=== PATIENT | female | born 1970 | race Caucasian/White ===

== ENCOUNTER 2020-09-07 21:42 | Inpatient (IN) | payer OTHER, SELFPAY ==
--- NOTE | ~2020-09-07 | XR_ITS ---
XR chest 1V portable 09/19/2020 06:07 Indication: Acute respiratory failure. Pneumonia. Procedure: AP portable chest Comparison: Comparison to multiple prior studies sequentially, with oldest reviewed study dated 08/27. Findings: Endotracheal tube tip 3.1 cm above the benjamin. NG tube in the stomach. Persistent diffuse b ilateral airspace disease. Possible small effusions. No pneumothorax. No acute osseous abnormality. Impression: 1: Persistent diffuse bilateral airspace disease, compatible with pneumonia. Reviewed, dictated and finalized at location A. ENT INSPECTOR Impression: 1: Persistent diffuse bilateral airspace disease, compatible with pneumonia.
--- NOTE | ~2020-09-07 | CT_ITS ---
EXAMINATION: CT brain wo con EXAM DATE: 09/15/2020 12:57 INDICATION: Encephalopathy. TECHNIQUE: Spiral CT of the head was performed without contrast. Axial, coronal and sagittal images were reviewed. The dose-length product (DLP) for this examination was 681.00 mGy-cm. The exposure w as tailored according to patient size, and iterative reconstruction (ASIR) was used as additional dos e reduction technique. Comparison is made to prior examination from 02/27/2019. FINDINGS: There is no acute intraparenchymal hemorrhage. No evidence of intraparenchymal brain mass lesion. No evidence of acute infarction. Please note that initial head CT has limited sensitivity f or small or acute infarctions. There is moderate periventricular and subcortical hypodensity, nonspec ific but probably related to small vessel ischemic disease. This appears slightly progressed compare d to prior study. There is intracranial carotid arteriosclerosis. There are no extra-axial collectio ns. There is no mass effect or midline shift. Patient has had bilateral ocular lens surgery. Soft tissue is unremarkable. The visualized sinuses and mastoid air cells are well aerated. Fluid in th e dependent portion of the nasopharynx, in this patient who is intubated. IMPRESSION: 1. No acute intracranial findings. 2. 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 Reviewed, dictated and finalized at location A. IFIED NURSING ASSISTANT IMPRESSION: 1. No acute intracranial findings. 2. White matter hypodensity most likely microangiopathy, with mild progression compared to prior study.
--- NOTE | ~2020-09-07 | XR_ITS ---
EXAMINATION: XR chest PICC line INDICATION: PICC insertion TECHNIQUE: Portable AP chest at 1343 hours COMPARISON: 1259 hours FINDINGS: A right upper extremity PICC has been inserted which ends with its tip in the distal superi or vena cava. The endotracheal tube ends approximately 1 cm above the benjamin. There is no pleural eff usion or pneumothorax. The nasogastric tube is followed as far as the stomach. Its tip is beyond the inferior margin of the radiograph. The cardiomediastinal silhouette is stable. Diffuse lung disease p ersists with slight improvement in the upper lung zones. IMPRESSION: 1. Right upper PICC ending with its tip in the distal superior vena cava. 2. Diffuse lung disease with slight improvement in the upper lung zones, consistent with pneumonia an d/or pulmonary edema and/or acute respiratory distress syndrome (ARDS). Reviewed, dictated and finalized at location A. READING TEACHER IMPRESSION: 1. Right upper PICC ending with its tip in the distal superior vena cava. 2. Diffuse lung disease with slight improvement in the upper lung zones, consis tent with pneumonia and/or pulmonary edema and/or acute respiratory distress sy ndrome (ARDS).
--- NOTE | ~2020-09-07 | XR_ITS ---
EXAMINATION: XR chest 1V portable DATE: 09/11/2020 06:00 INDICATION: Asthma exacerbation. Acute respiratory failure. TECHNIQUE: A single frontal view of the chest was obtained. COMPARISON: Chest single view 09/10/2020 FINDINGS: The lung volumes are small. There are airspace opacities in all lung zones bilaterally. No pleural effusion or pneumothorax. Cardiomegaly is noted. The endotracheal tube tip is 1.6 cm above th e benjamin. The nasogastric tube tip is in the distal stomach. Surgical clips in the right upper quadra nt are likely from cholecystectomy. A right upper extremity peripherally inserted central venous cath eter (PICC) is seen with tip in the right atrium. IMPRESSION: 1. Diffuse lung disease with worsening on the right, consistent with pulmonary edema versus pneumonia . 2. Cardiomegaly. Reviewed, dictated and finalized at location A. RECEPTIONIST IMPRESSION: 1. Diffuse lung disease with worsening on the right, consistent with pulmonary edema versus pneumonia. 2. Cardiomegaly.
--- NOTE | ~2020-09-07 | XR_ITS ---
XR chest 1V portable 09/17/2020 02:45 Indication: Acute respiratory failure. Pneumonia. Procedure: AP portable chest Comparison: Comparison to multiple prior studies sequentially, with oldest reviewed study dated 08/26. Findings: NG tube in the stomach. Endotracheal tube tip 4 cm above the benjamin. Bilateral airspace dis ease, compatible with pneumonia. Small left pleural effusion. No pneumothorax. No acute osseous abnor mality. Impression: 1: No significant change to bilateral airspace disease, compatible with pneumonia. 2: Small left pleural effusion. Reviewed, dictated and finalized at location A. DEVELOPMENT ENGINEER Impression: 1: No significant change to bilateral airspace disease, compatible with pneumon ia. 2: Small left pleural effusion.
--- NOTE | ~2020-09-07 | XR_ITS ---
EXAMINATION: XR chest 1V portable EXAM DATE: 09/16/2020 05:45 INDICATION: Acute respiratory failure, pneumonia TECHNIQUE: Portable AP frontal chest x-ray was obtained. Comparison is made to prior examination from 09/16, 09/15. FINDINGS: Endotracheal tube tip is 3 centimeters above the benjamin (ideal range is between 2 to 5 cm). Nasogastric tube is in position. There is a right-sided PICC line with tip projecting over the cavoa trial junction. There is mild cardiomegaly. Pulmonary vascular congestion. Probable small to moderate pleural effusio ns and adjacent atelectasis. Superimposed atelectasis and edema or pneumonia also likely. There is n o pneumothorax suspected. The bones and soft tissues are unremarkable. There are cholecystectomy cl ips. Compared to prior study, there has been interval improvement in the heart size, pulmonary vascular co ngestion and pleural effusions. IMPRESSION: 1. Line(s) and tube(s) in position. 2. Improving congestive changes. 3. Bibasilar atelectasis and probably pneumonia. Reviewed, dictated and finalized at location A. TRIC METER INSTALLER
--- NOTE | ~2020-09-07 | XR_ITS ---
EXAMINATION: XR fl Dobhoff insert/rad w img DATE: 09/24/2020 15:09 INDICATION: Dysphagia. TECHNIQUE: I placed a nasoenteric tube under fluoroscopic guidance. One image was obtained. Fluorosco py exposure time was 0.7 minutes. COMPARISON: None. FINDINGS: The nasoenteric tube tip is in the proximal duodenum. Surgical clips in the right upper paulina drant are likely from cholecystectomy. IMPRESSION: 1. Nasoenteric tube tip in the proximal duodenum. Reviewed, dictated and finalized at location A. ITY TESTER
--- NOTE | ~2020-09-07 | XR_ITS ---
EXAMINATION: XR barium swallow modified EXAM DATE: 09/27/2020 09:59 INDICATION: Dysphagia. TECHNIQUE: Modified barium esophagram was performed by myself to administered fluoroscopy, in conjun ction with speech pathologist who administered barium in varying consistencies as per speech patholog ist documentation. This was recorded on tape. The DAP for this procedure was 1.3 Gycm2. FINDINGS: Oral stage: Adequate function. Pharyngeal phase: Adequate function. Laryngeal penetration: Trace with thin liquids, ejected. Aspiration: None. Laryngeal sensitivity: Present. IMPRESSION: Patient tolerated oral feedings in the upright position. Please refer to speech patholo gist findings and specific feeding recommendations. Reviewed, dictated and finalized at location A. S ROOM SUPERVISOR IMPRESSION: Patient tolerated oral feedings in the upright position. Please r efer to speech pathologist findings and specific feeding recommendations.
--- NOTE | ~2020-09-07 | CT_ITS ---
EXAMINATION: CT brain wo con DATE: 09/19/2020 11:39 INDICATION: Encephalopathy. TECHNIQUE: Computed tomography (CT) of the head was performed without intravenous contrast. The mA wa s adjusted according to patient size. Iterative reconstruction technique was employed. The dose-lengt h product was 681.00 mGy-cm. COMPARISON: Head CT 09/15/2020 FINDINGS: There are scattered areas of low attenuation in the cerebral white matter. There is no intr acranial hemorrhage, acute infarction, or abnormal intracranial mass lesion. The ventricles are martha l in size. There is mild mucosal thickening in the paranasal sinuses. There is fluid in the sphenoid sinus and nasopharynx. There is a right mastoid effusion. There is a left otomastoid effusion. There are likely changes of ocular lens replacement surgeries. IMPRESSION: 1. Stable moderate nonspecific cerebral white matter disease, which likely represents chronic small v essel ischemic disease. Reviewed, dictated and finalized at location A. HOBBER SET UP OPERATOR IMPRESSION: 1. Stable moderate nonspecific cerebral white matter disease, which likely repr esents chronic small vessel ischemic disease.
--- NOTE | ~2020-09-07 | CT_ITS ---
EXAMINATION: CTA chest PE protocol DATE: 09/07/2020 23:57 INDICATION: Chest pain TECHNIQUE: Computed tomography angiography (CTA) of the chest was performed with 100 mL Omnipaque-350 intravenous contrast timed to evaluate the pulmonary arteries. Coronal maximum intensity projection 3D-reconstructions were created by the technologist. Automated exposure control and iterative reconst ruction technique were employed. Exam dose: 700.81 mGy-cm total exam DLP. COMPARISON: 02/27/2019 CT pulmonary scan FINDINGS: Cardiomegaly. No pericardial or pleural effusion. No thoracic aortic aneurysm or dissection. No hilar or mediastinal mass lesion or lymphadenopathy. There is diagnostic contrast enhancement of the pulmonary arteries and no evidence of pulmonary embol ism. There is atelectasis involving the middle lobe, lingula and both lower lobes.. Small sliding hiatal hernia. Status post cholecystectomy. Normal morphology of the adrenal glands. Small bilateral nonobstructing renal calculi. Diffuse osteopenia. There are numerous compression fracture deformities of the thoracic spine. IMPRESSION: Middle lobe, lingular and bilateral lower lobe atelectasis No evidence of pulmonary embolism Cardiomegaly. Small sliding hiatal hernia Status post cholecystectomy Small nonobstructing renal calculi Reviewed, dictated and finalized at Location A. Reviewed, dictated and finalized at location A. NING CLERK
--- NOTE | ~2020-09-07 | XR_ITS ---
EXAMINATION: XR chest 1V portable EXAM DATE: 09/24/2020 06:01 INDICATION: acute resp failure . TECHNIQUE: Portable AP frontal chest x-ray was obtained. Comparison is made to prior examination from 09/23/2020. FINDINGS: There is a right-sided PICC line with tip projecting over the cavoatrial junction. Some patchy bibasilar atelectasis or infection. Possible small right pleural effusion. No pneumothora x. Cardiac silhouette is enlarged but stable in size compared to prior exam. There are mild bony dege nerative changes. There are cholecystectomy clips. IMPRESSION: Patchy bibasilar atelectasis or infection unchanged. Reviewed, dictated and finalized at location A. GER AUDIO
--- NOTE | ~2020-09-07 | XR_ITS ---
EXAMINATION: XR chest 1V portable DATE: 09/10/2020 06:23 INDICATION: Respiratory failure. Asthma. COVID-19 negative on 09/09/2020. TECHNIQUE: A single frontal view of the chest was obtained. COMPARISON: Chest single view 09/09/2020, chest CT 09/07/2020 FINDINGS: Sensitivity is decreased by obesity. There are airspace opacities in right lower lung zone and in all the left lung zones. No pleural effusion or pneumothorax. Cardiomegaly is noted. The endot laura tube tip is 1.2 cm above the benjamin. The nasogastric tube tip is in the distal stomach. Surgi richard clips in the right upper quadrant are likely from cholecystectomy. A right upper extremity periph erally inserted central venous catheter (PICC) is seen with tip in the right atrium. IMPRESSION: 1. Airspace opacities in right lower lung zone and in all the left lung zones with worsening on the l eft, consistent with pneumonia. 2. Cardiomegaly. Reviewed, dictated and finalized at location A. IC POLICY MEDIATOR IMPRESSION: 1. Airspace opacities in right lower lung zone and in all the left lung zones w ith worsening on the left, consistent with pneumonia. 2. Cardiomegaly.
--- NOTE | ~2020-09-07 | XR_ITS ---
XR chest 1V portable DATE: 09/23/2020 06:03 INDICATION: Acute respiratory failure TECHNIQUE: Portable AP chest on 09/23/2020 at 0558 hours COMPARISON: 09/22/2020 portable AP chest at 0610 hours FINDINGS: Right upper extremity PIC catheter tip overlies the superior vena cava. Infiltrate and/atelectasis in the lower lung zones bilaterally, relatively stable since 09/14/2020. Heart size appears within normal range. No pneumothorax. Status post cholecystectomy Diffuse osteopenia. Multiple compression fracture deformities thoracic spine. IMPRESSION: Relatively stable infiltrate and/atelectasis in the lower lung zones since 09/22/2020 Reviewed, dictated and finalized at location A. AND FRAME MECHANIC IMPRESSION: Relatively stable infiltrate and/atelectasis in the lower lung zone s since 09/22/2020
--- NOTE | ~2020-09-07 | XR_ITS ---
EXAMINATION: XR chest 1V portable DATE: 09/13/2020 05:43 INDICATION: Asthma exacerbation. TECHNIQUE: A single frontal view of the chest was obtained. COMPARISON: Chest single view 09/12/2020 FINDINGS: There are airspace opacities in all right lung zones and in left mid and lower lung zones w ith a basilar predominance. No pleural effusion or pneumothorax. Cardiomegaly is noted. The endotrach eal tube tip is 3.2 cm above the benjamin. The nasogastric tube tip is in the distal stomach. A right u pper extremity peripherally inserted central venous catheter (PICC) is seen with tip at superior cavo atrial junction. Surgical clips in the right upper quadrant are likely from cholecystectomy. IMPRESSION: 1. Stable diffuse lung disease with a basilar predominance, consistent with atelectasis and pulmonary edema versus pneumonia. 2. Cardiomegaly. Reviewed, dictated and finalized at location A. OECONOMICS PROFESSOR IMPRESSION: 1. Stable diffuse lung disease with a basilar predominance, consistent with ate lectasis and pulmonary edema versus pneumonia. 2. Cardiomegaly.
--- NOTE | ~2020-09-07 | XR_ITS ---
EXAMINATION: XR chest 1V portable EXAM DATE: 09/26/2020 05:42 INDICATION: Acute respiratory failure. TECHNIQUE: Portable AP frontal chest x-ray was obtained. Comparison is made to prior examination from 09/25/2020. FINDINGS: Dobhoff tube with tip overlying expected position of duodenal bulb. There is a right-sided PICC line with tip projecting over the cavoatrial junction. Scattered patchy bibasilar atelectasis and/or infection. Possible small right pleural effusion. No pn eumothorax. Cardiac silhouette is enlarged but stable in size compared to prior exam. There are mild bony degenerative changes. There are cholecystectomy clips. IMPRESSION: Patchy bibasilar atelectasis and/or infection unchanged. Reviewed, dictated and finalized at location A. H LAYER
--- NOTE | ~2020-09-07 | XR_ITS ---
XR chest 1V portable DATE: 09/20/2020 06:44 INDICATION: Acute respiratory failure, pneumonia TECHNIQUE: Portable AP chest on 09/20/2020 at 0633 hours COMPARISON: 09/19/2020 portable AP chest at 0602 hours 09/19/2020 CT chest FINDINGS: There are bilateral lower lung infiltrates and/atelectasis involving the lower lobes. These appear mildly improved since 09/19/2020. Cardiomegaly. ET tube in satisfactory position. NG tube tip in distal stomach. Right upper extremity PIC catheter tip near superior cavoatrial junction. Status post cholecystectomy. IMPRESSION: Bilateral predominantly lower lobe infiltrate and/atelectasis, appearing mildly improved since 09/19/2020 Reviewed, dictated and finalized at location A. S AND CRANES INSPECTOR IMPRESSION: Bilateral predominantly lower lobe infiltrate and/atelectasis, appe vega mildly improved since 09/19/2020
--- NOTE | ~2020-09-07 | XR_ITS ---
EXAMINATION: XR chest 1V portable DATE: 09/14/2020 06:17 INDICATION: Asthma exacerbation. Acute respiratory failure. TECHNIQUE: A single frontal view of the chest was obtained. COMPARISON: Chest single view 09/13/2020 FINDINGS: The lung volumes are small. There are airspace opacities in the mid and lower lung zones wi th a basilar predominance. No pleural effusion or pneumothorax. Cardiomegaly is noted. The endotrache al tube tip is 3.1 cm above the benjamin. The nasogastric tube tip is beyond the inferior margin of the radiograph, but at least to the stomach. A right upper extremity peripherally inserted central venou s catheter (PICC) is seen with tip at the superior cavoatrial junction. IMPRESSION: 1. Airspace opacities in the mid and lower lung zones with improvement on the right, consistent with atelectasis versus pneumonia. 2. Cardiomegaly. Reviewed, dictated and finalized at location A. OMER DEVELOPMENT MANAGER IMPRESSION: 1. Airspace opacities in the mid and lower lung zones with improvement on the r ight, consistent with atelectasis versus pneumonia. 2. Cardiomegaly.
--- NOTE | ~2020-09-07 | XR_ITS ---
EXAMINATION: XR chest ET placement INDICATION: Respiratory failure TECHNIQUE: Portable AP chest at 1219 hours COMPARISON: 09/08/2020 FINDINGS: An endotracheal tube has been inserted which ends with its tip at the origin of the right m ainstem bronchus. A nasogastric tube has been inserted which ends in the stomach. There are patchy op acities of the mid and lower lung zones, left greater than right. No pleural effusion or pneumothorax is identified. The cardiomediastinal silhouette is stable. IMPRESSION: 1. Endotracheal tube at the origin of the right mainstem bronchus. Recommend repositioning. These fin dings and recommendations were discussed with IMU at 1235 hours on 09/09/2020. 2. Nasogastric tube in the stomach. 3. Patchy opacities of the mid and lower lung zones, consistent with atelectasis versus pneumonia. Reviewed, dictated and finalized at location A. SHOP KEEPER IMPRESSION: 1. Endotracheal tube at the origin of the right mainstem bronchus. Recommend re positioning. These findings and recommendations were discussed with IMU at 1235 hours on 09/09/2020. 2. Nasogastric tube in the stomach. 3. Patchy opacities of the mid and lower lung zones, consistent with atelectasi s versus pneumonia.
--- NOTE | ~2020-09-07 | XR_ITS ---
XR chest 1V portable 09/18/2020 06:05 Indication: Pneumonia. Respiratory failure. Procedure: AP portable chest Comparison: Comparison to multiple prior studies sequentially, with oldest reviewed study dated 08/27. Findings: Endotracheal tube tip 1.7 cm above the benjamin. NG tube in the stomach. Low lung volumes. Pe rsistent diffuse bilateral airspace disease. No pneumothorax. No acute osseous abnormality. Cardiomeg wally. Right subclavian PICC line tip in the SVC. Impression: 1: No significant change to bilateral airspace disease, compatible with pneumonia. Reviewed, dictated and finalized at location A. RAL CONTRACTOR Impression: 1: No significant change to bilateral airspace disease, compatible with pneumon ia.
--- NOTE | ~2020-09-07 | XR_ITS ---
EXAMINATION: XR chest ET placement INDICATION: Repositioned endotracheal tube TECHNIQUE: Portable AP chest at 1259 hours COMPARISON: 1219 hours FINDINGS: The repositioned endotracheal tube ends approximately 1 cm above the benjamin. The nasogastri c tube is in the stomach. Diffuse lung disease is unchanged. The cardiomediastinal silhouette is stab le. There is no pleural effusion or pneumothorax. IMPRESSION: 1. Repositioned endotracheal tube ending approximately 1 cm above the benjamin. Otherwise no change. Reviewed, dictated and finalized at location A. SEALER IMPRESSION: 1. Repositioned endotracheal tube ending approximately 1 cm above the benjamin. O therwise no change.
--- NOTE | ~2020-09-07 | XR_ITS ---
XR chest 1V portable DATE: 09/22/2020 06:21 INDICATION: Acute respiratory failure TECHNIQUE: Portable AP chest on 09/22/2020 at 0610 hours COMPARISON: Portable AP chest on 09/20/2020 at 0633 hours FINDINGS: Right upper extremity PIC catheter tip overlies superior vena cava. ET and NG tubes have be en removed since 09/20/2020. Relatively low lung volumes with prominent atelectasis and/or consolidation at the lung bases. Cardiomegaly. No pneumothorax. Surgical clips, right upper quadrant, consistent with cholecystectomy. Prominent diffuse osteopenia. There is levoscoliosis of the thoracolumbar spine and evidence of multi ple vertebral fracture deformities IMPRESSION: Removal of ET and NG tubes since 09/20/2020 Prominent bibasilar atelectasis and/or consolidation, increased since 09/20/2020 Cardiomegaly Reviewed, dictated and finalized at location A. NE SPECIALIST IMPRESSION: Removal of ET and NG tubes since 09/20/2020 Prominent bibasilar atelectasis and/or consolidation, increased since 0 Cardiomegaly
--- NOTE | ~2020-09-07 | XR_ITS ---
EXAMINATION: XR chest 1V portable EXAM DATE: 09/08/2020 16:47 INDICATION: SOB, covid PUI . TECHNIQUE: Portable AP frontal chest x-ray was obtained. Comparison is made to prior examination from 02/27/2019. FINDINGS: Again there are scattered linear opacities consistent with atelectasis. Appearance is not s ignificantly changed compared to prior study. No pneumothorax or pleural effusion. The cardiomediasti nal silhouette is prominent but magnified on this AP technique. There are cholecystectomy clips. Ther e are mild bony degenerative changes. IMPRESSION: Scattered linear opacities, subsegmental atelectasis. Reviewed, dictated and finalized at location A. ATIONS RESEARCH MANAGER
--- NOTE | ~2020-09-07 | XR_ITS ---
XR chest 1V portable 09/25/2020 06:21 Indication: Acute respiratory failure Procedure: AP portable chest Comparison: Comparison to multiple prior studies sequentially, with oldest reviewed study dated 08/27. Findings: Feeding tube in the stomach. PICC line tip in the SVC. Stable cardiomediastinal silhouette. Persistent diffuse bilateral airspace disease, not significantly changed. No pneumothorax. No signif icant pleural effusion. Impression: 1: Stable bilateral airspace disease, most confluent in the left lower lung, most likely pneumonia. E olivia less favored. Reviewed, dictated and finalized at location D. T LOADER RESIDENTIAL DRIVER Impression: 1: Stable bilateral airspace disease, most confluent in the left lower lung, mo st likely pneumonia. Edema less favored.
--- NOTE | ~2020-09-07 | XR_ITS ---
EXAMINATION: XR chest 1V portable DATE: 09/12/2020 06:07 INDICATION: Asthma exacerbation. Acute respiratory failure. TECHNIQUE: A single frontal view of the chest was obtained. COMPARISON: Chest single view 09/11/2020 FINDINGS: The patient is rotated to her right. The lung volumes are small. There are airspace opaciti es in all lung zones bilaterally with a lower lung predominance. No pleural effusion or pneumothorax. Cardiomegaly is noted. The endotracheal tube tip is 2.3 cm above the benjamin. The nasogastric tube ti p is in the stomach. A right upper extremity peripherally inserted central venous catheter (PICC) is seen with tip in the right atrium. IMPRESSION: 1. Diffuse lung disease with worsening at the lung bases, consistent with pulmonary edema versus pneu monia. 2. Cardiomegaly. Reviewed, dictated and finalized at location A. CLERK IMPRESSION: 1. Diffuse lung disease with worsening at the lung bases, consistent with pulmo nary edema versus pneumonia. 2. Cardiomegaly.
--- NOTE | ~2020-09-07 | CT_ITS ---
EXAMINATION:CT chest w con DATE: 09/19/2020 11:39 INDICATION: Acute respiratory failure. Abnormal chest radiograph. TECHNIQUE: Computed tomography (CT) of the chest was performed with 75 mL Omnipaque 350 intravenous c ontrast. Automated exposure control and iterative reconstruction technique were employed. The dose-le ngth product (DLP) was 662.09 mGy-cm. COMPARISON: Chest CT 09/07/2020 FINDINGS: The lung volumes are small. There is bilateral atelectasis, worst in the lower lobes. Calci fied right lung nodules are consistent with old granulomatous disease. No pleural effusion. Cardiomeg wally is noted. No pericardial effusion. There is no pulmonary embolus. The endotracheal tube tip is in expected position above the benjamin. The nasogastric tube tip is in the distal stomach. There are lulu nges of cholecystectomy. Mediastinal lipomatosis is noted. There are chronic fractures of most of the vertebral bodies. There is mild thoracic spondylosis. IMPRESSION: 1. Small lung volumes with bilateral atelectasis, worst in the lower lobes. 2. Cardiomegaly. Reviewed, dictated and finalized at location A. HT OPERATIONS SPECIALIST
--- NOTE | ~2020-09-07 | XR_ITS ---
EXAMINATION: XR chest 1V portable EXAM DATE: 09/15/2020 05:48 INDICATION: asthma exacerbation, acute respiratory failure . TECHNIQUE: Portable AP frontal chest x-ray was obtained. Comparison is made to prior examination from 09/14/2020, 09/13. FINDINGS: Endotracheal tube tip is 2-3 centimeters above the benjamin (ideal range is between 2 to 5 cm ). There is a nasogastric tube seen with tip collimated off the study, but below the left hemidiaphr agm. There is a right-sided PICC line with tip projecting over the cavoatrial junction. There is moderate cardiomegaly. Pulmonary vascular congestion. Probable moderate pleural effusions an d adjacent atelectasis. Superimposed edema or pneumonia also likely. There is no pneumothorax suspec len. The bones and soft tissues are unremarkable. There is no significant interval change compared to prior exam. IMPRESSION: 1. Line(s) and tube(s) in position. 2. Stable airspace disease and other findings as above. Reviewed, dictated and finalized at location A. ER INSERTION LOOM FIXER
--- NOTE | ~2020-09-07 | XR_ITS ---
EXAMINATION: XR abdomen NG/feed tube insert INDICATION: Nasogastric tube placement TECHNIQUE: Portable AP KUB-NG at 1220 hours COMPARISON: 10/26/2018 FINDINGS: The nasogastric tube is in the stomach. Airspace opacities are present in the visualized duane ngs. The inserted endotracheal tube ends at the origin of the right mainstem bronchus. This has been communicated to the IMU. A moderate volume of colonic stool is present. IMPRESSION: 1. Nasogastric tube in the stomach. Reviewed, dictated and finalized at location A. EYBALL REFEREE
[2020-09-07 21:46] VITALS: BP 154/132; PULSE 111; RESP 22; TEMP 37; O2SAT 100
--- NOTE | 2020-09-07 21:56 | ECG_ITS ---
Measurements Intervals [place] Rate: 114 P: 24 HI: 153 QRS: -13 QRSD: 102 T: -61 QT: 343 QTc: 472 Interpretive Statements SINUS TACHYCARDIA RSR' IN V1 OR V2, CONSIDER RIGHT VENTRICULAR HYPERTROPHY OR RIGHT VCD BASELINE ARTIFACT- I, II, III, AVR, AVL, AVF, V1-V6 ABNORMAL ECG Electronically Signed On 09-14-2020 9:20:26 [employer] by Orlando Zendejas D.O.
--- NOTE | 2020-09-07 22:03 | ED.SOB ---
HPI - SOB/Dyspnea General Chief Complaint: Shortness of Breath/Dyspnea <Tony Herrera MD - Last Filed: 09/08/20 12:16> Stated Complaint: sob <Tony Herrera MD - Last Filed: 09/08/20 12:16> Time Seen by Provider: 09/07/20 21:58 <Tony Herrera MD - Last Filed: 09/08/20 12:16> History of Present Illness HPI Narrative: 50 yo female w/ h/o asthma present to the ED for SOB and chest pain. She has had sharp chest pain for the past few days. Worse with taking a deep breath and coughing. This is associated with SOB. She has had a cough and reports fever up to 102. She was apparently recently diagnosed with pneumonia and may have been exposed to COVID-19. <Tony Herrera MD - Last Filed: 09/08/20 12:16> Related Data Home Medications: Home Medications Medication Instructions Recorded Confirmed amlodipine 5 mg PO DAILY 09/08/20 09/08/20 atorvastatin 20 mg PO DAILY 09/08/20 09/08/20 clonazepam 0.5 mg PO TID 09/08/20 09/08/20 furosemide 20 mg PO DAILY 09/08/20 09/08/20 gabapentin 800 mg PO TID 09/08/20 09/08/20 levetiracetam 750 mg PO BID 09/08/20 09/08/20 paroxetine HCl 40 mg PO QAM 09/08/20 09/08/20 potassium chloride 10 meq PO BID 09/08/20 09/08/20 trazodone 150 mg PO HS 09/08/20 09/08/20 <Tony Herrera MD - Last Filed: 09/08/20 12:16> Allergies/Adverse Reactions: Allergies Allergy/AdvReac Type Severity Reaction Status Date / Time naproxen Allergy Unknown Verified 11/26/18 08:31 NSAIDS (Non-Steroidal Allergy Unknown Verified 11/26/18 08:31 Anti-Inflamma tramadol Allergy Unknown Verified 11/26/18 08:31 <Tony Herrera MD - Last Filed: 09/08/20 12:16> Review of Systems Review of Systems: All systems reviewed & are unremarkable except as noted in HPI and below <Tony Herrera MD - Last Filed: 09/08/20 12:16> Constitutional: Constitutional: Reports chills and Reports fever(s) <Tony Herrera MD - Last Filed: 09/08/20 12:16> ENT: Reports sore throat <Tony Herrera MD - Last Filed: 09/08/20 12:16> Cardiovascular: Cardiovascular: Reports chest pain <Tony Herrera MD - Last Filed: 09/08/20 12:16> Respiratory: Respiratory: Reports cough, Reports dyspnea and Reports wheezing <Tony Herrera MD - Last Filed: 09/08/20 12:16> Gastrointestinal: Gastrointestinal: Denies abdominal pain <Tony Herrera MD - Last Filed: 09/08/20 12:16> Genitourinary: Genitourinary: Denies hematuria and Denies dysuria <Tony Herrera MD - Last Filed: 09/08/20 12:16> Neurologic: Denies dizziness and Denies weakness <Tony Herrera MD - Last Filed: 09/08/20 12:16> [facility] Past Medical History Medical History: Medical History (Updated 09/08/20 @ 16:34 by Vanna Bob PA-C) Anxiety and depression Asthma History of CHF (congestive heart failure) Hypertension Hypokalemia Seizure disorder <Tony Herrera MD - Last Filed: 09/08/20 12:16> Surgical History Surgical History: Surgical History (Updated 09/08/20 @ 16:28 by Vanna Bob PA-C) History of appendectomy History of cholecystectomy History of hysterectomy <Tony Herrera MD - Last Filed: 09/08/20 12:16> Family History Family History: Family History Father Family history of coronary artery disease Mother Family history of coronary artery disease <Tony Herrera MD - Last Filed: 09/08/20 12:16> Social History Social History: Social History (Updated 09/08/20 @ 16:29 by Vanna Bob PA-C) Social History: lifetime nonsmoker, does not drink alcohol, and does not do drugs. She does not work and stays home. Her , Xavi and her son Mario are her surrogate decision makers. Full code Smoking status: Never smoker Second hand tobacco smoke exposure: Yes Alcohol intake: never Substance use: never Substance use type: does no
[2020-09-07 23:08] LABS: Basophils Percent Auto 0.3 % (0.2-1.2); Eosinophils Absolute Auto 0.1 K/mm3 (0-0.3); Eosinophils Percent Auto 0.8 % (0-4.4); Hematocrit 43.3 % (37.0-47.0); Hemoglobin 14.2 g/dL (12.0-15.0); Immature Granulocyte Absolute 0.03 K/mm3 (0.00-0.031); Immature Granulocyte Percent A 0.5 % (0-0.5); Lymphocytes Absolute Auto 2.56 K/mm3 (0.9-3.2); Lymphocytes Percent Auto 39.1 % (18.3-44.2); Mean Corpuscular HGB Conc 32.8 g/dl (32-36); Mean Corpuscular Hemoglobin 29.1 pg (26-34); Mean Corpuscular Volume 88.7 fl (80-100); Mean Platelet Volume 8.5 fl (7.4-10.4); Monocytes Absolute Auto 0.7 K/mm3 (0.1-0.6); Monocytes Percent Auto 10.1 % (2.6-8.5); Neutrophils Absolute Auto 3.2 K/mm3 (1.3-6.7); Neutrophils Percent Auto 49.2 % (45.5-73.1); Platelet Count Result 343 k/mm3 (150-375); Red Blood Count 4.88 M/mm3 (4.2-5.4); Red Cell Distribution Width 14.6 % (11.5-14.5); White Blood Count 6.6 K/mm3 (4.5-10.0)
[2020-09-07] MEDS: SODIUM CHLORIDE 0.9% IV 1,000 ML 999 ML IV CONT (23:19)
[2020-09-07 23:20] LABS: Anion Gap 10 mmol/L (8-16); Blood Urea Nitrogen 13 mg/dL (7-17); Carbon Dioxide 25 mmol/L (22-30); Chloride 103 mmol/L (98-107); Estimated Glomerular Filt Rate > 60; Glucose 92 mg/dL (65-105); Potassium 3.5 mmol/L (3.4-5.0); Sodium 138 mmol/L (137-145)
[2020-09-08] VITALS (9 sets, daily range): BP systolic 112–145; BP diastolic 63–85; PULSE 83–113; RESP 19–30; TEMP 36.1–36.9; O2SAT 93–100
[2020-09-08 00:21] LABS: Alveolar/Arterial O2 Gradient 147.4 mmHg; Base Excess ABG -3.7 mEq/l (+/-2.0); Fractional Inspired Oxygen 32 %; HCO3 ABG 22.5 mEq/l (22.0-26.0); Oxygen Content ABG 9.6 %vol (16.0-22.0); Oxyhemoglobin 48.7 % THb (90.0-100.0); PCO2 ABG 44.7 mmHg (35.0-45.0); PO2 FiO2 Ratio Arterial Blood 0.89 %; Total Hemoglobin 14.1 g/dL (12.0-18.0); pH ABG 7.319 (7.350-7.450)
[2020-09-08 00:24] LABS: PO2 ABG 28.5 mmHg (80.0-100.0)
[2020-09-08 00:25] LABS: Device NASAL CANNULA; Modified Allen's Test Pass; Oxygen Saturation ABG 48.6 % (95.0-100.0); Site Drawn LEFT RADIAL
[2020-09-08] MEDS: ALBUTEROL SULFATE (*SP) AEROSOL 1 PUFF 8 PUFF INHALATION (02:22)
[2020-09-08] MEDS: methylPREDNISolone SOD SUCC 125 MG VIAL IV PUSH (02:39)
[2020-09-08] MEDS: EPINEPHrine HCL INJ 1 MG/ML AMPUL 0.3 MG IM (02:41)
[2020-09-08 02:42] LABS: Alveolar/Arterial O2 Gradient 111.5 mmHg; Base Excess ABG -4.8 mEq/l (+/-2.0); Carboxyhemoglobin 0.3 % THb (0-2.0); Fractional Inspired Oxygen 32 %; HCO3 ABG 21.3 mEq/l (22.0-26.0); Methemoglobin ABG 0.2 %THb (0-1.5); Oxygen Content ABG 18.5 %vol (16.0-22.0); Oxygen Saturation ABG 91.6 % (95.0-100.0); Oxyhemoglobin 90.9 % THb (90.0-100.0); PCO2 ABG 42.8 mmHg (35.0-45.0); PO2 ABG 66.6 mmHg (80.0-100.0); PO2 FiO2 Ratio Arterial Blood 2.08 %; Reduced Hemoglobin 8.6 %THb (0-5.0); Total Hemoglobin 14.5 g/dL (12.0-18.0); pH ABG 7.314 (7.350-7.450)
[2020-09-08] MEDS: MAGNESIUM SULF 2 GM/WATER 50ML 2 GM/50 ML BAG IVPB ×2 (02:45→17:29)
--- NOTE | 2020-09-08 03:50 | P.HP_ITS ---
H&P: HPI History of Present Illness Date/Time: 09/08/20 03:50 Chief complaint: sob Narrative: Patria Corral is a 50 year old female [facility], [facility] Past Medical History Medical History (Updated 09/07/20 @ 23:36 by Tony Herrera MD) Asthma Family History Family History (Updated 11/26/18 @ 08:30 by DOCTOR UNKNOWN) Father Family history of coronary artery disease Mother Family history of coronary artery disease Social History Social History Smoking status: Never smoker Meds Home Medications and Allergies Allergies Allergy/AdvReac Type Severity Reaction Status Date / Time naproxen Allergy Unknown Verified 11/26/18 08:31 NSAIDS (Non-Steroidal Allergy Unknown Verified 11/26/18 08:31 Anti-Inflamma tramadol Allergy Unknown Verified 11/26/18 08:31 Vital Signs Vital Signs - 24 hr 09/07/20 21:46 09/08/20 02:23 Temperature 98.6 F Pulse Rate 111 H 113 H Respiratory Rate 22 H 23 H Blood Pressure 154/132 H Pulse Oximetry 100 H&P: Results Labs Labs: Short CBC 09/07/20 Range/Units 22:59 WBC 6.6 (4.5-10.0) K/mm3 Hgb 14.2 (12.0-15.0) g/dL Hct 43.3 (37.0-47.0) % Plt Count 343 (150-375) k/mm3 [facility] 09/07/20 22:59 Sodium 138 Potassium 3.5 Chloride 103 Carbon Dioxide 25 BUN 13 Creatinine 0.60 L Glucose 92 Calcium 10.0
[2020-09-08 04:06] LABS: Device NASAL CANNULA; Modified Allen's Test Pass; Site Drawn RIGHT RADIAL
[2020-09-08 05:41] LABS: Lactic Acid Reflex 2.9 mmol/L (0.7-2.1)
[2020-09-08 05:42] LABS: Alanine Aminotransferase 21 U/L (4-35); Albumin Level 4.6 g/dL (3.5-5.1); Alkaline Phosphatase 101 U/L (38-126); Aspartate Amino Transferase 30 U/L (14-36); Bilirubin,Total 0.4 mg/dL (0.2-1.3); Magnesium 2.3 mg/dL (1.6-2.3)
--- NOTE | 2020-09-08 07:36 | PC.NURSE ---
Pt is in pain. I brought her tylenol and she said no do not worry about it.
[2020-09-08 08:19] LABS: Reflex Lactic Acid Yes or No Add Lactic
[2020-09-08 08:58] LABS: Lactic Acid 1.9 mmol/L (0.7-2.1)
--- NOTE | 2020-09-08 09:32 | PC.NURSE ---
This patient, Patria Corral, was admitted to 3 Med Surg Room 329-01. Patient/family oriented to hospital policies and general routines including ID bracelet, bed and alarms, visiting hours, pain management, procedures, bathroom and other care routines, personal items, smoking policy, room service/diet, and visiting hours. Information on how to activate the Rapid Response Team has been discussed. Patient/Family are encouraged to report perceived risks to care and to ask questions if they do not understand what they are told or what they should do.
[2020-09-08] MEDS: ACETAMINOPHEN 325 MG TABLET 650 MG PO ×2 (10:12→19:53)
[2020-09-08] MEDS: SODIUM CHLORIDE 0.9% IV 1,000 ML 125 ML IV CONT (10:12)
[2020-09-08] MEDS: ENOXAPARIN 40 MG/0.4 ML SYRINGE SUB-Q (10:13)
[2020-09-08] MEDS: clonazePAM (*CRX) 0.5 MG TABLET PO ×2 (12:08→20:29)
[2020-09-08] MEDS: GABAPENTIN 400 MG CAPSULE 800 MG PO ×2 (12:08→17:30)
[2020-09-08] MEDS: PARoxetine 20 MG TABLET 40 MG PO (12:08)
[2020-09-08] MEDS: amLODIPine BESYLATE 5 MG TABLET PO (12:08)
[2020-09-08] MEDS: FUROSEMIDE 20 MG TABLET PO (12:09)
[2020-09-08] MEDS: POTASSIUM CHLORIDE 10 MEQ TABLET.ER PO ×2 (12:09→17:30)
[2020-09-08] MEDS: levETIRAcetam 250 MG TABLET 750 MG PO ×2 (12:09→20:29)
[2020-09-08] MEDS: ATORVASTATIN 20 MG TABLET PO (12:09)
[2020-09-08] MEDS: methylPREDNISolone SOD SUCC 125 MG VIAL 60 MG IV PUSH ×3 (12:10→23:40)
[2020-09-08] MEDS: ALBUTEROL SULFATE NEB 2.5 MG/0.5 ML INH 5 MG INHALATION (14:17)
--- NOTE | 2020-09-08 16:21 | PM.IMHP ---
H&P: HPI History of Present Illness Date/Time: 09/08/20 16:21 Chief complaint: Asthma crisis Narrative: Patria Corral is a 50 year old female With a past medical history of asthma, hypertension and seizures who presented emergency room for shortness of breath with cough. The patient states that last Thursday she started coughing up sputum and by Thursday she was having fevers up to 103 and was feeling short of breath at rest and with activity. She has nebulizers at home that she was taking which did not help. She is unable to lie flat but chronically cannot lay flat. Her last fever was yesterday. She states her and niece were exposed to the same person who has COVID-19 and the has a cough and awaiting his test results but the niece is positive. She denies nausea, vomiting, diarrhea, chest pain or dysuria. 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 Her last asthma exacerbation which needed hospitalization was in 2019. The patient takes clonazepam but there are reports that she takes more than prescribed. She usually walks with a walker and does not typically have falls. Of note, she did fall before coming into the hospital when she felt short of breath. She hit her chin. She denies change in vision, numbness, tingling, gait changes, or problems with speech since then. patient does not smoke nor has she ever. She is not around secondhand smoke currently but grew up with it. patient states that she sees [facility] [place] every week for her left foot wound Review of Systems Review of Systems: All systems reviewed & are unremarkable except as noted in HPI and below PMFSH Past Medical History Medical History (Updated 09/08/20 @ 16:34 by Vanna Bob PA-C) Anxiety and depression Asthma History of CHF (congestive heart failure) Hypertension Hypokalemia Seizure disorder Surgical History Surgical History (Updated 09/08/20 @ 16:28 by Vanna Bob PA-C) History of appendectomy History of cholecystectomy History of hysterectomy Family History Family History Father Family history of coronary artery disease Mother Family history of coronary artery disease Social History Social History (Updated 09/08/20 @ 16:29 by Vanna Bob PA-C) Social History: lifetime nonsmoker, does not drink alcohol, and does not do drugs. She does not work and stays home. Her , Xavi and her son Mario are her surrogate decision makers. Full code Smoking status: Never smoker Second hand tobacco smoke exposure: Yes Alcohol intake: never Substance use: never Substance use type: does not use Gender identity (if verbalized by the patient): Female Spiritual care concerns: No Meds Home Medications and Allergies Home Medications Medication Instructions Recorded Confirmed Type amlodipine 5 mg PO DAILY 09/08/20 09/08/20 History atorvastatin 20 mg PO DAILY 09/08/20 09/08/20 History clonazepam 0.5 mg PO TID 09/08/20 09/08/20 History furosemide 20 mg PO DAILY 09/08/20 09/08/20 History gabapentin 800 mg PO TID 09/08/20 09/08/20 History levetiracetam 750 mg PO BID 09/08/20 09/08/20 History paroxetine HCl 40 mg PO QAM 09/08/20 09/08/20 History potassium chloride 10 meq PO BID 09/08/20 09/08/20 History trazodone 150 mg PO HS 09/08/20 09/08/20 History Allergies Allergy/AdvReac Type Severity Reaction Status Date / Time naproxen Allergy Unknown Verified 11/26/18 08:31 NSAIDS (Non-Steroidal Allergy Unknown Verified 11/26/18 08:31 Anti-Inflamma tramadol Allergy Unknown Verified 11/26/18 08:31 Vital Signs Vital Signs - 24 hr 09/07/20 21:46 09/08/20 02:23 09/08/20 06:14 Temperature 98.6 F 98.2 F Pulse Rate 111 H 113 H 109 H Respiratory Rate 22 H 23 H 19 Blood Pressure 154/132 H 112/63 Pulse Oximetry 100 100 09/08/20 08:00 09/08/20 14:18 09/08/20 14:26 Temperature 97.9 F Pulse Rate 11
[2020-09-08 17:05] LABS: Alveolar/Arterial O2 Gradient 113.1 mmHg; Base Excess ABG -1.8 mEq/l (+/-2.0); Carboxyhemoglobin 0.3 % THb (0-2.0); Fractional Inspired Oxygen 32 %; HCO3 ABG 22.3 mEq/l (22.0-26.0); Methemoglobin ABG 0.2 %THb (0-1.5); Oxygen Content ABG 18.1 %vol (16.0-22.0); PCO2 ABG 35.8 mmHg (35.0-45.0); PO2 ABG 73.2 mmHg (80.0-100.0); PO2 FiO2 Ratio Arterial Blood 2.29 %; Reduced Hemoglobin 5.5 %THb (0-5.0); Total Hemoglobin 13.7 g/dL (12.0-18.0); pH ABG 7.412 (7.350-7.450)
[2020-09-08 17:06] LABS: Device NASAL CANNULA; Modified Allen's Test Pass; Site Drawn RIGHT RADIAL
[2020-09-08] MEDS: MORPHINE SULFATE (*CRX) 2 MG/ML INJ 1 MG IV PUSH (17:28)
[2020-09-08] MEDS: AZITHROMYCIN 250 MG TABLET 500 MG PO (17:29)
[2020-09-08] MEDS: traZODone HCL 50 MG TABLET 150 MG PO (20:29)
[2020-09-08] MEDS: LEVALBUTEROL HFA (*SP) 15 GM INHALER 2 PUFF INHALATION (22:15)
[2020-09-09] VITALS (40 sets, daily range): BP systolic 104–175; BP diastolic 68–88; PULSE 50–168; RESP 10–38; TEMP 35.9–36.8; O2SAT 95–100
[2020-09-09] MEDS: MORPHINE SULFATE (*CRX) 2 MG/ML INJ 1 MG IV PUSH ×2 (00:35→06:35)
[2020-09-09 01:49] LABS: SARS-CoV-2 RNA PCR Negative
[2020-09-09] MEDS: clonazePAM (*CRX) 0.5 MG TABLET PO (03:48)
[2020-09-09] MEDS: methylPREDNISolone SOD SUCC 125 MG VIAL 60 MG IV PUSH ×3 (05:31→23:20)
[2020-09-09 06:41] LABS: Hematocrit 37.3 % (37.0-47.0); Hemoglobin 12.4 g/dL (12.0-15.0); Mean Corpuscular HGB Conc 33.2 g/dl (32-36); Mean Corpuscular Hemoglobin 30.2 pg (26-34); Mean Platelet Volume 8.6 fl (7.4-10.4); Platelet Count Result 273 k/mm3 (150-375); Red Cell Distribution Width 15.2 % (11.5-14.5); White Blood Count 11.6 K/mm3 (4.5-10.0)
[2020-09-09 06:58] LABS: Anion Gap 13 mmol/L (8-16); Blood Urea Nitrogen 11 mg/dL (7-17); Calcium 8.8 mg/dL (8.4-10.2); Carbon Dioxide 24 mmol/L (22-30); Chloride 102 mmol/L (98-107); Estimated Glomerular Filt Rate > 60; Glucose 126 mg/dL (65-105); Potassium 3.7 mmol/L (3.4-5.0); Sodium 139 mmol/L (137-145)
[2020-09-09] MEDS: LEVALBUTEROL HFA (*SP) 15 GM INHALER 2 PUFF INHALATION (08:57)
[2020-09-09] MEDS: MORPHINE SULFATE (*CRX) 4 MG/ML INJ IM (10:23)
--- NOTE | 2020-09-09 10:44 | ECG_ITS ---
Measurements Intervals [place] Rate: 150 P: 25 PA: 120 QRS: -1 QRSD: 78 T: 48 QT: 323 QTc: 511 Interpretive Statements SINUS TACHYCARDIA, POSSIBLE ATRIAL FLUTTER VOLTAGE CRITERIA FOR LVH BASELINE ARTIFACT- I, II, III, AVR, AVL, AVF, V1-V6 ABNORMAL ECG Electronically Signed On 09-09-2020 17:50:26 PIPING DESIGNER by Orlando Zendejas D.O.
[2020-09-09] MEDS: IPRATROPIUM BR 0.02% INH SOLN 0.5 MG/2.5 ML VIAL INHALATION ×4 (10:50→23:26)
[2020-09-09] MEDS: ALBUTEROL SULFATE NEB 2.5 MG/3 ML INH INHALATION ×4 (10:50→23:28)
[2020-09-09 10:58] LABS: Alveolar/Arterial O2 Gradient 90.3 mmHg; Base Excess ABG -3.9 mEq/l (+/-2.0); Device NASAL CANNULA; Fractional Inspired Oxygen 36 %; HCO3 ABG 22.9 mEq/l (22.0-26.0); Modified Allen's Test Pass; Oxygen Content ABG 20.4 %vol (16.0-22.0); Oxygen Saturation ABG 97.5 % (95.0-100.0); Oxyhemoglobin 96.9 % THb (90.0-100.0); PCO2 ABG 48.3 mmHg (35.0-45.0); PO2 ABG 110.4 mmHg (80.0-100.0); PO2 FiO2 Ratio Arterial Blood 3.07 %; Site Drawn RIGHT RADIAL; Total Hemoglobin 14.9 g/dL (12.0-18.0); pH ABG 7.294 (7.350-7.450)
[2020-09-09] MEDS: LORazepam INJ (*CRX) 2 MG/ML VIAL 1 MG IV PUSH (10:59)
[2020-09-09] MEDS: methylPREDNISolone SOD SUCC 125 MG VIAL IV PUSH (11:00)
[2020-09-09] MEDS: MAGNESIUM SULFATE 1 GM/2 ML VIAL 2 GM IV PUSH (11:10)
[2020-09-09] MEDS: SODIUM CHLORIDE 0.9% IV 1,000 ML 999 ML IV CONT (11:15)
[2020-09-09] MEDS: IPRATROPIUM BR 0.02% INH SOLN 0.5 MG/2.5 ML VIAL 1 MG INHALATION (11:25)
[2020-09-09] MEDS: LEVALBUTEROL NEB 1.25 MG/3 ML 3.75 MG INHALATION (11:25)
--- NOTE | 2020-09-09 11:25 | PC.NURSE ---
This patient, Patria Corral, was received from [facility] on 09/09/20 at 1125. Patient oriented to unit policies and routines. Report received from JOANNA Parikh.
--- NOTE | 2020-09-09 12:06 | WPDPROCEDUR ---
Procedures Intubation Intubation Date: 09/09/20 Intubation Time: 11:14 Consent: Verbal consent was obtained from the patient. She was in respiratory distress and consented for intubation and placement on mechanical ventilation. A pre-procedural Time-Out was completed immediately before starting the procedure and confirmed: Patient Identification, Site, Procedure, Patient Position and the Availability of Requisite Equipment: Yes Sedative: etomidate Mg given: 20 Paralytic: rocuronium Mg given: 50 Laryngoscope: fiber optic video scope ET tube size: 7.5 Tube secured depth (cm): 25 Tube secured location: lips Tube placement confirmation: visualized tube passing through cords, equal breath sounds bilaterally, no breath sounds over epigastrium and confirmation by capnometry Patient tolerated procedure: well Intubation complications: none
--- NOTE | 2020-09-09 12:17 | WPDCNINT ---
Assessment and Plan Assessment and plan (1) Acute respiratory failure with hypoxia and hypercapnia: Code(s): J96.01 - Acute respiratory failure with hypoxia; J96.02 - Acute respiratory failure with hypercapnia Status: Acute Assessment and Plan: She was intubated on 09/09 for impending acute respiratory failure. She had increased work of breathing and developed acute hypercarbic respiratory failure with history of asthma at her baseline with no evidence of COPD. Considering her asthma and significant bronchospasm, Attempt will be made to prevent any auto peep. Will keep tidal volume to the minimum and will start with 300, peep of 5, respiratory rate of 10. FiO2 will be started with 100% but will be weaned if tolerated. ABG will be performed in 1 hour and will adjust the setting further. Continue to wean FiO2 as tolerated. Continue to monitor ABG and chest x-ray. Continue usual nursing care at the bedside for mechanical ventilated patient. Fentanyl and propofol for sedation. Maintain a RASS score of -1. Daily sedation vacation trials. (2) Asthma with exacerbation: Qualifiers: Asthma persistence: unspecified Asthma severity: unspecified severity Qualified Code(s): J45.901 - Unspecified asthma with (acute) exacerbation Code(s): J45.901 - Unspecified asthma with (acute) exacerbation Status: Acute Assessment and Plan: She has been on steroid already. Will continue steroid at current dose and start tapering the dose depending upon her clinical response. Continue bronchodilator with albuterol nebulization every 6 hours. She was given magnesium already. (3) Hypertension: Code(s): I10 - Essential (primary) hypertension Status: Acute Assessment and Plan: Will hold amlodipine since she is on mechanical ventilation. Continue to monitor hemodynamics closely. (4) Anxiety and depression: Code(s): F41.9 - Anxiety disorder, unspecified; F32.9 - Major depressive disorder, single episode, unspecified Status: Acute Assessment and Plan: She will be on sedatives for now while she is on mechanical ventilation. On continue her paroxetine. I will hold clonazepam And trazodone. (5) COVID-19: Code(s): U07.1 - COVID-19 Status: Acute Assessment and Plan: COVID-19 has been reported as negative. My suspicion is on the higher side especially she has exposure to COVID-19 positive patient already. I will resend COVID-19 swab. Continue contact and droplet precautions. She is on steroid for her asthma exacerbation already which will be continued. (6) Seizure disorder: Code(s): G40.909 - Epilepsy, unspecified, not intractable, without status epilepticus Status: Acute Assessment and Plan: Her Keppra will be continued. Seizure precaution. (7) Vocal cord dysfunction: Code(s): J38.3 - Other diseases of vocal cords Status: Acute Assessment and Plan: There is a question of vocal cord dysfunction syndrome is she was very anxious during the episode and had some stridor. Her wheezing were felt to be coming from upper airway as well. We need to get in touch with her manugrapher to see if she does have any evidence of vocal cord dysfunction. I will check her ventilator and if she does not have any significant elevated peak airway pressure then it will point towards possible vocal cord dysfunction syndrome. In that case, she would need to be seen by ENT and speech service after extubation. Additional Plan DVT prophylaxis with subcu Lovenox GI prophylaxis with IV Pepcid Full code Critical care time spent for more than 45 minutes Due to a high probability of clinically significant, life threatening deterioration, the patient required my highest level of preparedness to intervene emergently and I personally spent this critical
--- NOTE | 2020-09-09 12:26 | PM.IMPN ---
Progress Note: A&P Assessment and Plan (1) Asthma with exacerbation: Qualifiers: Asthma persistence: unspecified Asthma severity: unspecified severity Qualified Code(s): J45.901 - Unspecified asthma with (acute) exacerbation <Vanna Amada NICOLE Bob-C - Last Filed: 09/09/20 13:03> Code(s): J45.901 - Unspecified asthma with (acute) exacerbation <Vanna Amada Paulino PA-C - Last Filed: 09/09/20 13:03> Status: Acute <Vanna Ybarra Paulino PA-C - Last Filed: 09/09/20 13:03> Assessment and Plan: ----- Pt was in severe acute distress and ABG revealed acidosis with hypercapnia. The patient's respiratory rate was elevated due to compensation. Because of the severity of her condition, Dr. Kothari, ICU physician, intubated her. Continue with his recommendations. CTA on admission was negative for infiltrates or PE. Patient has had exposures to COVID-19 but was COVID-19 negative last swab. pulmonology has been consulted. She was given IV mag, Solu-Medrol, and ativan. Continue respiratory recommendations per Dr. Kothari and Dr. Schmidt <Vanna Bob PA-C - Last Filed: 09/09/20 13:03> (2) Signs and symptoms of severe respiratory distress: Code(s): R06.03 - Acute respiratory distress <Vanna Bob PA-C - Last Filed: 09/09/20 13:03> Status: Acute <Vannaliz Bob PA-C - Last Filed: 09/09/20 13:03> Assessment and Plan: -----See above, now intubated. <Vanna Bob PA-C - Last Filed: 09/09/20 13:03> (3) Suspected COVID-19 virus infection: Code(s): Z20.828 - Contact with and (suspected) exposure to other viral communicable diseases <Vanna Bob PA-C - Last Filed: 09/09/20 13:03> Status: Acute <Vannaliz Bob PA-C - Last Filed: 09/09/20 13:03> Assessment and Plan: -----As above, 2nd swab sent. Pt has had exposure <Vanna A. Cadmus, PA-C - Last Filed: 09/09/20 13:03> (4) Hypertension: Code(s): I10 - Essential (primary) hypertension <Vanna ADomi Cadmus, PA-C - Last Filed: 09/09/20 13:03> Status: Acute <Vanna A. Cadmus, PA-C - Last Filed: 09/09/20 13:03> Assessment and Plan: ----- last blood pressure 111/71. Monitor <Vanna A. Jeffmus, PA-C - Last Filed: 09/09/20 13:03> (5) Hypokalemia: Code(s): E87.6 - Hypokalemia <Vanna A. Cadmus, PA-C - Last Filed: 09/09/20 13:03> Status: Acute <Vanna A. Cadmus, PA-C - Last Filed: 09/09/20 13:03> Assessment and Plan: ----- chronic since childhood. Monitor while NPO <Vanna ADomi Aguilarmus, PA-C - Last Filed: 09/09/20 13:03> (6) Anxiety and depression: Code(s): F41.9 - Anxiety disorder, unspecified; F32.9 - Major depressive disorder, single episode, unspecified <Vanna ADomi Aguilarmus, PA-C - Last Filed: 09/09/20 13:03> Status: Acute <Vanna ADomi Cadmus, PA-C - Last Filed: 09/09/20 13:03> Assessment and Plan: ----- chronic, she takes her home clonazepam routinely. Will need to be added back once she is off the vent <Vanna A. Cadmus, PA-C - Last Filed: 09/09/20 13:03> (7) History of CHF (congestive heart failure): Code(s): Z86.79 - Personal history of other diseases of the circulatory system <Vanna A. Cadmus, PA-C - Last Filed: 09/09/20 13:03> Status: Acute <Vanna A. Cadmus, PA-C - Last Filed: 09/09/20 13:03> Assessment and Plan: ----- echo from 2018 shows normal systolic function and grade 2 diastolic dysfunction. Patient appears euvolemic at this time <Vanna Bob PA-C - Last Filed: 09/09/20 13:03> (8) Seizure disorder: Code(s): G40.909 - Epilepsy, unspecified, not intractable, without status epilepticus <Vanna Bob PA-C - Last Filed: 09/09/20 13:03> Status: Acute <Vanna Bob PA-C - Last Filed: 09/09/20 13:03> Assessment and Plan: ----- chr
[2020-09-09] MEDS: FENTANYL 2,500MCG/NS250ML(*CRX 2,500 MCG/250 ML BAG IV CONT (12:29)
[2020-09-09] MEDS: PROPOFOL IV EMULSION 100 ML 2.59 MG IV CONT (12:30)
[2020-09-09 12:42] LABS: Alveolar/Arterial O2 Gradient 506.8 mmHg; Base Excess ABG -3.4 mEq/l (+/-2.0); Carboxyhemoglobin 0.3 % THb (0-2.0); Fractional Inspired Oxygen 100 %; HCO3 ABG 22.8 mEq/l (22.0-26.0); Methemoglobin ABG 0.4 %THb (0-1.5); Oxygen Content ABG 18.9 %vol (16.0-22.0); Oxygen Saturation ABG 98.9 % (95.0-100.0); Oxyhemoglobin 97.8 % THb (90.0-100.0); PCO2 ABG 45.3 mmHg (35.0-45.0); PO2 ABG 160.9 mmHg (80.0-100.0); PO2 FiO2 Ratio Arterial Blood 1.61 %; Reduced Hemoglobin 1.5 %THb (0-5.0); Total Hemoglobin 13.5 g/dL (12.0-18.0)
[2020-09-09 12:44] LABS: Device VENTILATOR; Modified Allen's Test Pass; Site Drawn RIGHT RADIAL
[2020-09-09 12:45] LABS: Arterial Blood Gas PEEP 5 cmH2O; Arterial Blood Gas Tidal Volume 300 ml; Arterial Blood Gas Vent Mode CMV; Arterial Blood Gas Ventilator rate 10 /MIN
--- NOTE | 2020-09-09 13:06 | PM.CNPUL ---
Assessment and Plan Assessment and plan (1) Asthma with exacerbation: Qualifiers: Asthma persistence: unspecified Asthma severity: unspecified severity Qualified Code(s): J45.901 - Unspecified asthma with (acute) exacerbation Code(s): J45.901 - Unspecified asthma with (acute) exacerbation Status: Acute Assessment and Plan: Severe Asthma exacerbation with significant exposure to COVID-19 - repeat SARS CoV-2 RT PCR - resume droplet/contact precautions - Morphine 4 mg IV X 1 - increase Albuterol to 2.5 mg Q4h with first dose now and add Atrovent 0.5 mg Nebs Q4h - continue solumedrol 60 mg IV Q6h History of Present Illness History of Present Illness Consult date: 09/09/20 Chief complaint: Asthma crisis Narrative: 50 y/o female with Asthma, PANCHO, HTN, seizures, anxiety presents yesterday with increased cough, dyspnea, chest tightness and a reported fever or 102 at home. She was exposed to her and Niece who she says both tested positive for SARS-CoV-2. She says her asthma is mostly stable but her symptoms got worse yesterday. When examining her she is very short of breath, anxious, tearful, tachypneic, unable to complete full sentences. She was slightly hypertensive and tachycardic. SARS-CoV-2 RT PCR from yesterday is negative. CT chest showed some atelectasis vs early inflammatory peripheral infiltrates in lower lobes Review of Systems Review of Systems: All systems reviewed & are unremarkable except as noted in HPI and below PMFSH Past Medical History Medical History (Updated 09/09/20 @ 12:39 by Vanna Bob PA-C) Anxiety and depression Asthma History of CHF (congestive heart failure) Hypertension Hypokalemia Seizure disorder Surgical History Surgical History (Updated 09/08/20 @ 16:28 by Vanna Bob PA-C) History of appendectomy History of cholecystectomy History of hysterectomy Family History Family History Father Family history of coronary artery disease Mother Family history of coronary artery disease Social History Social History (Updated 09/08/20 @ 16:29 by Vanna Bob PA-C) Social History: lifetime nonsmoker, does not drink alcohol, and does not do drugs. She does not work and stays home. Her , Xavi and her son Mario are her surrogate decision makers. Full code Smoking status: Never smoker Second hand tobacco smoke exposure: Yes Alcohol intake: never Substance use: never Substance use type: does not use Gender identity (if verbalized by the patient): Female Spiritual care concerns: No Meds Home Medications and Allergies Home Medications Medication Instructions Recorded Confirmed Type amlodipine 5 mg PO DAILY 09/08/20 09/08/20 History atorvastatin 20 mg PO DAILY 09/08/20 09/08/20 History clonazepam 0.5 mg PO TID 09/08/20 09/08/20 History furosemide 20 mg PO DAILY 09/08/20 09/08/20 History gabapentin 800 mg PO TID 09/08/20 09/08/20 History levetiracetam 750 mg PO BID 09/08/20 09/08/20 History paroxetine HCl 40 mg PO QAM 09/08/20 09/08/20 History potassium chloride 10 meq PO BID 09/08/20 09/08/20 History trazodone 150 mg PO HS 09/08/20 09/08/20 History Allergies Allergy/AdvReac Type Severity Reaction Status Date / Time naproxen Allergy Unknown Unknown Verified 09/08/20 20:13 NSAIDS (Non-Steroidal Allergy Unknown Unknown Verified 09/08/20 20:13 Anti-Inflamma tramadol Allergy Unknown Unknown Verified 09/08/20 20:13 Vital Signs Vital Signs - 24 hr 09/08/20 14:18 09/08/20 14:26 09/08/20 16:00 Temperature 36.1 C L Pulse Rate 110 H 110 H 104 H Respiratory Rate 22 H 22 H 22 H Blood Pressure 137/85 Pulse Oximetry 96 09/08/20 22:00 09/08/20 22:49 09/08/20 22:50 Temperature 36.9 C Pulse Rate 98 83 83 Respiratory Rate 20 22 H 20 Blood Pressure 118/72 Pulse Oximetry 94 93 09/09/20 00:00 09/09/20 04:00 09/09/20
[2020-09-09 14:12] LABS: Basophils Percent Auto 0.1 % (0.2-1.2); Hematocrit 35.9 % (37.0-47.0); Hemoglobin 11.6 g/dL (12.0-15.0); Immature Granulocyte Absolute 0.11 K/mm3 (0.00-0.031); Immature Granulocyte Percent A 0.8 % (0-0.5); Lymphocytes Absolute Auto 0.34 K/mm3 (0.9-3.2); Lymphocytes Percent Auto 2.4 % (18.3-44.2); Mean Corpuscular HGB Conc 32.3 g/dl (32-36); Mean Corpuscular Hemoglobin 29.7 pg (26-34); Mean Corpuscular Volume 92.1 fl (80-100); Mean Platelet Volume 8.5 fl (7.4-10.4); Monocytes Absolute Auto 0.8 K/mm3 (0.1-0.6); Monocytes Percent Auto 5.6 % (2.6-8.5); Neutrophils Absolute Auto 12.8 K/mm3 (1.3-6.7); Neutrophils Percent Auto 91.1 % (45.5-73.1); Platelet Count Result 253 k/mm3 (150-375); Red Cell Distribution Width 15.3 % (11.5-14.5)
[2020-09-09 14:25] LABS: Alanine Aminotransferase 19 U/L (4-35); Alkaline Phosphatase 76 U/L (38-126); Anion Gap 8 mmol/L (8-16); Aspartate Amino Transferase 33 U/L (14-36); Bilirubin,Total 0.4 mg/dL (0.2-1.3); Blood Urea Nitrogen 15 mg/dL (7-17); Carbon Dioxide 29 mmol/L (22-30); Chloride 102 mmol/L (98-107); Estimated Glomerular Filt Rate > 60; Glucose 166 mg/dL (65-105); Lactic Acid Reflex 3.1 mmol/L (0.7-2.1); Magnesium 2.5 mg/dL (1.6-2.3); Potassium 3.6 mmol/L (3.4-5.0); Sodium 139 mmol/L (137-145)
[2020-09-09 14:36] LABS: Troponin I 0.031 ng/mL (0.000-0.034)
--- NOTE | 2020-09-09 15:40 | PC.NURSE ---
At 10:23 I gave morphine [address] Hurd who was on the floor seeing patient who was not breathing well and complaining of chest hurting while anxious and not able to calm down. It was suppose to be IV. Given correctly. Pt then progressed into being more anxious and repad response was called. Pt was transferred to IMU and never had her am meds due to situation. Respiratory also on floor with patient while rapid response was taking place.
[2020-09-09] MEDS: CENTRAL LINE FLUSH 10 ML IV PUSH ×2 (15:41→20:48)
--- NOTE | 2020-09-09 15:53 | PC.NURSE ---
pt was not able to take her am meds due to status and transfer to IMU.
[2020-09-09] MEDS: PROPOFOL IV EMULSION 100 ML 20.68 MG IV CONT ×2 (17:01→21:37)
[2020-09-09] MEDS: ENOXAPARIN 40 MG/0.4 ML SYRINGE SUB-Q (17:05)
[2020-09-09 17:10] LABS: Reflex Lactic Acid Yes or No Add Lactic
[2020-09-09 18:10] LABS: Lactic Acid 2.4 mmol/L (0.7-2.1)
[2020-09-09] MEDS: levETIRAcetam IV 750 MG in DEXTROSE 5% 100 ML 430 MG IVPB (20:48)
[2020-09-09] MEDS: FAMOTIDINE 20 MG/2 ML VIAL IV PUSH (21:36)
[2020-09-09 23:54] LABS: SARS-CoV-2 RNA PCR Negative
[2020-09-10] VITALS (48 sets, daily range): BP systolic 101–127; BP diastolic 54–84; PULSE 45–117; RESP 11–24; TEMP 36.1–36.9; O2SAT 93–100; BMI 38.3
[2020-09-10] MEDS: FENTANYL 2,500MCG/NS250ML(*CRX 2,500 MCG/250 ML BAG 17.5 MCG IV CONT ×2 (02:05→15:07)
[2020-09-10] MEDS: PROPOFOL IV EMULSION 100 ML 18.1 MG IV CONT ×4 (03:03→20:44)
[2020-09-10] MEDS: IPRATROPIUM BR 0.02% INH SOLN 0.5 MG/2.5 ML VIAL INHALATION ×4 (03:05→21:16)
[2020-09-10] MEDS: ALBUTEROL SULFATE NEB 2.5 MG/3 ML INH INHALATION ×2 (03:05→08:24)
[2020-09-10 05:10] LABS: Alveolar/Arterial O2 Gradient 214.9 mmHg; Base Excess ABG 2.7 mEq/l (+/-2.0); Carboxyhemoglobin 0.3 % THb (0-2.0); Fractional Inspired Oxygen 50 %; HCO3 ABG 29.1 mEq/l (22.0-26.0); Methemoglobin ABG 0.2 %THb (0-1.5); Oxygen Content ABG 16.6 %vol (16.0-22.0); Oxygen Saturation ABG 95.5 % (95.0-100.0); Oxyhemoglobin 94.7 % THb (90.0-100.0); PO2 FiO2 Ratio Arterial Blood 1.64 %; Reduced Hemoglobin 4.8 %THb (0-5.0); Total Hemoglobin 12.4 g/dL (12.0-18.0); pH ABG 7.358 (7.350-7.450)
[2020-09-10 05:11] LABS: Device VENTILATOR; Site Drawn RIGHT BRACHIAL
[2020-09-10 05:12] LABS: Arterial Blood Gas PEEP 5 cmH2O; Arterial Blood Gas Tidal Volume 300 ml; Arterial Blood Gas Vent Mode CMV; Arterial Blood Gas Ventilator rate 14 /MIN
[2020-09-10] MEDS: CENTRAL LINE FLUSH 10 ML IV PUSH ×3 (05:47→21:29)
[2020-09-10] MEDS: methylPREDNISolone SOD SUCC 125 MG VIAL 60 MG IV PUSH ×4 (05:47→23:32)
[2020-09-10 06:02] LABS: Hematocrit 32.9 % (37.0-47.0); Hemoglobin 10.4 g/dL (12.0-15.0); Mean Corpuscular HGB Conc 31.6 g/dl (32-36); Mean Corpuscular Hemoglobin 29.2 pg (26-34); Mean Corpuscular Volume 92.4 fl (80-100); Platelet Count Result 227 k/mm3 (150-375); Red Blood Count 3.56 M/mm3 (4.2-5.4); Red Cell Distribution Width 15.2 % (11.5-14.5); White Blood Count 7.5 K/mm3 (4.5-10.0)
[2020-09-10 06:18] LABS: Anion Gap 6 mmol/L (8-16); Blood Urea Nitrogen 14 mg/dL (7-17); Calcium 8.4 mg/dL (8.4-10.2); Carbon Dioxide 31 mmol/L (22-30); Chloride 99 mmol/L (98-107); Estimated Glomerular Filt Rate > 60; Glucose 179 mg/dL (65-105); Magnesium 2.5 mg/dL (1.6-2.3); Phosphorus 3.8 mg/dL (2.5-4.5); Potassium 3.5 mmol/L (3.4-5.0); Sodium 136 mmol/L (137-145)
[2020-09-10] MEDS: FAMOTIDINE 20 MG/2 ML VIAL IV PUSH ×2 (09:00→20:25)
[2020-09-10] MEDS: ENOXAPARIN 40 MG/0.4 ML SYRINGE SUB-Q (09:28)
[2020-09-10] MEDS: AMPICILLIN SULB 3 GM/NS 100 ML 3 GM/100 ML VIAL IVPB ×3 (09:49→20:54)
[2020-09-10] MEDS: levETIRAcetam IV 750 MG in DEXTROSE 5% 100 ML 430 MG IVPB ×2 (11:32→20:39)
--- NOTE | 2020-09-10 11:52 | PM.IMPN ---
Progress Note: A&P Assessment and Plan (1) Aspiration pneumonia: Code(s): J69.0 - Pneumonitis due to inhalation of food and vomit Status: Acute Assessment and Plan: ----- new chest x-ray shows new pneumonia likely aspiration since this was witnessed during intubation. I have started Unasyn at this time and will continue monitoring. White blood cell count normal without fevers at this time. CRP elevated (2) Acute respiratory failure with hypoxia and hypercapnia: Code(s): J96.01 - Acute respiratory failure with hypoxia; J96.02 - Acute respiratory failure with hypercapnia Status: Acute Assessment and Plan: ----- due to asthma exacerbation now on the ventilator. Continue to wean down FiO2 now at 40% (3) Asthma with exacerbation: Qualifiers: Asthma persistence: unspecified Asthma severity: unspecified severity Qualified Code(s): J45.901 - Unspecified asthma with (acute) exacerbation Code(s): J45.901 - Unspecified asthma with (acute) exacerbation Status: Acute Assessment and Plan: ----- Pt was in severe acute distress and ABG revealed acidosis with hypercapnia 09/09/20. The patient's respiratory rate was elevated due to compensation. Because of the severity of her condition, Dr. Kothari, ICU physician, intubated her. as above, FiO2 is being weaned down and hopefully she will will be able to be weaned off the ventilator soon. CTA on admission was negative for infiltrates or PE. Patient has had exposures to COVID-19 but was COVID-19 negative x2. pulmonology has been consulted. (4) Signs and symptoms of severe respiratory distress: Code(s): R06.03 - Acute respiratory distress Status: Acute Assessment and Plan: -----See above, now intubated. (5) Suspected COVID-19 virus infection: Code(s): Z20.828 - Contact with and (suspected) exposure to other viral communicable diseases Status: Acute Assessment and Plan: -----As above, 2nd swab negative. Pt has had exposure (6) Hypertension: Code(s): I10 - Essential (primary) hypertension Status: Acute Assessment and Plan: ----- last blood pressure 107/67. Monitor (7) Hypokalemia: Code(s): E87.6 - Hypokalemia Status: Acute Assessment and Plan: ----- chronic since childhood. Monitor while NPO (8) Anxiety and depression: Code(s): F41.9 - Anxiety disorder, unspecified; F32.9 - Major depressive disorder, single episode, unspecified Status: Acute Assessment and Plan: ----- chronic, she takes her home clonazepam routinely. Will need to be added back once she is off the vent (9) History of CHF (congestive heart failure): Code(s): Z86.79 - Personal history of other diseases of the circulatory system Status: Acute Assessment and Plan: ----- echo from 2018 shows normal systolic function and grade 2 diastolic dysfunction. Patient appears euvolemic at this time (10) Seizure disorder: Code(s): G40.909 - Epilepsy, unspecified, not intractable, without status epilepticus Status: Acute Assessment and Plan: ----- chronic and well controlled per patient. Continue Keppra, changed to IV Additional Plan Case discussed with Dr. Fischer Subjective Date/time seen: 09/10/20 11:52 Interval history: Pt is a 50-year-old female here for asthma. patient was seen today and is intubated. no reports from nursing staff Exam Narrative: Exam Narrative: General: overweight patient in respiratory distress HEENT: Normocephalic Neck: Supple Resp: improve lung sounds with minimal rhonchi in the left lung. On ventilation with 40% FiO2 Heart: heart rate 50, sinus Jason Abd: Soft, nontender. No pain to palpation. Positive bowel sounds Skin: Warm and dry. Left ankle with superficial wound Extremities: No swelling, erythema or pain to palpation Objective Da
[2020-09-10] MEDS: ALBUTEROL SULFATE NEB 2.5 MG/0.5 ML INH 5 MG INHALATION ×2 (12:05→21:15)
[2020-09-10] MEDS: SILVERGEL (ELTA) 45 ML 1 APPLIC TOPICAL (15:05)
[2020-09-10] MEDS: methylPREDNISolone SOD SUCC 125 MG VIAL IV PUSH (16:00)
[2020-09-10] MEDS: IPRATROPIUM BR 0.02% INH SOLN 0.5 MG/2.5 ML VIAL 1 MG INHALATION (16:02)
[2020-09-10] MEDS: ALBUTEROL SULFATE NEB 2.5 MG/0.5 ML INH 15 MG INHALATION (16:02)
[2020-09-10] MEDS: MAGNESIUM SULF 2 GM/WATER 50ML 2 GM/50 ML BAG IVPB (16:53)
[2020-09-10] MEDS: ROCURONIUM BROMIDE 50 MG/5 ML VIAL IV PUSH (17:45)
--- NOTE | 2020-09-10 18:05 | WPDINTPN ---
Progress Note: A&P Assessment and Plan (1) Asthma with exacerbation: Qualifiers: Asthma persistence: unspecified Asthma severity: unspecified severity Qualified Code(s): J45.901 - Unspecified asthma with (acute) exacerbation Code(s): J45.901 - Unspecified asthma with (acute) exacerbation Status: Acute Assessment and Plan: Severe Asthma exacerbation with significant exposure to COVID-19 - SARS CoV-2 RT PCR negative x2 - continue droplet/contact precautions - Morphine 4 mg IV X 1 - continue Albuterol to 2.5 mg Q4h with first dose now and add Atrovent 0.5 mg Nebs Q4h - continue solumedrol 60 mg IV Q6h - patient was not moving enough air, dyssynchronous with the ventilator, elevated mean airway pressures, patient was given additional is Solu-Medrol 25 mg IV x1, continuous Neb. Patient was given a dose of rocuronium. - Discussed with pulmonology, if patient continues to be dyssynchronous with the ventilator may start her on a rocuronium infusion (2) Acute respiratory failure with hypoxia and hypercapnia: Code(s): J96.01 - Acute respiratory failure with hypoxia; J96.02 - Acute respiratory failure with hypercapnia Status: Acute Assessment and Plan: patient with acute asthma exacerbation, impending respiratory failure with acute hypercarbic respiratory failure, was intubated on 09/09/2020. - continue CMV mode of ventilation - will increase I to E ratio to give prolonged expiration, maintain low peep given elevated airway pressures - patient was also given additional magnesium on 09/10 - will continue low tidal volume - wean FiO2 as tolerated (3) Hypertension: Code(s): I10 - Essential (primary) hypertension Status: Acute Assessment and Plan: blood pressures remain stable, will hold amlodipine which patient takes at home (4) Seizure disorder: Code(s): G40.909 - Epilepsy, unspecified, not intractable, without status epilepticus Status: Acute Assessment and Plan: continue Keppra, seizure precautions (5) Vocal cord dysfunction: Code(s): J38.3 - Other diseases of vocal cords Status: Acute Assessment and Plan: There is a question of vocal cord dysfunction syndrome is she was very anxious during the episode and had some stridor. Her wheezing were felt to be coming from upper airway as well. 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 I will check her ventilator and if she does not have any significant elevated peak airway pressure then it will point towards possible vocal cord dysfunction syndrome. In that case, she would need to be seen by ENT and speech service after extubation. (6) Suspected COVID-19 virus infection: Code(s): Z20.828 - Contact with and (suspected) exposure to other viral communicable diseases Status: Acute Assessment and Plan: SARS-CoV-2 PCR negative x2. Patient has been exposed to COVID-19 positive subjects - will repeat COVID-19 test Additional Plan DVT prophylaxis with subcu Lovenox GI prophylaxis with IV Pepcid Full code Critical care time spent: 42 minutes Due to a high probability of clinically significant, life threatening deterioration, the patient required my highest level of preparedness to intervene emergently and I personally spent this critical care time directly and personally managing the patient. This critical care time included obtaining a history; examining the patient; pulse oximetry; ordering and review of studies; arranging urgent treatment with development of a management plan; evaluation of patient's response to treatment; frequent reassessment; and discussions with other providers. It was exclusive of separately billable procedures and treating other patients and teaching time. Please see Assessment and Plan section and the rest of the note for further information on patient assessment and
--- NOTE | 2020-09-10 18:36 | PM.CNPUL ---
History of Present Illness History of Present Illness Consult date: 09/10/20 Reason for consult: asthma (status asthmaticu, intubated) Chief complaint: Asthma crisis Narrative: NEW: Patria Corral is a 50 yo female with asthma, was in IMU and transferred to the ICU for worsening respiraotry deterioration, day with increasing shortness of breath, more respiratory distress, and required intubation. [facility] Past Medical History Medical History (Updated 09/10/20 @ 11:54 by Vanna Bob PA-C) Anxiety and depression Asthma History of CHF (congestive heart failure) Hypertension Hypokalemia Seizure disorder Surgical History Surgical History (Updated 09/08/20 @ 16:28 by Vanna Bob PA-C) History of appendectomy History of cholecystectomy History of hysterectomy Family History Family History Father Family history of coronary artery disease Mother Family history of coronary artery disease Social History Social History (Updated 09/08/20 @ 16:29 by Vanna Bob PA-C) Social History: lifetime nonsmoker, does not drink alcohol, and does not do drugs. She does not work and stays home. Her , Xavi and her son Mario are her surrogate decision makers. Full code Smoking status: Never smoker Second hand tobacco smoke exposure: Yes Alcohol intake: never Substance use: never Substance use type: does not use Gender identity (if verbalized by the patient): Female Spiritual care concerns: No Meds Home Medications and Allergies Home Medications Medication Instructions Recorded Confirmed Type amlodipine 5 mg PO DAILY 09/08/20 09/08/20 History atorvastatin 20 mg PO DAILY 09/08/20 09/08/20 History clonazepam 0.5 mg PO TID 09/08/20 09/08/20 History furosemide 20 mg PO DAILY 09/08/20 09/08/20 History gabapentin 800 mg PO TID 09/08/20 09/08/20 History levetiracetam 750 mg PO BID 09/08/20 09/08/20 History paroxetine HCl 40 mg PO QAM 09/08/20 09/08/20 History potassium chloride 10 meq PO BID 09/08/20 09/08/20 History trazodone 150 mg PO HS 09/08/20 09/08/20 History Allergies Allergy/AdvReac Type Severity Reaction Status Date / Time naproxen Allergy Unknown Unknown Verified 09/08/20 20:13 NSAIDS (Non-Steroidal Allergy Unknown Unknown Verified 09/08/20 20:13 Anti-Inflamma tramadol Allergy Unknown Unknown Verified 09/08/20 20:13 Vital Signs Vital Signs - 24 hr 09/09/20 20:00 09/09/20 20:25 09/09/20 20:31 Temperature 36.6 C Pulse Rate 62 90 90 Respiratory Rate 10 L 16 Blood Pressure 121/72 Pulse Oximetry 100 98 09/09/20 20:33 09/09/20 21:37 09/09/20 22:00 Temperature Pulse Rate 62 58 L Respiratory Rate 16 16 16 Blood Pressure 111/68 Pulse Oximetry 98 09/09/20 23:28 09/09/20 23:38 09/09/20 23:52 Temperature 36.3 C L Pulse Rate 50 L 52 L 54 L Respiratory Rate 14 14 14 Blood Pressure 122/73 Pulse Oximetry 99 98 09/10/20 01:58 09/10/20 02:00 09/10/20 02:05 Temperature Pulse Rate 50 L 50 L 50 L Respiratory Rate 16 16 16 Blood Pressure 120/76 Pulse Oximetry 99 09/10/20 02:32 09/10/20 03:03 09/10/20 03:05 Temperature Pulse Rate 48 L 48 L 50 L Respiratory Rate 16 16 14 Blood Pressure Pulse Oximetry 09/10/20 03:10 09/10/20 03:14 09/10/20 04:00 Temperature 36.6 C Pulse Rate 50 L 45 L 52 L Respiratory Rate 20 14 Blood Pressure 110/69 Pulse Oximetry 99 100 09/10/20 05:00 09/10/20 05:13 09/10/20 05:44 Temperature Pulse Rate 52 L 52 L 50 L Respiratory Rate 14 14 Blood Pressure 102/71 116/74 Pulse Oximetry 99 100 99 09/10/20 07:24 09/10/20 08:00 09/10/20 08:24 Temperature 36.4 C L Pulse Rate 58 L 46 L 46 L Respiratory Rate 24 H 14 Blood Pressure 101/68 Pulse Oximetry 96 95 99 09/10/20 08:35 09/10/20 09:03 09/10/20 10:00 Temperature Pulse Rate 77 77 51 L Respiratory Rate 21 H 21 H 15 Blood Pressure 104/72
--- NOTE | 2020-09-10 20:36 | PM.PNPUL ---
Progress Note: A&P Assessment and Plan (1) Asthma with exacerbation: Qualifiers: Asthma persistence: unspecified Asthma severity: unspecified severity Qualified Code(s): J45.901 - Unspecified asthma with (acute) exacerbation Code(s): J45.901 - Unspecified asthma with (acute) exacerbation Status: Acute Assessment and Plan: Severe Asthma exacerbation with significant exposure to COVID-19 and negative COVID testing twice - resume droplet/contact precautions - decrease fentanyl, use more musculo skeletal relaxer if needed, Morphine 4 mg IV if needed - increase Albuterol to 2.5 mg Q4h with first dose now and add Atrovent 0.5 mg Nebs Q4h - continue solumedrol 60 mg IV Q6h (2) Acute respiratory failure with hypoxia and hypercapnia: Code(s): J96.01 - Acute respiratory failure with hypoxia; J96.02 - Acute respiratory failure with hypercapnia Status: Acute Assessment and Plan: -Requiring 80% FiO2 with PEEP 5 - CXR shows infiltrates in bases, consistent with pneumonia L>R - ABG 7.35/53/82 with adequate control of pCO2 with TV ~ 300 ml Subjective Date/time seen: 09/10/20 18:00 This 50 yo female is seen in follow up for worsening pulmonary status, transferred to the ICU today, on mechanical ventilation. She was having difficulty exhaling sufficient tidal volumes, and Dr Fischer adjusted the I:E ratio, gave a dose of rocuronium which improved compliance with lower peak pressures. She is sedated with fentanyl 200 mcg/hour, versed 5 mg/hour and propofol 35 mcg/kg/min. I am recommend decreasing the amount of fentanyl, increase other sedatives if needed. Fentanyl can cause release of histamine and increase airway resistance. She is taking some breaths, then having a difficult time with exhalation. Review of Systems Review of Systems: All systems reviewed & are unremarkable except as noted in HPI and below (not obtainable as she is sedated and intubated) Exam Const: General: comfortable Nutritional Appearance: obese HENMT: Head: normal to inspection, normocephalic and atraumatic Ears: hearing grossly normal bilaterally (responds to voice) General nose exam: Normal external nose present Face and sinus: normal facial exam (orally intubated) Mouth: Yes Normal oral and palatal mucosa present Throat: posterior oropharynx abnormal (can't see. intubated) Eyes: General: appearance normal, both eyes and all related structures Neck: Neck: normal visual inspection, trachea midline and supple Chest: Chest palpation & inspection: normal inspection of the chest Resp: Effort & Inspection: normal respiratory effort and labored Auscultation: wheezes and diminished lung sounds Cardio: Jugular venous distension: no JVD Rate: tachycardic Rhythm: regular rhythm Heart sounds: S1 normal heart sound present, S2 normal heart sound present, no gallops, no murmurs and no rubs GI: Inspection: normal to inspection Auscultation: normal bowel sounds Skin: General skin exam: normal color and no rashes or lesions noted Neuro: General: oriented to person, oriented to place, oriented to time and patient oriented x3 Cognition (Neuro): normal cognition Speech: normal speech Extrem: General: normal to inspection and no clubbing, cyanosis or edema Psych: Appearance: grossly normal (sedated ) Objective Data Vital Signs Vital Signs: Vital Signs - 24 hr 09/09/20 21:37 09/09/20 22:00 09/09/20 23:28 Temperature Pulse Rate 62 58 L 50 L Respiratory Rate 16 16 14 Blood Pressure 111/68 Pulse Oximetry 98 99 09/09/20 23:38 09/09/20 23:52 09/10/20 01:58 Temperature 36.3 C L Pulse Rate 52 L 54 L 50 L Respiratory Rate 14 14 16 Blood Pressure 122/73 Pulse Oximetry 98 09/10/20 02:00 09/10/20 02:05 09/10/20 02:32 Temperature Pulse Rate 50 L 50 L 48 L Respiratory Rate 16 16 16 Blood Pressure 120/76 Pulse Oximetry 99 09/10/20 03:03 09/10/20 03:05 09/10/20 03:10 Temperature
[2020-09-10 21:22] LABS: SARS-CoV-2 RNA PCR Negative
[2020-09-11] VITALS (66 sets, daily range): BP systolic 97–187; BP diastolic 54–105; PULSE 70–131; RESP 12–23; TEMP 36.4–36.9; O2SAT 91–100
[2020-09-11] MEDS: IPRATROPIUM BR 0.02% INH SOLN 0.5 MG/2.5 ML VIAL INHALATION ×6 (00:02→23:13)
[2020-09-11] MEDS: ALBUTEROL SULFATE NEB 2.5 MG/0.5 ML INH 5 MG INHALATION ×6 (00:03→23:12)
[2020-09-11] MEDS: PROPOFOL IV EMULSION 100 ML 18.1 MG IV CONT ×2 (01:50→12:53)
[2020-09-11] MEDS: AMPICILLIN SULB 3 GM/NS 100 ML 3 GM/100 ML VIAL IVPB ×4 (03:15→21:03)
[2020-09-11 04:27] LABS: Hematocrit 33.3 % (37.0-47.0); Hemoglobin 10.9 g/dL (12.0-15.0); Mean Corpuscular HGB Conc 32.7 g/dl (32-36); Mean Corpuscular Hemoglobin 30.5 pg (26-34); Mean Corpuscular Volume 93.3 fl (80-100); Mean Platelet Volume 8.8 fl (7.4-10.4); Platelet Count Result 230 k/mm3 (150-375); Red Blood Count 3.57 M/mm3 (4.2-5.4); Red Cell Distribution Width 14.9 % (11.5-14.5); White Blood Count 7.3 K/mm3 (4.5-10.0)
[2020-09-11 04:35] LABS: Alveolar/Arterial O2 Gradient 258.7 mmHg; Base Excess ABG 3.6 mEq/l (+/-2.0); Carboxyhemoglobin 0.3 % THb (0-2.0); Fractional Inspired Oxygen 60 %; HCO3 ABG 31.5 mEq/l (22.0-26.0); Methemoglobin ABG 0.2 %THb (0-1.5); Oxygen Content ABG 16.8 %vol (16.0-22.0); Oxygen Saturation ABG 96.7 % (95.0-100.0); Oxyhemoglobin 96.2 % THb (90.0-100.0); PO2 ABG 98.5 mmHg (80.0-100.0); PO2 FiO2 Ratio Arterial Blood 1.64 %; Reduced Hemoglobin 3.3 %THb (0-5.0); Total Hemoglobin 12.3 g/dL (12.0-18.0); pH ABG 7.308 (7.350-7.450)
[2020-09-11 04:37] LABS: Arterial Blood Gas Ventilator rate 14 /MIN; Device VENTILATOR; Modified Allen's Test Unable to perform; PCO2 ABG 64.2 mmHg (35.0-45.0); Site Drawn LEFT RADIAL
[2020-09-11 04:38] LABS: Alanine Aminotransferase 17 U/L (4-35); Albumin Level 4.1 g/dL (3.5-5.1); Alkaline Phosphatase 70 U/L (38-126); Anion Gap 9 mmol/L (8-16); Aspartate Amino Transferase 21 U/L (14-36); Bilirubin,Total 0.2 mg/dL (0.2-1.3); Blood Urea Nitrogen 14 mg/dL (7-17); Calcium 8.6 mg/dL (8.4-10.2); Carbon Dioxide 34 mmol/L (22-30); Chloride 97 mmol/L (98-107); Estimated Glomerular Filt Rate > 60; Glucose 144 mg/dL (65-105); Magnesium 2.5 mg/dL (1.6-2.3); Potassium 3.8 mmol/L (3.4-5.0); Sodium 140 mmol/L (137-145)
[2020-09-11 04:38] LABS: Arterial Blood Gas PEEP 5 cmH2O; Arterial Blood Gas Tidal Volume 300 ml; Arterial Blood Gas Vent Mode CMV
[2020-09-11] MEDS: ROCURONIUM BROMIDE 50 MG/5 ML VIAL IV PUSH (05:01)
[2020-09-11] MEDS: CENTRAL LINE FLUSH 10 ML IV PUSH ×4 (05:02→21:09)
[2020-09-11] MEDS: methylPREDNISolone SOD SUCC 125 MG VIAL 60 MG IV PUSH ×4 (05:02→23:06)
[2020-09-11] MEDS: FENTANYL 2,500MCG/NS250ML(*CRX 2,500 MCG/250 ML BAG 15 MCG IV CONT ×2 (05:05→19:54)
[2020-09-11] MEDS: PROPOFOL IV EMULSION 100 ML 15.51 MG IV CONT (06:36)
[2020-09-11 07:13] LABS: Hemoglobin A1C 5.1 % (<5.7)
[2020-09-11] MEDS: levETIRAcetam IV 750 MG in DEXTROSE 5% 100 ML 430 MG IVPB ×2 (08:18→19:56)
[2020-09-11] MEDS: ENOXAPARIN 40 MG/0.4 ML SYRINGE SUB-Q (08:20)
[2020-09-11] MEDS: SILVERGEL (ELTA) 45 ML 1 APPLIC TOPICAL (08:20)
[2020-09-11] MEDS: FAMOTIDINE 20 MG/2 ML VIAL IV PUSH ×2 (08:20→19:56)
--- NOTE | 2020-09-11 13:05 | PCDIET ---
Nutrition Follow-Up Complete: Nutrition Diagnosis: Inadequate oral intake related to oral intubation as evidenced by NPO status. Nutrition Goal: Patient to meet estimated nutritional needs. Goal in progress. Vital 1.2 advancing toward goal rate of 30mL/hr. Last recorded weight is 91.9 kg which is increased from last review. +I/O. Bowel Motility: No documented BM. Labs Reviewed: Hgb (10.9), Hct (33.3), Glu (144), Cr (0.5) Meds Noted: Albuterol, Unasyn, Nimbex, Pepcid, Fentanyl, Atrovent, Solu Medrol, Versed, Vancomycin, Propofol (rate of 18.1mL/hr provides 478kcal per day) Additional Notes: Left ankle ulcer and face abrasion documented. Will continue to monitor with same goal. Nutrition Monitoring and Evaluation: Follow up every Thursday/Thursday. Follow daily in ICU rounds.
--- NOTE | 2020-09-11 14:14 | PM.IMPN ---
Progress Note: A&P Assessment and Plan (1) Aspiration pneumonia: Code(s): J69.0 - Pneumonitis due to inhalation of food and vomit Status: Acute (2) Acute respiratory failure with hypoxia and hypercapnia: Code(s): J96.01 - Acute respiratory failure with hypoxia; J96.02 - Acute respiratory failure with hypercapnia Status: Acute Assessment and Plan: ----- due to asthma exacerbation now on the ventilator. Pt is on iv ampicillin, IV steroids, IV vancomycin, Seen by ICU and Pulmology (3) Asthma with exacerbation: Qualifiers: Asthma persistence: unspecified Asthma severity: unspecified severity Qualified Code(s): J45.901 - Unspecified asthma with (acute) exacerbation Code(s): J45.901 - Unspecified asthma with (acute) exacerbation Status: Acute Assessment and Plan: ----- Pt was in severe acute distress and ABG revealed acidosis with hypercapnia 09/09/20. So was intubated (4) Signs and symptoms of severe respiratory distress: Code(s): R06.03 - Acute respiratory distress Status: Acute Assessment and Plan: -----See above, now intubated. (5) Suspected COVID-19 virus infection: Code(s): Z20.828 - Contact with and (suspected) exposure to other viral communicable diseases Status: Acute Assessment and Plan: -----As above, 2nd swab negative. Pt has had exposure (6) Hypertension: Code(s): I10 - Essential (primary) hypertension Status: Acute Assessment and Plan: ---- Monitor (7) Hypokalemia: Code(s): E87.6 - Hypokalemia Status: Acute Assessment and Plan: ----- chronic since childhood. Monitor while NPO (8) Anxiety and depression: Code(s): F41.9 - Anxiety disorder, unspecified; F32.9 - Major depressive disorder, single episode, unspecified Status: Acute Assessment and Plan: ----- chronic, she takes her home clonazepam routinely. Will need to be added back once she is off the vent (9) History of CHF (congestive heart failure): Code(s): Z86.79 - Personal history of other diseases of the circulatory system Status: Acute Assessment and Plan: ----- echo from 2018 shows normal systolic function and grade 2 diastolic dysfunction. Patient appears euvolemic at this time (10) Seizure disorder: Code(s): G40.909 - Epilepsy, unspecified, not intractable, without status epilepticus Status: Acute Assessment and Plan: ----- chronic and well controlled per patient. Continue Keppra, changed to IV Subjective Date/time seen: 09/11/20 14:14 Interval history: Pt is a 50-year-old female here for asthma. COVID contacts but pt is negative for covid. Pt was intubated yesterday and is still on a vent today, seen by Pulmology and ICU MD. CTA shows Middle lobe, lingular and bilateral lower lobe atelectasis. No evidence of pulmonary embolism. Cardiomegaly. Pt is on IV ampicillin and vancomycin and IV steroids. Stable on ventilator Review of Systems Review of Systems: All systems reviewed & are unremarkable except as noted in HPI and below Exam Narrative: Exam Narrative: Pt is sedated on a ventilator, younger female stable on vent HEENT: Normocephalic, atraumatic, PERRL, Sclerae anicteric, oral mucosa moist. Neck: Supple Abd: Soft, nontender. No pain to palpation. Positive bowel sounds Skin: Warm and dry. Left ankle with wound Extremities: No swelling, erythema or pain to palpation Neuro: Sedated Objective Data Vital Signs Vital Signs: Vital Signs - 24 hr 09/10/20 14:28 09/10/20 14:35 09/10/20 15:05 Temperature Pulse Rate 62 117 H 62 Respiratory Rate 14 20 14 Blood Pressure Pulse Oximetry 09/10/20 15:07 09/10/20 15:22 09/10/20 16:00 Temperature 36.9 C Pulse Rate 63 117 H 85 Respiratory Rate 16 20 19 Blood Pressure 108/54 L Pulse Oximetry 98 09/10/20 17:22 09/10/20 1
--- NOTE | 2020-09-11 15:05 | WPDINTPN ---
Progress Note: A&P Assessment and Plan (1) Asthma with exacerbation: Qualifiers: Asthma persistence: unspecified Asthma severity: unspecified severity Qualified Code(s): J45.901 - Unspecified asthma with (acute) exacerbation Code(s): J45.901 - Unspecified asthma with (acute) exacerbation Status: Acute Assessment and Plan: Severe Asthma exacerbation with significant exposure to COVID-19 - SARS CoV-2 RT PCR negative x3 -- continue Albuterol to 2.5 mg Q4h with first dose now and add Atrovent 0.5 mg Nebs Q4h - continue solumedrol 60 mg IV Q6h - patient unable to exhale due to possible airway inflammation, dyssynchronous with the ventilator, low tidal volume, desaturation. Patient was started on Nimbex infusion with improved in her respiratory status. (2) Acute respiratory failure with hypoxia and hypercapnia: Code(s): J96.01 - Acute respiratory failure with hypoxia; J96.02 - Acute respiratory failure with hypercapnia Status: Acute Assessment and Plan: patient with acute asthma exacerbation, impending respiratory failure with acute hypercarbic respiratory failure, was intubated on 09/09/2020. - continue CMV mode of ventilation , peep of 0 as she was having elevated mean arterial pressures - will increase I to E ratio to give prolonged expiration, low tidal volume strategy - patient was also given additional magnesium on 09/10 - continue CMV mode of ventilatione - wean FiO2 as tolerated - - chest x-ray reviewed. Patient is on Unasyn for possible aspiration, worsening infiltrates, started patient on vancomycin (3) Hypertension: Code(s): I10 - Essential (primary) hypertension Status: Acute Assessment and Plan: blood pressures remain stable, will hold amlodipine which patient takes at home (4) Seizure disorder: Code(s): G40.909 - Epilepsy, unspecified, not intractable, without status epilepticus Status: Acute Assessment and Plan: continue Keppra, seizure precautions (5) Vocal cord dysfunction: Code(s): J38.3 - Other diseases of vocal cords Status: Acute Assessment and Plan: There is a question of vocal cord dysfunction syndrome is she was very anxious during the episode and had some stridor. Her wheezing were felt to be coming from upper airway as well. 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 I will check her ventilator and if she does not have any significant elevated peak airway pressure then it will point towards possible vocal cord dysfunction syndrome. In that case, she would need to be seen by ENT and speech service after extubation. (6) Suspected COVID-19 virus infection: Code(s): Z20.828 - Contact with and (suspected) exposure to other viral communicable diseases Status: Acute Assessment and Plan: SARS-CoV-2 PCR negative x3. Patient has been exposed to COVID-19 positive subjects - OFF isolation Additional Plan DVT prophylaxis with subcu Lovenox GI prophylaxis with IV Pepcid Full code Critical care time spent: 36 minutes Due to a high probability of clinically significant, life threatening deterioration, the patient required my highest level of preparedness to intervene emergently and I personally spent this critical care time directly and personally managing the patient. This critical care time included obtaining a history; examining the patient; pulse oximetry; ordering and review of studies; arranging urgent treatment with development of a management plan; evaluation of patient's response to treatment; frequent reassessment; and discussions with other providers. It was exclusive of separately billable procedures and treating other patients and teaching time. Please see Assessment and Plan section and the rest of the note for further information on patient assessment and treatment. Subjective Date/time seen:
[2020-09-11] MEDS: hydrALAZINE HCL 20 MG/ML VIAL 10 MG IV PUSH (16:48)
[2020-09-11] MEDS: SODIUM CHLORIDE 0.9% IV 500 ML IV CONT (17:15)
[2020-09-11] MEDS: PROPOFOL IV EMULSION 100 ML 25.85 MG IV CONT (17:58)
[2020-09-11] MEDS: amLODIPine BESYLATE 5 MG TABLET PO (17:58)
--- NOTE | 2020-09-11 19:30 | PM.EVENT ---
Event Note Event Note Event Note: Received a call from the patient's nurse right around shift change this evening, with concerns of ongoing tachycardia. The patient was admitted for an acute exacerbation of asthma and was intubated on 09/09/2020. She is sedated with propofol, fentanyl, and Versed and is on paralytics as well. She received an IV fluid bolus without benefit. Her sedation was also increased however she remains tachycardic. On exam her bladder felt a bit distended and despite flushing, there was no return. Fang catheter was removed and the tube was noted to be nearly clogged with a lot of sediment. A new Fang was placed with 850 mL of urine return. Shortly thereafter her tachycardia resolved. <Brittney Denson PA-C - Last Filed: 09/11/20 22:38> I have seen and evaluated the patient and discussed the care with NICOLE Alatorre. I agree with the findings and plan as documented the note above <Christy Fischer MD - Last Filed: 10/23/20 14:28>
--- NOTE | 2020-09-11 21:31 | PM.PNPUL ---
Progress Note: A&P Assessment and Plan (1) Asthma with exacerbation: Qualifiers: Asthma persistence: unspecified Asthma severity: unspecified severity Qualified Code(s): J45.901 - Unspecified asthma with (acute) exacerbation Code(s): J45.901 - Unspecified asthma with (acute) exacerbation Status: Acute Assessment and Plan: Severe Asthma exacerbation with significant exposure to COVID-19 and negative COVID testing twice - stopped droplet/contact precautions yesterday after second negative COVID test - continue lower fentanyl dose, musculoskeletal blockade intermittently, not continuously; versed and propofol - Albuterol to 2.5 mg Q4h and Atrovent 0.5 mg Nebs Q4h - continue solumedrol 60 mg IV Q6h (2) Acute respiratory failure with hypoxia and hypercapnia: Code(s): J96.01 - Acute respiratory failure with hypoxia; J96.02 - Acute respiratory failure with hypercapnia Status: Acute Assessment and Plan: -Requiring 60% FiO2 with PEEP 3 - CXR shows infiltrates in bases, more on the right side consistent with pneumonia; Oxygenation is better with slightly worse hypercapnea, CXR slightly worse on Right side - ABG today shows increasing respiratory acidosis; 7.308/ pCO2 64.2/ pO2 98.5 HCO3 31.5; CMV mode; pCO2 was 53 yesterday. - increased TV to improve respiratory acidosis - Close monitoring. Subjective Date/time seen: 09/11/20 21:31 This 50 yo female is seen in follow up for acute respiratory failure with hypercapnia and hypoxemia, acute asthma exacerbation, intubated Sep 09. Transferred to ICU Sep 10. FiO2 continues to decrease now 0.6, PEEP is 3 cm. She required rocuronium again today with higher peak pressures and difficulty exhaling completely. She is sedated, on lower amounts of fentanyl. She is on a new ventilator today, taken off the standard vent and changed to one provided by the [facility]; a Trilogy vent in CMV mode, rate 16, FiO2 0.6, PEEP 3, TV 328 ml, Peak Pressure 28 cm water pressure. She is sedated with fentanyl 15 mcg/hour ( 200 mcg/hour yesterday ) Versed 2 mg/hour ( 5 mg/hour yesterday ) propofol 40 mcg/kg/min ( 35 mcg/kg/min yesterday ) Review of Systems Review of Systems: All systems reviewed & are unremarkable except as noted in HPI and below (not obtainable as she is sedated and intubated) Exam Const: General: comfortable Nutritional Appearance: obese Orientation/consciousness: oriented to person, oriented to place, oriented to time and patient oriented x3 HENMT: Head: normal to inspection, normocephalic and atraumatic Ears: hearing grossly normal bilaterally (responds to voice) General nose exam: Normal external nose present Face and sinus: normal facial exam (orally intubated) Mouth: Yes Normal oral and palatal mucosa present Throat: posterior oropharynx abnormal (can't see. intubated) Eyes: General: appearance normal, both eyes and all related structures Neck: Neck: normal visual inspection, trachea midline and supple Chest: Chest palpation & inspection: normal inspection of the chest Resp: Effort & Inspection: normal respiratory effort and labored Auscultation: wheezes and diminished lung sounds Cardio: Jugular venous distension: no JVD Rate: tachycardic Rhythm: regular rhythm Heart sounds: S1 normal heart sound present, S2 normal heart sound present, no gallops, no murmurs and no rubs GI: Inspection: normal to inspection Auscultation: normal bowel sounds Skin: General skin exam: normal color and no rashes or lesions noted Neuro: General: oriented to person, oriented to place, oriented to time and patient oriented x3 Cognition (Neuro): normal cognition Speech: normal speech Extrem: General: normal to inspection and no clubbing, cyanosis or edema Psych: Appearance: grossly normal (sedated ) Affect: Anxious affec
[2020-09-11] MEDS: PROPOFOL IV EMULSION 100 ML 20.68 MG IV CONT (22:37)
[2020-09-12] VITALS (61 sets, daily range): BP systolic 100–175; BP diastolic 56–111; PULSE 68–133; RESP 14–32; TEMP 36.5–37.1; O2SAT 89–100
--- NOTE | 2020-09-12 | ECHO_ITS ---
Patient Info Name: Patria Corral Age: 50 years : 1970 Gender: Female Ht: 59 in Wt: 211 lbs BSA: 2.05 m2 HR: 78 bpm BP: 107 / 71 mmHg Heart Rhythm: Indeterminant Exam Date: 09/12/2020 2:04 PM Exam Location: [facility] Patient Status: Inpatient Admit Date: 09/09/2020 Staff Ordering Physician: Vanna Bob PA-C Cleat Layer: Oc Corley, MUNIRA, RT Attending Provider: Darion Soler MD Referring Physician: Paulino CERVANTES; Exam Type: CA echo dop color flow w con Study Info Indications J81.0 - Acute pulmonary edema Summary 1. Normal left ventricular size with moderate concentric left ventricular hypertrophy Joanie. Good systolic function of all segments with no segmental wall motion abnormalities. Estimated ejection fraction 60-65%. Normal diastolic function. 2. Mild tricuspid regurgitation. 3. Normal estimated pulmonary pressure. 4. Tele difficult study. Left Ventricle Left ventricular chamber dimension is normal. Left ventricular systolic function is normal, estimated at 65-70%. There is moderately increased left ventricular wall thickness. Left ventricular septal wall motion is normal. The left ventricular diastolic function is normal. Right Ventricle Right ventricular chamber dimension is moderately enlarged. Right ventricular systolic function is reduced. Left Atria Left atrial chamber dimension is normal. Right Atria Right atrial chamber dimension is normal. Aortic Valve The aortic valve is trileaflet. There is no aortic valve sclerosis. There is no aortic valve stenosis. There is no aortic valve regurgitation. Pulmonic Valve The pulmonic valve is normal. There is no pulmonic valve stenosis. There is no pulmonic regurgitation. Mitral Valve The mitral valve has normal leaflets. There is no mitral valve stenosis. There is no mitral valve regurgitation. Tricuspid Valve The tricuspid valve leaflets are normal. There is no significant tricuspid valve stenosis. There is mild tricuspid valve regurgitation. No pulmonary hypertension, estimated pulmonary arterial systolic pressure is Empty. Pericardium/Pleural The pericardium appears normal. There is no pericardial effusion. Inferior Vena Cava Normal inferior vena cava with >50% collapse upon inspiration consistent with Empty right atrial pressure, Empty. Aorta The aortic root size at the sinus of Valsalva is normal. The prox ascending aorta size is normal. Left Ventricular Outflow Tract Name Value Normal LVOT 2D LVOT Diameter 1.86 cm LVOT Doppler LVOT Peak Gradient 2 mmHg LVOT Mean Gradient 1 mmHg LVOT VTI 15.14 cm LVOT VTI/AV VTI Ratio 0.91 LVOT Stroke Volume 41.31 ml LVOT CO 3.11 l/min LVOT CI 1.51 L/min/m2 Mitral Valve Name Value Normal
--- NOTE | 2020-09-12 02:18 | PC.NURSE ---
Patient began to desaturate on ventilator to 86% on 60%FIO2 at 0210. Called respiratory and was told to not increase FIO2 and watch patient as they just suctioned 15 minutes ago. Patient saturations at 0220 88% and respiratory put her to 70% FIO2. Respiratory left floor at this time. Patients vitals 88 heart rate, 22 respirations, 88% and 133/73.
[2020-09-12] MEDS: PROPOFOL IV EMULSION 100 ML 20.68 MG IV CONT (03:03)
[2020-09-12] MEDS: AMPICILLIN SULB 3 GM/NS 100 ML 3 GM/100 ML VIAL IVPB ×4 (03:06→21:08)
[2020-09-12] MEDS: LORazepam INJ (*CRX) 2 MG/ML VIAL IV PUSH (04:20)
[2020-09-12 04:21] LABS: Alveolar/Arterial O2 Gradient 410.8 mmHg; Carboxyhemoglobin 0.3 % THb (0-2.0); Fractional Inspired Oxygen 70 %; HCO3 ABG 28.5 mEq/l (22.0-26.0); Methemoglobin ABG 0.2 %THb (0-1.5); Oxygen Content ABG 17.3 %vol (16.0-22.0); Oxygen Saturation ABG 90.2 % (95.0-100.0); Oxyhemoglobin 89.2 % THb (90.0-100.0); PCO2 ABG 34.7 mmHg (35.0-45.0); PO2 FiO2 Ratio Arterial Blood 0.73 %; Reduced Hemoglobin 10.3 %THb (0-5.0); Total Hemoglobin 13.8 g/dL (12.0-18.0)
[2020-09-12 04:24] LABS: Device VENTILATOR; Modified Allen's Test Unable to perform; Site Drawn LEFT RADIAL; pH ABG 7.533 (7.350-7.450)
[2020-09-12 04:25] LABS: Arterial Blood Gas PEEP 3 cmH2O; Arterial Blood Gas Vent Mode PRESSURE CONTROL; Arterial Blood Gas Ventilator rate 16 /MIN; Peak Inspiratory Pressure 26 cmH2O
[2020-09-12] MEDS: IPRATROPIUM BR 0.02% INH SOLN 0.5 MG/2.5 ML VIAL INHALATION ×7 (04:33→20:11)
[2020-09-12] MEDS: ALBUTEROL SULFATE NEB 2.5 MG/0.5 ML INH 5 MG INHALATION ×6 (04:33→20:11)
[2020-09-12 04:37] LABS: Hematocrit 35.9 % (37.0-47.0); Mean Corpuscular HGB Conc 33.4 g/dl (32-36); Mean Corpuscular Hemoglobin 29.6 pg (26-34); Mean Corpuscular Volume 88.6 fl (80-100); Mean Platelet Volume 8.9 fl (7.4-10.4); Platelet Count Result 277 k/mm3 (150-375); Red Blood Count 4.05 M/mm3 (4.2-5.4); Red Cell Distribution Width 14.4 % (11.5-14.5)
[2020-09-12 05:05] LABS: Alanine Aminotransferase 23 U/L (4-35); Albumin Level 3.9 g/dL (3.5-5.1); Alkaline Phosphatase 76 U/L (38-126); Anion Gap 10 mmol/L (8-16); Aspartate Amino Transferase 27 U/L (14-36); Bilirubin,Total 0.3 mg/dL (0.2-1.3); Blood Urea Nitrogen 13 mg/dL (7-17); Carbon Dioxide 33 mmol/L (22-30); Chloride 96 mmol/L (98-107); Estimated Glomerular Filt Rate > 60; Glucose 160 mg/dL (65-105); Magnesium 2.3 mg/dL (1.6-2.3); Phosphorus 1.6 mg/dL (2.5-4.5); Potassium 2.9 mmol/L (3.4-5.0); Sodium 139 mmol/L (137-145)
[2020-09-12] MEDS: methylPREDNISolone SOD SUCC 125 MG VIAL 60 MG IV PUSH ×3 (05:08→17:24)
[2020-09-12] MEDS: CENTRAL LINE FLUSH 10 ML IV PUSH ×3 (05:08→21:08)
[2020-09-12 05:47] LABS: Alveolar/Arterial O2 Gradient 416.3 mmHg; Base Excess ABG 5.5 mEq/l (+/-2.0); Carboxyhemoglobin 0.3 % THb (0-2.0); Fractional Inspired Oxygen 70 %; HCO3 ABG 27.3 mEq/l (22.0-26.0); Methemoglobin ABG 0.2 %THb (0-1.5); Oxygen Content ABG 16.8 %vol (16.0-22.0); Oxygen Saturation ABG 90.3 % (95.0-100.0); Oxyhemoglobin 88.8 % THb (90.0-100.0); PO2 FiO2 Ratio Arterial Blood 0.71 %; Reduced Hemoglobin 10.7 %THb (0-5.0); Total Hemoglobin 13.5 g/dL (12.0-18.0)
[2020-09-12 05:48] LABS: Device VENTILATOR; Modified Allen's Test Unable to perform; PO2 ABG 49.5 mmHg (80.0-100.0); Site Drawn LEFT RADIAL; pH ABG 7.562 (7.350-7.450)
[2020-09-12 05:50] LABS: Arterial Blood Gas PEEP 5 cmH2O; Arterial Blood Gas Vent Mode PRESSURE CONTROL; Arterial Blood Gas Ventilator rate 16 /MIN; Peak Inspiratory Pressure 26 cmH2O
--- NOTE | 2020-09-12 06:07 | PM.EVENT ---
Event Note Event Note Event Note: Around 2:15 a.m. the patient began having desaturations on her current vent settings with a PEEP of 3 and 60% FiO2. Despite increasing her FiO2 to 70% the patient's oxygen saturations remained low between 85 and 88. The patient's heart rate and respiratory rate were also climbing. Her blood pressures were elevated to 175 systolic. There was concerned the patient's increased respiratory rate, blood pressure that she may not be receiving no sedation with her paralytic. Subsequently her fentanyl Versed and propofol were increased and she received 2 mg Ativan IV push. With the addition of these medications the patient's blood pressure normalized and her tachycardia resolved briefly. Her respiratory rate and heart rate began to climb again. About that time her ABG resulted and demonstrated resolution of the patient's prior hypercapnia and respiratory acidosis. However her PO2 was low at 51 which correlated with her FiO2 of 87-88%. The patient had a new respiratory alkalosis. The patient's peep was increased to 5. Which improved her oxygen saturations to 92%. The patient's heart rate and blood pressure again improved with improvement in the patient's FiO2. 30 minutes spent in critical care activities. This case had a high probability of a clinically significant, sudden, or life threatening deterioration of this patient's condition which required my full and direct attention, intervention and personal management.
[2020-09-12] MEDS: PROPOFOL IV EMULSION 100 ML 25.85 MG IV CONT (07:39)
[2020-09-12] MEDS: ENOXAPARIN 40 MG/0.4 ML SYRINGE SUB-Q (08:48)
[2020-09-12] MEDS: FAMOTIDINE 20 MG/2 ML VIAL IV PUSH ×2 (08:48→20:03)
[2020-09-12] MEDS: levETIRAcetam IV 750 MG in DEXTROSE 5% 100 ML 430 MG IVPB (08:48)
[2020-09-12] MEDS: SILVERGEL (ELTA) 45 ML 1 APPLIC TOPICAL (08:49)
[2020-09-12] MEDS: amLODIPine BESYLATE 5 MG TABLET PO (08:50)
[2020-09-12] MEDS: FENTANYL 2,500MCG/NS250ML(*CRX 2,500 MCG/250 ML BAG 20 MCG IV CONT ×2 (10:05→22:04)
[2020-09-12] MEDS: POTASSIUM CHLORIDE 20 MEQ PACKET (FOR LIQUID) 40 MEQ FEED TUBE ×2 (10:29→21:10)
[2020-09-12 10:35] LABS: Alveolar/Arterial O2 Gradient 304.3 mmHg; Base Excess ABG 4.2 mEq/l (+/-2.0); Carboxyhemoglobin 0.3 % THb (0-2.0); Fractional Inspired Oxygen 60 %; HCO3 ABG 28.4 mEq/l (22.0-26.0); Methemoglobin ABG 0.1 %THb (0-1.5); Oxygen Content ABG 16.9 %vol (16.0-22.0); Oxygen Saturation ABG 96.2 % (95.0-100.0); Oxyhemoglobin 95.1 % THb (90.0-100.0); PCO2 ABG 40.6 mmHg (35.0-45.0); PO2 ABG 78.8 mmHg (80.0-100.0); PO2 FiO2 Ratio Arterial Blood 1.31 %; Reduced Hemoglobin 4.5 %THb (0-5.0); Total Hemoglobin 12.6 g/dL (12.0-18.0); pH ABG 7.462 (7.350-7.450)
[2020-09-12 10:37] LABS: Arterial Blood Gas Vent Mode PRESSURE CONTROL; Arterial Blood Gas Ventilator rate 16 /MIN; Device VENTILATOR; Modified Allen's Test Pass; Site Drawn RIGHT RADIAL
[2020-09-12 10:38] LABS: Arterial Blood Gas PEEP 5 cmH2O; Peak Inspiratory Pressure 22 cmH2O
--- NOTE | 2020-09-12 11:10 | PCDIET ---
ICU Rounding Note: Patient tolerating Vital 1.2 at 30mL/hr goal rate. Residuals 100mL and below. Last recorded weight is 95.9kg which is increased from last review. +I/O. Bowel Motility: No documented BM as of yet. Labs Reviewed: Hct (35.9), Glu (160), Cr (0.5), K (2.9), PO4 (1.6) Meds Noted: Albuterol, Norvasc, Unasyn, Nimbex, Pepcid, Fentanyl, Lasix, Hydralazine, Atrovent, Versed, Solu Medrol, KCl, KPhos, Vancomycin Additional Notes: Propofol infusing at 25.854mL/hr which provides 682kcal per day. Recommend continuing tube feeding at current rate. Left ankle with ulcer. Abrasion to face. Following daily in ICU rounds. Assessing/reassessing every Thursday/Thursday.
[2020-09-12] MEDS: PROPOFOL IV EMULSION 100 ML 23.27 MG IV CONT ×3 (11:30→20:03)
--- NOTE | 2020-09-12 11:39 | WPDINTPN ---
Progress Note: A&P Assessment and Plan (1) Asthma with exacerbation: Qualifiers: Asthma persistence: unspecified Asthma severity: unspecified severity Qualified Code(s): J45.901 - Unspecified asthma with (acute) exacerbation Code(s): J45.901 - Unspecified asthma with (acute) exacerbation Status: Acute Assessment and Plan: Severe Asthma exacerbation with exposure to COVID-19 -currently on ventilator with 70% FiO2 with 5 of PEEP - SARS CoV-2 RT PCR negative x3 - continue Albuterol and Atrovent nebs - continue solumedrol 60 mg IV Q6h - patient unable to exhale due to possible airway inflammation, dyssynchronous with the ventilator, low tidal volume, desaturation. - Now on Nimbex, fentyl, and Versed (2) Aspiration pneumonia: Code(s): J69.0 - Pneumonitis due to inhalation of food and vomit Status: Acute Assessment and Plan: new chest x-ray shows new pneumonia likely aspiration since this was witnessed during intubation -continue Unasyn and Solu-Medrol (3) Acute respiratory failure with hypoxia and hypercapnia: Code(s): J96.01 - Acute respiratory failure with hypoxia; J96.02 - Acute respiratory failure with hypercapnia Status: Acute Assessment and Plan: patient with acute asthma exacerbation, impending respiratory failure with acute hypercarbic respiratory failure, was intubated on 09/09/2020. -ABGs worsened overnight with alkalosis better this morning after 5 of PEEP -currently ventilated on Nimbex, fentanyl, and Versed - wean FiO2 back up the 70% -chest x-ray a bit worse today. Lasix ordered as well as potassium this morning. Repeat chest x-ray in the morning -continue Unasyn -continue Solu-Medrol 60 mg q.6 (4) Suspected COVID-19 virus infection: Code(s): Z20.828 - Contact with and (suspected) exposure to other viral communicable diseases Status: Acute Assessment and Plan: -----As above, COVID-19 negative x3. Pt has had exposure (5) Hypertension: Code(s): I10 - Essential (primary) hypertension Status: Acute Assessment and Plan: Last blood pressure 106/69, stable (6) Hypokalemia: Code(s): E87.6 - Hypokalemia Status: Acute Assessment and Plan: -chronic since childhood and takes potassium at home. Received IV potassium this morning but also is getting Lasix this afternoon. Monitor closely -recheck this evening (7) Anxiety and depression: Code(s): F41.9 - Anxiety disorder, unspecified; F32.9 - Major depressive disorder, single episode, unspecified Status: Acute Assessment and Plan: ----- chronic, she takes her home clonazepam routinely. Will need to be added back once she is off the vent -Ativan given IV 09/12 (8) History of CHF (congestive heart failure): Code(s): Z86.79 - Personal history of other diseases of the circulatory system Status: Acute Assessment and Plan: echo from 2018 shows normal systolic function and grade 2 diastolic dysfunction. -Lasix given 09/12 -recheck echo (9) Seizure disorder: Code(s): G40.909 - Epilepsy, unspecified, not intractable, without status epilepticus Status: Acute Assessment and Plan: chronic and well controlled per patient. -Continue Keppra, changed to IV (10) Vocal cord dysfunction: Code(s): J38.3 - Other diseases of vocal cords Status: Acute Assessment and Plan: There is a question of vocal cord dysfunction syndrome is she was very anxious during the episode and had some stridor. Her wheezing were felt to be coming from upper airway as well. 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 After extubation, would likely benefit from ENT and speech consult. Additional Plan Case discussed with Dr. Hardin Subjective Date/time seen: 09/12/20 11:39 Interval histo
[2020-09-12] MEDS: FUROSEMIDE INJ 40 MG/4 ML VIAL IV PUSH (12:35)
[2020-09-12] MEDS: PERFLUTREN LIPID MICROSPHERES 1.5 ML VIAL DILUTED TO 10 ML TOTAL VOLUME IV PUSH (14:50)
--- NOTE | 2020-09-12 15:00 | PC.NURSE ---
4ml Definity given for Echo study at 1450
--- NOTE | 2020-09-12 17:04 | PM.IMPN ---
Progress Note: A&P Assessment and Plan (1) Aspiration pneumonia: Code(s): J69.0 - Pneumonitis due to inhalation of food and vomit Status: Acute (2) Acute respiratory failure with hypoxia and hypercapnia: Code(s): J96.01 - Acute respiratory failure with hypoxia; J96.02 - Acute respiratory failure with hypercapnia Status: Acute Assessment and Plan: ----- due to asthma exacerbation now on the ventilator. Pt is on iv ampicillin, IV steroids, IV vancomycin, Seen by ICU and Pulmology, Pt is on Nimbex drip. (3) Asthma with exacerbation: Qualifiers: Asthma persistence: unspecified Asthma severity: unspecified severity Qualified Code(s): J45.901 - Unspecified asthma with (acute) exacerbation Code(s): J45.901 - Unspecified asthma with (acute) exacerbation Status: Acute Assessment and Plan: ----- Pt was in severe acute distress and ABG revealed acidosis with hypercapnia 09/09/20. So was intubated (4) Signs and symptoms of severe respiratory distress: Code(s): R06.03 - Acute respiratory distress Status: Deleted Assessment and Plan: -----See above, now intubated. (5) Suspected COVID-19 virus infection: Code(s): Z20.828 - Contact with and (suspected) exposure to other viral communicable diseases Status: Acute Assessment and Plan: -----As above, 2nd swab negative. Pt has had exposure (6) Hypertension: Code(s): I10 - Essential (primary) hypertension Status: Acute Assessment and Plan: ---- Monitor (7) Hypokalemia: Code(s): E87.6 - Hypokalemia Status: Acute Assessment and Plan: ----- chronic since childhood. Tube feed, gave potassium 40meq and Kphos rider (8) Anxiety and depression: Code(s): F41.9 - Anxiety disorder, unspecified; F32.9 - Major depressive disorder, single episode, unspecified Status: Acute Assessment and Plan: ----- chronic, she takes her home clonazepam routinely. Will need to be added back once she is off the vent (9) History of CHF (congestive heart failure): Code(s): Z86.79 - Personal history of other diseases of the circulatory system Status: Acute Assessment and Plan: ----- echo from 2018 shows normal systolic function and grade 2 diastolic dysfunction. Patient appears euvolemic at this time (10) Seizure disorder: Code(s): G40.909 - Epilepsy, unspecified, not intractable, without status epilepticus Status: Acute Assessment and Plan: ----- chronic and well controlled per patient. Continue Keppra, changed to IV. Pt is on nimbex drip. Subjective Date/time seen: 09/12/20 17:04 Interval history: Pt is a 50-year-old female here for asthma. COVID contacts but pt is negative for covid. Pt was intubated yesterday and is still on a vent today, seen by Pulmology and ICU MD. CTA shows Middle lobe, lingular and bilateral lower lobe atelectasis. No evidence of pulmonary embolism. Cardiomegaly. Pt is on IV ampicillin and vancomycin and IV steroids. Stable on ventilator, ventilator adjusted for Tachypnea last night. Pt is on nimbex drip. Review of Systems Review of Systems: ROS unobtainable: Yes unobtainable due to endotracheal tube Exam Narrative: Exam Narrative: Pt is sedated on a ventilator, younger female stable on vent HEENT: Normocephalic, atraumatic, PERRL, Sclerae anicteric, oral mucosa moist. Neck: Supple Abd: Soft, nontender. No pain to palpation. Positive bowel sounds Skin: Warm and dry. Left ankle with wound Extremities: No swelling, erythema or pain to palpation Neuro: Sedated Objective Data Vital Signs Vital Signs: Vital Signs - 24 hr 09/11/20 17:12 09/11/20 18:00 09/11/20 18:21 Temperature Pulse Rate 120 H 130 H 120 H Respiratory Rate 20 16 16 Blood Pressure 165/98 H Pulse Oximetry 91 09/11/20 19:21 09/11/20 19:22 09/11/20 19:23
[2020-09-12 19:20] LABS: Anion Gap 6 mmol/L (8-16); Blood Urea Nitrogen 15 mg/dL (7-17); Calcium 8.1 mg/dL (8.4-10.2); Carbon Dioxide 38 mmol/L (22-30); Chloride 95 mmol/L (98-107); Estimated Glomerular Filt Rate > 60; Glucose 163 mg/dL (65-105); Potassium 3.5 mmol/L (3.4-5.0); Sodium 139 mmol/L (137-145)
[2020-09-12] MEDS: levETIRAcetam IV 750 MG in DEXTROSE 5% 100 ML 130 MG IVPB (20:00)
--- NOTE | 2020-09-12 21:48 | PM.PNPUL ---
Progress Note: A&P Assessment and Plan (1) Asthma with exacerbation: Qualifiers: Asthma persistence: unspecified Asthma severity: unspecified severity Qualified Code(s): J45.901 - Unspecified asthma with (acute) exacerbation Code(s): J45.901 - Unspecified asthma with (acute) exacerbation Status: Acute Assessment and Plan: Severe Asthma exacerbation with significant exposure to COVID-19 and negative COVID testing twice - stopped droplet/contact precautions yesterday after second negative COVID test - continue lower fentanyl dose, musculoskeletal blockade intermittently, now continuously; versed and propofol - Albuterol to 2.5 mg Q4h and Atrovent 0.5 mg Nebs Q4h - continue solumedrol 60 mg IV Q6h (2) Acute respiratory failure with hypoxia and hypercapnia: Code(s): J96.01 - Acute respiratory failure with hypoxia; J96.02 - Acute respiratory failure with hypercapnia Status: Acute Assessment and Plan: - Requiring 50% FiO2 with PEEP 3 on neuromuscular blockade to decrease work of breathing - CXR shows worsening infiltrates in bases, R>L; consistent with pneumonia; Oxygenation is better, no hypercapnea, CXR slightly worse on Right side - ABG today shows improved respiratory acidosis; 7.53/ pCO2 34.7/ pO2 51 on 70% CMV mode; - increased TV to improve respiratory acidosis - Close monitoring. Subjective Date/time seen: 09/12/20 21:48 This 50 yo female is seen in follow up for acute respiratory failure with hypercapnia and hypoxemia, acute asthma exacerbation. - intubated Sep 09. - transferred to ICU Sep 10. - Sep 11 was transferred to a [facility] vent from the [facility] E300 vent in CMV mode, rate 16, FiO2 0.5, PEEP 3, TV 328 ml, Peak Pressure 22 cm water pressure. - FiO2 continues to decrease now 0.5 from 0.6 yesterday; PEEP is 3 cm. - Now on Nimbex 4 mcg/kg/min. - fentanyl 200 mcg/hour - Versed 6 mg/hour - propofol 45 mcg/kg/min Review of Systems Review of Systems: All systems reviewed & are unremarkable except as noted in HPI and below (not obtainable as she is sedated and intubated) Exam Const: General: comfortable Nutritional Appearance: obese Orientation/consciousness: oriented to person, oriented to place, oriented to time and patient oriented x3 HENMT: Head: normal to inspection, normocephalic and atraumatic Ears: hearing grossly normal bilaterally (responds to voice) General nose exam: Normal external nose present Face and sinus: normal facial exam (orally intubated) Mouth: Yes Normal oral and palatal mucosa present Throat: posterior oropharynx abnormal (can't see. intubated) Eyes: General: appearance normal, both eyes and all related structures Neck: Neck: normal visual inspection, trachea midline and supple Chest: Chest palpation & inspection: normal inspection of the chest Resp: Effort & Inspection: normal respiratory effort and labored Auscultation: wheezes and diminished lung sounds Cardio: Jugular venous distension: no JVD Rate: tachycardic Rhythm: regular rhythm Heart sounds: S1 normal heart sound present, S2 normal heart sound present, no gallops, no murmurs and no rubs GI: Inspection: normal to inspection Auscultation: normal bowel sounds Skin: General skin exam: normal color and no rashes or lesions noted Neuro: General: oriented to person, oriented to place, oriented to time and patient oriented x3 Cognition (Neuro): normal cognition Speech: normal speech Extrem: General: normal to inspection and no clubbing, cyanosis or edema Psych: Appearance: grossly normal (sedated ) Affect: Anxious affect present Objective Data Vital Signs Vital Signs: Vital Signs - 24 hr 09/11/20 22:00 09/11/20 22:37 09/11/20 23:00 Temperature Pulse Rate 86 83 91 Respiratory Rate 16 16 16 Blood Pressure 106/57 L 108/6
[2020-09-12 21:59] LABS: Vancomycin Trough 8.2 ug/mL (10.0-20.0)
[2020-09-13] VITALS (68 sets, daily range): BP systolic 98–178; BP diastolic 57–103; PULSE 66–123; RESP 14–143; TEMP 36.2–37.1; O2SAT 88–100
[2020-09-13] MEDS: PROPOFOL IV EMULSION 100 ML 23.27 MG IV CONT (00:18)
[2020-09-13] MEDS: methylPREDNISolone SOD SUCC 125 MG VIAL 60 MG IV PUSH ×4 (01:18→16:55)
[2020-09-13] MEDS: AMPICILLIN SULB 3 GM/NS 100 ML 3 GM/100 ML VIAL IVPB ×4 (03:08→20:49)
[2020-09-13] MEDS: ALBUTEROL SULFATE NEB 2.5 MG/0.5 ML INH 5 MG INHALATION ×6 (04:41→23:45)
[2020-09-13] MEDS: IPRATROPIUM BR 0.02% INH SOLN 0.5 MG/2.5 ML VIAL INHALATION ×6 (04:41→23:45)
[2020-09-13 04:42] LABS: Hematocrit 34.8 % (37.0-47.0); Hemoglobin 11.4 g/dL (12.0-15.0); Mean Corpuscular HGB Conc 32.8 g/dl (32-36); Mean Corpuscular Hemoglobin 29.8 pg (26-34); Mean Corpuscular Volume 91.1 fl (80-100); Mean Platelet Volume 8.6 fl (7.4-10.4); Platelet Count Result 244 k/mm3 (150-375); Red Blood Count 3.82 M/mm3 (4.2-5.4); Red Cell Distribution Width 14.5 % (11.5-14.5); White Blood Count 7.1 K/mm3 (4.5-10.0)
[2020-09-13 04:56] LABS: Alanine Aminotransferase 25 U/L (4-35); Albumin Level 3.3 g/dL (3.5-5.1); Alkaline Phosphatase 62 U/L (38-126); Anion Gap 6 mmol/L (8-16); Aspartate Amino Transferase 28 U/L (14-36); Bilirubin,Total 0.2 mg/dL (0.2-1.3); Blood Urea Nitrogen 14 mg/dL (7-17); Carbon Dioxide 38 mmol/L (22-30); Chloride 95 mmol/L (98-107); Estimated Glomerular Filt Rate > 60; Glucose 160 mg/dL (65-105); Magnesium 2.5 mg/dL (1.6-2.3); Phosphorus 4.7 mg/dL (2.5-4.5); Potassium 3.8 mmol/L (3.4-5.0); Sodium 139 mmol/L (137-145)
[2020-09-13] MEDS: PROPOFOL IV EMULSION 100 ML 20.68 MG IV CONT (05:01)
[2020-09-13] MEDS: CENTRAL LINE FLUSH 10 ML IV PUSH ×3 (05:02→20:44)
[2020-09-13 05:54] LABS: Alveolar/Arterial O2 Gradient 342.7 mmHg; Base Excess ABG 4.9 mEq/l (+/-2.0); Carboxyhemoglobin 0.3 % THb (0-2.0); Fractional Inspired Oxygen 70 %; HCO3 ABG 33.3 mEq/l (22.0-26.0); Methemoglobin ABG 0.2 %THb (0-1.5); Oxygen Content ABG 16.8 %vol (16.0-22.0); Oxygen Saturation ABG 94.6 % (95.0-100.0); Oxyhemoglobin 94.2 % THb (90.0-100.0); PO2 ABG 81.9 mmHg (80.0-100.0); PO2 FiO2 Ratio Arterial Blood 1.17 %; Reduced Hemoglobin 5.3 %THb (0-5.0); Total Hemoglobin 12.6 g/dL (12.0-18.0)
[2020-09-13 05:55] LABS: Arterial Blood Gas PEEP 5 cmH2O; Arterial Blood Gas Vent Mode PRESSURE CONTROL; Arterial Blood Gas Ventilator rate 14 /MIN; Device VENTILATOR; Modified Allen's Test Unable to perform; PCO2 ABG 69.3 mmHg (35.0-45.0); Peak Inspiratory Pressure 20 cmH2O; Site Drawn RIGHT RADIAL
[2020-09-13] MEDS: amLODIPine BESYLATE 5 MG TABLET PO (08:06)
[2020-09-13] MEDS: ENOXAPARIN 40 MG/0.4 ML SYRINGE SUB-Q (08:06)
[2020-09-13] MEDS: FAMOTIDINE 20 MG/2 ML VIAL IV PUSH ×2 (08:07→20:41)
[2020-09-13] MEDS: SILVERGEL (ELTA) 45 ML 1 APPLIC TOPICAL (08:07)
[2020-09-13] MEDS: FUROSEMIDE INJ 40 MG/4 ML VIAL IV PUSH (08:41)
[2020-09-13] MEDS: levETIRAcetam IV 750 MG in DEXTROSE 5% 100 ML 430 MG IVPB ×2 (08:41→20:31)
[2020-09-13] MEDS: ROCURONIUM BROMIDE 50 MG/5 ML VIAL IV PUSH (09:03)
--- NOTE | 2020-09-13 09:40 | WPDINTPN ---
Progress Note: A&P Assessment and Plan (1) Acute respiratory failure with hypoxia and hypercapnia: Code(s): J96.01 - Acute respiratory failure with hypoxia; J96.02 - Acute respiratory failure with hypercapnia Status: Acute Assessment and Plan: patient with acute asthma exacerbation, impending respiratory failure with acute hypercarbic respiratory failure, was intubated on 09/09/2020. - Since intubation it has been very difficult to ventilate this patient. she was on CMV and later was switched to pressure control ventilation and then had to be paralyzed - today I discontinued the paralytic and once the effect wore off patient again would not ventilate. Is a synchronous with the vent and tidal volumes were very low with a very high peak pressures. Breath stacking. I tried both CMV and pressure control ventilation mode but was of no help and eventually patient saturation deteriorated - id paralyzed the patient and placed back on pressure control ventilation with improvement in tidal volume - PCV change to 22, rate increased 16, PP increased to 8 and FiO2 weaned down to 60% - Lasix 40 mg IV x1 today CMV mode of ventilation , peep of 0 as she was having elevated mean arterial pressures - will increase I to E ratio to give prolonged expiration, low tidal volume strategy - bronchodilators, steroids - - chest x-ray reviewed. Patient is on Unasyn and vancomycin for pneumonia which could also be secondary to aspiration (2) Asthma with exacerbation: Qualifiers: Asthma persistence: unspecified Asthma severity: unspecified severity Qualified Code(s): J45.901 - Unspecified asthma with (acute) exacerbation Code(s): J45.901 - Unspecified asthma with (acute) exacerbation Status: Acute Assessment and Plan: Severe Asthma exacerbation with significant exposure to COVID-19 - SARS CoV-2 RT PCR negative x3 -- continue Albuterol to 2.5 mg Q4h with first dose now and add Atrovent 0.5 mg Nebs Q4h - continue solumedrol 60 mg IV Q6h - patient unable to exhale due to possible airway inflammation, dyssynchronous with the ventilator, low tidal volume, desaturation. Patient was started on Nimbex infusion with improved in her respiratory status. (3) Hypertension: Code(s): I10 - Essential (primary) hypertension Status: Acute Assessment and Plan: blood pressures remain stable, will hold amlodipine which patient takes at home (4) Seizure disorder: Code(s): G40.909 - Epilepsy, unspecified, not intractable, without status epilepticus Status: Acute Assessment and Plan: continue Keppra, seizure precautions (5) Vocal cord dysfunction: Code(s): J38.3 - Other diseases of vocal cords Status: Acute Assessment and Plan: There is a question of vocal cord dysfunction syndrome is she was very anxious during the episode and had some stridor. Her wheezing were felt to be coming from upper airway as well. pulmonary consult (6) Suspected COVID-19 virus infection: Code(s): Z20.828 - Contact with and (suspected) exposure to other viral communicable diseases Status: Acute Assessment and Plan: SARS-CoV-2 PCR negative x3. Patient has been exposed to COVID-19 positive subjects - OFF isolation Additional Plan continue tube feeds at goal DVT prophylaxis with subcu Lovenox GI prophylaxis with IV Pepcid Full code Critical care time spent: 35 minutes Due to a high probability of clinically significant, life threatening deterioration, the patient required my highest level of preparedness to intervene emergently and I personally spent this critical care time directly and personally managing the patient. This critical care time included obtaining a history; examining the patient; pulse oximetry; ordering and review of studies; arranging urgent treatment with development of a management plan; evaluation of patient's response to treatment; freque
[2020-09-13] MEDS: PROPOFOL IV EMULSION 100 ML 18.1 MG IV CONT ×2 (10:46→16:53)
--- NOTE | 2020-09-13 10:47 | PCDIET ---
ICU Rounding Note: Patient tolerating Vital 1.2 at 30mL/hr goal rate. No issues, per nursing. Last recorded weight is 96.1kg which is stable with last review. Bowel Motility: No new BM documented. Recommend adding medication to promote BM, if medically appropriate. Labs Reviewed: Hgb (11.4), Hct (34.8), Glu (160), Cr (0.5), Alb (3.3), PO4 (4.7) Meds Noted: Atrovent, Solu Medrol, Propofol (rate of 18.1mL/hr provides 478kcal per day), Albuterol, Norvasc, Unasyn, Nimbex, Pepcid, Fentanyl, Hydralazine, Vancomycin, Lasix Additional Notes: Left ankle ulcer. Face abrasion. Following daily in ICU rounds. Assessing/reassessing every Thursday/Thursday.
[2020-09-13] MEDS: FENTANYL 2,500MCG/NS250ML(*CRX 2,500 MCG/250 ML BAG 17.5 MCG IV CONT (10:50)
[2020-09-13 14:35] LABS: Anion Gap 7 mmol/L (8-16); Blood Urea Nitrogen 17 mg/dL (7-17); Carbon Dioxide 37 mmol/L (22-30); Chloride 92 mmol/L (98-107); Estimated Glomerular Filt Rate > 60; Glucose 214 mg/dL (65-105); Potassium 3.3 mmol/L (3.4-5.0); Sodium 136 mmol/L (137-145)
--- NOTE | 2020-09-13 14:56 | PM.IMPN ---
Progress Note: A&P Assessment and Plan (1) Aspiration pneumonia: Code(s): J69.0 - Pneumonitis due to inhalation of food and vomit Status: Acute (2) Acute respiratory failure with hypoxia and hypercapnia: Code(s): J96.01 - Acute respiratory failure with hypoxia; J96.02 - Acute respiratory failure with hypercapnia Status: Acute Assessment and Plan: ----- due to asthma exacerbation now on the ventilator. Pt is on iv ampicillin, IV steroids, IV vancomycin, Seen by ICU and Pulmology, Pt is on Nimbex drip. (3) Asthma with exacerbation: Qualifiers: Asthma persistence: unspecified Asthma severity: unspecified severity Qualified Code(s): J45.901 - Unspecified asthma with (acute) exacerbation Code(s): J45.901 - Unspecified asthma with (acute) exacerbation Status: Acute Assessment and Plan: ----- Pt was in severe acute distress and ABG revealed acidosis with hypercapnia 09/09/20. So was intubated (4) Signs and symptoms of severe respiratory distress: Code(s): R06.03 - Acute respiratory distress Status: Deleted Assessment and Plan: -----See above, now intubated. (5) Suspected COVID-19 virus infection: Code(s): Z20.828 - Contact with and (suspected) exposure to other viral communicable diseases Status: Acute Assessment and Plan: -----Covid x3 were negative (6) Hypertension: Code(s): I10 - Essential (primary) hypertension Status: Acute Assessment and Plan: ---- Monitor (7) Hypokalemia: Code(s): E87.6 - Hypokalemia Status: Acute Assessment and Plan: ----- chronic since childhood. Tube feed, give KCL (8) Anxiety and depression: Code(s): F41.9 - Anxiety disorder, unspecified; F32.9 - Major depressive disorder, single episode, unspecified Status: Acute Assessment and Plan: ----- chronic, she takes her home clonazepam routinely. Will need to be added back once she is off the vent (9) History of CHF (congestive heart failure): Code(s): Z86.79 - Personal history of other diseases of the circulatory system Status: Acute Assessment and Plan: ----- echo from 2018 shows normal systolic function and grade 2 diastolic dysfunction. Patient appears euvolemic at this time (10) Seizure disorder: Code(s): G40.909 - Epilepsy, unspecified, not intractable, without status epilepticus Status: Acute Assessment and Plan: ----- chronic and well controlled per patient. Continue Keppra, changed to IV. Pt is on nimbex drip. Additional Plan Case discussed with Dr. Hardin Subjective Date/time seen: 09/13/20 14:56 Interval history: Pt is a 50-year-old female here for asthma. COVID contacts but pt is negative for covid. Pt was intubated 09/09 and is still on a vent today, seen by Pulmology and ICU MD. CTA shows Middle lobe, lingular and bilateral lower lobe atelectasis. No evidence of pulmonary embolism. Cardiomegaly. Pt is on IV ampicillin and vancomycin and IV steroids. Stable on ventilator. Pt is on nimbex drip. Covid x3 is negative. Noted to be a difficult intubation. Much the same as yesterday. Review of Systems Review of Systems: All systems reviewed & are unremarkable except as noted in HPI and below Exam Narrative: Exam Narrative: Pt is sedated on a ventilator, younger female stable on vent HEENT: Normocephalic, atraumatic, PERRL, Sclerae anicteric, oral mucosa moist. Neck: Supple Abd: Soft, nontender. No pain to palpation. Positive bowel sounds Skin: Warm and dry. Left ankle with wound Extremities: No swelling, erythema or pain to palpation Neuro: Sedated Objective Data Vital Signs Vital Signs: Vital Signs - 24 hr 09/12/20 15:48 09/12/20 15:51 09/12/20 15:54 Temperature Pulse Rate 78 80 79 Respiratory Rate 16 16 15 Blood Pressure 105/66 Pulse Oximetry 09/12/20 16:00 1
--- NOTE | 2020-09-13 20:18 | PM.PNPUL ---
Progress Note: A&P Assessment and Plan (1) Asthma with exacerbation: Qualifiers: Asthma persistence: unspecified Asthma severity: unspecified severity Qualified Code(s): J45.901 - Unspecified asthma with (acute) exacerbation Code(s): J45.901 - Unspecified asthma with (acute) exacerbation Status: Acute Assessment and Plan: Severe Asthma exacerbation with significant exposure to COVID-19 and negative COVID testing twice - continue maximum fentanyl dose, versed, propofol; paralyztic is now off and she is tolerating it better now. - continue bronchodilator theraoy albuterol and ipratropium Q4h - continue solumedrol 60 mg IV Q6h - this severe hypercapnea and hypoxemia is due to infiltrates; asthma alone should not have this high O2 demand - I appreciate Dr Hardin's management, knowlege and expertise with this difficult patient (2) Acute respiratory failure with hypoxia and hypercapnia: Code(s): J96.01 - Acute respiratory failure with hypoxia; J96.02 - Acute respiratory failure with hypercapnia Status: Acute Assessment and Plan: - Requiring 70% FiO2 with PEEP 8; off neuromuscular blockade with improvement overall in ability to ventilate and oxygenate - CXR shows worsening infiltrates in bases, R>L; consistent with pneumonia; Oxygenation not better, increased hypercapnea, CXR slightly worse on Right side - ABG today shows worsened respiratory acidosis; 7.33/ pCO2 69/ pO2 81 on 70% PC mode; - increased TV to improve respiratory acidosis - Close monitoring. Subjective Date/time seen: 09/13/20 20:18 This 50 yo female is seen in follow up for acute respiratory failure with hypercapnia and hypoxemia, acute asthma exacerbation. COVID (-) x 2; She is off paralytic today, tolerating this and not breathing over the ventilator, and peak pressure are not excessive. - intubated Sep 09. - transferred to ICU Sep 10. - Aug 17 was transferred to [facility]; PC mode, rate 16, increased FiO2 0.7, PEEP increased 8, - FiO2 higher today 0.7; PEEP 8 - off paralytic Sep 13 - fentanyl 200 mcg/hour - Versed 6 mg/hour - propofol 50 mcg/kg/min Review of Systems Review of Systems: All systems reviewed & are unremarkable except as noted in HPI and below (not obtainable as she is sedated and intubated) Exam Const: General: comfortable and no acute distress (sedated heavily, no longer paralyzed; breathing 1-2 breaths /min above vent) Nutritional Appearance: obese HENMT: Head: normal to inspection, normocephalic and atraumatic General nose exam: Normal external nose present Face and sinus: normal facial exam (orally intubated) Mouth: Yes Normal oral and palatal mucosa present Throat: posterior oropharynx abnormal (can't see. intubated) Eyes: General: appearance normal, both eyes and all related structures Neck: Neck: normal visual inspection, trachea midline and supple Chest: Chest palpation & inspection: normal inspection of the chest Resp: Effort & Inspection: normal respiratory effort and labored Auscultation: wheezes and diminished lung sounds Cardio: Jugular venous distension: no JVD Rate: tachycardic Rhythm: regular rhythm Heart sounds: S1 normal heart sound present, S2 normal heart sound present, no gallops, no murmurs and no rubs GI: Inspection: normal to inspection Auscultation: normal bowel sounds Skin: General skin exam: normal color and no rashes or lesions noted Neuro: General: oriented to person, oriented to place, oriented to time and patient oriented x3 Cognition (Neuro): normal cognition Speech: normal speech Extrem: General: normal to inspection and no clubbing, cyanosis or edema Psych: Appearance: grossly normal (sedated ) Objective Data Vital Signs Vital Signs: Vital Signs - 24 hr 09/12/20 20:22 09/12/20 21:00 09/12/20 22:00 Temperatu
[2020-09-13] MEDS: POTASSIUM CHLORIDE 20 MEQ PACKET (FOR LIQUID) 40 MEQ FEED TUBE (20:28)
[2020-09-13] MEDS: PROPOFOL IV EMULSION 100 ML 25.95 MG IV CONT (21:37)
[2020-09-13 23:24] LABS: Base Excess ABG 8.2 mEq/l (+/-2.0); Carboxyhemoglobin 0.2 % THb (0-2.0); Fractional Inspired Oxygen 70 %; HCO3 ABG 31.7 mEq/l (22.0-26.0); Methemoglobin ABG 0.1 %THb (0-1.5); Oxygen Content ABG 16.5 %vol (16.0-22.0); Oxygen Saturation ABG 93.9 % (95.0-100.0); Oxyhemoglobin 92.9 % THb (90.0-100.0); PCO2 ABG 39.8 mmHg (35.0-45.0); PO2 ABG 62.3 mmHg (80.0-100.0); PO2 FiO2 Ratio Arterial Blood 0.89 %; Reduced Hemoglobin 6.8 %THb (0-5.0); Total Hemoglobin 12.6 g/dL (12.0-18.0)
[2020-09-13 23:25] LABS: Device VENTILATOR; Modified Allen's Test Pass; Site Drawn RIGHT RADIAL; pH ABG 7.519 (7.350-7.450)
[2020-09-13 23:26] LABS: Arterial Blood Gas PEEP 5 cmH2O; Arterial Blood Gas Vent Mode PRESSURE CONTROL; Arterial Blood Gas Ventilator rate 16 /MIN; Peak Inspiratory Pressure 22 cmH2O
[2020-09-14] VITALS (51 sets, daily range): BP systolic 95–174; BP diastolic 57–110; PULSE 68–121; RESP 14–27; TEMP 36.2–37.1; O2SAT 91–100
[2020-09-14] MEDS: methylPREDNISolone SOD SUCC 125 MG VIAL 60 MG IV PUSH ×4 (00:20→17:19)
[2020-09-14] MEDS: FENTANYL 2,500MCG/NS250ML(*CRX 2,500 MCG/250 ML BAG 17.5 MCG IV CONT (01:30)
[2020-09-14] MEDS: PROPOFOL IV EMULSION 100 ML 28.83 MG IV CONT ×3 (03:00→19:46)
[2020-09-14] MEDS: AMPICILLIN SULB 3 GM/NS 100 ML 3 GM/100 ML VIAL IVPB ×4 (03:48→22:03)
[2020-09-14] MEDS: ALBUTEROL SULFATE NEB 2.5 MG/0.5 ML INH 5 MG INHALATION ×5 (04:05→20:26)
[2020-09-14] MEDS: IPRATROPIUM BR 0.02% INH SOLN 0.5 MG/2.5 ML VIAL INHALATION ×5 (04:05→20:25)
[2020-09-14 04:32] LABS: Base Excess ABG 8.3 mEq/l (+/-2.0); HCO3 ABG 32.3 mEq/l (22.0-26.0); Oxygen Saturation ABG 95.6 % (95.0-100.0); PCO2 ABG 42.2 mmHg (35.0-45.0); PO2 ABG 71.9 mmHg (80.0-100.0); pH ABG 7.502 (7.350-7.450)
[2020-09-14 04:33] LABS: Alveolar/Arterial O2 Gradient 381.8 mmHg; Carboxyhemoglobin 0.3 % THb (0-2.0); Device VENTILATOR; Fractional Inspired Oxygen 70 %; Methemoglobin ABG 0.2 %THb (0-1.5); Modified Allen's Test Unable to perform; Oxygen Content ABG 18.4 %vol (16.0-22.0); Oxyhemoglobin 94.2 % THb (90.0-100.0); PO2 FiO2 Ratio Arterial Blood 1.03 %; Reduced Hemoglobin 5.3 %THb (0-5.0); Site Drawn RIGHT RADIAL; Total Hemoglobin 13.9 g/dL (12.0-18.0)
[2020-09-14 04:35] LABS: Arterial Blood Gas PEEP 8 cmH2O; Arterial Blood Gas Vent Mode PRESSURE CONTROL; Arterial Blood Gas Ventilator rate 16 /MIN; Peak Inspiratory Pressure 22 cmH2O
[2020-09-14] MEDS: CENTRAL LINE FLUSH 10 ML IV PUSH ×3 (05:32→22:04)
[2020-09-14] MEDS: PROPOFOL IV EMULSION 100 ML 25.95 MG IV CONT (05:57)
[2020-09-14 06:07] LABS: Hematocrit 32.8 % (37.0-47.0); Hemoglobin 11.4 g/dL (12.0-15.0); Mean Corpuscular HGB Conc 34.8 g/dl (32-36); Mean Corpuscular Hemoglobin 31.1 pg (26-34); Mean Corpuscular Volume 89.4 fl (80-100); Mean Platelet Volume 9.1 fl (7.4-10.4); Platelet Count Result 256 k/mm3 (150-375); Red Blood Count 3.67 M/mm3 (4.2-5.4); Red Cell Distribution Width 14.3 % (11.5-14.5); White Blood Count 8.7 K/mm3 (4.5-10.0)
[2020-09-14 06:17] LABS: Alanine Aminotransferase 22 U/L (4-35); Albumin Level 2.9 g/dL (3.5-5.1); Alkaline Phosphatase 49 U/L (38-126); Anion Gap 8 mmol/L (8-16); Aspartate Amino Transferase 21 U/L (14-36); Bilirubin,Total 0.1 mg/dL (0.2-1.3); Blood Urea Nitrogen 17 mg/dL (7-17); Calcium 7.1 mg/dL (8.4-10.2); Carbon Dioxide 32 mmol/L (22-30); Chloride 88 mmol/L (98-107); Estimated Glomerular Filt Rate > 60; Glucose 224 mg/dL (65-105); Magnesium 2.2 mg/dL (1.6-2.3); Phosphorus 4.2 mg/dL (2.5-4.5); Potassium 3.4 mmol/L (3.4-5.0); Sodium 128 mmol/L (137-145)
[2020-09-14] MEDS: amLODIPine BESYLATE 5 MG TABLET PO (07:45)
[2020-09-14] MEDS: SILVERGEL (ELTA) 45 ML 1 APPLIC TOPICAL (07:46)
[2020-09-14] MEDS: FAMOTIDINE 20 MG/2 ML VIAL IV PUSH ×2 (07:46→20:01)
[2020-09-14] MEDS: ENOXAPARIN 40 MG/0.4 ML SYRINGE SUB-Q (07:46)
[2020-09-14] MEDS: levETIRAcetam IV 750 MG in DEXTROSE 5% 100 ML 430 MG IVPB ×2 (08:00→20:00)
[2020-09-14] MEDS: FUROSEMIDE INJ 40 MG/4 ML VIAL IV PUSH (10:17)
--- NOTE | 2020-09-14 11:04 | PCDIET ---
Nutrition Follow-Up Complete: Nutrition Diagnosis: Inadequate oral intake related to oral intubation as evidenced by NPO status. Nutrition Goal: Patient to meet estimated nutritional needs. Goal met. Patient tolerating Vital 1.2 at 30mL/hr without reported issues. MD order to change to [facility] for volume control. Recommend 15mL/hr rate to avoid overfeeding while on Propofol. This will provide 660kcal (1370kcal with Propofol at current rate), 27g protein and 231mL free water. Recommend adding Pro-Stat flush TID for additional 300kcal and 45g protein. Last recorded weight is 94.1 kg which is down from last review, despite +I/O. Bowel Motility: BM today x 1. Labs Reviewed: Hgb (11.4), Hct (32.8), Glu (224), Cr (0.4), Na (128), Alb (2.9) Meds Noted: Albuterol, Unasyn, Nimbex, Pepcid, Fentanyl, Hydralazine, Atrovent, Solu Medrol, Versed, Vancomycin, Lasix, Propofol (rate of 25.94mL/hr provides 685kcal per 24 hours) Additional Notes: Scab to face. Left ankle ulcer. Will continue to monitor with same goal. Nutrition Monitoring and Evaluation: Follow up every Thursday/Thursday. Follow daily in ICU rounds.
--- NOTE | 2020-09-14 14:17 | PM.IMPN ---
Progress Note: A&P Assessment and Plan (1) Aspiration pneumonia: Code(s): J69.0 - Pneumonitis due to inhalation of food and vomit Status: Acute (2) Acute respiratory failure with hypoxia and hypercapnia: Code(s): J96.01 - Acute respiratory failure with hypoxia; J96.02 - Acute respiratory failure with hypercapnia Status: Acute Assessment and Plan: ----- due to asthma exacerbation now on the ventilator. Pt is on iv ampicillin, IV steroids, IV vancomycin, Seen by ICU and Pulmology, Pt is on Nimbex drip. (3) Asthma with exacerbation: Qualifiers: Asthma persistence: unspecified Asthma severity: unspecified severity Qualified Code(s): J45.901 - Unspecified asthma with (acute) exacerbation Code(s): J45.901 - Unspecified asthma with (acute) exacerbation Status: Acute Assessment and Plan: ----- Pt was in severe acute distress and ABG revealed acidosis with hypercapnia 09/09/20. So was intubated ? vocal cord dysfunction (4) Signs and symptoms of severe respiratory distress: Code(s): R06.03 - Acute respiratory distress Status: Deleted Assessment and Plan: -----See above, now intubated. (5) Suspected COVID-19 virus infection: Code(s): Z20.828 - Contact with and (suspected) exposure to other viral communicable diseases Status: Acute Assessment and Plan: -----Covid x3 were negative (6) Hypertension: Code(s): I10 - Essential (primary) hypertension Status: Acute Assessment and Plan: ---- Monitor (7) Hypokalemia: Code(s): E87.6 - Hypokalemia Status: Acute Assessment and Plan: ----- chronic since childhood. Tube feed, give KCL (8) Anxiety and depression: Code(s): F41.9 - Anxiety disorder, unspecified; F32.9 - Major depressive disorder, single episode, unspecified Status: Acute Assessment and Plan: ----- chronic, she takes her home clonazepam routinely. Will need to be added back once she is off the vent (9) History of CHF (congestive heart failure): Code(s): Z86.79 - Personal history of other diseases of the circulatory system Status: Acute Assessment and Plan: ----- echo from 2018 shows normal systolic function and grade 2 diastolic dysfunction. Patient appears euvolemic at this time (10) Seizure disorder: Code(s): G40.909 - Epilepsy, unspecified, not intractable, without status epilepticus Status: Acute Assessment and Plan: ----- chronic and well controlled per patient. Continue Keppra, changed to IV. Pt is on nimbex drip. Subjective Date/time seen: 09/14/20 14:17 Interval history: Pt is a 50-year-old female here for asthma. COVID contacts but pt is negative for covid. Pt was intubated 09/09 and is still on a vent today, seen by Pulmology and ICU MD. CTA shows Middle lobe, lingular and bilateral lower lobe atelectasis. No evidence of pulmonary embolism. Cardiomegaly. Pt is on IV ampicillin and vancomycin and IV steroids.Pt is on nimbex drip. Covid x3 is negative. Noted to be a difficult intubation. ? vocal dysfunction. Much the same as yesterday. Not improving. Review of Systems Review of Systems: ROS unobtainable: Yes unobtainable due to endotracheal tube Exam Narrative: Exam Narrative: Pt is sedated on a ventilator, younger female stable on vent HEENT: Normocephalic, atraumatic, PERRL, Sclerae anicteric, oral mucosa moist. Neck: Supple Abd: Soft, nontender. No pain to palpation. Positive bowel sounds Skin: Warm and dry. Left ankle with wound Extremities: No swelling, erythema or pain to palpation Neuro: Sedated Objective Data Vital Signs Vital Signs: Vital Signs - 24 hr 09/13/20 15:29 09/13/20 16:00 09/13/20 16:18 Temperature 36.5 C Pulse Rate 83 97 120 H Respiratory Rate 18 16 Blood Pressure 105/63 Pulse Oximetry 95 95 09/13/20 16:50 09/13/20 16:5
[2020-09-14] MEDS: FENTANYL 2,500MCG/NS250ML(*CRX 2,500 MCG/250 ML BAG 20 MCG IV CONT (14:19)
--- NOTE | 2020-09-14 14:27 | WPDINTPN ---
Progress Note: A&P Assessment and Plan (1) Acute respiratory failure with hypoxia and hypercapnia: Code(s): J96.01 - Acute respiratory failure with hypoxia; J96.02 - Acute respiratory failure with hypercapnia Status: Acute Assessment and Plan: patient with acute asthma exacerbation, impending respiratory failure with acute hypercarbic respiratory failure, was intubated on 09/09/2020. - Since intubation it has been very difficult to ventilate this patient. she was on CMV and later was switched to pressure control ventilation and then had to be paralyzed - today I discontinued the paralytic and once the effect wore off patient again would not ventilate. Dyssynchronouss with the vent and tidal volumes were very low with a very high peak pressures. Breath stacking. I tried both CMV and pressure control ventilation mode but was of no help and eventually patient saturation deteriorated and had to be paralyzed. Patient placed back on neuromuscular master - PCV change to 22, decrease rate to 14, peep at 8, wean FiO2 maintain O2 sats greater than 92% - Lasix 40 mg IV x1 today - bronchodilators, steroids - - chest x-ray reviewed. Patient is on Unasyn and vancomycin for pneumonia which could also be secondary to aspiration (2) Asthma with exacerbation: Qualifiers: Asthma persistence: unspecified Asthma severity: unspecified severity Qualified Code(s): J45.901 - Unspecified asthma with (acute) exacerbation Code(s): J45.901 - Unspecified asthma with (acute) exacerbation Status: Acute Assessment and Plan: Severe Asthma exacerbation with significant exposure to COVID-19 - SARS CoV-2 RT PCR negative x3 -- continue Albuterol to 2.5 mg Q4h with first dose now and add Atrovent 0.5 mg Nebs Q4h - continue solumedrol 60 mg IV Q6h - patient unable to exhale due to possible airway inflammation, dyssynchronous with the ventilator, low tidal volume, desaturation. Patient was started on Nimbex infusion with improved in her respiratory status. (3) Hypertension: Code(s): I10 - Essential (primary) hypertension Status: Acute Assessment and Plan: Continue amlodipine -hydralazine p.r.n. (4) Seizure disorder: Code(s): G40.909 - Epilepsy, unspecified, not intractable, without status epilepticus Status: Acute Assessment and Plan: continue Keppra, seizure precautions (5) Vocal cord dysfunction: Code(s): J38.3 - Other diseases of vocal cords Status: Acute Assessment and Plan: There is a question of vocal cord dysfunction syndrome is she was very anxious during the episode and had some stridor. Her wheezing were felt to be coming from upper airway as well. pulmonary consult (6) Suspected COVID-19 virus infection: Code(s): Z20.828 - Contact with and (suspected) exposure to other viral communicable diseases Status: Acute Assessment and Plan: SARS-CoV-2 PCR negative x3. Patient has been exposed to COVID-19 positive subjects - OFF isolation Additional Plan Continue tube feeds DVT prophylaxis with subcu Lovenox GI prophylaxis with IV Pepcid Full code Critical care time spent: 35 minutes Due to a high probability of clinically significant, life threatening deterioration, the patient required my highest level of preparedness to intervene emergently and I personally spent this critical care time directly and personally managing the patient. This critical care time included obtaining a history; examining the patient; pulse oximetry; ordering and review of studies; arranging urgent treatment with development of a management plan; evaluation of patient's response to treatment; frequent reassessment; and discussions with other providers. It was exclusive of separately billable procedures and treating other patients and teaching time. Please see Assessment and Plan section and the rest of the note for further information on patient
[2020-09-15] VITALS (40 sets, daily range): BP systolic 101–163; BP diastolic 63–111; PULSE 66–108; RESP 14–23; TEMP 36.2–36.7; O2SAT 93–100
[2020-09-15] MEDS: ALBUTEROL SULFATE NEB 2.5 MG/0.5 ML INH 5 MG INHALATION ×5 (01:06→19:52)
[2020-09-15] MEDS: IPRATROPIUM BR 0.02% INH SOLN 0.5 MG/2.5 ML VIAL INHALATION ×5 (01:06→19:52)
[2020-09-15] MEDS: PROPOFOL IV EMULSION 100 ML 28.83 MG IV CONT ×5 (01:53→17:50)
[2020-09-15] MEDS: methylPREDNISolone SOD SUCC 125 MG VIAL 60 MG IV PUSH ×4 (01:56→17:09)
[2020-09-15] MEDS: FENTANYL 2,500MCG/NS250ML(*CRX 2,500 MCG/250 ML BAG 20 MCG IV CONT ×2 (02:31→16:56)
[2020-09-15 04:04] LABS: Carboxyhemoglobin 0.3 % THb (0-2.0); Fractional Inspired Oxygen 70 %; HCO3 ABG 34.5 mEq/l (22.0-26.0); Methemoglobin ABG 0.2 %THb (0-1.5); Oxygen Content ABG 17.4 %vol (16.0-22.0); Oxygen Saturation ABG 93.3 % (95.0-100.0); Oxyhemoglobin 91.7 % THb (90.0-100.0); PCO2 ABG 45.2 mmHg (35.0-45.0); PO2 ABG 61.5 mmHg (80.0-100.0); PO2 FiO2 Ratio Arterial Blood 0.88 %; Reduced Hemoglobin 7.8 %THb (0-5.0); Total Hemoglobin 13.5 g/dL (12.0-18.0)
[2020-09-15 04:05] LABS: Arterial Blood Gas Ventilator rate 14 /MIN; Device VENTILATOR; Modified Allen's Test Pass; Site Drawn LEFT RADIAL
[2020-09-15 04:06] LABS: Arterial Blood Gas PEEP 8 cmH2O; Arterial Blood Gas Vent Mode PRESSURE CONTROL; Peak Inspiratory Pressure 22 cmH2O
[2020-09-15] MEDS: AMPICILLIN SULB 3 GM/NS 100 ML 3 GM/100 ML VIAL IVPB ×4 (04:40→20:38)
[2020-09-15] MEDS: CENTRAL LINE FLUSH 10 ML IV PUSH ×3 (04:45→21:27)
[2020-09-15 05:50] LABS: Alanine Aminotransferase 20 U/L (4-35); Albumin Level 3.1 g/dL (3.5-5.1); Alkaline Phosphatase 56 U/L (38-126); Anion Gap 8 mmol/L (8-16); Aspartate Amino Transferase 16 U/L (14-36); Bilirubin,Total 0.3 mg/dL (0.2-1.3); Blood Urea Nitrogen 18 mg/dL (7-17); Calcium 7.7 mg/dL (8.4-10.2); Carbon Dioxide 36 mmol/L (22-30); Chloride 87 mmol/L (98-107); Estimated Glomerular Filt Rate > 60; Glucose 306 mg/dL (65-105); Magnesium 2.6 mg/dL (1.6-2.3); Phosphorus 4.3 mg/dL (2.5-4.5); Potassium 3.5 mmol/L (3.4-5.0); Sodium 131 mmol/L (137-145)
[2020-09-15] MEDS: levETIRAcetam IV 750 MG in DEXTROSE 5% 100 ML 430 MG IVPB ×2 (09:57→20:35)
[2020-09-15] MEDS: SILVERGEL (ELTA) 45 ML 1 APPLIC TOPICAL (09:57)
[2020-09-15] MEDS: FAMOTIDINE 20 MG/2 ML VIAL IV PUSH ×2 (09:59→20:13)
[2020-09-15] MEDS: ENOXAPARIN 40 MG/0.4 ML SYRINGE SUB-Q (09:59)
[2020-09-15] MEDS: FUROSEMIDE INJ 40 MG/4 ML VIAL IV PUSH ×2 (09:59→20:14)
[2020-09-15] MEDS: amLODIPine BESYLATE 5 MG TABLET PO (10:00)
[2020-09-15 10:07] LABS: Glucose Point of Care 195 (65-105)
[2020-09-15 11:40] LABS: Vancomycin Trough 10.2 ug/mL (10.0-20.0)
--- NOTE | 2020-09-15 14:16 | WPDINTPN ---
Progress Note: A&P Assessment and Plan (1) Acute respiratory failure with hypoxia and hypercapnia: Code(s): J96.01 - Acute respiratory failure with hypoxia; J96.02 - Acute respiratory failure with hypercapnia Status: Acute Assessment and Plan: patient with acute asthma exacerbation, impending respiratory failure with acute hypercarbic respiratory failure, was intubated on 09/09/2020. - Since intubation it has been very difficult to ventilate this patient. she was on CMV and later was switched to pressure control ventilation and then had to be paralyzed -paralytic is discontinued patient gets Dyssynchronous with the vent and tidal volumes of very low with a very high peak pressures. Breath stacking. -patient on pressure control ventilation, peep of 8 and 70% FiO2. Will wean FiO2 to maintain O2 sats greater than 92% -patient remains on fentanyl, Versed, propofol for neuromuscular blockade -patient responded well to Lasix yesterday, will repeat awaiting again today - bronchodilators, steroids - chest x-ray reviewed. Patient is on Unasyn and vancomycin for pneumonia which could also be secondary to aspiration (2) Asthma with exacerbation: Qualifiers: Asthma persistence: unspecified Asthma severity: unspecified severity Qualified Code(s): J45.901 - Unspecified asthma with (acute) exacerbation Code(s): J45.901 - Unspecified asthma with (acute) exacerbation Status: Acute Assessment and Plan: Severe Asthma exacerbation with significant exposure to COVID-19 - SARS CoV-2 RT PCR negative x3 -- continue Albuterol to 2.5 mg Q4h with first dose now and add Atrovent 0.5 mg Nebs Q4h - continue solumedrol 60 mg IV Q6h - patient unable to exhale due to possible airway inflammation, dyssynchronous with the ventilator, low tidal volume, desaturation. Patient was started on Nimbex infusion with improved in her respiratory status. (3) Hypertension: Code(s): I10 - Essential (primary) hypertension Status: Acute Assessment and Plan: Continue amlodipine -hydralazine p.r.n. (4) Seizure disorder: Code(s): G40.909 - Epilepsy, unspecified, not intractable, without status epilepticus Status: Acute Assessment and Plan: continue Keppra, seizure precautions (5) Vocal cord dysfunction: Code(s): J38.3 - Other diseases of vocal cords Status: Acute Assessment and Plan: There is a question of vocal cord dysfunction syndrome is she was very anxious during the episode and had some stridor. Her wheezing were felt to be coming from upper airway as well. pulmonary consult (6) Suspected COVID-19 virus infection: Code(s): Z20.828 - Contact with and (suspected) exposure to other viral communicable diseases Status: Acute Assessment and Plan: SARS-CoV-2 PCR negative x3. Patient has been exposed to COVID-19 positive subjects - OFF isolation Additional Plan Continue tube feeds DVT prophylaxis with subcu Lovenox GI prophylaxis with IV Pepcid Full code Critical care time spent: 33 minutes Due to a high probability of clinically significant, life threatening deterioration, the patient required my highest level of preparedness to intervene emergently and I personally spent this critical care time directly and personally managing the patient. This critical care time included obtaining a history; examining the patient; pulse oximetry; ordering and review of studies; arranging urgent treatment with development of a management plan; evaluation of patient's response to treatment; frequent reassessment; and discussions with other providers. It was exclusive of separately billable procedures and treating other patients and teaching time. Please see Assessment and Plan section and the rest of the note for further information on patient assessment and treatment. Subjective Date/time seen: 09/15/20 14:16 Interval history: 50-year-old female h
[2020-09-15 14:31] LABS: Glucose Point of Care 168 (65-105)
[2020-09-15 17:09] LABS: Glucose Point of Care 209 (65-105)
[2020-09-15] MEDS: INSULIN ASPART (*BKC) 100 UNITS/ML SUB-Q (17:09)
--- NOTE | 2020-09-15 17:31 | PM.IMPN ---
Progress Note: A&P Assessment and Plan (1) Aspiration pneumonia: Code(s): J69.0 - Pneumonitis due to inhalation of food and vomit Status: Acute (2) Acute respiratory failure with hypoxia and hypercapnia: Code(s): J96.01 - Acute respiratory failure with hypoxia; J96.02 - Acute respiratory failure with hypercapnia Status: Acute Assessment and Plan: ----- due to asthma exacerbation now on the ventilator. Pt is on iv ampicillin, IV steroids, IV vancomycin, Seen by ICU and Pulmology, Pt is on Nimbex drip. seen by ICU (3) Asthma with exacerbation: Qualifiers: Asthma persistence: unspecified Asthma severity: unspecified severity Qualified Code(s): J45.901 - Unspecified asthma with (acute) exacerbation Code(s): J45.901 - Unspecified asthma with (acute) exacerbation Status: Acute Assessment and Plan: ----- Pt was in severe acute distress and ABG revealed acidosis with hypercapnia 09/09/20. So was intubated ? vocal cord dysfunction. seen by pulmology (4) Signs and symptoms of severe respiratory distress: Code(s): R06.03 - Acute respiratory distress Status: Deleted Assessment and Plan: -----See above, now intubated. (5) Suspected COVID-19 virus infection: Code(s): Z20.828 - Contact with and (suspected) exposure to other viral communicable diseases Status: Acute Assessment and Plan: -----Covid x3 were negative (6) Hypertension: Code(s): I10 - Essential (primary) hypertension Status: Acute Assessment and Plan: ---- Monitor (7) Hypokalemia: Code(s): E87.6 - Hypokalemia Status: Acute Assessment and Plan: ----- chronic since childhood. Tube feed, give KCL (8) Anxiety and depression: Code(s): F41.9 - Anxiety disorder, unspecified; F32.9 - Major depressive disorder, single episode, unspecified Status: Acute Assessment and Plan: ----- chronic, she takes her home clonazepam routinely. Will need to be added back once she is off the vent (9) History of CHF (congestive heart failure): Code(s): Z86.79 - Personal history of other diseases of the circulatory system Status: Acute Assessment and Plan: ----- echo from 2018 shows normal systolic function and grade 2 diastolic dysfunction. Patient appears euvolemic at this time (10) Seizure disorder: Code(s): G40.909 - Epilepsy, unspecified, not intractable, without status epilepticus Status: Acute Assessment and Plan: ----- chronic and well controlled per patient. Continue Keppra, changed to IV. Pt is on nimbex drip. Additional Plan Case discussed with Dr. Hardin Subjective Date/time seen: 09/15/20 17:31 Interval history: Pt is a 50-year-old female here for asthma. COVID contacts but pt is negative for covid. Pt was intubated 09/09 and is still on a vent today, seen by Pulmology and ICU MD. CTA shows Middle lobe, lingular and bilateral lower lobe atelectasis. No evidence of pulmonary embolism. Cardiomegaly. Pt is on IV ampicillin and vancomycin and IV steroids.Pt is on nimbex drip. Covid x3 is negative. Noted to be a difficult intubation. ? vocal dysfunction. Much the same as yesterday. Review of Systems Review of Systems: All systems reviewed & are unremarkable except as noted in HPI and below Exam Narrative: Exam Narrative: Pt is sedated on a ventilator, younger female stable on vent HEENT: Normocephalic, atraumatic, PERRL, Sclerae anicteric, oral mucosa moist. Neck: Supple Abd: Soft, nontender. No pain to palpation. Positive bowel sounds Skin: Warm and dry. Left ankle with wound Extremities: No swelling, erythema or pain to palpation Neuro: Sedated Objective Data Vital Signs Vital Signs: Vital Signs - 24 hr 09/14/20 18:00 09/14/20 18:12 09/14/20 19:48 Temperature Pulse Rate 85 82 80 Respiratory Rate 14 14 16 Blood Press
[2020-09-15] MEDS: PROPOFOL IV EMULSION 100 ML 25.85 MG IV CONT (21:58)
[2020-09-15 23:57] LABS: Glucose Point of Care 159 (65-105)
[2020-09-16] VITALS (31 sets, daily range): BP systolic 105–154; BP diastolic 71–97; PULSE 68–115; RESP 11–26; TEMP 36.1–36.8; O2SAT 92–100
[2020-09-16] MEDS: IPRATROPIUM BR 0.02% INH SOLN 0.5 MG/2.5 ML VIAL INHALATION ×5 (00:06→19:39)
[2020-09-16] MEDS: ALBUTEROL SULFATE NEB 2.5 MG/0.5 ML INH 5 MG INHALATION ×6 (00:06→19:39)
[2020-09-16] MEDS: PROPOFOL IV EMULSION 100 ML 25.85 MG IV CONT ×4 (02:05→22:22)
[2020-09-16 02:14] LABS: Glucose Point of Care 171 (65-105)
[2020-09-16] MEDS: methylPREDNISolone SOD SUCC 125 MG VIAL 60 MG IV PUSH ×4 (02:18→18:06)
[2020-09-16 04:12] LABS: Alveolar/Arterial O2 Gradient 318.8 mmHg; Carboxyhemoglobin 0.3 % THb (0-2.0); Fractional Inspired Oxygen 60 %; HCO3 ABG 31.2 mEq/l (22.0-26.0); Methemoglobin ABG 0.2 %THb (0-1.5); Oxygen Content ABG 16.7 %vol (16.0-22.0); Oxygen Saturation ABG 93.3 % (95.0-100.0); Oxyhemoglobin 90.8 % THb (90.0-100.0); PCO2 ABG 42.6 mmHg (35.0-45.0); PO2 ABG 62.1 mmHg (80.0-100.0); PO2 FiO2 Ratio Arterial Blood 1.03 %; Reduced Hemoglobin 8.7 %THb (0-5.0); Total Hemoglobin 13.1 g/dL (12.0-18.0); pH ABG 7.483 (7.350-7.450)
[2020-09-16 04:14] LABS: Device VENTILATOR; Modified Allen's Test Pass; Site Drawn LEFT RADIAL
[2020-09-16 04:16] LABS: Arterial Blood Gas PEEP 8 cmH2O; Arterial Blood Gas Vent Mode PRESSURE CONTROL; Arterial Blood Gas Ventilator rate 14 /MIN; Peak Inspiratory Pressure 22 cmH2O
[2020-09-16 04:49] LABS: Glucose Point of Care 177 (65-105)
[2020-09-16] MEDS: AMPICILLIN SULB 3 GM/NS 100 ML 3 GM/100 ML VIAL IVPB ×4 (04:56→23:08)
[2020-09-16] MEDS: FENTANYL 2,500MCG/NS250ML(*CRX 2,500 MCG/250 ML BAG 20 MCG IV CONT ×2 (04:57→18:30)
[2020-09-16 05:32] LABS: Hematocrit 36.3 % (37.0-47.0); Hemoglobin 12.1 g/dL (12.0-15.0); Mean Corpuscular HGB Conc 33.3 g/dl (32-36); Mean Corpuscular Hemoglobin 29.5 pg (26-34); Mean Corpuscular Volume 88.5 fl (80-100); Mean Platelet Volume 8.7 fl (7.4-10.4); Platelet Count Result 262 k/mm3 (150-375); Red Cell Distribution Width 14.6 % (11.5-14.5); White Blood Count 10.8 K/mm3 (4.5-10.0)
[2020-09-16 05:45] LABS: Alanine Aminotransferase 21 U/L (4-35); Albumin Level 3.5 g/dL (3.5-5.1); Alkaline Phosphatase 55 U/L (38-126); Anion Gap 10 mmol/L (8-16); Aspartate Amino Transferase 17 U/L (14-36); Bilirubin,Total 0.6 mg/dL (0.2-1.3); Blood Urea Nitrogen 22 mg/dL (7-17); Carbon Dioxide 36 mmol/L (22-30); Chloride 89 mmol/L (98-107); Estimated Glomerular Filt Rate > 60; Glucose 166 mg/dL (65-105); Magnesium 2.6 mg/dL (1.6-2.3); Phosphorus 6.1 mg/dL (2.5-4.5); Potassium 3.3 mmol/L (3.4-5.0); Sodium 135 mmol/L (137-145)
[2020-09-16] MEDS: CENTRAL LINE FLUSH 10 ML IV PUSH ×2 (06:06→23:13)
[2020-09-16] MEDS: ENOXAPARIN 40 MG/0.4 ML SYRINGE SUB-Q (08:57)
[2020-09-16] MEDS: SILVERGEL (ELTA) 45 ML 1 APPLIC TOPICAL (08:57)
[2020-09-16] MEDS: FAMOTIDINE 20 MG/2 ML VIAL IV PUSH ×2 (08:57→23:00)
[2020-09-16] MEDS: amLODIPine BESYLATE 5 MG TABLET PO (08:57)
[2020-09-16] MEDS: levETIRAcetam IV 750 MG in DEXTROSE 5% 100 ML 430 MG IVPB ×2 (09:02→22:59)
--- NOTE | 2020-09-16 09:08 | WPDINTPN ---
Progress Note: A&P Assessment and Plan (1) Acute respiratory failure with hypoxia and hypercapnia: Code(s): J96.01 - Acute respiratory failure with hypoxia; J96.02 - Acute respiratory failure with hypercapnia Status: Acute Assessment and Plan: Intubated 09/09 Duet to aspiration pneumonia, asthma 09/15: I/O 4940/5550 09/16: PC 22, rate 14, FIO2 60% Continues on furosemide 40mg IV q 12 hrs through 11/16 Difficulty weaning due to expiratory respiratory muscle contractions when neuromuscular blockade (Nimbex) is weaned (2) Asthma with exacerbation: Qualifiers: Asthma persistence: unspecified Asthma severity: unspecified severity Qualified Code(s): J45.901 - Unspecified asthma with (acute) exacerbation Code(s): J45.901 - Unspecified asthma with (acute) exacerbation Status: Acute Assessment and Plan: Continue steroids, bronchodilators (3) Aspiration pneumonia: Qualifiers: Aspiration pneumonia type: unspecified Laterality: unspecified laterality Lung location: unspecified part of lung Qualified Code(s): J69.0 - Pneumonitis due to inhalation of food and vomit Code(s): J69.0 - Pneumonitis due to inhalation of food and vomit Status: Acute Assessment and Plan: Continue Unasyn, Vancomycin (4) Vocal cord dysfunction: Code(s): J38.3 - Other diseases of vocal cords Status: Acute Assessment and Plan: Pulmonary following Currently on neuromuscluar blockade, but weaning (5) Seizure disorder: Code(s): G40.909 - Epilepsy, unspecified, not intractable, without status epilepticus Status: Acute Assessment and Plan: Continue Keppra Controlled (6) Hypertension: Qualifiers: Hypertension type: unspecified Qualified Code(s): I10 - Essential (primary) hypertension Code(s): I10 - Essential (primary) hypertension Status: Acute Assessment and Plan: Continue amlodipine with prn hydralazine Subjective Date/time seen: 09/16/20 09:08 Interval history: 09/16: Remains intubated and sedated Review of Systems Review of Systems: ROS unobtainable: Yes unobtainable due to medical condition Exam Narrative: Exam Narrative: HEENT: PERRL but midpoint, sluggish, sclerae nonicteric, pharyngeal mucosa pink and intact NECK: No JVD CHEST: Coarse BS. HEART: NL S1/S2, regular, no murmur ABDOMEN: BS+, soft, nontender, no mass, no bruits EXTREMITIES: No cyanosis, edema, or clubbing NEUROLOGIC: CN intact and symmetric to inspection. MUSCULOSKELETAL: Tone symmetric PSYCH: Sedated. No response to noxious stimuli Objective Data Vital Signs Vital Signs: Vital Signs - 24 hr 09/15/20 10:00 09/15/20 10:13 09/15/20 10:14 Temperature Pulse Rate 73 70 66 Respiratory Rate 14 14 Blood Pressure 116/80 Pulse Oximetry 100 100 09/15/20 11:35 09/15/20 12:00 09/15/20 13:05 Temperature 98.1 F Pulse Rate 100 108 H 81 Respiratory Rate 23 H 15 Blood Pressure 163/111 H Pulse Oximetry 98 98 09/15/20 13:07 09/15/20 14:00 09/15/20 15:01 Temperature Pulse Rate 82 74 68 Respiratory Rate 17 14 Blood Pressure 102/74 Pulse Oximetry 94 96 09/15/20 16:00 09/15/20 16:35 09/15/20 16:56 Temperature 97.1 F L Pulse Rate 83 76 68 Respiratory Rate 17 14 Blood Pressure 114/77 Pulse Oximetry 98 96 09/15/20 17:11 09/15/20 17:13 09/15/20 17:50 Temperature Pulse Rate 76 74 76 Respiratory Rate 19 15 19 Blood Pressure 110/67 Pulse Oximetry 09/15/20 18:00 09/15/20 19:54 09/15/20 19:58 Temperature Pulse Rate 80 76 76 Respiratory Rate 20 14 Blood Pressure 122/80 Pulse Oximetry 98 97 09/15/20 20:00 09/15/20 20:24 09/15/20 21:00 Temperature 97.1 F L Pulse Rate 82 74 85 Respiratory Rate 20 19 21 H Blood Pressure 101/63 108/79 Pulse Oximetry 94 93 09/15/20 21:58 09/15/20 22:00 09/15/20 23:00 Temperature Pulse Rate 71 75 75 Respirato
[2020-09-16 09:25] LABS: Glucose Point of Care 196 (65-105)
[2020-09-16] MEDS: FUROSEMIDE INJ 40 MG/4 ML VIAL IV PUSH (11:56)
[2020-09-16 13:52] LABS: Glucose Point of Care 252 (65-105)
[2020-09-16] MEDS: INSULIN ASPART (*BKC) 100 UNITS/ML SUB-Q (13:55)
--- NOTE | 2020-09-16 15:10 | PM.IMPN ---
Progress Note: A&P Assessment and Plan (1) Acute respiratory failure with hypoxia and hypercapnia: Code(s): J96.01 - Acute respiratory failure with hypoxia; J96.02 - Acute respiratory failure with hypercapnia Status: Acute Assessment and Plan: Intubated 09/09 Duet to aspiration pneumonia, asthma 09/15: I/O 4940/5550 09/16: PC 22, rate 14, FIO2 60% Continues on furosemide 40mg IV q 12 hrs through 11/16 Difficulty weaning due to expiratory respiratory muscle contractions when neuromuscular blockade (Nimbex) is weaned 09/16/20 15:10 Patient is a 50-year-old female with history of asthma presented emergency department on 09/08 with cough shortness of breath and fever initially there was a concern patient may be positive for COVID as patient was exposed to her niece who was positive, however patient is negative for COVID-19, patient was found to have exacerbation of asthma as well as pneumonia and was being treated however on 09/09 into respiratory distress and patient was intubated, she is on vent, patient is being treated for pneumonia with ampicillin and vancomycin, patient is sedated with Versed and fentanyl and on Nimbex, unable to provide any review of symptoms, patient is seen by net application support specialist and curator of photography and prints and further recommendation to follow (2) Asthma with exacerbation: Qualifiers: Asthma persistence: unspecified Asthma severity: unspecified severity Qualified Code(s): J45.901 - Unspecified asthma with (acute) exacerbation Code(s): J45.901 - Unspecified asthma with (acute) exacerbation Status: Acute Assessment and Plan: Continue steroids, bronchodilators (3) Aspiration pneumonia: Qualifiers: Aspiration pneumonia type: unspecified Laterality: unspecified laterality Lung location: unspecified part of lung Qualified Code(s): J69.0 - Pneumonitis due to inhalation of food and vomit Code(s): J69.0 - Pneumonitis due to inhalation of food and vomit Status: Acute Assessment and Plan: Continue Unasyn, Vancomycin (4) Vocal cord dysfunction: Code(s): J38.3 - Other diseases of vocal cords Status: Acute Assessment and Plan: Pulmonary following Currently on neuromuscluar blockade, but weaning (5) Seizure disorder: Code(s): G40.909 - Epilepsy, unspecified, not intractable, without status epilepticus Status: Acute Assessment and Plan: Continue Keppra Controlled (6) Hypertension: Qualifiers: Hypertension type: unspecified Qualified Code(s): I10 - Essential (primary) hypertension Code(s): I10 - Essential (primary) hypertension Status: Acute Assessment and Plan: Continue amlodipine with prn hydralazine Subjective Date/time seen: 09/16/20 15:10 Patient is a 50-year-old female with history of asthma presented emergency department on 09/08 with cough shortness of breath and fever initially there was a concern patient may be positive for COVID as patient was exposed to her niece who was positive, however patient is negative for COVID-19, patient was found to have exacerbation of asthma as well as pneumonia and was being treated however on 09/09 into respiratory distress and patient was intubated, she is on vent, patient is being treated for pneumonia with ampicillin and vancomycin, patient is sedated with Versed and fentanyl and on Nimbex, unable to provide any review of symptoms, patient is seen by net application support specialist and curator of photography and prints and further recommendation to follow Review of Systems Review of Systems: ROS unobtainable: Yes unobtainable due to endotracheal tube Exam Narrative: Exam Narrative: Moderately obese Patient is comfortable, NAD HEENT: ET tube in place LUNGS: Bilateral poor air entry with rales and rhonchi HEART: RR S1S2 ABD: BS+, Soft and nontender Lower extremities: no edema SKIN: nonjaundiced Neuro: On vent and sedated. Objective Data Vital Signs Vital Sign
[2020-09-16 16:56] LABS: Glucose Point of Care 161 (65-105)
--- NOTE | 2020-09-16 18:31 | PM.PNPUL ---
Progress Note: A&P Assessment and Plan (1) Asthma with exacerbation: Qualifiers: Asthma persistence: unspecified Asthma severity: unspecified severity Qualified Code(s): J45.901 - Unspecified asthma with (acute) exacerbation Code(s): J45.901 - Unspecified asthma with (acute) exacerbation Status: Acute Assessment and Plan: Severe Asthma exacerbation with significant exposure to COVID-19 and negative COVID testing twice - continue fentanyl, versed, propofol; paralytic is now off and she is tolerating it better now. - continue bronchodilator therapy albuterol and ipratropium Q4h and antibiotics for pneumonia, vancomycin and Unasyn - continue solumedrol 60 mg IV Q6h - this severe hypercapnea and hypoxemia is due to infiltrates; asthma alone should not have this high O2 demand - I appreciate nutrition intern's and hospitalist's assistance with this complex patient. (2) Acute respiratory failure with hypoxia and hypercapnia: Code(s): J96.01 - Acute respiratory failure with hypoxia; J96.02 - Acute respiratory failure with hypercapnia Status: Acute Assessment and Plan: - Requiring 70% FiO2 with PEEP 8; off neuromuscular blockade with improvement overall in ability to ventilate and oxygenate - CXR shows improved pulmonary edema pattern with bilateral infiltrates; Oxygenation better, increased improved hypercapnea, - ABG today shows improved respiratory acidosis; 7.48/ pCO2 42/ pO2 62 on 60% PC mode; - increased TV to improve respiratory acidosis - Close monitoring. Subjective Date/time seen: 09/16/20 18:31 This 50 yo female is seen in follow up for acute respiratory failure with hypercapnia and hypoxemia, acute asthma exacerbation. COVID (-) x 3; She is off paralytic, tolerating this with resp date close the ventilator and controlled peak pressures. PC mode, IP 22 cm, PEEP 8, FiO2 0.6; f=14. Sat is 95%. Pulse 102. Ve = 4.1-5L/min Lasix helped with diuresis, and FiO2 is decreased. CXR shows gradual improvement in markings, probably a mix of infiltrates and pulmonary edema. - intubated Sep 09. - transferred to ICU Sep 10. - Sep 11 was transferred to [facility]; PC mode, rate 16, increased FiO2 0.7, PEEP increased 8 - off paralytic Sep 13 - fentanyl 200 mcg/hour - Versed 6 mg/hour - propofol 50 mcg/kg/min Review of Systems Review of Systems: All systems reviewed & are unremarkable except as noted in HPI and below (not obtainable as she is sedated and intubated) Exam Const: General: comfortable and no acute distress (sedated heavily, no longer paralyzed; breathing 1-2 breaths /min above vent) Nutritional Appearance: obese Orientation/consciousness: oriented to person, oriented to place, oriented to time and patient oriented x3 HENMT: Head: normal to inspection, normocephalic and atraumatic Ears: hearing grossly normal bilaterally (responds to voice) General nose exam: Normal external nose present Face and sinus: normal facial exam (orally intubated) Mouth: Yes Normal oral and palatal mucosa present Throat: posterior oropharynx abnormal (can't see. intubated) Eyes: General: appearance normal, both eyes and all related structures Neck: Neck: normal visual inspection, trachea midline and supple Chest: Chest palpation & inspection: normal inspection of the chest Resp: Effort & Inspection: normal respiratory effort Auscultation: diminished lung sounds bilateral and diffuse Cardio: Jugular venous distension: no JVD Rate: tachycardic Rhythm: regular rhythm Heart sounds: S1 normal heart sound present, S2 normal heart sound present, no gallops, no murmurs and no rubs GI: Inspection: normal to inspection Auscultation: normal bowel sounds Skin: General skin exam: normal color and no rashes or lesions noted Extrem: General: normal to inspection and no clubbing, c
[2020-09-16 23:10] LABS: Glucose Point of Care 199 (65-105)
[2020-09-17] VITALS (41 sets, daily range): BP systolic 93–200; BP diastolic 56–100; PULSE 67–134; RESP 14–23; TEMP 36.3–37.2; O2SAT 90–98
[2020-09-17] MEDS: FUROSEMIDE INJ 40 MG/4 ML VIAL IV PUSH (00:21)
[2020-09-17] MEDS: methylPREDNISolone SOD SUCC 125 MG VIAL 60 MG IV PUSH ×4 (02:05→16:50)
[2020-09-17] MEDS: PROPOFOL IV EMULSION 100 ML 25.85 MG IV CONT ×6 (02:06→20:57)
[2020-09-17] MEDS: hydrALAZINE HCL 20 MG/ML VIAL 10 MG IV PUSH (02:11)
--- NOTE | 2020-09-17 03:19 | ECG_ITS ---
Measurements Intervals Muse Rate: 129 P: 12 NC: 124 QRS: 8 QRSD: 77 T: 0 QT: 141 QTc: 206 Interpretive Statements SINUS TACHYCARDIA EARLY PRECORDIAL R/S TRANSITION NONSPECIFIC ST & T-WAVE ABNORMALITY- DIFFUSE LEADS BASELINE ARTIFACT- II, III, AVR, AVL, AVF ABNORMAL ECG Electronically Signed On 09-17-2020 10:58:02 [employer]INTED [employer]AR[employer] LAMINATOR by Orlando Zendejas D.O.
[2020-09-17] MEDS: SODIUM CHLORIDE 0.9% IV 250 ML 999 ML IV CONT (03:53)
[2020-09-17] MEDS: LABETALOL HCL INJ 100 MG/20 ML VIAL 10 MG IV PUSH (03:53)
[2020-09-17 04:26] LABS: Glucose Point of Care 143 (65-105)
[2020-09-17 04:39] LABS: Hematocrit 36.7 % (37.0-47.0); Hemoglobin 12.5 g/dL (12.0-15.0); Mean Corpuscular HGB Conc 34.1 g/dl (32-36); Mean Corpuscular Volume 88.2 fl (80-100); Platelet Count Result 317 k/mm3 (150-375); Red Blood Count 4.16 M/mm3 (4.2-5.4); Red Cell Distribution Width 14.4 % (11.5-14.5); White Blood Count 19.3 K/mm3 (4.5-10.0)
[2020-09-17 04:50] LABS: Alanine Aminotransferase 35 U/L (4-35); Albumin Level 3.7 g/dL (3.5-5.1); Alkaline Phosphatase 61 U/L (38-126); Anion Gap 10 mmol/L (8-16); Aspartate Amino Transferase 37 U/L (14-36); Bilirubin,Total 0.9 mg/dL (0.2-1.3); Blood Urea Nitrogen 29 mg/dL (7-17); Carbon Dioxide 38 mmol/L (22-30); Chloride 86 mmol/L (98-107); Estimated Glomerular Filt Rate > 60; Glucose 153 mg/dL (65-105); Magnesium 2.5 mg/dL (1.6-2.3); Phosphorus 4.9 mg/dL (2.5-4.5); Potassium 3.3 mmol/L (3.4-5.0); Sodium 134 mmol/L (137-145)
[2020-09-17] MEDS: AMPICILLIN SULB 3 GM/NS 100 ML 3 GM/100 ML VIAL IVPB ×4 (05:13→21:00)
[2020-09-17 05:20] LABS: Alveolar/Arterial O2 Gradient 471.2 mmHg; Base Excess ABG 8.3 mEq/l (+/-2.0); Carboxyhemoglobin 0.2 % THb (0-2.0); Fractional Inspired Oxygen 80 %; HCO3 ABG 31.4 mEq/l (22.0-26.0); Methemoglobin ABG 0.2 %THb (0-1.5); Oxygen Content ABG 17.4 %vol (16.0-22.0); Oxygen Saturation ABG 93.3 % (95.0-100.0); PCO2 ABG 38.1 mmHg (35.0-45.0); PO2 ABG 59.2 mmHg (80.0-100.0); PO2 FiO2 Ratio Arterial Blood 0.74 %; Reduced Hemoglobin 7.6 %THb (0-5.0); Total Hemoglobin 13.5 g/dL (12.0-18.0)
[2020-09-17 05:22] LABS: pH ABG 7.534 (7.350-7.450)
[2020-09-17 05:23] LABS: Device VENTILATOR; Modified Allen's Test Unable to perform; Site Drawn RIGHT RADIAL
[2020-09-17 05:24] LABS: Arterial Blood Gas PEEP 8 cmH2O; Arterial Blood Gas Vent Mode PRESSURE CONTROL; Arterial Blood Gas Ventilator rate 14 /MIN; Peak Inspiratory Pressure 22 cmH2O
[2020-09-17] MEDS: CENTRAL LINE FLUSH 10 ML IV PUSH ×3 (05:56→20:11)
[2020-09-17] MEDS: FENTANYL 2,500MCG/NS250ML(*CRX 2,500 MCG/250 ML BAG 20 MCG IV CONT ×2 (05:57→18:17)
[2020-09-17 07:59] LABS: Glucose Point of Care 169 (65-105)
[2020-09-17] MEDS: levETIRAcetam IV 750 MG in DEXTROSE 5% 100 ML 430 MG IVPB ×2 (08:23→20:09)
[2020-09-17] MEDS: SILVERGEL (ELTA) 45 ML 1 APPLIC TOPICAL (08:24)
[2020-09-17] MEDS: ENOXAPARIN 40 MG/0.4 ML SYRINGE SUB-Q (08:24)
[2020-09-17] MEDS: FAMOTIDINE 20 MG/2 ML VIAL IV PUSH ×2 (08:24→20:10)
[2020-09-17] MEDS: amLODIPine BESYLATE 5 MG TABLET PO (08:24)
[2020-09-17] MEDS: ALBUTEROL SULFATE NEB 2.5 MG/0.5 ML INH 5 MG INHALATION ×4 (09:04→21:39)
[2020-09-17] MEDS: IPRATROPIUM BR 0.02% INH SOLN 0.5 MG/2.5 ML VIAL INHALATION ×4 (09:04→21:39)
[2020-09-17] MEDS: acetaZOLAMIDE TAB 250 MG TABLET 500 MG PO ×2 (09:48→20:10)
[2020-09-17 11:24] LABS: Glucose Point of Care 247 (65-105)
[2020-09-17 13:00] LABS: Glucose Point of Care 184 (65-105)
--- NOTE | 2020-09-17 13:19 | PCDIET ---
ICU Rounding Note: Patient tolerating Two Joseph HN at 15mL/hr with Pro-Stat TID. Continues to receive significant amount of kcal from Propofol (rate of 25.854mL/hr provides 685kcal over 24 hours/day). Last recorded weight is 96.9kg which is increased from last review. I/O appear relatively balanced. Will monitor. Bowel Motility: Last documented BM on 09/15/20. Labs Reviewed: Hct (36.7), Glu (153), BUN (29), Cr (0.4), K (3.3), PO4 (4.9) Meds Noted: Diamox, Albuterol, Norvasc, Unasyn, Pepcid, Fentanyl, Hydralazine, Atrovent, Solu Medrol, Versed, KCl, Propofol, Vancomycin Additional Notes: Left ankle ulcer. Following daily in ICU rounds. Assessing/reassessing every Thursday/Thursday.
--- NOTE | 2020-09-17 14:57 | PM.PNPUL ---
Progress Note: A&P Assessment and Plan (1) Asthma with exacerbation: Qualifiers: Asthma persistence: unspecified Asthma severity: unspecified severity Qualified Code(s): J45.901 - Unspecified asthma with (acute) exacerbation Code(s): J45.901 - Unspecified asthma with (acute) exacerbation Status: Acute Assessment and Plan: Severe Asthma exacerbation with significant exposure to COVID-19 and negative COVID testing X 3 - Would increase PEEP to 8 to help with atelectasis - wean sedation - keep I/O even if possible - continue high dose bronchodilators, duonebs Q4h, add pulmicort 0.5 mg bid (2) Acute respiratory failure with hypoxia and hypercapnia: Code(s): J96.01 - Acute respiratory failure with hypoxia; J96.02 - Acute respiratory failure with hypercapnia Status: Acute Assessment and Plan: - Requiring 70% FiO2 with PEEP 8; off neuromuscular blockade with improvement overall in ability to ventilate and oxygenate - CXR shows improved pulmonary edema pattern with bilateral infiltrates; Oxygenation better, increased improved hypercapnea, - ABG today shows improved respiratory acidosis; 7.48/ pCO2 42/ pO2 62 on 60% PC mode; - increased TV to improve respiratory acidosis - Close monitoring. Subjective Date/time seen: 09/17/20 14:57 Interval history: intubated, sedated, with Asthma exacerbation and bibasilar atelectasis. NMB have held but still on sedation with fentanyl and propofol drip. Review of Systems Review of Systems: All systems reviewed & are unremarkable except as noted in HPI and below Exam Const: General: comfortable and no acute distress (sedated heavily, no longer paralyzed; breathing 1-2 breaths /min above vent) Nutritional Appearance: obese Orientation/consciousness: oriented to person, oriented to place, oriented to time and patient oriented x3 HENMT: Head: normal to inspection, normocephalic and atraumatic Ears: hearing grossly normal bilaterally (responds to voice) General nose exam: Normal external nose present Face and sinus: normal facial exam (orally intubated) Mouth: Yes Normal oral and palatal mucosa present Throat: posterior oropharynx abnormal (can't see. intubated) Eyes: General: appearance normal, both eyes and all related structures Neck: Neck: normal visual inspection, trachea midline and supple Chest: Chest palpation & inspection: normal inspection of the chest Resp: Effort & Inspection: normal respiratory effort Auscultation: diminished lung sounds bilateral and diffuse Cardio: Jugular venous distension: no JVD Rate: tachycardic Rhythm: regular rhythm Heart sounds: S1 normal heart sound present, S2 normal heart sound present, no gallops, no murmurs and no rubs GI: Inspection: normal to inspection Auscultation: normal bowel sounds Skin: General skin exam: normal color and no rashes or lesions noted Extrem: General: normal to inspection and no clubbing, cyanosis or edema Psych: Appearance: other (sedated) Objective Data Vital Signs Vital Signs: Vital Signs - 24 hr 09/16/20 15:51 09/16/20 16:00 09/16/20 17:17 Temperature 36.1 C L Pulse Rate 114 H 109 H 111 H Respiratory Rate 14 18 Blood Pressure 106/89 Pulse Oximetry 99 100 09/16/20 17:27 09/16/20 18:00 09/16/20 18:30 Temperature Pulse Rate 102 H 102 H 102 H Respiratory Rate 16 16 16 Blood Pressure 125/81 Pulse Oximetry 94 09/16/20 18:33 09/16/20 19:40 09/16/20 19:48 Temperature Pulse Rate 108 H 99 99 Respiratory Rate 11 L 14 14 Blood Pressure Pulse Oximetry 98 09/16/20 20:00 09/16/20 22:00 09/16/20 22:30 Temperature 36.4 C 36.8 C Pulse Rate 103 H 87 110 H Respiratory Rate 16 16 11 L Blood Pressure 125/84 138/97 H Pulse Oximetry 99 94 09/16/20 23:40 09/17/20 00:00 09/17/20 01:30 Temperat
--- NOTE | 2020-09-17 16:25 | WPDINTPN ---
Progress Note: A&P Assessment and Plan (1) Acute respiratory failure with hypoxia and hypercapnia: Code(s): J96.01 - Acute respiratory failure with hypoxia; J96.02 - Acute respiratory failure with hypercapnia Status: Acute Assessment and Plan: patient with acute asthma exacerbation, impending respiratory failure with acute hypercarbic respiratory failure, was intubated on 09/09/2020. -patient is ventilating and oxygenating well, ABG showed respiratory alkalosis, decreased inspiratory pressure to decrease tidal volume. -currently on pressure control ventilation, peep of 8 and 70% FiO2. Will wean FiO2 to maintain O2 sats greater than 92% -remains on fentanyl, Versed, propofol -She is OFF9 Nimbex since 09/16/2020 -patient responded well to Lasix yesterday, since she has contraction alkalosis will give Diamox today -continue bronchodilators, steroids -patient with leukocytosis, no change in chest x-ray shows bilateral airspace disease compatible with pneumonia. Patient has been started on vancomycin, remains on Unasyn (2) Asthma with exacerbation: Qualifiers: Asthma persistence: unspecified Asthma severity: unspecified severity Qualified Code(s): J45.901 - Unspecified asthma with (acute) exacerbation Code(s): J45.901 - Unspecified asthma with (acute) exacerbation Status: Acute Assessment and Plan: Severe Asthma exacerbation with significant exposure to COVID-19 - SARS CoV-2 RT PCR negative x3 -- continue Albuterol to 2.5 mg Q4h with first dose now and add Atrovent 0.5 mg Nebs Q4h -will switch Solu-Medrol to 40 mg Q 6 hours - patient unable to exhale due to possible airway inflammation, dyssynchronous with the ventilator, low tidal volume, desaturation. Patient was started on Nimbex infusion with improved in her respiratory status. -appreciate pulmonology evaluation recommendation (3) Hypertension: Qualifiers: Hypertension type: unspecified Qualified Code(s): I10 - Essential (primary) hypertension Code(s): I10 - Essential (primary) hypertension Status: Acute Assessment and Plan: Will increase amlodipine to 10 mg -hydralazine p.r.n. (4) Seizure disorder: Code(s): G40.909 - Epilepsy, unspecified, not intractable, without status epilepticus Status: Acute Assessment and Plan: continue Keppra, seizure precautions (5) Vocal cord dysfunction: Code(s): J38.3 - Other diseases of vocal cords Status: Acute Assessment and Plan: There is a question of vocal cord dysfunction syndrome is she was very anxious during the episode and had some stridor. Her wheezing were felt to be coming from upper airway as well. pulmonary consult (6) Suspected COVID-19 virus infection: Code(s): Z20.828 - Contact with and (suspected) exposure to other viral communicable diseases Status: Acute Assessment and Plan: SARS-CoV-2 PCR negative x3. Patient has been exposed to COVID-19 positive subjects - OFF isolation Additional Plan Continue tube feeds DVT prophylaxis with subcu Lovenox GI prophylaxis with IV Pepcid Full code Critical care time spent: 32 minutes Due to a high probability of clinically significant, life threatening deterioration, the patient required my highest level of preparedness to intervene emergently and I personally spent this critical care time directly and personally managing the patient. This critical care time included obtaining a history; examining the patient; pulse oximetry; ordering and review of studies; arranging urgent treatment with development of a management plan; evaluation of patient's response to treatment; frequent reassessment; and discussions with other providers. It was exclusive of separately billable procedures and treating other patients and teaching time. Please see Assessment and Plan section and the rest of the note for further information on patient assessment and lynda
[2020-09-17 16:59] LABS: Glucose Point of Care 175 (65-105)
[2020-09-17 17:43] LABS: Add Urine Microscopic? YES; Appearance Urine Clear (Clear); Bacteria Urine Trace /hpf; Bilirubin Urine Negative (Negative); Blood Urine 1+ (Negative); Budding Yeast Urine Present /hpf; Color Urine Yellow (Yellow); Glucose Urine UA Negative (Negative); Ketones Urine Negative (Negative); Leukocyte Esterase Ur 3+ LEU/UL (NEGATIVE); Mucus Urine Rare /lpf; Nitrate Urine Negative (Negative); Protein Urine 1+ mg/dL (Negative); RBC Urine 51-75 /hpf (0-2); Specific Grav Ur 1.023 (1.001-1.035); Squamous Epithelial Cell Urine Rare /hpf (Few); Urobilinogen Urine Negative mg/dL (<2.0)
--- NOTE | 2020-09-17 17:53 | PM.IMPN ---
Progress Note: A&P Assessment and Plan (1) Acute respiratory failure with hypoxia and hypercapnia: Code(s): J96.01 - Acute respiratory failure with hypoxia; J96.02 - Acute respiratory failure with hypercapnia Status: Acute Assessment and Plan: Intubated 09/09 Duet to aspiration pneumonia, asthma 09/15: I/O 4940/5550 09/16: PC 22, rate 14, FIO2 60% Continues on furosemide 40mg IV q 12 hrs through 11/16 Difficulty weaning due to expiratory respiratory muscle contractions when neuromuscular blockade (Nimbex) is weaned 09/17/20 17:53 Patient is a 50-year-old female with history of asthma presented emergency department on 09/08 with cough shortness of breath and fever initially there was a concern patient may be positive for COVID as patient was exposed to her niece who was positive, however patient is negative for COVID-19, patient was found to have exacerbation of asthma as well as pneumonia and was being treated however on 09/09 into respiratory distress and patient was intubated, she is on vent, patient is being treated for pneumonia with ampicillin and vancomycin, today patient symptoms are improving responding to Lasix and pulmonary edema is improved, patient is off Nimbex and weaning of sedation and patient is tolerating ventilation in hope patient can be extubated, patient is seen by lunchroom worker and shear grinder operator helper and further recommendation to follow and appreciate (2) Asthma with exacerbation: Qualifiers: Asthma persistence: unspecified Asthma severity: unspecified severity Qualified Code(s): J45.901 - Unspecified asthma with (acute) exacerbation Code(s): J45.901 - Unspecified asthma with (acute) exacerbation Status: Acute Assessment and Plan: Continue steroids, bronchodilators (3) Aspiration pneumonia: Qualifiers: Aspiration pneumonia type: unspecified Laterality: unspecified laterality Lung location: unspecified part of lung Qualified Code(s): J69.0 - Pneumonitis due to inhalation of food and vomit Code(s): J69.0 - Pneumonitis due to inhalation of food and vomit Status: Acute Assessment and Plan: Continue Unasyn, Vancomycin (4) Vocal cord dysfunction: Code(s): J38.3 - Other diseases of vocal cords Status: Acute Assessment and Plan: Pulmonary following Currently on neuromuscluar blockade, but weaning (5) Seizure disorder: Code(s): G40.909 - Epilepsy, unspecified, not intractable, without status epilepticus Status: Acute Assessment and Plan: Continue Keppra Controlled (6) Hypertension: Qualifiers: Hypertension type: unspecified Qualified Code(s): I10 - Essential (primary) hypertension Code(s): I10 - Essential (primary) hypertension Status: Acute Assessment and Plan: Continue amlodipine with prn hydralazine Subjective Date/time seen: 09/17/20 17:53 Patient is a 50-year-old female with history of asthma presented emergency department on 09/08 with cough shortness of breath and fever initially there was a concern patient may be positive for COVID as patient was exposed to her niece who was positive, however patient is negative for COVID-19, patient was found to have exacerbation of asthma as well as pneumonia and was being treated however on 09/09 into respiratory distress and patient was intubated, she is on vent, patient is being treated for pneumonia with ampicillin and vancomycin, today patient symptoms are improving responding to Lasix and pulmonary edema is improved, patient is off Nimbex and weaning of sedation and patient is tolerating ventilation in hope patient can be extubated, patient is seen by lunchroom worker and shear grinder operator helper and further recommendation to follow and appreciate Review of Systems Review of Systems: ROS unobtainable: Yes unobtainable due to endotracheal tube Exam Narrative: Exam Narrative: Moderately obese Patient is comfortable, NAD HELIO
[2020-09-17 20:09] LABS: Glucose Point of Care 186 (65-105)
[2020-09-17] MEDS: BUDESONIDE RESPULE NEB 0.5 MG/2 ML AMP INHALATION (21:39)
[2020-09-18] VITALS (46 sets, daily range): BP systolic 122–176; BP diastolic 68–104; PULSE 71–110; RESP 14–29; TEMP 36.9–37; O2SAT 91–100
[2020-09-18] MEDS: PROPOFOL IV EMULSION 100 ML 25.85 MG IV CONT ×5 (00:05→19:17)
[2020-09-18] MEDS: methylPREDNISolone SOD SUCC 40 MG VIAL IV PUSH ×5 (00:07→23:35)
[2020-09-18] MEDS: IPRATROPIUM BR 0.02% INH SOLN 0.5 MG/2.5 ML VIAL INHALATION ×7 (00:18→23:17)
[2020-09-18] MEDS: ALBUTEROL SULFATE NEB 2.5 MG/0.5 ML INH 5 MG INHALATION ×7 (00:18→23:17)
[2020-09-18 00:50] LABS: Glucose Point of Care 204 (65-105)
[2020-09-18] MEDS: INSULIN ASPART (*BKC) 100 UNITS/ML SUB-Q ×3 (00:50→23:35)
[2020-09-18] MEDS: hydrALAZINE HCL 20 MG/ML VIAL 10 MG IV PUSH (02:06)
[2020-09-18 04:34] LABS: Alveolar/Arterial O2 Gradient 425.5 mmHg; Base Excess ABG 7.6 mEq/l (+/-2.0); Carboxyhemoglobin 0.3 % THb (0-2.0); Fractional Inspired Oxygen 80 %; HCO3 ABG 35.4 mEq/l (22.0-26.0); Methemoglobin ABG 0.2 %THb (0-1.5); Oxygen Content ABG 19.5 %vol (16.0-22.0); Oxygen Saturation ABG 94.8 % (95.0-100.0); Oxyhemoglobin 94.3 % THb (90.0-100.0); PO2 ABG 78.1 mmHg (80.0-100.0); PO2 FiO2 Ratio Arterial Blood 0.98 %; Reduced Hemoglobin 5.2 %THb (0-5.0); Total Hemoglobin 14.7 g/dL (12.0-18.0); pH ABG 7.364 (7.350-7.450)
[2020-09-18 04:36] LABS: Device VENTILATOR; Modified Allen's Test Unable to perform; PCO2 ABG 63.6 mmHg (35.0-45.0); Site Drawn RIGHT RADIAL
[2020-09-18 04:37] LABS: Arterial Blood Gas PEEP 8 cmH2O; Arterial Blood Gas Vent Mode PRESSURE CONTROL; Arterial Blood Gas Ventilator rate 14 /MIN; Peak Inspiratory Pressure 22 cmH2O
[2020-09-18] MEDS: AMPICILLIN SULB 3 GM/NS 100 ML 3 GM/100 ML VIAL IVPB ×2 (04:45→10:49)
[2020-09-18] MEDS: CENTRAL LINE FLUSH 10 ML IV PUSH ×3 (04:47→20:05)
[2020-09-18 04:50] LABS: Hematocrit 35.9 % (37.0-47.0); Hemoglobin 11.7 g/dL (12.0-15.0); Mean Corpuscular HGB Conc 32.6 g/dl (32-36); Mean Corpuscular Hemoglobin 29.5 pg (26-34); Mean Corpuscular Volume 90.7 fl (80-100); Mean Platelet Volume 8.9 fl (7.4-10.4); Platelet Count Result 250 k/mm3 (150-375); Red Blood Count 3.96 M/mm3 (4.2-5.4); Red Cell Distribution Width 13.9 % (11.5-14.5)
[2020-09-18 05:04] LABS: Alanine Aminotransferase 30 U/L (4-35); Albumin Level 3.9 g/dL (3.5-5.1); Alkaline Phosphatase 57 U/L (38-126); Anion Gap 7 mmol/L (8-16); Aspartate Amino Transferase 26 U/L (14-36); Bilirubin,Total 0.5 mg/dL (0.2-1.3); Blood Urea Nitrogen 36 mg/dL (7-17); Calcium 8.1 mg/dL (8.4-10.2); Carbon Dioxide 37 mmol/L (22-30); Chloride 89 mmol/L (98-107); Estimated Glomerular Filt Rate > 60; Glucose 137 mg/dL (65-105); Phosphorus 5.2 mg/dL (2.5-4.5); Potassium 3.4 mmol/L (3.4-5.0); Sodium 133 mmol/L (137-145)
[2020-09-18] MEDS: FENTANYL 2,500MCG/NS250ML(*CRX 2,500 MCG/250 ML BAG 20 MCG IV CONT (06:04)
[2020-09-18] MEDS: BUDESONIDE RESPULE NEB 0.5 MG/2 ML AMP INHALATION ×2 (08:19→19:24)
[2020-09-18] MEDS: levETIRAcetam IV 750 MG in DEXTROSE 5% 100 ML 430 MG IVPB ×2 (10:05→20:14)
[2020-09-18] MEDS: SILVERGEL (ELTA) 45 ML 1 APPLIC TOPICAL (10:05)
[2020-09-18] MEDS: FAMOTIDINE 20 MG/2 ML VIAL IV PUSH ×2 (10:06→20:04)
[2020-09-18] MEDS: ENOXAPARIN 40 MG/0.4 ML SYRINGE SUB-Q (10:06)
[2020-09-18] MEDS: amLODIPine BESYLATE 5 MG TABLET 10 MG PO (10:07)
[2020-09-18] MEDS: acetaZOLAMIDE TAB 250 MG TABLET 500 MG PO ×2 (10:24→20:04)
[2020-09-18 10:51] LABS: Alveolar/Arterial O2 Gradient 420.3 mmHg; Base Excess ABG 6.9 mEq/l (+/-2.0); Carboxyhemoglobin 0.2 % THb (0-2.0); Fractional Inspired Oxygen 80 %; HCO3 ABG 32.2 mEq/l (22.0-26.0); Methemoglobin ABG 0.2 %THb (0-1.5); Modified Allen's Test Pass; Oxygen Content ABG 15.7 %vol (16.0-22.0); Oxygen Saturation ABG 97.5 % (95.0-100.0); Oxyhemoglobin 96.3 % THb (90.0-100.0); PCO2 ABG 49.7 mmHg (35.0-45.0); PO2 ABG 97.9 mmHg (80.0-100.0); PO2 FiO2 Ratio Arterial Blood 1.22 %; Reduced Hemoglobin 3.3 %THb (0-5.0); Site Drawn LEFT RADIAL; Total Hemoglobin 11.5 g/dL (12.0-18.0)
[2020-09-18 10:52] LABS: Arterial Blood Gas PEEP 10 cmH2O; Arterial Blood Gas Tidal Volume 400 ml; Arterial Blood Gas Vent Mode ASSIST CONTROL; Arterial Blood Gas Ventilator rate 16 /MIN; Device VENTILATOR
[2020-09-18 11:06] LABS: Glucose Point of Care 220 (65-105)
--- NOTE | 2020-09-18 12:01 | WPDINTPN ---
Progress Note: A&P Assessment and Plan (1) Acute respiratory failure with hypoxia and hypercapnia: Code(s): J96.01 - Acute respiratory failure with hypoxia; J96.02 - Acute respiratory failure with hypercapnia Status: Acute Assessment and Plan: - day 10 intubation for respiratory failure - Vent settings changed to CMV 400/18/ PEEP 10, 80% FiO2 - bilateral severe atelectasis is mostly what's contributing to gas exchange problem. - should consider switching to dexametomidine in the next 24-48 hours (2) Asthma with exacerbation: Qualifiers: Asthma persistence: unspecified Asthma severity: unspecified severity Qualified Code(s): J45.901 - Unspecified asthma with (acute) exacerbation Code(s): J45.901 - Unspecified asthma with (acute) exacerbation Status: Acute Assessment and Plan: Severe Asthma exacerbation with significant exposure to COVID-19 - SARS CoV-2 RT PCR negative x3 -- continue Albuterol to 2.5 mg Q4h with first dose now and add Atrovent 0.5 mg Nebs Q4h -will switch Solu-Medrol to 40 mg Q 6 hours - pulmicort 0.5 mg bid added - (3) Hypertension: Qualifiers: Hypertension type: unspecified Qualified Code(s): I10 - Essential (primary) hypertension Code(s): I10 - Essential (primary) hypertension Status: Acute Assessment and Plan: Will increase amlodipine to 10 mg -hydralazine p.r.n. (4) Seizure disorder: Code(s): G40.909 - Epilepsy, unspecified, not intractable, without status epilepticus Status: Acute Assessment and Plan: continue Keppra, seizure precautions (5) Vocal cord dysfunction: Code(s): J38.3 - Other diseases of vocal cords Status: Acute Assessment and Plan: There is a question of vocal cord dysfunction syndrome is she was very anxious during the episode and had some stridor. Her wheezing were felt to be coming from upper airway as well. pulmonary consult (6) Suspected COVID-19 virus infection: Code(s): Z20.828 - Contact with and (suspected) exposure to other viral communicable diseases Status: Acute Assessment and Plan: SARS-CoV-2 PCR negative x3. Patient has been exposed to COVID-19 positive subjects - OFF isolation (7) Anxiety: Code(s): F41.9 - Anxiety disorder, unspecified Status: Acute Assessment and Plan: - clonazepam restarted at 0.5 mg bid ( home dose was 0.5 mg TID) - Paxil restarted at 40 mg daily - this should help wean IV sedation in preparation for ventilatory weaning Additional Plan Code status: Full code Critical care time spent: 35 minutes Due to a high probability of clinically significant, life threatening deterioration, the patient required my highest level of preparedness to intervene emergently and I personally spent this critical care time directly and personally managing the patient. This critical care time included obtaining a history; examining the patient; pulse oximetry; ordering and review of studies; arranging urgent treatment with development of a management plan; evaluation of patient's response to treatment; frequent reassessment; and discussions with other providers. It was exclusive of separately billable procedures and treating other patients and teaching time. Please see Assessment and Plan section and the rest of the note for further information on patient assessment and treatment Subjective Date/time seen: 09/18/20 12:01 Interval history: 50 y/o with severe Asthma, anxiety, depression intubated for respiratory failure and bilateral atelectasis now day 10 intubation. Had an aspiration event during intubation. Has received adequate doses of antibiotics. CXR shows persistent bilateral atelectasis currently on PEEP of 8. Review of Systems Review of Systems: All systems reviewed & are unremarkable except as noted in HPI and below Exam Narrative: Exam Narrative: Const: General: comfortable and
--- NOTE | 2020-09-18 12:10 | PCDIET ---
Nutrition Follow-Up Complete: Nutrition Diagnosis: Inadequate oral intake related to oral intubation as evidenced by NPO status. Nutrition Goal: Patient to meet estimated nutritional needs. Goal met. Patient tolerating Two Joseph HN at 15mL/hr with Pro-Stat flush TID. Water flush of 30mL every 4 hours continues. Last recorded weight is 102.4 kg which is increased from last review. +I/O. Bowel Motility: Liquid stool - FMS in place. Labs Reviewed: Hgb (11.7), Hct (35.9), Glu (137), Na (133) Meds Noted: Albuterol, Norvasc, Nimbex, Pepcid, Hydralazine, Novolog, Atrovent, Solu Medrol, Versed, KCl, Propofol (rate of 25.85mL/hr provides 682kcal per day), Vancomycin Additional Notes: Ulcer to left ankle documented. No new recommendations at this time. Will continue to monitor with same goal. Nutrition Monitoring and Evaluation: Follow up every Thursday/Thursday.
[2020-09-18] MEDS: PARoxetine 20 MG TABLET 40 MG PO (13:15)
[2020-09-18] MEDS: clonazePAM (*CRX) 0.5 MG TABLET PO ×2 (13:15→20:14)
[2020-09-18 14:47] LABS: Glucose Point of Care 140 (65-105)
[2020-09-18 16:52] LABS: Glucose Point of Care 125 (65-105)
[2020-09-18] MEDS: TOLNAFTATE 1% POWDER 45 GM BTL 1 APPLIC TOPICAL (20:04)
[2020-09-18 20:08] LABS: Glucose Point of Care 159 (65-105)
[2020-09-18] MEDS: PROPOFOL IV EMULSION 100 ML 23.27 MG IV CONT (23:14)
[2020-09-18 23:33] LABS: Glucose Point of Care 202 (65-105)
[2020-09-19] VITALS (41 sets, daily range): BP systolic 122–170; BP diastolic 73–100; PULSE 76–129; RESP 15–28; TEMP 36.2–37; O2SAT 93–100
[2020-09-19] MEDS: hydrALAZINE HCL 20 MG/ML VIAL 10 MG IV PUSH ×2 (03:08→20:43)
[2020-09-19] MEDS: PROPOFOL IV EMULSION 100 ML 23.27 MG IV CONT ×2 (03:52→06:44)
[2020-09-19 03:55] LABS: Glucose Point of Care 160 (65-105)
[2020-09-19] MEDS: ALBUTEROL SULFATE NEB 2.5 MG/0.5 ML INH 5 MG INHALATION ×5 (04:22→19:32)
[2020-09-19] MEDS: IPRATROPIUM BR 0.02% INH SOLN 0.5 MG/2.5 ML VIAL INHALATION ×5 (04:23→19:32)
[2020-09-19 04:34] LABS: Alveolar/Arterial O2 Gradient 380.3 mmHg; Base Excess ABG 2.4 mEq/l (+/-2.0); Carboxyhemoglobin 0.2 % THb (0-2.0); Device VENTILATOR; Fractional Inspired Oxygen 70 %; HCO3 ABG 26.6 mEq/l (22.0-26.0); Methemoglobin ABG 0.2 %THb (0-1.5); Oxygen Saturation ABG 95.7 % (95.0-100.0); Oxyhemoglobin 94.6 % THb (90.0-100.0); PCO2 ABG 39.9 mmHg (35.0-45.0); PO2 ABG 75.9 mmHg (80.0-100.0); PO2 FiO2 Ratio Arterial Blood 1.08 %; Site Drawn LEFT BRACHIAL; pH ABG 7.442 (7.350-7.450)
[2020-09-19 04:35] LABS: Arterial Blood Gas PEEP 10 cmH2O; Arterial Blood Gas Tidal Volume 400 ml; Arterial Blood Gas Vent Mode CMV; Arterial Blood Gas Ventilator rate 16 /MIN
[2020-09-19] MEDS: methylPREDNISolone SOD SUCC 40 MG VIAL IV PUSH ×3 (05:04→17:54)
[2020-09-19] MEDS: CENTRAL LINE FLUSH 10 ML IV PUSH ×3 (05:05→20:33)
[2020-09-19 05:17] LABS: Hematocrit 33.3 % (37.0-47.0); Mean Corpuscular Hemoglobin 29.1 pg (26-34); Mean Corpuscular Volume 88.1 fl (80-100); Mean Platelet Volume 9.1 fl (7.4-10.4); Platelet Count Result 258 k/mm3 (150-375); Red Blood Count 3.78 M/mm3 (4.2-5.4); Red Cell Distribution Width 14.2 % (11.5-14.5); White Blood Count 16.4 K/mm3 (4.5-10.0)
[2020-09-19 05:38] LABS: Alanine Aminotransferase 25 U/L (4-35); Albumin Level 3.8 g/dL (3.5-5.1); Alkaline Phosphatase 58 U/L (38-126); Anion Gap 10 mmol/L (8-16); Aspartate Amino Transferase 22 U/L (14-36); Bilirubin,Total 0.6 mg/dL (0.2-1.3); Blood Urea Nitrogen 25 mg/dL (7-17); Calcium 8.7 mg/dL (8.4-10.2); Carbon Dioxide 28 mmol/L (22-30); Chloride 93 mmol/L (98-107); Estimated Glomerular Filt Rate > 60; Glucose 160 mg/dL (65-105); Magnesium 2.3 mg/dL (1.6-2.3); Phosphorus 3.2 mg/dL (2.5-4.5); Potassium 3.1 mmol/L (3.4-5.0); Sodium 131 mmol/L (137-145)
[2020-09-19] MEDS: BUDESONIDE RESPULE NEB 0.5 MG/2 ML AMP INHALATION ×2 (08:54→19:32)
--- NOTE | 2020-09-19 09:30 | PM.PNPUL ---
Progress Note: A&P Assessment and Plan (1) Acute respiratory failure with hypoxia and hypercapnia: Code(s): J96.01 - Acute respiratory failure with hypoxia; J96.02 - Acute respiratory failure with hypercapnia Status: Acute Assessment and Plan: - day 11 intubation for respiratory failure - Vent settings changed to CMV 400/18/ PEEP 10, FiO2 weaned from 80% to 60% today. - bilateral severe atelectasis is mostly what's contributing to gas exchange problem. Will get CT chest - should consider switching to dexametomidine in the next 24-48 hours - consider weaning propofol and versed increasing home dose of clonazepam to 0.5 mg Q8h (2) Asthma with exacerbation: Qualifiers: Asthma persistence: unspecified Asthma severity: unspecified severity Qualified Code(s): J45.901 - Unspecified asthma with (acute) exacerbation Code(s): J45.901 - Unspecified asthma with (acute) exacerbation Status: Acute Assessment and Plan: Severe Asthma exacerbation with significant exposure to COVID-19 - SARS CoV-2 RT PCR negative x3 -- continue Albuterol to 2.5 mg Q4h with first dose now and add Atrovent 0.5 mg Nebs Q4h -will switch Solu-Medrol to 40 mg Q 6 hours - pulmicort 0.5 mg bid added - (3) Hypertension: Qualifiers: Hypertension type: unspecified Qualified Code(s): I10 - Essential (primary) hypertension Code(s): I10 - Essential (primary) hypertension Status: Acute Assessment and Plan: Will increase amlodipine to 10 mg -hydralazine p.r.n. (4) Seizure disorder: Code(s): G40.909 - Epilepsy, unspecified, not intractable, without status epilepticus Status: Acute Assessment and Plan: continue Keppra, seizure precautions (5) Vocal cord dysfunction: Code(s): J38.3 - Other diseases of vocal cords Status: Acute Assessment and Plan: There is a question of vocal cord dysfunction syndrome is she was very anxious during the episode and had some stridor. Her wheezing were felt to be coming from upper airway as well. pulmonary consult (6) Suspected COVID-19 virus infection: Code(s): Z20.828 - Contact with and (suspected) exposure to other viral communicable diseases Status: Acute Assessment and Plan: SARS-CoV-2 PCR negative x3. Patient has been exposed to COVID-19 positive subjects - OFF isolation (7) Anxiety: Code(s): F41.9 - Anxiety disorder, unspecified Status: Acute Assessment and Plan: - clonazepam restarted at 0.5 mg bid ( home dose was 0.5 mg TID) - Paxil restarted at 40 mg daily - this should help wean IV sedation in preparation for ventilatory weaning (8) Bilateral atelectasis: Code(s): J98.11 - Atelectasis Status: Acute Assessment and Plan: Will order CT chest with IV contrast to see if they are more atelectasis vs consolidation and if a right pleural effusion exists that may need to be drained. If consolidation is present she may need a bronchoscopy. Subjective Date/time seen: 09/19/20 09:30 Interval history: Doing well, tolerating PEEP of 10 and oxygenation weaning. CXR still shows bibasilar atelectasis vs consolidation, possible right pleural effusion. No fever WBC is trending down. No purulent secretions. She's recieved 8 days of Unasyn and today is day 8 of Vancomycin Review of Systems Review of Systems: All systems reviewed & are unremarkable except as noted in HPI and below Exam Narrative: Exam Narrative: intubated, sedated Const: General: comfortable and no acute distress Orientation/consciousness: oriented to person, oriented to place, oriented to time and patient oriented x3 HENMT: Head: normal to inspection, normocephalic and atraumatic Other: ETT in place Eyes: General: appearance normal, both eyes and all related structures Sclera: sclerae normal Pupils: Equal, round and reactive pupils present Neck: Neck: normal visual inspec
[2020-09-19 10:03] LABS: Vancomycin Trough 11.6 ug/mL (10.0-20.0)
[2020-09-19] MEDS: POTASSIUM CHLORIDE 20 MEQ PACKET (FOR LIQUID) 40 MEQ PO (10:25)
[2020-09-19] MEDS: PARoxetine 20 MG TABLET 40 MG PO (10:26)
[2020-09-19] MEDS: SILVERGEL (ELTA) 45 ML 1 APPLIC TOPICAL (10:26)
[2020-09-19] MEDS: TOLNAFTATE 1% POWDER 45 GM BTL 1 APPLIC TOPICAL ×2 (10:27→20:34)
[2020-09-19] MEDS: FUROSEMIDE INJ 40 MG/4 ML VIAL IV PUSH ×2 (10:28→20:34)
[2020-09-19] MEDS: ENOXAPARIN 40 MG/0.4 ML SYRINGE SUB-Q (10:28)
[2020-09-19] MEDS: acetaZOLAMIDE TAB 250 MG TABLET 500 MG PO ×2 (10:31→20:33)
[2020-09-19] MEDS: clonazePAM (*CRX) 0.5 MG TABLET PO ×2 (10:36→20:32)
[2020-09-19] MEDS: FAMOTIDINE 20 MG/2 ML VIAL IV PUSH ×2 (10:36→20:34)
[2020-09-19] MEDS: amLODIPine BESYLATE 5 MG TABLET 10 MG PO (10:37)
[2020-09-19] MEDS: levETIRAcetam IV 750 MG in DEXTROSE 5% 100 ML 430 MG IVPB ×2 (12:10→20:32)
[2020-09-19 12:37] LABS: Glucose Point of Care 188 (65-105)
--- NOTE | 2020-09-19 14:59 | WPDINTPN ---
Progress Note: A&P Assessment and Plan (1) Acute respiratory failure with hypoxia and hypercapnia: Code(s): J96.01 - Acute respiratory failure with hypoxia; J96.02 - Acute respiratory failure with hypercapnia Status: Acute Assessment and Plan: patient with acute asthma exacerbation, impending respiratory failure with acute hypercarbic respiratory failure, was intubated on 09/09/2020. -patient tidal volumes of 400, rate of 18, peep of 10 and FiO2 of 60%. -chest CT 09/19 showed bilateral atelectasis, discussed with pulmonology, for bronchoscopy on 09/20 -continue Versed and propofol for sedation -She is OFF Nimbex since 09/16/2020 -patient responded well to diuretics, will continue to diurese today -continue bronchodilators, steroids -p patient on vancomycin and Unasyn #8 (2) Asthma with exacerbation: Qualifiers: Asthma persistence: unspecified Asthma severity: unspecified severity Qualified Code(s): J45.901 - Unspecified asthma with (acute) exacerbation Code(s): J45.901 - Unspecified asthma with (acute) exacerbation Status: Acute Assessment and Plan: Severe Asthma exacerbation with significant exposure to COVID-19 - SARS CoV-2 RT PCR negative x3 -- continue Albuterol to 2.5 mg Q4h with first dose now and add Atrovent 0.5 mg Nebs Q4h -continue Solu-Medrol to 40 mg Q 6 hours -appreciate pulmonology evaluation recommendation (3) Hypertension: Qualifiers: Hypertension type: unspecified Qualified Code(s): I10 - Essential (primary) hypertension Code(s): I10 - Essential (primary) hypertension Status: Acute Assessment and Plan: Continue amlodipine 10 mg -hydralazine p.r.n. (4) Seizure disorder: Code(s): G40.909 - Epilepsy, unspecified, not intractable, without status epilepticus Status: Acute Assessment and Plan: continue Keppra, seizure precautions (5) Vocal cord dysfunction: Code(s): J38.3 - Other diseases of vocal cords Status: Acute Assessment and Plan: There is a question of vocal cord dysfunction syndrome is she was very anxious during the episode and had some stridor. Her wheezing were felt to be coming from upper airway as well. pulmonary consult (6) Suspected COVID-19 virus infection: Code(s): Z20.828 - Contact with and (suspected) exposure to other viral communicable diseases Status: Acute Assessment and Plan: SARS-CoV-2 PCR negative x3. Patient has been exposed to COVID-19 positive subjects - OFF isolation Additional Plan Continue tube feeds DVT prophylaxis with subcu Lovenox GI prophylaxis with IV Pepcid Full code Critical care time spent: 33 minutes Due to a high probability of clinically significant, life threatening deterioration, the patient required my highest level of preparedness to intervene emergently and I personally spent this critical care time directly and personally managing the patient. This critical care time included obtaining a history; examining the patient; pulse oximetry; ordering and review of studies; arranging urgent treatment with development of a management plan; evaluation of patient's response to treatment; frequent reassessment; and discussions with other providers. It was exclusive of separately billable procedures and treating other patients and teaching time. Please see Assessment and Plan section and the rest of the note for further information on patient assessment and treatment. Subjective Date/time seen: 09/19/20 14:59 Interval history: 50-year-old female here for asthma asthma exacerbation, shortness of breath, cough, has been exposed to COVID-19, SARS-CoV-2 PCR negative x2 - intubated 09/09/2020 for increasing shortness of breath, respiratory distress with wheezing 09/19/2020: Patient remains intubated, on CMV mode of ventilation, peep of 10, tidal volumes of 400 mL, 60% FiO2. Patient is tolerating tube feeds, sedated with
[2020-09-19 18:06] LABS: Glucose Point of Care 169 (65-105)
[2020-09-19] MEDS: PROPOFOL IV EMULSION 100 ML 10.34 MG IV CONT (18:53)
--- NOTE | 2020-09-19 20:07 | PC.NURSE ---
Took patient down to CT about 1115 with transport and respiratory. Patient arrived back in room about 1150.
[2020-09-19 20:31] LABS: Glucose Point of Care 187 (65-105)
[2020-09-20] VITALS (39 sets, daily range): BP systolic 92–177; BP diastolic 60–94; PULSE 91–123; RESP 14–25; TEMP 35.7–37.3; O2SAT 92–100
[2020-09-20] MEDS: methylPREDNISolone SOD SUCC 40 MG VIAL IV PUSH ×2 (00:40→05:57)
[2020-09-20 00:43] LABS: Glucose Point of Care 172 (65-105)
[2020-09-20] MEDS: hydrALAZINE HCL 20 MG/ML VIAL 10 MG IV PUSH (02:34)
[2020-09-20] MEDS: ALBUTEROL SULFATE NEB 2.5 MG/0.5 ML INH 5 MG INHALATION ×5 (03:32→20:30)
--- NOTE | 2020-09-20 03:32 | PCRCNOTE ---
Window of time for administration has passed. See next scheduled administration.
[2020-09-20] MEDS: IPRATROPIUM BR 0.02% INH SOLN 0.5 MG/2.5 ML VIAL INHALATION ×5 (03:33→20:30)
[2020-09-20 03:53] LABS: Alveolar/Arterial O2 Gradient 298.2 mmHg; Base Excess ABG 2.1 mEq/l (+/-2.0); Carboxyhemoglobin 0.3 % THb (0-2.0); Fractional Inspired Oxygen 60 %; HCO3 ABG 25.8 mEq/l (22.0-26.0); Methemoglobin ABG 0.2 %THb (0-1.5); Oxygen Content ABG 17.8 %vol (16.0-22.0); Oxygen Saturation ABG 97.2 % (95.0-100.0); Oxyhemoglobin 96.2 % THb (90.0-100.0); PCO2 ABG 37.3 mmHg (35.0-45.0); PO2 ABG 88.6 mmHg (80.0-100.0); PO2 FiO2 Ratio Arterial Blood 1.48 %; Reduced Hemoglobin 3.3 %THb (0-5.0); Total Hemoglobin 13.1 g/dL (12.0-18.0); pH ABG 7.458 (7.350-7.450)
[2020-09-20 03:54] LABS: Arterial Blood Gas Vent Mode ASSIST CONTROL; Arterial Blood Gas Ventilator rate 20 /MIN; Device VENTILATOR; Modified Allen's Test Unable to perform; Site Drawn LEFT RADIAL
[2020-09-20 03:55] LABS: Arterial Blood Gas PEEP 10 cmH2O; Arterial Blood Gas Tidal Volume 400 ml
[2020-09-20 04:10] LABS: Glucose Point of Care 176 (65-105)
[2020-09-20] MEDS: PROPOFOL IV EMULSION 100 ML 10.34 MG IV CONT ×2 (04:10→15:18)
[2020-09-20 05:19] LABS: Hematocrit 36.4 % (37.0-47.0); Hemoglobin 12.1 g/dL (12.0-15.0); Mean Corpuscular HGB Conc 33.2 g/dl (32-36); Mean Corpuscular Hemoglobin 29.6 pg (26-34); Mean Platelet Volume 9.3 fl (7.4-10.4); Platelet Count Result 323 k/mm3 (150-375); Red Blood Count 4.09 M/mm3 (4.2-5.4); Red Cell Distribution Width 14.8 % (11.5-14.5); White Blood Count 19.8 K/mm3 (4.5-10.0)
[2020-09-20 05:40] LABS: Alanine Aminotransferase 27 U/L (4-35); Albumin Level 3.8 g/dL (3.5-5.1); Alkaline Phosphatase 61 U/L (38-126); Anion Gap 13 mmol/L (8-16); Aspartate Amino Transferase 23 U/L (14-36); Bilirubin,Total 0.6 mg/dL (0.2-1.3); Blood Urea Nitrogen 23 mg/dL (7-17); Calcium 8.7 mg/dL (8.4-10.2); Carbon Dioxide 26 mmol/L (22-30); Chloride 94 mmol/L (98-107); Estimated Glomerular Filt Rate > 60; Glucose 165 mg/dL (65-105); Magnesium 2.1 mg/dL (1.6-2.3); Phosphorus 3.1 mg/dL (2.5-4.5); Sodium 133 mmol/L (137-145)
[2020-09-20] MEDS: CENTRAL LINE FLUSH 10 ML IV PUSH ×4 (05:57→21:01)
[2020-09-20] MEDS: BUDESONIDE RESPULE NEB 0.5 MG/2 ML AMP INHALATION ×2 (08:19→20:30)
[2020-09-20] MEDS: acetaZOLAMIDE TAB 250 MG TABLET 500 MG PO (08:24)
[2020-09-20] MEDS: amLODIPine BESYLATE 5 MG TABLET 10 MG PO (08:24)
[2020-09-20] MEDS: clonazePAM (*CRX) 0.5 MG TABLET PO ×3 (08:24→21:05)
[2020-09-20] MEDS: PARoxetine 20 MG TABLET 40 MG PO (08:25)
[2020-09-20] MEDS: FAMOTIDINE 20 MG/2 ML VIAL IV PUSH ×2 (08:25→20:02)
[2020-09-20] MEDS: ENOXAPARIN 40 MG/0.4 ML SYRINGE SUB-Q (08:41)
[2020-09-20] MEDS: TOLNAFTATE 1% POWDER 45 GM BTL 1 APPLIC TOPICAL ×2 (09:02→20:03)
[2020-09-20 09:04] LABS: Glucose Point of Care 178 (65-105)
[2020-09-20] MEDS: POTASSIUM CHLORIDE 20 MEQ PACKET (FOR LIQUID) 40 MEQ FEED TUBE (09:15)
[2020-09-20] MEDS: FUROSEMIDE INJ 40 MG/4 ML VIAL IV PUSH (09:16)
[2020-09-20] MEDS: SILVERGEL (ELTA) 45 ML 1 APPLIC TOPICAL (09:22)
[2020-09-20 12:07] LABS: Glucose Point of Care 211 (65-105)
--- NOTE | 2020-09-20 12:33 | SUR.OPER ---
120 ML NORMAL SALINE FOR BRONCHIAL WASHINGS
[2020-09-20] MEDS: ROCURONIUM BROMIDE 50 MG/5 ML VIAL 100 MG (12:59)
[2020-09-20] MEDS: fentaNYL CITRATE INJ (*CRX) 100 MCG/2 ML VIAL (12:59)
[2020-09-20] MEDS: levETIRAcetam IV 750 MG in DEXTROSE 5% 100 ML 430 MG IVPB ×2 (13:00→20:01)
--- NOTE | 2020-09-20 13:26 | WPDINTPN ---
Progress Note: A&P Assessment and Plan (1) Acute respiratory failure with hypoxia and hypercapnia: Code(s): J96.01 - Acute respiratory failure with hypoxia; J96.02 - Acute respiratory failure with hypercapnia Status: Acute Assessment and Plan: - day 12 intubation for respiratory failure - Vent settings changed to CMV 400/18/ PEEP 10, FiO2 weaned from 80% to 60% today. - bilateral severe atelectasis is mostly what's contributing to gas exchange problem. Bronch showed bilateral lower mucous plugging. BAL cultures send - should consider switching to dexametomidine( precedex) - clonazepam increased to 0.5 mg Q8h - start weaning propofol first then versed slowly. (2) Asthma with exacerbation: Qualifiers: Asthma persistence: unspecified Asthma severity: unspecified severity Qualified Code(s): J45.901 - Unspecified asthma with (acute) exacerbation Code(s): J45.901 - Unspecified asthma with (acute) exacerbation Status: Acute Assessment and Plan: Severe Asthma exacerbation with significant exposure to COVID-19 - SARS CoV-2 RT PCR negative x3 -Will discontinue all systemic steroids today. Has been on them for 13-14 days and now having melena looking stool. Query GI bleeding from ulcers. - cotninue duonebs Q6h - continue pulmicort 0.5 mg bid - (3) Hypertension: Qualifiers: Hypertension type: unspecified Qualified Code(s): I10 - Essential (primary) hypertension Code(s): I10 - Essential (primary) hypertension Status: Acute Assessment and Plan: Will increase amlodipine to 10 mg -hydralazine p.r.n. (4) Seizure disorder: Code(s): G40.909 - Epilepsy, unspecified, not intractable, without status epilepticus Status: Acute Assessment and Plan: continue Keppra, seizure precautions (5) Vocal cord dysfunction: Code(s): J38.3 - Other diseases of vocal cords Status: Acute Assessment and Plan: There is a question of vocal cord dysfunction syndrome is she was very anxious during the episode and had some stridor. Her wheezing were felt to be coming from upper airway as well. pulmonary consult (6) Suspected COVID-19 virus infection: Code(s): Z20.828 - Contact with and (suspected) exposure to other viral communicable diseases Status: Acute Assessment and Plan: SARS-CoV-2 PCR negative x3. Patient has been exposed to COVID-19 positive subjects - OFF isolation (7) Anxiety: Code(s): F41.9 - Anxiety disorder, unspecified Status: Acute Assessment and Plan: - clonazepam restarted at 0.5 mg bid ( home dose was 0.5 mg TID) - Paxil restarted at 40 mg daily - this should help wean IV sedation in preparation for ventilatory weaning (8) Bilateral atelectasis: Code(s): J98.11 - Atelectasis Status: Acute Assessment and Plan: Will order CT chest with IV contrast to see if they are more atelectasis vs consolidation and if a right pleural effusion exists that may need to be drained. If consolidation is present she may need a bronchoscopy. Subjective Date/time seen: 09/20/20 13:26 Interval history: Bronchoscopy show bibasilar thick mucous plugging airways and likely leading to atelectesis Review of Systems Review of Systems: All systems reviewed & are unremarkable except as noted in HPI and below Exam Narrative: Exam Narrative: intubated, sedated Const: General: comfortable and no acute distress Orientation/consciousness: oriented to person, oriented to place, oriented to time and patient oriented x3 HENMT: Head: normal to inspection, normocephalic and atraumatic Other: ETT in place Eyes: General: appearance normal, both eyes and all related structures Sclera: sclerae normal Pupils: Equal, round and reactive pupils present Neck: Neck: normal visual inspection, trachea midline and supple Resp: Effort & Inspection: normal respiratory effort and able to s
[2020-09-20] MEDS: INSULIN ASPART (*BKC) 100 UNITS/ML SUB-Q (15:21)
[2020-09-20 16:57] LABS: IFOB Positive Control Positive; Immunochemical Fecal Occult Bl Negative (N)
[2020-09-20 17:09] LABS: Glucose Point of Care 105 (65-105)
--- NOTE | 2020-09-20 17:28 | PM.IMPN ---
Progress Note: A&P Assessment and Plan (1) Acute respiratory failure with hypoxia and hypercapnia: Code(s): J96.01 - Acute respiratory failure with hypoxia; J96.02 - Acute respiratory failure with hypercapnia Status: Acute Assessment and Plan: Intubated 09/09 Duet to aspiration pneumonia, asthma 09/15: I/O 4940/5550 09/16: PC 22, rate 14, FIO2 60% Continues on furosemide 40mg IV q 12 hrs through 11/16 Difficulty weaning due to expiratory respiratory muscle contractions when neuromuscular blockade (Nimbex) is weaned 09/20/20 17:28 Patient is a 50-year-old female with history of asthma presented emergency department on 09/08 with cough shortness of breath and fever initially there was a concern patient may be positive for COVID as patient was exposed to her niece who was positive, however patient is negative for COVID-19, patient was found to have exacerbation of asthma as well as pneumonia and was being treated however on 09/09 into respiratory distress and patient was intubated, she is on vent, patient is being treated for pneumonia with ampicillin and vancomycin, today patient symptoms are improving responding to Lasix and pulmonary edema is improved, patient was taken off Nimbex on 09/17 and weaning of sedation and patient was tolerating ventilation in hope patient can be extubated, however is been 12 days on ventilator, seen by pulmonology suspect due to some severe atelectasis resulting poor oxygenation patient was taken to OR and had a bronchoscopy today and mucus plugging was removed this will help improve patient's oxygenation and will facilitate extubation, patient on vent unable to provide any review of symptoms, appreciate stock repairer and housekeeping staff (2) Asthma with exacerbation: Qualifiers: Asthma persistence: unspecified Asthma severity: unspecified severity Qualified Code(s): J45.901 - Unspecified asthma with (acute) exacerbation Code(s): J45.901 - Unspecified asthma with (acute) exacerbation Status: Acute Assessment and Plan: Continue steroids, bronchodilators (3) Aspiration pneumonia: Qualifiers: Aspiration pneumonia type: unspecified Laterality: unspecified laterality Lung location: unspecified part of lung Qualified Code(s): J69.0 - Pneumonitis due to inhalation of food and vomit Code(s): J69.0 - Pneumonitis due to inhalation of food and vomit Status: Acute Assessment and Plan: Continue Unasyn, Vancomycin (4) Vocal cord dysfunction: Code(s): J38.3 - Other diseases of vocal cords Status: Acute Assessment and Plan: Pulmonary following Currently on neuromuscluar blockade, but weaning (5) Seizure disorder: Code(s): G40.909 - Epilepsy, unspecified, not intractable, without status epilepticus Status: Acute Assessment and Plan: Continue Keppra Controlled (6) Hypertension: Qualifiers: Hypertension type: unspecified Qualified Code(s): I10 - Essential (primary) hypertension Code(s): I10 - Essential (primary) hypertension Status: Acute Assessment and Plan: Continue amlodipine with prn hydralazine Subjective Date/time seen: 09/20/20 17:28 Patient is a 50-year-old female with history of asthma presented emergency department on 09/08 with cough shortness of breath and fever initially there was a concern patient may be positive for COVID as patient was exposed to her niece who was positive, however patient is negative for COVID-19, patient was found to have exacerbation of asthma as well as pneumonia and was being treated however on 09/09 into respiratory distress and patient was intubated, she is on vent, patient is being treated for pneumonia with ampicillin and vancomycin, today patient symptoms are improving responding to Lasix and pulmonary edema is improved, patient was taken off Nimbex on 09/17 and weaning of sedation and patient was tolerating ventilation in hop
[2020-09-20 20:20] LABS: Glucose Point of Care 130 (65-105)
[2020-09-20] MEDS: PROPOFOL IV EMULSION 100 ML 15.51 MG IV CONT (22:07)
[2020-09-20 23:55] LABS: Glucose Point of Care 150 (65-105)
[2020-09-21] VITALS (46 sets, daily range): BP systolic 111–159; BP diastolic 68–85; PULSE 87–128; RESP 16–31; TEMP 36.2–37.1; O2SAT 90–100
[2020-09-21 03:20] LABS: Hematocrit 32.9 % (37.0-47.0); Hemoglobin 10.9 g/dL (12.0-15.0); Mean Corpuscular HGB Conc 33.1 g/dl (32-36); Mean Corpuscular Hemoglobin 29.4 pg (26-34); Mean Corpuscular Volume 88.7 fl (80-100); Mean Platelet Volume 8.7 fl (7.4-10.4); Platelet Count Result 263 k/mm3 (150-375); Red Blood Count 3.71 M/mm3 (4.2-5.4); Red Cell Distribution Width 15.1 % (11.5-14.5); White Blood Count 14.6 K/mm3 (4.5-10.0)
[2020-09-21] MEDS: IPRATROPIUM BR 0.02% INH SOLN 0.5 MG/2.5 ML VIAL INHALATION ×5 (03:28→20:02)
[2020-09-21] MEDS: ALBUTEROL SULFATE NEB 2.5 MG/0.5 ML INH 5 MG INHALATION ×5 (03:28→20:02)
--- NOTE | 2020-09-21 03:28 | PCRCNOTE ---
Window of time for administration has passed. See next scheduled administration.
[2020-09-21 03:39] LABS: Anion Gap 9 mmol/L (8-16); Blood Urea Nitrogen 21 mg/dL (7-17); Calcium 8.3 mg/dL (8.4-10.2); Carbon Dioxide 27 mmol/L (22-30); Chloride 95 mmol/L (98-107); Estimated Glomerular Filt Rate > 60; Glucose 103 mg/dL (65-105); Potassium 3.1 mmol/L (3.4-5.0); Sodium 131 mmol/L (137-145)
[2020-09-21] MEDS: PROPOFOL IV EMULSION 100 ML 15.51 MG IV CONT (03:41)
[2020-09-21 04:16] LABS: Glucose Point of Care 108 (65-105)
[2020-09-21] MEDS: clonazePAM (*CRX) 0.5 MG TABLET PO ×2 (05:00→13:08)
[2020-09-21] MEDS: CENTRAL LINE FLUSH 10 ML IV PUSH ×2 (05:00→13:02)
[2020-09-21 06:31] LABS: Magnesium 1.8 mg/dL (1.6-2.3)
[2020-09-21] MEDS: KCL 20 MEQ/SW 100 ML 100 ML 50 MEQ IVPB (06:33)
[2020-09-21 06:48] LABS: Alveolar/Arterial O2 Gradient 243.3 mmHg; Carboxyhemoglobin 0.3 % THb (0-2.0); Device VENTILATOR; Fractional Inspired Oxygen 55 %; HCO3 ABG 23.9 mEq/l (22.0-26.0); Methemoglobin ABG 0.3 %THb (0-1.5); Modified Allen's Test Unable to perform; Oxygen Content ABG 16.8 %vol (16.0-22.0); Oxygen Saturation ABG 98.1 % (95.0-100.0); PCO2 ABG 36.6 mmHg (35.0-45.0); PO2 ABG 108.1 mmHg (80.0-100.0); PO2 FiO2 Ratio Arterial Blood 1.97 %; Reduced Hemoglobin 2.4 %THb (0-5.0); Site Drawn RIGHT RADIAL; Total Hemoglobin 12.2 g/dL (12.0-18.0); pH ABG 7.433 (7.350-7.450)
[2020-09-21 06:49] LABS: Arterial Blood Gas Vent Mode ASSIST CONTROL; Arterial Blood Gas Ventilator rate 16 /MIN
[2020-09-21 06:50] LABS: Arterial Blood Gas PEEP 10 cmH2O; Arterial Blood Gas Tidal Volume 400 ml
[2020-09-21] MEDS: amLODIPine BESYLATE 5 MG TABLET 10 MG PO (08:14)
[2020-09-21] MEDS: FAMOTIDINE 20 MG/2 ML VIAL IV PUSH ×2 (08:19→20:45)
[2020-09-21] MEDS: ENOXAPARIN 40 MG/0.4 ML SYRINGE SUB-Q (08:19)
[2020-09-21] MEDS: levETIRAcetam IV 750 MG in DEXTROSE 5% 100 ML 430 MG IVPB ×2 (08:19→20:47)
[2020-09-21] MEDS: PARoxetine 20 MG TABLET 40 MG PO (08:20)
[2020-09-21] MEDS: SILVERGEL (ELTA) 45 ML 1 APPLIC TOPICAL (08:21)
[2020-09-21] MEDS: TOLNAFTATE 1% POWDER 45 GM BTL 1 APPLIC TOPICAL ×2 (08:21→20:45)
[2020-09-21] MEDS: BUDESONIDE RESPULE NEB 0.5 MG/2 ML AMP INHALATION ×2 (08:21→20:02)
[2020-09-21 08:49] LABS: Glucose Point of Care 98 (65-105)
[2020-09-21] MEDS: dexmedeTOMIDine 400 MCG/100 ML 400 MCG/100 ML BAG IV CONT (09:52)
--- NOTE | 2020-09-21 11:03 | PM.PNPUL ---
Progress Note: A&P Assessment and Plan (1) Bilateral atelectasis: Code(s): J98.11 - Atelectasis Status: Acute Assessment and Plan: try to avoid laying on right side if possible. spontaneous breathing will also help as will early extubation and mobilization. f/u on bronchoscopy cultures (2) Acute respiratory failure with hypoxia and hypercapnia: Code(s): J96.01 - Acute respiratory failure with hypoxia; J96.02 - Acute respiratory failure with hypercapnia Status: Acute Assessment and Plan: Weaning trials may begin soon. She is day 13 intubation today. Switching to dexametomadine (3) Anxiety and depression: Code(s): F41.9 - Anxiety disorder, unspecified; F32.9 - Major depressive disorder, single episode, unspecified Status: Acute (4) Asthma with exacerbation: Qualifiers: Asthma persistence: unspecified Asthma severity: unspecified severity Qualified Code(s): J45.901 - Unspecified asthma with (acute) exacerbation Code(s): J45.901 - Unspecified asthma with (acute) exacerbation Status: Acute Assessment and Plan: continue with pulmicort and duonebs as prescribed. no need for further systemic steroids a this point Subjective Date/time seen: 09/21/20 11:03 Interval history: Stable overnight, weaning demands from ventilator. systemic steroids discontinued. Bronchoscopy results negative so far. WBC decreasing Review of Systems Review of Systems: All systems reviewed & are unremarkable except as noted in HPI and below Exam Narrative: Exam Narrative: intubated, sedated Const: General: comfortable and no acute distress Orientation/consciousness: oriented to person, oriented to place, oriented to time and patient oriented x3 HENMT: Head: normal to inspection, normocephalic and atraumatic Other: ETT in place Eyes: General: appearance normal, both eyes and all related structures Sclera: sclerae normal Pupils: Equal, round and reactive pupils present Neck: Neck: normal visual inspection, trachea midline and supple Resp: Effort & Inspection: normal respiratory effort and able to speak in complete sentences Auscultation: rales, rhonchi and diminished lung sounds Other: decreased breath sounds not moving much air Cardio: Jugular venous distension: no JVD Rate: regular rate Rhythm: regular rhythm Heart sounds: S1 normal heart sound present and S2 normal heart sound present GI: Inspection: normal to inspection and non-distended GI Palp: Yes Soft to palpation and No Tenderness to palpation present (GI) Auscultation: abnormal bowel sounds ( hypoactive bowel sounds) Other: Obese : Other: Fang catheter in place Urinary Catheter: Urinary Catheter: patent and draining and urine clear Skin: General skin exam: normal color and no rashes or lesions noted Neuro: General: oriented to person, oriented to place, oriented to time and patient oriented x3 Cranial nerves: Yes Equal, round and reactive pupils present Cognition (Neuro): normal cognition Speech: normal speech Other: patient intubated and sedated, does not open her eyes or follow simple commands Extrem: General: normal to inspection, no edema and no pedal edema Psych: Appearance: grossly normal Other: unable to assess at this time Objective Data Vital Signs Vital Signs: Vital Signs - 24 hr 09/20/20 11:40 09/20/20 11:50 09/20/20 12:00 Temperature 36.6 C Pulse Rate 105 H 101 H 100 Respiratory Rate 17 21 H 14 Blood Pressure 110/66 110/66 Pulse Oximetry 96 98 09/20/20 12:21 09/20/20 12:26 09/20/20 12:31 Temperature Pulse Rate 104 H 117 H 123 H Respiratory Rate 19 17 18 Blood Pressure 102/60 177/76 H 113/76 Pulse Oximetry 97 96 95 09/20/20 13:48 09/20/20 14:00 09/20/20 14:10 Temperature Pulse Rate 104 H 106 H 102 H Respiratory Rate 19 19 Blood Pressure 102/63 Pulse Oximetry 95 97 09/20/20 15:18 09/20/20 16:00 09/20/20 16:55 Temperature 37.3 C
--- NOTE | 2020-09-21 11:27 | WPDINTPN ---
Progress Note: A&P Assessment and Plan (1) Bilateral atelectasis: Code(s): J98.11 - Atelectasis Status: Acute Assessment and Plan: try to avoid laying on right side if possible. spontaneous breathing will also help as will early extubation and mobilization. f/u on bronchoscopy cultures (2) Acute respiratory failure with hypoxia and hypercapnia: Code(s): J96.01 - Acute respiratory failure with hypoxia; J96.02 - Acute respiratory failure with hypercapnia Status: Acute Assessment and Plan: She was intubated on 09/09 for impending respiratory fatigue and respiratory arrest because of her significant respiratory distress and acute hypercapnic respiratory failure. Continue mechanical ventilation with current settings. Wean FiO2 and PEEP tolerated. Low tidal volume strategies. Currently her sedatives are being weaned off and when she is awake and following command then she will be placed on SBT trial. She will be extubated if she does well on SBT trial. She has been having significant anxiety issues. She has been started on Precedex drip while her propofol and Versed are being weaned off. A leak test at the bedside will be performed before extubation because of her stridor before intubation and a question of vocal cord dysfunction syndrome. I will give a dose of Lasix today. (3) Anxiety and depression: Code(s): F41.9 - Anxiety disorder, unspecified; F32.9 - Major depressive disorder, single episode, unspecified Status: Acute Assessment and Plan: Continue Xanax and paroxetine She is currently on Precedex drip and her propofol and Versed drip or being weaned off. (4) Asthma with exacerbation: Qualifiers: Asthma persistence: unspecified Asthma severity: unspecified severity Qualified Code(s): J45.901 - Unspecified asthma with (acute) exacerbation Code(s): J45.901 - Unspecified asthma with (acute) exacerbation Status: Acute Assessment and Plan: Continue with pulmicort and duonebs as prescribed. Steroid have been discontinued yesterday after a total duration of treatment for 13 days. (5) Vocal cord dysfunction: Code(s): J38.3 - Other diseases of vocal cords Status: Acute Assessment and Plan: A question of vocal cord dysfunctional syndrome has been raised because of her stridor before intubation. Leak test will be performed before extubation. If she has some issues then we can get ENT to have a look at the upper airways with laryngoscope. She may need speech evaluation as well in that case. (6) Seizure disorder: Code(s): G40.909 - Epilepsy, unspecified, not intractable, without status epilepticus Status: Acute Assessment and Plan: Continue Keppra. Seizure precaution. (7) Aspiration pneumonia: Qualifiers: Aspiration pneumonia type: unspecified Laterality: unspecified laterality Lung location: unspecified part of lung Qualified Code(s): J69.0 - Pneumonitis due to inhalation of food and vomit Code(s): J69.0 - Pneumonitis due to inhalation of food and vomit Status: Acute Assessment and Plan: She is on vancomycin likely from pneumonia. She was on Unasyn/Zosyn which has already been stop. Cultures have been negative. Will stop vancomycin. Monitor off antibiotics. Continue to monitor fever curve and WBC count. Monitor cultures on BAL which were obtained yesterday during bronchoscopy. Additional Plan Continue tube feeds DVT prophylaxis with subcu Lovenox GI prophylaxis with IV Pepcid Full code Critical care time spent: 33 minutes Due to a high probability of clinically significant, life threatening deterioration, the patient required my highest level of preparedness to intervene emergently and I personally spent this critical care time directly and personally managing the patient. This critical care time included obtaining a history; examini
[2020-09-21 11:56] LABS: Potassium 3.2 mmol/L (3.4-5.0)
--- NOTE | 2020-09-21 12:30 | PCDIET ---
Nutrition Follow-Up Complete: Inadequate oral intake related to oral intubation as evidenced by NPO status. Patient to meet estimated nutritional needs. Goal: goal met, continue goal Pt current nutrition is 2cal HN at 15ml/hr with prostate TID Nutrition recommendation: , recommend increasing to goal of 30ml/hr due to propofol removal Last recorded weight is 90.9 kg, down from 102.4kg two days ago (question accuracy) -81.5ml I/O Bowel Motility: Liquid stool in Fecal mngt system Labs Reviewed:Na 131, K+ 3.1 Meds Noted: Additional Notes: Ulcer noted on ankle. Current nutrition at 15m/hr over 22hrs providing 660kcals, 55g protein. Plans to increase to goal of 30ml/hr today to [id number] kcals and 55g protein from feedings in light of propofol d/c. Pt will get an additional 300kcals and 45g protein from prostat for 1620kcals and 100g protein which is currently appropriate. Possibility of extubation today. We will continue to reassess every t/f and follow daily in ICU.
[2020-09-21 13:09] LABS: Alveolar/Arterial O2 Gradient 158.5 mmHg; Arterial Blood Gas Vent Mode SPONTANEOUS; Base Excess ABG 0.7 mEq/l (+/-2.0); Carboxyhemoglobin 0.2 % THb (0-2.0); Device VENTILATOR; Fractional Inspired Oxygen 40 %; HCO3 ABG 25.5 mEq/l (22.0-26.0); Methemoglobin ABG 0.2 %THb (0-1.5); Modified Allen's Test Pass; Oxygen Content ABG 15.7 %vol (16.0-22.0); Oxygen Saturation ABG 95.7 % (95.0-100.0); Oxyhemoglobin 94.8 % THb (90.0-100.0); PCO2 ABG 41.6 mmHg (35.0-45.0); PO2 ABG 78.9 mmHg (80.0-100.0); PO2 FiO2 Ratio Arterial Blood 1.97 %; Reduced Hemoglobin 4.8 %THb (0-5.0); Site Drawn LEFT RADIAL; Total Hemoglobin 11.7 g/dL (12.0-18.0); pH ABG 7.406 (7.350-7.450)
[2020-09-21 13:10] LABS: Arterial Blood Gas PEEP 5 cmH2O; Arterial Blood Gas Pressure Support 5 cmH2O
--- NOTE | 2020-09-21 15:52 | PC.NURSE ---
Patient extubated per vp publisher development's order after spontaneous breathing trial. ABG was obtained and reviewed. Orders to extubate were obtained. See respiratory documentation for more detail.
[2020-09-21 16:33] LABS: Alveolar/Arterial O2 Gradient 145.8 mmHg; Base Excess ABG 3.1 mEq/l (+/-2.0); Fractional Inspired Oxygen 36 %; HCO3 ABG 27.8 mEq/l (22.0-26.0); Oxygen Content ABG 16.4 %vol (16.0-22.0); Oxygen Saturation ABG 92.1 % (95.0-100.0); Oxyhemoglobin 91.6 % THb (90.0-100.0); PCO2 ABG 42.7 mmHg (35.0-45.0); PO2 ABG 61.4 mmHg (80.0-100.0); PO2 FiO2 Ratio Arterial Blood 1.71 %; Site Drawn LEFT RADIAL; Total Hemoglobin 12.7 g/dL (12.0-18.0); pH ABG 7.431 (7.350-7.450)
[2020-09-21 16:34] LABS: Device NASAL CANNULA; Modified Allen's Test Pass
--- NOTE | 2020-09-21 16:49 | PC.NURSE ---
Extubated @ 1340. Pt. appeared to be having labored breaths. Spo2 varied from 87-89% with respirations in the high 20s to low 30s with weak cough upon request, unable to clear her own secretions. Dr. Armendariz and NICOLE Lugo were paged to room to evaluate patient. Orders were obtained, see orders. Will monitor closely and update provided
--- NOTE | 2020-09-21 16:56 | PM.IMPN ---
Progress Note: A&P Assessment and Plan (1) Acute respiratory failure with hypoxia and hypercapnia: Code(s): J96.01 - Acute respiratory failure with hypoxia; J96.02 - Acute respiratory failure with hypercapnia Status: Acute Assessment and Plan: Intubated 09/09 Duet to aspiration pneumonia, asthma 09/15: I/O 4940/5550 09/16: PC 22, rate 14, FIO2 60% Continues on furosemide 40mg IV q 12 hrs through 11/16 Difficulty weaning due to expiratory respiratory muscle contractions when neuromuscular blockade (Nimbex) is weaned 09/21/20 16:56 Patient is a 50-year-old female with history of asthma presented emergency department on 09/08 with cough shortness of breath and fever initially there was a concern patient may be positive for COVID as patient was exposed to her niece who was positive, however patient is negative for COVID-19, patient was found to have exacerbation of asthma as well as pneumonia and was being treated however on 09/09 into respiratory distress and patient was intubated, she is on vent, patient is being treated for pneumonia with ampicillin and vancomycin, today patient symptoms are improving responding to Lasix and pulmonary edema is improved, patient was taken off Nimbex on 09/17 and weaning of sedation and patient was tolerating ventilation in hope patient can be extubated, however is been 12 days on ventilator, seen by pulmonology suspect due to some severe atelectasis resulting poor oxygenation patient was taken to OR and had a bronchoscopy on 09/20 and mucus plugging was removed this will help improve patient's oxygenation and will facilitate extubation, early today on 09/21 patient was extubated and was quite somnolent was not able to provide any review of symptom, I called to assess the patient patient was more somnolent ABG was done and patient is saturating well, does respond by opening eye and and was able to somewhat cough, will start the patient on Pulmozyme and neb, discussed with the logging crew supervisor will keep close eye on the patient and further recommendation to follow, patient is seen by blending kettle tender and printing supervisor and appreciate (2) Asthma with exacerbation: Qualifiers: Asthma persistence: unspecified Asthma severity: unspecified severity Qualified Code(s): J45.901 - Unspecified asthma with (acute) exacerbation Code(s): J45.901 - Unspecified asthma with (acute) exacerbation Status: Acute Assessment and Plan: Continue steroids, bronchodilators (3) Aspiration pneumonia: Qualifiers: Aspiration pneumonia type: unspecified Laterality: unspecified laterality Lung location: unspecified part of lung Qualified Code(s): J69.0 - Pneumonitis due to inhalation of food and vomit Code(s): J69.0 - Pneumonitis due to inhalation of food and vomit Status: Acute Assessment and Plan: Continue Unasyn, Vancomycin (4) Vocal cord dysfunction: Code(s): J38.3 - Other diseases of vocal cords Status: Acute Assessment and Plan: Pulmonary following Currently on neuromuscluar blockade, but weaning (5) Seizure disorder: Code(s): G40.909 - Epilepsy, unspecified, not intractable, without status epilepticus Status: Acute Assessment and Plan: Continue Keppra Controlled (6) Hypertension: Qualifiers: Hypertension type: unspecified Qualified Code(s): I10 - Essential (primary) hypertension Code(s): I10 - Essential (primary) hypertension Status: Acute Assessment and Plan: Continue amlodipine with prn hydralazine Subjective Date/time seen: 09/21/20 16:56 Patient is a 50-year-old female with history of asthma presented emergency department on 09/08 with cough shortness of breath and fever initially there was a concern patient may be positive for COVID as patient was exposed to her niece who was positive, however patient is negative for COVID-19, patient was found to have exacerbation of asthma
[2020-09-21] MEDS: DORNASE ALFA INH SOLN 1 MG/ML 2.5 ML AMP 2.5 MG INHALATION (17:08)
[2020-09-21 17:34] LABS: Glucose Point of Care 142 (65-105)
--- NOTE | 2020-09-21 20:16 | PCRCNOTE ---
Dornase Alpha was given to pt @ 1700 per order by doctor. Normal schedule will resume @ 0800 09/22/20
[2020-09-21 20:40] LABS: Glucose Point of Care 116 (65-105)
[2020-09-21 20:59] LABS: Anion Gap 8 mmol/L (8-16); Blood Urea Nitrogen 14 mg/dL (7-17); Calcium 8.5 mg/dL (8.4-10.2); Carbon Dioxide 31 mmol/L (22-30); Chloride 97 mmol/L (98-107); Estimated Glomerular Filt Rate > 60; Glucose 118 mg/dL (65-105); Magnesium 1.9 mg/dL (1.6-2.3); Potassium 3.3 mmol/L (3.4-5.0); Sodium 136 mmol/L (137-145)
[2020-09-22] VITALS (29 sets, daily range): BP systolic 137–168; BP diastolic 58–98; PULSE 101–124; RESP 20–32; TEMP 36.4–37.8; O2SAT 91–97
[2020-09-22] MEDS: ALBUTEROL SULFATE NEB 2.5 MG/0.5 ML INH 5 MG INHALATION ×5 (00:01→21:19)
[2020-09-22] MEDS: IPRATROPIUM BR 0.02% INH SOLN 0.5 MG/2.5 ML VIAL INHALATION ×5 (00:01→21:19)
[2020-09-22] MEDS: CENTRAL LINE FLUSH 10 ML IV PUSH ×4 (02:15→20:47)
[2020-09-22 02:18] LABS: Glucose Point of Care 112 (65-105)
[2020-09-22 05:13] LABS: Alveolar/Arterial O2 Gradient 146.5 mmHg; Base Excess ABG 4.8 mEq/l (+/-2.0); Carboxyhemoglobin 0.3 % THb (0-2.0); Device NASAL CANNULA; Fractional Inspired Oxygen 36 %; HCO3 ABG 28.9 mEq/l (22.0-26.0); Methemoglobin ABG 0.2 %THb (0-1.5); Modified Allen's Test Unable to perform; Oxygen Content ABG 16.7 %vol (16.0-22.0); Oxygen Saturation ABG 93.4 % (95.0-100.0); Oxyhemoglobin 92.5 % THb (90.0-100.0); PCO2 ABG 40.6 mmHg (35.0-45.0); PO2 ABG 63.1 mmHg (80.0-100.0); PO2 FiO2 Ratio Arterial Blood 1.75 %; Site Drawn RIGHT RADIAL; Total Hemoglobin 12.8 g/dL (12.0-18.0)
[2020-09-22 05:30] LABS: Hematocrit 34.9 % (37.0-47.0); Hemoglobin 11.6 g/dL (12.0-15.0); Mean Corpuscular HGB Conc 33.2 g/dl (32-36); Mean Corpuscular Hemoglobin 29.8 pg (26-34); Mean Corpuscular Volume 89.7 fl (80-100); Platelet Count Result 268 k/mm3 (150-375); Red Blood Count 3.89 M/mm3 (4.2-5.4); Red Cell Distribution Width 14.8 % (11.5-14.5); White Blood Count 14.5 K/mm3 (4.5-10.0)
[2020-09-22 06:09] LABS: Anion Gap 5 mmol/L (8-16); Blood Urea Nitrogen 15 mg/dL (7-17); Calcium 8.4 mg/dL (8.4-10.2); Carbon Dioxide 33 mmol/L (22-30); Chloride 97 mmol/L (98-107); Estimated Glomerular Filt Rate > 60; Glucose 112 mg/dL (65-105); Potassium 2.9 mmol/L (3.4-5.0); Sodium 135 mmol/L (137-145)
[2020-09-22] MEDS: BUDESONIDE RESPULE NEB 0.5 MG/2 ML AMP INHALATION ×2 (09:13→21:19)
[2020-09-22] MEDS: DORNASE ALFA INH SOLN 1 MG/ML 2.5 ML AMP 2.5 MG INHALATION ×2 (09:13→21:19)
[2020-09-22] MEDS: levETIRAcetam IV 750 MG in DEXTROSE 5% 100 ML 430 MG IVPB ×2 (09:45→20:52)
[2020-09-22] MEDS: FAMOTIDINE 20 MG/2 ML VIAL IV PUSH ×2 (09:48→20:46)
[2020-09-22] MEDS: ENOXAPARIN 40 MG/0.4 ML SYRINGE SUB-Q (09:48)
[2020-09-22] MEDS: FUROSEMIDE INJ 40 MG/4 ML VIAL 60 MG IV PUSH (10:11)
[2020-09-22 10:18] LABS: Glucose Point of Care 134 (65-105)
--- NOTE | 2020-09-22 10:26 | WPDINTPN ---
Progress Note: A&P Assessment and Plan (1) Acute respiratory failure with hypoxia and hypercapnia: Code(s): J96.01 - Acute respiratory failure with hypoxia; J96.02 - Acute respiratory failure with hypercapnia Status: Acute Assessment and Plan: The patient was intubated on 09/09/2020 due to acute respiratory failure with hypercapnia and hypoxia. She was extubated on 09/21/2020. Respiratory status complicated due to bilateral severe atelectasis and aspiration pneumonia.. The patient had bronchoscopy 09/20/2020 which demonstrated bilateral lower lobe mucous plugging. The patient completed course of antibiotic therapy with Unasyn and vancomycin 09/21/2020. However, patient developed recurrent fever temperature 100.1?. Repeat blood cultures and UA with reflex culture been ordered. Will repeat COVID testing. Sputum cultures from BAL are pending but no organisms seen on Gram stain. Had evidence of pulmonary edema which has responded well to diuretics. Will continue diuresis today. With potassium supplementation totaling 80 mEq of went the patient is hypokalemic with potassium of 2.9. (2) Seizure disorder: Code(s): G40.909 - Epilepsy, unspecified, not intractable, without status epilepticus Status: Acute Assessment and Plan: Continue IV Keppra. No evidence of acute seizure activity. (3) Anxiety and depression: Code(s): F41.9 - Anxiety disorder, unspecified; F32.9 - Major depressive disorder, single episode, unspecified Status: Acute Assessment and Plan: The patient is extubated and does not have a feeding tube. The patient is encephalopathic again currently is high aspiration risk. Patient's oral anxiolytics are on hold. (4) Asthma with exacerbation: Qualifiers: Asthma persistence: unspecified Asthma severity: unspecified severity Qualified Code(s): J45.901 - Unspecified asthma with (acute) exacerbation Code(s): J45.901 - Unspecified asthma with (acute) exacerbation Status: Acute Assessment and Plan: Asthma exacerbation with exposure to COVID-19. COVID testing was negative x3 with the last test on 09/10/2020. Continue albuterol and Atrovent nebulizers scheduled. Solu-Medrol has been weaned off. Pulmonology is following. (5) Hypertension: Qualifiers: Hypertension type: unspecified Qualified Code(s): I10 - Essential (primary) hypertension Code(s): I10 - Essential (primary) hypertension Status: Acute Assessment and Plan: Will hold Norvasc as the patient is NPO. P.r.n. hydralazine is available for uncontrolled hypertension. (6) Vocal cord dysfunction: Code(s): J38.3 - Other diseases of vocal cords Status: Acute Assessment and Plan: Vocal cord dysfunction was considered due to stridor prior to intubation. Patient will need speech therapy evaluation. (7) Bilateral atelectasis: Code(s): J98.11 - Atelectasis Status: Acute Assessment and Plan: The patient cannot cooperate with incentive spirometry.. Additional Plan 40 minutes spent in critical care activities. This case had a high probability of a clinically significant, sudden, or life threatening deterioration of this patient's condition which required my full and direct attention, intervention and personal management. Subjective Date/time seen: 09/22/20 10:26 The patient is hypokalemic. She is febrile with temperature of 100.1?. Review of Systems Review of Systems: ROS unobtainable: Yes unobtainable due to mental status (Encephalopathy) Exam Narrative: Exam Narrative: PHYSICAL EXAM: WEIGHT 90.8 kg General: Morbidly obese, acutely ill-appearing HEENT: Mucous membranes are dry, no oral pharyngeal erythema, large neck circumference Respiratory: Coarse breath sounds bilaterally, tachypnic Cardiovascular: Sinus tachycardia, no murmur, Gastrointestinal: Obese, soft, nontender, hypoactive bowel soun
[2020-09-22 11:55] LABS: Glucose Point of Care 144 (65-105)
[2020-09-22 12:07] LABS: Add Urine Microscopic? YES; Appearance Urine Clear (Clear); Bacteria Urine Trace /hpf; Bilirubin Urine Negative (Negative); Blood Urine 1+ (Negative); Color Urine Colorless (Yellow); Glucose Urine UA Negative (Negative); Ketones Urine Negative (Negative); Leukocyte Esterase Ur Negative LEU/UL (Negative); Nitrate Urine Negative (Negative); Protein Urine Negative (Negative); RBC Urine 0-2 /hpf (0-2); Specific Grav Ur 1.009 (1.001-1.035); Urobilinogen Urine Negative mg/dL (<2.0); WBC Urine 0-3 /hpf
[2020-09-22] MEDS: ALBUMIN HUMAN 25% 12.5 GM/50ML 50 ML IVPB (12:45)
--- NOTE | 2020-09-22 13:07 | PM.PNPUL ---
Progress Note: A&P Assessment and Plan (1) Bilateral atelectasis: Code(s): J98.11 - Atelectasis Status: Acute Assessment and Plan: Worsening today and likely due to critical illness polyneuropathy. Would recommend starting BIPAP 09/30 with backup rate of 16 and titrating FiO2 for sats of 92-96% (2) Acute respiratory failure with hypoxia and hypercapnia: Code(s): J96.01 - Acute respiratory failure with hypoxia; J96.02 - Acute respiratory failure with hypercapnia Status: Acute Assessment and Plan: Would start BIPAP, worsening atelectesis likely due to critical illness polyneuropathy and she's at risk for respiratory failure and reintubation. Would hold sedation for a few days (3) Critical illness polyneuropathy: Code(s): G62.81 - Critical illness polyneuropathy Status: Acute Assessment and Plan: Evident by exam, worsening atelectesis. She's at risk for reintubation. Monitor GCS, maintainece of airway carefully. Subjective Date/time seen: 09/22/20 13:07 Interval history: Extubated yesterday successfully but very weak this morning, lethargic with weak cough, unable to lift her head up or move extremities. CXR this morning shows worsening bilateral atelectesis Review of Systems Review of Systems: All systems reviewed & are unremarkable except as noted in HPI and below Exam Narrative: Exam Narrative: intubated, sedated Const: General: comfortable and no acute distress Limitations: altered mental status and physical limitations HENMT: Head: normal to inspection, normocephalic and atraumatic Other: ETT in place Eyes: General: appearance normal, both eyes and all related structures Sclera: sclerae normal Pupils: Equal, round and reactive pupils present Neck: Neck: normal visual inspection, trachea midline and supple Resp: Auscultation: breath sounds absent and diminished lung sounds Other: decreased breath sounds not moving much air Cardio: Jugular venous distension: no JVD Rate: regular rate Rhythm: regular rhythm Heart sounds: S1 normal heart sound present and S2 normal heart sound present GI: Inspection: normal to inspection and non-distended GI Palp: Yes Soft to palpation and No Tenderness to palpation present (GI) Auscultation: normal bowel sounds Other: Obese : Other: Fang catheter in place Urinary Catheter: Urinary Catheter: patent and draining and urine clear Skin: General skin exam: normal color and no rashes or lesions noted Neuro: Cognition (Neuro): abnormal cognition Speech: normal speech Motor exam (neuro): strength not 5/5 throughout (diffuse weak muscles bilaterally ) Other: patient intubated and sedated, does not open her eyes or follow simple commands Extrem: General: normal to inspection, no edema and no pedal edema Psych: Appearance: grossly normal Other: unable to assess at this time Objective Data Vital Signs Vital Signs: Vital Signs - 24 hr 09/21/20 13:40 09/21/20 14:00 09/21/20 15:40 Temperature Pulse Rate 92 96 Respiratory Rate 18 20 Blood Pressure 119/80 Pulse Oximetry 96 95 09/21/20 15:56 09/21/20 16:00 09/21/20 16:05 Temperature 36.4 C Pulse Rate 113 H 106 H 111 H Respiratory Rate 21 H 24 H Blood Pressure 134/71 Pulse Oximetry 90 09/21/20 17:08 09/21/20 17:15 09/21/20 17:30 Temperature Pulse Rate 113 H 108 H 92 Respiratory Rate 27 H 22 H 29 H Blood Pressure Pulse Oximetry 09/21/20 18:00 09/21/20 20:00 09/21/20 20:03 Temperature 36.4 C Pulse Rate 122 H 113 H 128 H Respiratory Rate 21 H 30 H 29 H Blood Pressure 159/85 H 142/78 H Pulse Oximetry 94 97 09/21/20 20:10 09/21/20 20:22 09/21/20 22:00 Temperature Pulse Rate 118 H 113 H 115 H Respiratory Rate 31 H 28 H Blood Pressure 132/82 Pulse Oximetry 92 95 09/22/20 00:00 09/22/20 00:01 09/22/20 00:02 Temperature 36.4 C L Pulse Rate 113 H 109 H 109 H Respiratory Rate 26 H 25 H Blood Pressu
[2020-09-22] MEDS: SILVERGEL (ELTA) 45 ML 1 APPLIC TOPICAL (13:15)
[2020-09-22] MEDS: TOLNAFTATE 1% POWDER 45 GM BTL 1 APPLIC TOPICAL ×2 (13:15→20:46)
--- NOTE | 2020-09-22 14:24 | PCRCNOTE ---
Window of time for administration has passed. See next scheduled administration.
--- NOTE | 2020-09-22 16:25 | PM.IMPN ---
Progress Note: A&P Assessment and Plan (1) Acute respiratory failure with hypoxia and hypercapnia: Code(s): J96.01 - Acute respiratory failure with hypoxia; J96.02 - Acute respiratory failure with hypercapnia Status: Acute Assessment and Plan: 09/22/20 16:25 Patient is a 50-year-old female with history of asthma presented emergency department on 09/08 with cough shortness of breath and fever initially there was a concern patient may be positive for COVID as patient was exposed to her niece who was positive, however patient is negative for COVID-19, patient was found to have exacerbation of asthma as well as pneumonia and was being treated however on 09/09 into respiratory distress and patient was intubated, she is on vent, patient is being treated for pneumonia with ampicillin and vancomycin, today patient symptoms are improving responding to Lasix and pulmonary edema is improved, patient was taken off Nimbex on 09/17 and weaning of sedation and patient was tolerating ventilation in hope patient can be extubated, however is been 12 days on ventilator, seen by pulmonology suspect due to some severe atelectasis resulting poor oxygenation patient was taken to OR and had a bronchoscopy on 09/20 and mucus plugging was removed this will help improve patient's oxygenation and will facilitate extubation, early on 09/21 patient was extubated and was quite somnolent was not able to provide any review of symptom, I called to assess the patient, patient was more somnolent ABG was done and patient was saturating well, does respond by opening eye and and was able to somewhat cough, started the patient on Pulmozyme and neb, discussed with the wrapper rewinder will keep close eye on the patient and further recommendation to follow, patient is seen by breakdown worker and train station server and appreciate today 09/22 patient's symptoms are not improving and has developed fever patient already completed course of vancomycin and Unasyn, patient is being retested for COVID and under isolation, patient seen by breakdown worker recommending to place the patient on BiPAP if possible avoid reintubation, worsening condition suspect critical care illness polyneuropathy, patient seen by train station server and appreciate, once clinically stable patient will benefit from acute rehab (2) Seizure disorder: Code(s): G40.909 - Epilepsy, unspecified, not intractable, without status epilepticus Status: Acute Assessment and Plan: Continue IV Keppra. No evidence of acute seizure activity. (3) Anxiety and depression: Code(s): F41.9 - Anxiety disorder, unspecified; F32.9 - Major depressive disorder, single episode, unspecified Status: Acute Assessment and Plan: The patient is extubated and does not have a feeding tube. The patient is encephalopathic again currently is high aspiration risk. Patient's oral anxiolytics are on hold. (4) Asthma with exacerbation: Qualifiers: Asthma persistence: unspecified Asthma severity: unspecified severity Qualified Code(s): J45.901 - Unspecified asthma with (acute) exacerbation Code(s): J45.901 - Unspecified asthma with (acute) exacerbation Status: Acute Assessment and Plan: Asthma exacerbation with exposure to COVID-19. COVID testing was negative x3 with the last test on 09/10/2020. Continue albuterol and Atrovent nebulizers scheduled. Solu-Medrol has been weaned off. Pulmonology is following. (5) Hypertension: Qualifiers: Hypertension type: unspecified Qualified Code(s): I10 - Essential (primary) hypertension Code(s): I10 - Essential (primary) hypertension Status: Acute Assessment and Plan: Will hold Norvasc as the patient is NPO. P.r.n. hydralazine is available for uncontrolled hypertension. (6) Vocal cord dysfunction: Code(s): J38.3 - Other diseases of vocal cords Status: Acute Assessment and Plan: Vocal cord dysf
[2020-09-22 17:19] LABS: Glucose Point of Care 112 (65-105)
[2020-09-22 21:47] LABS: Glucose Point of Care 124 (65-105)
[2020-09-23] VITALS (31 sets, daily range): BP systolic 133–159; BP diastolic 79–98; PULSE 95–144; RESP 21–38; TEMP 37.1–37.7; O2SAT 90–100
[2020-09-23 00:38] LABS: Glucose Point of Care 109 (65-105)
[2020-09-23] MEDS: IPRATROPIUM BR 0.02% INH SOLN 0.5 MG/2.5 ML VIAL INHALATION ×5 (04:04→20:18)
[2020-09-23] MEDS: ALBUTEROL SULFATE NEB 2.5 MG/0.5 ML INH 5 MG INHALATION ×4 (04:04→20:19)
[2020-09-23] MEDS: CENTRAL LINE FLUSH 10 ML IV PUSH ×3 (04:48→20:34)
[2020-09-23 05:11] LABS: Hematocrit 34.9 % (37.0-47.0); Hemoglobin 11.5 g/dL (12.0-15.0); Mean Corpuscular Hemoglobin 30.1 pg (26-34); Mean Corpuscular Volume 91.4 fl (80-100); Mean Platelet Volume 9.1 fl (7.4-10.4); Platelet Count Result 301 k/mm3 (150-375); Red Blood Count 3.82 M/mm3 (4.2-5.4); Red Cell Distribution Width 15.3 % (11.5-14.5); White Blood Count 12.2 K/mm3 (4.5-10.0)
[2020-09-23 05:51] LABS: Base Excess ABG 5.4 mEq/l (+/-2.0); Carboxyhemoglobin 0.1 % THb (0-2.0); Fractional Inspired Oxygen 40 %; HCO3 ABG 29.4 mEq/l (22.0-26.0); Methemoglobin ABG 0.2 %THb (0-1.5); Oxygen Content ABG 19.2 %vol (16.0-22.0); Oxyhemoglobin 94.1 % THb (90.0-100.0); PCO2 ABG 41.1 mmHg (35.0-45.0); PO2 ABG 69.9 mmHg (80.0-100.0); PO2 FiO2 Ratio Arterial Blood 1.75 %; Reduced Hemoglobin 5.6 %THb (0-5.0); Total Hemoglobin 14.5 g/dL (12.0-18.0); pH ABG 7.473 (7.350-7.450)
[2020-09-23 05:53] LABS: Device NON-INVASIVE VENT; Modified Allen's Test Pass; Non-Invasive Expiratory Pressure 6 CMH2O; Non-Invasive Inspiratory Pressure 12 CMH2O; Non-Invasive Vent Rate 16 /MIN; Site Drawn LEFT RADIAL
[2020-09-23 05:56] LABS: Anion Gap 8 mmol/L (8-16); Blood Urea Nitrogen 17 mg/dL (7-17); Calcium 8.8 mg/dL (8.4-10.2); Carbon Dioxide 36 mmol/L (22-30); Chloride 98 mmol/L (98-107); Estimated Glomerular Filt Rate > 60; Glucose 108 mg/dL (65-105); Sodium 142 mmol/L (137-145)
[2020-09-23] MEDS: ALBUMIN HUMAN 25% 12.5 GM/50ML 50 ML IVPB ×4 (09:47→23:15)
[2020-09-23] MEDS: levETIRAcetam IV 750 MG in DEXTROSE 5% 100 ML 430 MG IVPB ×2 (09:47→20:29)
[2020-09-23] MEDS: ENOXAPARIN 40 MG/0.4 ML SYRINGE SUB-Q (09:53)
[2020-09-23] MEDS: FAMOTIDINE 20 MG/2 ML VIAL IV PUSH ×2 (09:53→20:33)
[2020-09-23] MEDS: hydrALAZINE HCL 20 MG/ML VIAL 10 MG IV PUSH (10:21)
[2020-09-23] MEDS: FUROSEMIDE INJ 40 MG/4 ML VIAL 60 MG IV PUSH (10:21)
[2020-09-23] MEDS: BUDESONIDE RESPULE NEB 0.5 MG/2 ML AMP INHALATION ×2 (10:51→20:19)
[2020-09-23] MEDS: DORNASE ALFA INH SOLN 1 MG/ML 2.5 ML AMP 2.5 MG INHALATION ×2 (10:52→20:28)
--- NOTE | 2020-09-23 11:36 | WPDINTPN ---
Progress Note: A&P Assessment and Plan (1) Acute respiratory failure with hypoxia and hypercapnia: Code(s): J96.01 - Acute respiratory failure with hypoxia; J96.02 - Acute respiratory failure with hypercapnia Status: Acute Assessment and Plan: The patient was intubated on 09/09/2020 due to acute respiratory failure with hypercapnia and hypoxia. She was extubated on 09/21/2020. Respiratory status complicated due to bilateral severe atelectasis and aspiration pneumonia.. The patient had bronchoscopy 09/20/2020 which demonstrated bilateral lower lobe mucous plugging. The patient completed course of antibiotic therapy with Unasyn and vancomycin 09/21/2020. However, patient developed recurrent fever temperature 100.1? 09/22/2020. Repeat blood cultures 09/22/2020 negative to date. Repeat COVID testing pending. Sputum cultures from BAL are growing scant yeast Had evidence of pulmonary edema which has responded well to diuretics. Will continue diuresis today. The patient did not tolerate being weaned to nasal cannula. She desatted to 88% on 6 L nasal cannula. Continue BiPAP 12/6 rate of 16. Appreciate pulmonology recommendations. (2) Seizure disorder: Code(s): G40.909 - Epilepsy, unspecified, not intractable, without status epilepticus Status: Acute Assessment and Plan: Continue IV Keppra. No evidence of acute seizure activity. (3) Anxiety and depression: Code(s): F41.9 - Anxiety disorder, unspecified; F32.9 - Major depressive disorder, single episode, unspecified Status: Acute Assessment and Plan: The patient is extubated and does not have a feeding tube. The patient is encephalopathic again currently is high aspiration risk. Patient's oral anxiolytics are on hold. (4) Asthma with exacerbation: Qualifiers: Asthma persistence: unspecified Asthma severity: unspecified severity Qualified Code(s): J45.901 - Unspecified asthma with (acute) exacerbation Code(s): J45.901 - Unspecified asthma with (acute) exacerbation Status: Acute Assessment and Plan: Asthma exacerbation with exposure to COVID-19. COVID testing was negative x3 with the last test on 09/10/2020. Continue albuterol and Atrovent nebulizers scheduled. Solu-Medrol has been weaned off. Pulmonology is following. Continue BiPAP 12/6 with a rate of 16. (5) Hypertension: Qualifiers: Hypertension type: unspecified Qualified Code(s): I10 - Essential (primary) hypertension Code(s): I10 - Essential (primary) hypertension Status: Acute Assessment and Plan: Will hold Norvasc as the patient is NPO. P.r.n. hydralazine is available for uncontrolled hypertension. (6) Vocal cord dysfunction: Code(s): J38.3 - Other diseases of vocal cords Status: Acute Assessment and Plan: Vocal cord dysfunction was considered due to stridor prior to intubation. Patient will need speech therapy evaluation. (7) Bilateral atelectasis: Code(s): J98.11 - Atelectasis Status: Acute Assessment and Plan: The patient cannot cooperate with incentive spirometry.. Additional Plan 40 minutes spent in critical care activities. This case had a high probability of a clinically significant, sudden, or life threatening deterioration of this patient's condition which required my full and direct attention, intervention and personal management. Subjective Date/time seen: 09/23/20 10:30 The patient tolerated BiPAP 09/30 the back up rate of 16 overnight. She remains tachycardic. Her temperature is 99.2?. Her heart rate has been higher today than previous. Exam Narrative: Exam Narrative: PHYSICAL EXAM: WEIGHT 90.8 kg General: Morbidly obese, acutely ill-appearing HEENT: Mucous membranes are dry, large neck circumference, pupils equal and reactive Respiratory: Coarse breath sounds bilaterally, tachypnic Cardiovascular: Sinus tachycardia,
[2020-09-23 12:31] LABS: Glucose Point of Care 132 (65-105)
[2020-09-23] MEDS: SILVERGEL (ELTA) 45 ML 1 APPLIC TOPICAL (13:30)
[2020-09-23] MEDS: TOLNAFTATE 1% POWDER 45 GM BTL 1 APPLIC TOPICAL ×2 (13:30→20:34)
--- NOTE | 2020-09-23 14:49 | PM.IMPN ---
Progress Note: A&P Assessment and Plan (1) Acute respiratory failure with hypoxia and hypercapnia: Code(s): J96.01 - Acute respiratory failure with hypoxia; J96.02 - Acute respiratory failure with hypercapnia Status: Acute Assessment and Plan: 09/23/20 14:49 Patient is a 50-year-old female with history of asthma presented emergency department on 09/08 with cough shortness of breath and fever initially there was a concern patient may be positive for COVID as patient was exposed to her niece who was positive, however patient is negative for COVID-19, patient was found to have exacerbation of asthma as well as pneumonia and was being treated however on 09/09 into respiratory distress and patient was intubated, she is on vent, patient is being treated for pneumonia with ampicillin and vancomycin, today patient symptoms are improving responding to Lasix and pulmonary edema is improved, patient was taken off Nimbex on 09/17 and weaning of sedation and patient was tolerating ventilation in hope patient can be extubated, however is been 12 days on ventilator, seen by pulmonology suspect due to some severe atelectasis resulting poor oxygenation patient was taken to OR and had a bronchoscopy on 09/20 and mucus plugging was removed this will help improve patient's oxygenation and will facilitate extubation, early on 09/21 patient was extubated and was quite somnolent was not able to provide any review of symptom, I called to assess the patient, patient was more somnolent ABG was done and patient was saturating well, does respond by opening eye and and was able to somewhat cough, started the patient on Pulmozyme and neb, discussed with the journeyman pipefitter will keep close eye on the patient and further recommendation to follow, patient is seen by sail lay out worker and insurance claims representative and appreciate on 09/22 patient's symptoms were not improving and had developed fever patient already completed course of vancomycin and Unasyn, patient was being retested for COVID and under isolation pending, 09/23 patient is still desaturating, patient is diuresed, patient seen by sail lay out worker recommending to place the patient on BiPAP if possible avoid reintubation, worsening condition suspect critical care illness polyneuropathy, patient seen by insurance claims representative and appreciate, once clinically stable patient will benefit from acute rehab (2) Seizure disorder: Code(s): G40.909 - Epilepsy, unspecified, not intractable, without status epilepticus Status: Acute Assessment and Plan: Continue IV Keppra. No evidence of acute seizure activity. (3) Anxiety and depression: Code(s): F41.9 - Anxiety disorder, unspecified; F32.9 - Major depressive disorder, single episode, unspecified Status: Acute Assessment and Plan: The patient is extubated and does not have a feeding tube. The patient is encephalopathic again currently is high aspiration risk. Patient's oral anxiolytics are on hold. (4) Asthma with exacerbation: Qualifiers: Asthma persistence: unspecified Asthma severity: unspecified severity Qualified Code(s): J45.901 - Unspecified asthma with (acute) exacerbation Code(s): J45.901 - Unspecified asthma with (acute) exacerbation Status: Acute Assessment and Plan: Asthma exacerbation with exposure to COVID-19. COVID testing was negative x3 with the last test on 09/10/2020. Continue albuterol and Atrovent nebulizers scheduled. Solu-Medrol has been weaned off. Pulmonology is following. (5) Hypertension: Qualifiers: Hypertension type: unspecified Qualified Code(s): I10 - Essential (primary) hypertension Code(s): I10 - Essential (primary) hypertension Status: Acute Assessment and Plan: Will hold Norvasc as the patient is NPO. P.r.n. hydralazine is available for uncontrolled hypertension. (6) Vocal cord dysfunction: Code(s): J38.3 - Other diseases of vocal cord
[2020-09-23 17:30] LABS: Glucose Point of Care 126 (65-105)
[2020-09-24] VITALS (26 sets, daily range): BP systolic 130–171; BP diastolic 62–85; PULSE 92–132; RESP 20–33; TEMP 36.6–38; O2SAT 93–99; BMI 11.0
[2020-09-24] LABS: Glucose Point of Care 97 (65-105)
[2020-09-24] MEDS: ALBUTEROL SULFATE NEB 2.5 MG/0.5 ML INH 5 MG INHALATION (02:22)
[2020-09-24] MEDS: IPRATROPIUM BR 0.02% INH SOLN 0.5 MG/2.5 ML VIAL INHALATION ×3 (02:22→21:02)
[2020-09-24 04:52] LABS: Hematocrit 31.5 % (37.0-47.0); Hemoglobin 10.3 g/dL (12.0-15.0); Mean Corpuscular HGB Conc 32.7 g/dl (32-36); Mean Corpuscular Hemoglobin 30.1 pg (26-34); Mean Corpuscular Volume 92.1 fl (80-100); Mean Platelet Volume 9.1 fl (7.4-10.4); Platelet Count Result 304 k/mm3 (150-375); Red Blood Count 3.42 M/mm3 (4.2-5.4); Red Cell Distribution Width 15.7 % (11.5-14.5); White Blood Count 11.8 K/mm3 (4.5-10.0)
[2020-09-24 05:11] LABS: Anion Gap 9 mmol/L (8-16); Blood Urea Nitrogen 16 mg/dL (7-17); Calcium 9.3 mg/dL (8.4-10.2); Carbon Dioxide 34 mmol/L (22-30); Chloride 98 mmol/L (98-107); Estimated Glomerular Filt Rate > 60; Glucose 100 mg/dL (65-105); Sodium 141 mmol/L (137-145)
[2020-09-24 05:54] LABS: Alveolar/Arterial O2 Gradient 148.5 mmHg; Carboxyhemoglobin 0.1 % THb (0-2.0); Fractional Inspired Oxygen 40 %; HCO3 ABG 24.9 mEq/l (22.0-26.0); Methemoglobin ABG 0.3 %THb (0-1.5); Oxygen Content ABG 13.9 %vol (16.0-22.0); Oxygen Saturation ABG 98.1 % (95.0-100.0); PCO2 ABG 32.3 mmHg (35.0-45.0); PO2 ABG 99.6 mmHg (80.0-100.0); PO2 FiO2 Ratio Arterial Blood 2.49 %; Reduced Hemoglobin 3.6 %THb (0-5.0); Total Hemoglobin 10.2 g/dL (12.0-18.0); pH ABG 7.504 (7.350-7.450)
[2020-09-24 05:55] LABS: Device NON-INVASIVE VENT; Modified Allen's Test Pass; Site Drawn LEFT RADIAL
[2020-09-24 05:56] LABS: Non-Invasive Expiratory Pressure 6 CMH2O; Non-Invasive Inspiratory Pressure 12 CMH2O; Non-Invasive Vent Rate 16 /MIN
[2020-09-24] MEDS: CENTRAL LINE FLUSH 10 ML IV PUSH ×3 (06:02→21:59)
[2020-09-24] MEDS: ALBUMIN HUMAN 25% 12.5 GM/50ML 50 ML IVPB ×3 (06:05→17:41)
--- NOTE | 2020-09-24 06:12 | PC.NURSE ---
Patent gven break off bipap. O2sat 96% 4LNC. HR 108
[2020-09-24] MEDS: hydrALAZINE HCL 20 MG/ML VIAL 10 MG IV PUSH (07:03)
[2020-09-24] MEDS: METOPROLOL TARTRATE INJ 5 MG/5 ML VIAL (08:05)
[2020-09-24] MEDS: levETIRAcetam IV 750 MG in DEXTROSE 5% 100 ML 430 MG IVPB ×2 (08:05→21:59)
[2020-09-24] MEDS: FAMOTIDINE 20 MG/2 ML VIAL IV PUSH ×2 (08:06→21:59)
[2020-09-24] MEDS: ENOXAPARIN 40 MG/0.4 ML SYRINGE SUB-Q (08:06)
[2020-09-24] MEDS: SILVERGEL (ELTA) 45 ML 1 APPLIC TOPICAL (08:06)
[2020-09-24] MEDS: TOLNAFTATE 1% POWDER 45 GM BTL 1 APPLIC TOPICAL ×2 (08:07→22:00)
--- NOTE | 2020-09-24 11:20 | PCDIET ---
ICU Rounding Note: Patient extubated and NPO with plan for NG placement. Recommend Jevity 1.5 at goal of 45mL/hr x 22 hours/day for 1485kcal, 63g protein and 752mL free water. Suggest 30mL water flush every 4 hours. Last recorded weight is 91.1kg which is stable. Bowel Motility: +BM x 1 today. Labs Reviewed: Hgb (10.3), Hct (31.5), Cr (0.3), K (3.0) Meds Noted: Albuterol, Albumin, Norvasc, Pepcid, Fentanyl, Hydralazine, Novolog, KCl Additional Notes: Maceration to buttocks reported. Previous left ankle wound also documented. Following daily in ICU rounds. Assessing/reassessing every Thursday/Thursday.
[2020-09-24 11:58] LABS: SARS-CoV-2 RNA PCR Negative
[2020-09-24] MEDS: ENALAPRILAT 1.25 MG/ML VIAL 2.5 MG IV PUSH (11:59)
[2020-09-24 12:15] LABS: Glucose Point of Care 96 (65-105)
[2020-09-24] MEDS: FUROSEMIDE INJ 40 MG/4 ML VIAL IV PUSH (12:47)
--- NOTE | 2020-09-24 13:11 | PM.PNPUL ---
Progress Note: A&P Assessment and Plan (1) Critical illness polyneuropathy: Code(s): G62.81 - Critical illness polyneuropathy Status: Acute Assessment and Plan: Improving slowly - avoid systemic steroids or neuromuscular blockers - aggressive PT/OT once off isolation (2) Bilateral atelectasis: Code(s): J98.11 - Atelectasis Status: Acute Assessment and Plan: Improving and nearly resolved on Left side but persistent on right side. Likely cause of fever - keep right lung up, slightly tilted on left side - incentive spirometer and mobilization when patient is able to. (3) Anxiety: Code(s): F41.9 - Anxiety disorder, unspecified Status: Acute (4) Acute respiratory failure with hypoxia and hypercapnia: Code(s): J96.01 - Acute respiratory failure with hypoxia; J96.02 - Acute respiratory failure with hypercapnia Status: Acute (5) Asthma with exacerbation: Qualifiers: Asthma persistence: unspecified Asthma severity: unspecified severity Qualified Code(s): J45.901 - Unspecified asthma with (acute) exacerbation Code(s): J45.901 - Unspecified asthma with (acute) exacerbation Status: Acute Assessment and Plan: - continue duonebs, pulmicort nebs as prescribed. Subjective Date/time seen: 09/24/20 13:11 Interval history: Clinically improving. Muscle weakness is diminishing. She's more awake. Left sided atelectasis has resolved right side has persisted and is mostly cause of recent fever. Review of Systems Review of Systems: All systems reviewed & are unremarkable except as noted in HPI and below Exam Narrative: Exam Narrative: intubated, sedated Const: General: comfortable, no acute distress, alert and awake Limitations: altered mental status and physical limitations HENMT: Head: normal to inspection, normocephalic and atraumatic Other: ETT in place Eyes: General: appearance normal, both eyes and all related structures Sclera: sclerae normal Pupils: Equal, round and reactive pupils present Neck: Neck: normal visual inspection, trachea midline and supple Resp: Auscultation: breath sounds absent and diminished lung sounds Other: decreased breath sounds not moving much air Cardio: Jugular venous distension: no JVD Rate: regular rate Rhythm: regular rhythm Heart sounds: S1 normal heart sound present and S2 normal heart sound present GI: Inspection: normal to inspection and non-distended GI Palp: Yes Soft to palpation and No Tenderness to palpation present (GI) Auscultation: normal bowel sounds Other: Obese : Other: Fang catheter in place Urinary Catheter: Urinary Catheter: patent and draining and urine clear Skin: General skin exam: normal color and no rashes or lesions noted Neuro: Cognition (Neuro): normal cognition Motor exam (neuro): 5/5 motor strength present throughout (diffuse weak muscles bilaterally, not able to move upper extremities, 4/5 ) Other: patient intubated and sedated, does not open her eyes or follow simple commands Extrem: General: normal to inspection, no edema and no pedal edema Psych: Appearance: grossly normal Other: unable to assess at this time Objective Data Vital Signs Vital Signs: Vital Signs - 24 hr 09/23/20 13:55 09/23/20 13:57 09/23/20 14:00 Temperature Pulse Rate 126 H 128 H Respiratory Rate 35 H 36 H Blood Pressure 137/83 Pulse Oximetry 92 91 09/23/20 14:23 09/23/20 16:00 09/23/20 16:44 Temperature 37.6 C Pulse Rate 129 H 132 H 126 H Respiratory Rate 34 H 32 H 34 H Blood Pressure 151/79 H Pulse Oximetry 92 09/23/20 17:01 09/23/20 18:00 09/23/20 20:00 Temperature 37.7 C H Pulse Rate 128 H 126 H 116 H Respiratory Rate 25 H 28 H 28 H Blood Pressure 134/86 153/85 H Pulse Oximetry 95 100 09/23/20 20:25 09/23/20 20:45 09/23/20 20:47 Temperature Pulse Rate 113 H 113 H Respiratory Rate 33 H 33 H 26 H Blood Pressure Pulse O
--- NOTE | 2020-09-24 13:25 | PCSTNOTE ---
Please refer to the Bedside Swallow Evaluation in the EMR. Please note, silent aspiration cannot be ruled out at bedside.
--- NOTE | 2020-09-24 15:55 | PM.IMPN ---
Progress Note: A&P Assessment and Plan (1) Acute respiratory failure with hypoxia and hypercapnia: Code(s): J96.01 - Acute respiratory failure with hypoxia; J96.02 - Acute respiratory failure with hypercapnia Status: Acute Assessment and Plan: 09/24/20 15:55 Patient is a 50-year-old female with history of asthma presented emergency department on 09/08 with cough shortness of breath and fever initially there was a concern patient may be positive for COVID as patient was exposed to her niece who was positive, however patient is negative for COVID-19, patient was found to have exacerbation of asthma as well as pneumonia and was being treated however on 09/09 into respiratory distress and patient was intubated, she is on vent, patient is being treated for pneumonia with ampicillin and vancomycin, today patient symptoms are improving responding to Lasix and pulmonary edema is improved, patient was taken off Nimbex on 09/17 and weaning of sedation and patient was tolerating ventilation in hope patient can be extubated, however is been 12 days on ventilator, seen by pulmonology suspect due to some severe atelectasis resulting poor oxygenation patient was taken to OR and had a bronchoscopy on 09/20 and mucus plugging was removed this will help improve patient's oxygenation and will facilitate extubation, early on 09/21 patient was extubated and was quite somnolent was not able to provide any review of symptom, I called to assess the patient, patient was more somnolent ABG was done and patient was saturating well, does respond by opening eye and and was able to somewhat cough, started the patient on Pulmozyme and neb, discussed with the heavy equipment sales associate will keep close eye on the patient and further recommendation to follow, patient is seen by mortgage loan officer and roofing contractor and appreciate on 09/22 patient's symptoms were not improving and had developed fever patient already completed course of vancomycin and Unasyn, patient was being retested for COVID and under isolation pending, 09/23 patient was still desaturating, patient was diuresed, patient seen by mortgage loan officer recommending to place the patient on BiPAP if possible avoid reintubation, worsening condition suspect critical care illness polyneuropathy. Today 09/24 patient COVID test is negative, patient if off BIPAP on N/C and able to follow simple instruction and trying to cough, is more alert however unable to provider detail ROS, patient is clinically stable, will transfer patient out of ICU to IMU, will have PT/OT evaluate the patient and patient will benefit from acute rehab before discharge. (2) Seizure disorder: Code(s): G40.909 - Epilepsy, unspecified, not intractable, without status epilepticus Status: Acute Assessment and Plan: Continue IV Keppra. No evidence of acute seizure activity. (3) Anxiety and depression: Code(s): F41.9 - Anxiety disorder, unspecified; F32.9 - Major depressive disorder, single episode, unspecified Status: Acute Assessment and Plan: The patient is extubated and does not have a feeding tube. The patient is encephalopathic again currently is high aspiration risk. Patient's oral anxiolytics are on hold. (4) Asthma with exacerbation: Qualifiers: Asthma persistence: unspecified Asthma severity: unspecified severity Qualified Code(s): J45.901 - Unspecified asthma with (acute) exacerbation Code(s): J45.901 - Unspecified asthma with (acute) exacerbation Status: Acute Assessment and Plan: Asthma exacerbation with exposure to COVID-19. COVID testing was negative x3 with the last test on 09/10/2020. Continue albuterol and Atrovent nebulizers scheduled. Solu-Medrol has been weaned off. Pulmonology is following. (5) Hypertension: Qualifiers: Hypertension type: unspecified Qualified Code(s): I10 - Essential (primary) hypertension Code(s): I10 - Essential (primary) hype
--- NOTE | 2020-09-24 17:41 | PC.NURSE ---
Patient transferred to IMU Room 204 at 1726. Report given to JOANNA Jackman. Patient stable upon transfer.
[2020-09-24 17:50] LABS: Glucose Point of Care 93 (65-105)
--- NOTE | 2020-09-24 18:38 | WPDINTPN ---
Progress Note: A&P Assessment and Plan (1) Acute respiratory failure with hypoxia and hypercapnia: Code(s): J96.01 - Acute respiratory failure with hypoxia; J96.02 - Acute respiratory failure with hypercapnia Status: Acute Assessment and Plan: patient with acute asthma exacerbation, impending respiratory failure with acute hypercarbic respiratory failure, was intubated on 09/09/2020. Successfully extubated on 09/21/2020. Was initially on BiPAP, currently on 4 L nasal cannula with adequate O2 sats -patient has been diuresing well and responding to Lasix -continue bronchodilators Off steroids and Pulmozyme Pulmozyme (2) Asthma with exacerbation: Qualifiers: Asthma persistence: unspecified Asthma severity: unspecified severity Qualified Code(s): J45.901 - Unspecified asthma with (acute) exacerbation Code(s): J45.901 - Unspecified asthma with (acute) exacerbation Status: Acute Assessment and Plan: Severe Asthma exacerbation with significant exposure to COVID-19 - SARS CoV-2 RT PCR negative x3, SARS-CoV-2 PCR 09/22/2020 also negative -continue bronchodilators (3) Hypertension: Qualifiers: Hypertension type: unspecified Qualified Code(s): I10 - Essential (primary) hypertension Code(s): I10 - Essential (primary) hypertension Status: Acute Assessment and Plan: Continue amlodipine 10 mg -hydralazine p.r.n. (4) Seizure disorder: Code(s): G40.909 - Epilepsy, unspecified, not intractable, without status epilepticus Status: Acute Assessment and Plan: continue Keppra, seizure precautions (5) Suspected COVID-19 virus infection: Code(s): Z20.828 - Contact with and (suspected) exposure to other viral communicable diseases Status: Acute Assessment and Plan: SARS-CoV-2 PCR negative x3. SARS-CoV-2 PCR on 09/22/2020 was also negative - OFF isolation (6) Critical illness polyneuropathy: Code(s): G62.81 - Critical illness polyneuropathy Status: Acute Assessment and Plan: Patient with critical illness neuropathy -will have PT/OT evaluate the patient -also speech therapy has evaluated the patient, patient failed swallow test, will have Dobbhoff tube placed under fluoroscopy by IR Additional Plan -will restart tube feeds once patient has a Dobbhoff tube - DVT prophylaxis with subcu Lovenox - GI prophylaxis with IV Pepcid Full code Critical care time spent: 31 minutes Patient will be downgraded to IMU status if okay with the hospitalist Due to a high probability of clinically significant, life threatening deterioration, the patient required my highest level of preparedness to intervene emergently and I personally spent this critical care time directly and personally managing the patient. This critical care time included obtaining a history; examining the patient; pulse oximetry; ordering and review of studies; arranging urgent treatment with development of a management plan; evaluation of patient's response to treatment; frequent reassessment; and discussions with other providers. It was exclusive of separately billable procedures and treating other patients and teaching time. Please see Assessment and Plan section and the rest of the note for further information on patient assessment and treatment. Subjective Date/time seen: 09/24/20 18:38 Interval history: 50-year-old female here for asthma asthma exacerbation, shortness of breath, cough, has been exposed to COVID-19, SARS-CoV-2 PCR negative x2 - intubated 09/09/2020 for increasing shortness of breath, respiratory distress with wheezing -successfully extubated on 09/21/2020 09/24/2020: Patient remains extubated on 4 L nasal cannula. Patient responded well to diuresis of adequate urine output. Hypokalemia this morning. Patient is afebrile, hemodynamically stable. Significantly weak. Patient opens her eyes, follows simple commands in
[2020-09-24] MEDS: BUDESONIDE RESPULE NEB 0.5 MG/2 ML AMP INHALATION (21:02)
[2020-09-24 23:17] LABS: Glucose Point of Care 91 (65-105)
[2020-09-25] VITALS (21 sets, daily range): BP systolic 134–180; BP diastolic 75–92; PULSE 104–135; RESP 18–31; TEMP 36.4–38; O2SAT 90–96
[2020-09-25] MEDS: ALBUMIN HUMAN 25% 12.5 GM/50ML 50 ML IVPB ×5 (00:32→23:38)
[2020-09-25 05:22] LABS: Hematocrit 32.9 % (37.0-47.0); Hemoglobin 10.6 g/dL (12.0-15.0); Mean Corpuscular HGB Conc 32.2 g/dl (32-36); Mean Corpuscular Hemoglobin 30.2 pg (26-34); Mean Corpuscular Volume 93.7 fl (80-100); Mean Platelet Volume 8.9 fl (7.4-10.4); Platelet Count Result 307 k/mm3 (150-375); Red Blood Count 3.51 M/mm3 (4.2-5.4); Red Cell Distribution Width 16.1 % (11.5-14.5); White Blood Count 10.3 K/mm3 (4.5-10.0)
[2020-09-25 05:34] LABS: Anion Gap 13 mmol/L (8-16); Blood Urea Nitrogen 20 mg/dL (7-17); Calcium 9.6 mg/dL (8.4-10.2); Carbon Dioxide 30 mmol/L (22-30); Chloride 102 mmol/L (98-107); Estimated Glomerular Filt Rate > 60; Glucose 92 mg/dL (65-105); Sodium 145 mmol/L (137-145)
[2020-09-25] MEDS: CENTRAL LINE FLUSH 10 ML IV PUSH ×3 (06:20→22:27)
[2020-09-25] MEDS: IPRATROPIUM BR 0.02% INH SOLN 0.5 MG/2.5 ML VIAL INHALATION ×3 (08:18→20:37)
[2020-09-25] MEDS: BUDESONIDE RESPULE NEB 0.5 MG/2 ML AMP INHALATION ×2 (08:18→20:37)
[2020-09-25 08:36] LABS: Glucose Point of Care 101 (65-105)
[2020-09-25 08:40] LABS: Alveolar/Arterial O2 Gradient 93.1 mmHg; Base Excess ABG 2.7 mEq/l (+/-2.0); Device NASAL CANNULA; Fractional Inspired Oxygen 28 %; HCO3 ABG 25.4 mEq/l (22.0-26.0); Methemoglobin ABG 0.3 %THb (0-1.5); Modified Allen's Test Pass; Oxygen Content ABG 15.8 %vol (16.0-22.0); Oxygen Saturation ABG 95.2 % (95.0-100.0); Oxyhemoglobin 93.7 % THb (90.0-100.0); PCO2 ABG 32.9 mmHg (35.0-45.0); PO2 ABG 67.7 mmHg (80.0-100.0); PO2 FiO2 Ratio Arterial Blood 2.42 %; Site Drawn LEFT RADIAL; pH ABG 7.506 (7.350-7.450)
[2020-09-25] MEDS: ENOXAPARIN 40 MG/0.4 ML SYRINGE SUB-Q (09:06)
[2020-09-25] MEDS: FAMOTIDINE 20 MG/2 ML VIAL IV PUSH ×2 (09:06→22:26)
[2020-09-25] MEDS: levETIRAcetam IV 750 MG in DEXTROSE 5% 100 ML 430 MG IVPB (09:06)
[2020-09-25] MEDS: TOLNAFTATE 1% POWDER 45 GM BTL 1 APPLIC TOPICAL ×2 (09:07→22:28)
[2020-09-25] MEDS: SILVERGEL (ELTA) 45 ML 1 APPLIC TOPICAL (09:07)
[2020-09-25] MEDS: POTASSIUM CHLORIDE 20 MEQ PACKET (FOR LIQUID) 40 MEQ PO (09:09)
--- NOTE | 2020-09-25 11:21 | PM.PNPUL ---
Progress Note: A&P Assessment and Plan (1) Critical illness polyneuropathy: Code(s): G62.81 - Critical illness polyneuropathy Status: Acute Assessment and Plan: Seems to be slowly improving but she is still very weak and debilitated Will order EMG (2) Bilateral atelectasis: Code(s): J98.11 - Atelectasis Status: Acute Assessment and Plan: Most likely due to critical illness polyneuropathy and respiratory muscle weakness. - will increas BIPAP 14/8, backup rate of 16 and FiO2 of 40% QHS and while napping. - once able to participate, incentive spirometer and Cornet flutter valve Q4h would be very helpful (3) Anxiety: Code(s): F41.9 - Anxiety disorder, unspecified Status: Acute Assessment and Plan: Seems to be doing well off her home Clonazepam. I would continue to hold this and avoid all narcotics if possible (4) Asthma with exacerbation: Qualifiers: Asthma persistence: unspecified Asthma severity: unspecified severity Qualified Code(s): J45.901 - Unspecified asthma with (acute) exacerbation Code(s): J45.901 - Unspecified asthma with (acute) exacerbation Status: Acute Assessment and Plan: Stable on duonebs Q6h and pulmicort 0.5 mg bid. Avoid systemic steroids Subjective Date/time seen: 09/25/20 11:21 Interval history: Doing better. Still has significant limb weakness from critical illness polyneuropathy LEs > UEs. CXr shows slightly worsening atelectesis R>L. I doubt there's pneumonia since she just had a broncho and all cultures are negative. SARS-CoV-2 negative X 4 Review of Systems Review of Systems: All systems reviewed & are unremarkable except as noted in HPI and below Exam Narrative: Exam Narrative: intubated, sedated Const: General: comfortable, no acute distress, alert and awake Limitations: altered mental status and physical limitations HENMT: Head: normal to inspection, normocephalic and atraumatic Other: ETT in place Eyes: General: appearance normal, both eyes and all related structures Sclera: sclerae normal Pupils: Equal, round and reactive pupils present Neck: Neck: normal visual inspection, trachea midline and supple Resp: Auscultation: breath sounds absent and diminished lung sounds Other: decreased breath sounds not moving much air Cardio: Jugular venous distension: no JVD Rate: regular rate Rhythm: regular rhythm Heart sounds: S1 normal heart sound present and S2 normal heart sound present GI: Inspection: normal to inspection and non-distended GI Palp: Yes Soft to palpation and No Tenderness to palpation present (GI) Auscultation: normal bowel sounds Other: Obese : Other: Fang catheter in place Urinary Catheter: Urinary Catheter: patent and draining and urine clear Skin: General skin exam: normal color and no rashes or lesions noted Neuro: Cognition (Neuro): normal cognition Motor exam (neuro): 5/5 motor strength present throughout (diffuse weak muscles bilaterally, not able to move upper extremities, 4/5 ) Sensory Exam: other (diffuse bilateral limb weakness. UEs > LE but slowly improving ) Other: patient intubated and sedated, does not open her eyes or follow simple commands Extrem: General: normal to inspection, no edema and no pedal edema Psych: Appearance: grossly normal Other: unable to assess at this time Objective Data Vital Signs Vital Signs: Vital Signs - 24 hr 09/24/20 12:00 09/24/20 14:00 09/24/20 15:50 Temperature 37.3 C 37.4 C 37.3 C Pulse Rate 109 H 116 H 110 H Respiratory Rate 27 H 23 H 25 H Blood Pressure 136/77 140/84 133/83 Pulse Oximetry 96 95 96 09/24/20 17:25 09/24/20 18:00 09/24/20 20:00 Temperature 37.1 C 38.0 C H Pulse Rate 119 H 124 H 131 H Respiratory Rate 24 H 26 H Blood Pressure 154/78 H 171/71 H Pulse Oximetry 96 93 09/24/20 21:02 09/24/20 21:03 09/24/20 22:00 Temperature Pulse Rate 102 H 132 H Respiratory Rate 26
[2020-09-25] MEDS: amLODIPine BESYLATE 5 MG TABLET 10 MG PO (12:11)
[2020-09-25] MEDS: GABAPENTIN 400 MG CAPSULE PO ×2 (12:11→18:21)
[2020-09-25 12:31] LABS: Glucose Point of Care 106 (65-105)
--- NOTE | 2020-09-25 13:23 | PCDIET ---
Nutrition Follow-Up Complete: Nutrition Diagnosis: Inadequate oral intake related to oral intubation as evidenced by NPO status. Nutrition Goal: Patient to meet estimated nutritional needs. Goal in progress. Jevity 1.5 initiated at 20mL/hr with goal of 45mL/hr. Last recorded weight is 92 kg which is increased from last review, despite -I/O. Bowel Motility: BM x 1 on 09/24/20. Labs Reviewed: Hgb (10.3), Hct (31.5), Cr (0.3), K (3.0) Meds Noted: Albumin, Albuterol, Norvasc, Pepcid, Fentanyl, Hydralazine, Atrovent, KCl Additional Notes: Buttocks macerated. Left ankle area remains. Will continue to monitor with same goal. Nutrition Monitoring and Evaluation: Follow up every Thursday/Thursday.
[2020-09-25] MEDS: ALBUTEROL SULFATE NEB 2.5 MG/0.5 ML INH INHALATION ×2 (14:33→20:37)
--- NOTE | 2020-09-25 15:21 | PC.NURSE ---
Electronerve conduction study test is only performed outpatient.
[2020-09-25 16:24] LABS: Glucose Point of Care 124 (65-105)
--- NOTE | 2020-09-25 17:27 | PM.IMPN ---
Progress Note: A&P Assessment and Plan (1) Acute respiratory failure with hypoxia and hypercapnia: Code(s): J96.01 - Acute respiratory failure with hypoxia; J96.02 - Acute respiratory failure with hypercapnia Status: Acute Assessment and Plan: 09/25/20 17:27 Patient is a 50-year-old female with history of asthma presented emergency department on 09/08 with cough shortness of breath and fever initially there was a concern patient may be positive for COVID as patient was exposed to her niece who was positive, however patient is negative for COVID-19, patient was found to have exacerbation of asthma as well as pneumonia and was being treated however on 09/09 into respiratory distress and patient was intubated, she is on vent, patient is being treated for pneumonia with ampicillin and vancomycin, today patient symptoms are improving responding to Lasix and pulmonary edema is improved, patient was taken off Nimbex on 09/17 and weaning of sedation and patient was tolerating ventilation in hope patient can be extubated, however is been 12 days on ventilator, seen by pulmonology suspect due to some severe atelectasis resulting poor oxygenation patient was taken to OR and had a bronchoscopy on 09/20 and mucus plugging was removed this will help improve patient's oxygenation and will facilitate extubation, early on 09/21 patient was extubated and was quite somnolent was not able to provide any review of symptom, I called to assess the patient, patient was more somnolent ABG was done and patient was saturating well, does respond by opening eye and and was able to somewhat cough, started the patient on Pulmozyme and neb, discussed with the letter sorting machine operator will keep close eye on the patient and further recommendation to follow, patient is seen by java core developer and last pattern grader and appreciate on 09/22 patient's symptoms were not improving and had developed fever patient already completed course of vancomycin and Unasyn, patient was being retested for COVID and under isolation pending, 09/23 patient was still desaturating, patient was diuresed, patient seen by java core developer recommending to place the patient on BiPAP if possible avoid reintubation, worsening condition suspect critical care illness polyneuropathy. Today 09/25 patient COVID test is negative, patient if off BIPAP on N/C and able to follow simple instruction and trying to cough, is more alert however unable to provider detail ROS, patient is clinically stable, was transferred patient out of ICU to IMU, most likely patient has a critical care myopathy, will have PT/OT evaluate the patient and patient will benefit from acute rehab before discharge. Patient is a Dobbhoff placed yesterday will resume patient's home medication (2) Seizure disorder: Code(s): G40.909 - Epilepsy, unspecified, not intractable, without status epilepticus Status: Acute Assessment and Plan: Continue IV Keppra. No evidence of acute seizure activity. (3) Anxiety and depression: Code(s): F41.9 - Anxiety disorder, unspecified; F32.9 - Major depressive disorder, single episode, unspecified Status: Acute Assessment and Plan: The patient is extubated and does not have a feeding tube. The patient is encephalopathic again currently is high aspiration risk. Patient's oral anxiolytics are on hold. (4) Asthma with exacerbation: Qualifiers: Asthma persistence: unspecified Asthma severity: unspecified severity Qualified Code(s): J45.901 - Unspecified asthma with (acute) exacerbation Code(s): J45.901 - Unspecified asthma with (acute) exacerbation Status: Acute Assessment and Plan: Asthma exacerbation with exposure to COVID-19. COVID testing was negative x3 with the last test on 09/10/2020. Continue albuterol and Atrovent nebulizers scheduled. Solu-Medrol has been weaned off. Pulmonology is following. (5) Hypertension: Qualifiers: Hypert
[2020-09-25] MEDS: levETIRAcetam 250 MG TABLET 750 MG PO (22:26)
[2020-09-26] VITALS (29 sets, daily range): BP systolic 134–176; BP diastolic 79–95; PULSE 100–126; RESP 18–40; TEMP 36.2–38; O2SAT 92–99
[2020-09-26] MEDS: IPRATROPIUM BR 0.02% INH SOLN 0.5 MG/2.5 ML VIAL INHALATION ×4 (02:21→20:42)
[2020-09-26] MEDS: ALBUTEROL SULFATE NEB 2.5 MG/0.5 ML INH INHALATION ×4 (02:21→20:43)
[2020-09-26 05:28] LABS: Alveolar/Arterial O2 Gradient 86.5 mmHg; Base Excess ABG 5.5 mEq/l (+/-2.0); Carboxyhemoglobin 0.3 % THb (0-2.0); Fractional Inspired Oxygen 30 %; HCO3 ABG 29.2 mEq/l (22.0-26.0); Methemoglobin ABG 0.2 %THb (0-1.5); Oxygen Content ABG 15.9 %vol (16.0-22.0); Oxygen Saturation ABG 96.7 % (95.0-100.0); Oxyhemoglobin 95.3 % THb (90.0-100.0); PCO2 ABG 39.5 mmHg (35.0-45.0); Reduced Hemoglobin 4.2 %THb (0-5.0); Total Hemoglobin 11.8 g/dL (12.0-18.0); pH ABG 7.487 (7.350-7.450)
[2020-09-26 05:38] LABS: Device BIPAP; Expiratory Pressure 8 cmH2O; Inspiratory Pressure 14 cmH2O; Modified Allen's Test Unable to perform; Site Drawn LEFT RADIAL
[2020-09-26] MEDS: CENTRAL LINE FLUSH 10 ML IV PUSH ×3 (05:55→20:14)
[2020-09-26] MEDS: ALBUMIN HUMAN 25% 12.5 GM/50ML 50 ML IVPB ×3 (05:55→19:02)
[2020-09-26 06:22] LABS: Glucose Point of Care 144 (65-105)
[2020-09-26 06:29] LABS: Hematocrit 31.3 % (37.0-47.0); Hemoglobin 9.8 g/dL (12.0-15.0); Mean Corpuscular HGB Conc 31.3 g/dl (32-36); Mean Corpuscular Hemoglobin 29.3 pg (26-34); Mean Corpuscular Volume 93.7 fl (80-100); Mean Platelet Volume 9.1 fl (7.4-10.4); Platelet Count Result 287 k/mm3 (150-375); Red Blood Count 3.34 M/mm3 (4.2-5.4); Red Cell Distribution Width 16.4 % (11.5-14.5); White Blood Count 8.7 K/mm3 (4.5-10.0)
[2020-09-26 06:33] LABS: Anion Gap 11 mmol/L (8-16); Blood Urea Nitrogen 27 mg/dL (7-17); Calcium 10.2 mg/dL (8.4-10.2); Carbon Dioxide 34 mmol/L (22-30); Chloride 105 mmol/L (98-107); Estimated Glomerular Filt Rate > 60; Glucose 163 mg/dL (65-105); Potassium 3.1 mmol/L (3.4-5.0); Sodium 150 mmol/L (137-145)
[2020-09-26] MEDS: BUDESONIDE RESPULE NEB 0.5 MG/2 ML AMP INHALATION ×2 (08:04→20:42)
[2020-09-26] MEDS: ATORVASTATIN 20 MG TABLET PO (08:32)
[2020-09-26] MEDS: levETIRAcetam 250 MG TABLET 750 MG PO ×2 (08:32→20:13)
[2020-09-26] MEDS: FAMOTIDINE 20 MG/2 ML VIAL IV PUSH ×2 (08:33→20:13)
[2020-09-26] MEDS: ENOXAPARIN 40 MG/0.4 ML SYRINGE SUB-Q (08:33)
[2020-09-26] MEDS: GABAPENTIN 400 MG CAPSULE PO ×3 (08:33→19:00)
[2020-09-26] MEDS: TOLNAFTATE 1% POWDER 45 GM BTL 1 APPLIC TOPICAL ×2 (08:34→20:14)
[2020-09-26] MEDS: amLODIPine BESYLATE 5 MG TABLET 10 MG PO (08:34)
[2020-09-26] MEDS: SILVERGEL (ELTA) 45 ML 1 APPLIC TOPICAL (08:47)
[2020-09-26] MEDS: PARoxetine 20 MG TABLET 40 MG PO (09:50)
[2020-09-26] MEDS: clonazePAM (*CRX) 0.5 MG TABLET PO ×2 (12:05→20:14)
[2020-09-26 12:17] LABS: Glucose Point of Care 115 (65-105)
[2020-09-26] MEDS: ACETAMINOPHEN ELIXIR 325 MG/10.15 ML UDC 650 MG PO ×2 (12:17→20:12)
--- NOTE | 2020-09-26 14:48 | PM.PNPUL ---
Progress Note: A&P Assessment and Plan (1) Critical illness polyneuropathy: Code(s): G62.81 - Critical illness polyneuropathy Status: Acute Assessment and Plan: Seems to be slowly improving but she is still very weak and debilitated Will order EMG Consider modified barium swallow tomorrow. (2) Bilateral atelectasis: Code(s): J98.11 - Atelectasis Status: Acute Assessment and Plan: Most likely due to critical illness polyneuropathy and respiratory muscle weakness. - continue BIPAP 14/8, backup rate of 16 and FiO2 of 40% QHS and while napping. - once able to participate, incentive spirometer and Cornet flutter valve Q4h would be very helpful (3) Anxiety: Code(s): F41.9 - Anxiety disorder, unspecified Status: Acute Assessment and Plan: Seems to be doing well off her home Clonazepam. I would continue to hold this and avoid all narcotics if possible (4) Asthma with exacerbation: Qualifiers: Asthma persistence: unspecified Asthma severity: unspecified severity Qualified Code(s): J45.901 - Unspecified asthma with (acute) exacerbation Code(s): J45.901 - Unspecified asthma with (acute) exacerbation Status: Acute Assessment and Plan: Stable on duonebs Q6h and pulmicort 0.5 mg bid. Avoid systemic steroids Subjective Date/time seen: 09/26/20 14:48 Interval history: Her voice has improved. 1/5 strength in LE still 0/5 in upper extremities. CXR appears slightly improved today. I was told by her nurse that she failed her swallow evaluation today. Review of Systems Review of Systems: All systems reviewed & are unremarkable except as noted in HPI and below Exam Narrative: Exam Narrative: intubated, sedated Const: General: comfortable, no acute distress, alert and awake Limitations: altered mental status and physical limitations HENMT: Head: normal to inspection, normocephalic and atraumatic Other: ETT in place Eyes: General: appearance normal, both eyes and all related structures Sclera: sclerae normal Pupils: Equal, round and reactive pupils present Neck: Neck: normal visual inspection, trachea midline and supple Resp: Auscultation: breath sounds absent and diminished lung sounds Other: decreased breath sounds not moving much air Cardio: Jugular venous distension: no JVD Rate: regular rate Rhythm: regular rhythm Heart sounds: S1 normal heart sound present and S2 normal heart sound present GI: Inspection: normal to inspection and non-distended GI Palp: Yes Soft to palpation and No Tenderness to palpation present (GI) Auscultation: normal bowel sounds Other: Obese : Other: Fang catheter in place Urinary Catheter: Urinary Catheter: patent and draining and urine clear Skin: General skin exam: normal color and no rashes or lesions noted Neuro: Cognition (Neuro): normal cognition Sensory Exam: other (diffuse bilateral limb weakness. UEs > LE but slowly improving ) Other: patient intubated and sedated, does not open her eyes or follow simple commands Extrem: General: normal to inspection, no edema and no pedal edema Psych: Appearance: grossly normal Other: unable to assess at this time Objective Data Vital Signs Vital Signs: Vital Signs - 24 hr 09/25/20 16:00 09/25/20 18:00 09/25/20 19:50 Temperature 36.4 C 37.5 C Pulse Rate 126 H 117 H 124 H Respiratory Rate 18 18 Blood Pressure 143/75 H 134/84 Pulse Oximetry 93 92 09/25/20 20:00 09/25/20 20:38 09/25/20 20:47 Temperature Pulse Rate 123 H 122 H 122 H Respiratory Rate 24 H 24 H 24 H Blood Pressure Pulse Oximetry 92 92 09/25/20 22:00 09/25/20 23:00 09/26/20 00:00 Temperature 37.6 C H Pulse Rate 118 H 123 H 117 H Respiratory Rate 31 H 28 H Blood Pressure 170/95 H Pulse Oximetry 93 92 09/26/20 00:43 09/26/20 02:00 09/26/20 02:22 Temperature Pulse Rate 116 H 109 H 115 H Respiratory Rate 28 H 22 H Blood Pressure
[2020-09-26] MEDS: POTASSIUM CHLORIDE 20 MEQ PACKET (FOR LIQUID) 40 MEQ PO (15:31)
--- NOTE | 2020-09-26 15:31 | PCSTNOTE ---
Please refer to the Bedside Swallow Evaluation in the EMR. Please note, silent aspiration cannot be ruled out at bedside.
--- NOTE | 2020-09-26 16:24 | PM.IMPN ---
Progress Note: A&P Assessment and Plan (1) Acute respiratory failure with hypoxia and hypercapnia: Code(s): J96.01 - Acute respiratory failure with hypoxia; J96.02 - Acute respiratory failure with hypercapnia Status: Acute Assessment and Plan: 09/26/20 16:24 Patient is a 50-year-old female with history of asthma presented emergency department on 09/08 with cough shortness of breath and fever initially there was a concern patient may be positive for COVID as patient was exposed to her niece who was positive, however patient is negative for COVID-19, patient was found to have exacerbation of asthma as well as pneumonia and was being treated however on 09/09 into respiratory distress and patient was intubated, she is on vent, patient is being treated for pneumonia with ampicillin and vancomycin, today patient symptoms are improving responding to Lasix and pulmonary edema is improved, patient was taken off Nimbex on 09/17 and weaning of sedation and patient was tolerating ventilation in hope patient can be extubated, however is been 12 days on ventilator, seen by pulmonology suspect due to some severe atelectasis resulting poor oxygenation patient was taken to OR and had a bronchoscopy on 09/20 and mucus plugging was removed this will help improve patient's oxygenation and will facilitate extubation, early on 09/21 patient was extubated and was quite somnolent was not able to provide any review of symptom, I called to assess the patient, patient was more somnolent ABG was done and patient was saturating well, does respond by opening eye and and was able to somewhat cough, started the patient on Pulmozyme and neb, discussed with the president practicing urologist will keep close eye on the patient and further recommendation to follow, patient is seen by latexer and global creative chairman and appreciate on 09/22 patient's symptoms were not improving and had developed fever patient already completed course of vancomycin and Unasyn, patient was being retested for COVID and under isolation pending, 09/23 patient was still desaturating, patient was diuresed, patient seen by latexer recommending to place the patient on BiPAP if possible avoid reintubation, worsening condition suspect critical care illness polyneuropathy. Today 09/26 patient COVID test was negative, patient is off BIPAP on N/C today patient is more alert oriented and able to talk somewhat and requesting water to drink, d/w ST bedside swallow was not conclusive and will require modified swallow study, however will start the patient on ice chips today, patient's symptoms are improving seen by latexer recommending to continue present management, will follow-up a modified swallow study and further recommendation to follow, will continue PT/OT/ST. (2) Seizure disorder: Code(s): G40.909 - Epilepsy, unspecified, not intractable, without status epilepticus Status: Acute Assessment and Plan: Continue IV Keppra. No evidence of acute seizure activity. (3) Anxiety and depression: Code(s): F41.9 - Anxiety disorder, unspecified; F32.9 - Major depressive disorder, single episode, unspecified Status: Acute Assessment and Plan: The patient is extubated and does not have a feeding tube. The patient is encephalopathic again currently is high aspiration risk. Patient's oral anxiolytics are on hold. (4) Asthma with exacerbation: Qualifiers: Asthma persistence: unspecified Asthma severity: unspecified severity Qualified Code(s): J45.901 - Unspecified asthma with (acute) exacerbation Code(s): J45.901 - Unspecified asthma with (acute) exacerbation Status: Acute Assessment and Plan: Asthma exacerbation with exposure to COVID-19. COVID testing was negative x3 with the last test on 09/10/2020. Continue albuterol and Atrovent nebulizers scheduled. Solu-Medrol has been weaned off. Pulmonology is following. (5) Hypertension: Qualifie
[2020-09-26 18:01] LABS: Anion Gap 11 mmol/L (8-16); Blood Urea Nitrogen 24 mg/dL (7-17); Calcium 10.2 mg/dL (8.4-10.2); Carbon Dioxide 34 mmol/L (22-30); Chloride 107 mmol/L (98-107); Estimated Glomerular Filt Rate > 60; Glucose 133 mg/dL (65-105); Potassium 3.8 mmol/L (3.4-5.0); Sodium 152 mmol/L (137-145)
[2020-09-26] MEDS: traZODone HCL 50 MG TABLET PO (20:13)
--- NOTE | 2020-09-26 20:26 | PC.NURSE ---
Patient failed bedside swallow evaluation today. Patient will hopefully get a barium swallow tomorrow. Patient became restless and combative this afternoon/evening. Patient was cussing at staff and threatening to call the police and kick us. Patient's clonazepam was restarted this afternoon per Dr. Rodríguez.
[2020-09-27] VITALS (20 sets, daily range): BP systolic 132–172; BP diastolic 76–111; PULSE 100–125; RESP 16–22; TEMP 36.2–36.8; O2SAT 93–100
[2020-09-27 00:07] LABS: Glucose Point of Care 149 (65-105)
[2020-09-27] MEDS: ALBUMIN HUMAN 25% 12.5 GM/50ML 50 ML IVPB ×5 (00:07→23:59)
[2020-09-27] MEDS: ALBUTEROL SULFATE NEB 2.5 MG/0.5 ML INH INHALATION ×4 (01:54→22:12)
[2020-09-27] MEDS: IPRATROPIUM BR 0.02% INH SOLN 0.5 MG/2.5 ML VIAL INHALATION ×4 (01:55→22:12)
[2020-09-27 04:38] LABS: Glucose Point of Care 148 (65-105)
[2020-09-27] MEDS: CENTRAL LINE FLUSH 10 ML IV PUSH ×3 (04:45→21:09)
[2020-09-27] MEDS: ACETAMINOPHEN ELIXIR 325 MG/10.15 ML UDC 650 MG PO (04:45)
[2020-09-27] MEDS: clonazePAM (*CRX) 0.5 MG TABLET PO ×3 (04:45→21:09)
[2020-09-27] MEDS: ENOXAPARIN 40 MG/0.4 ML SYRINGE SUB-Q (08:56)
[2020-09-27] MEDS: PARoxetine 20 MG TABLET 40 MG PO (08:57)
[2020-09-27] MEDS: BUDESONIDE RESPULE NEB 0.5 MG/2 ML AMP INHALATION ×2 (08:57→22:12)
[2020-09-27] MEDS: amLODIPine BESYLATE 5 MG TABLET 10 MG PO (08:58)
[2020-09-27] MEDS: FAMOTIDINE 20 MG/2 ML VIAL IV PUSH ×2 (08:58→21:09)
[2020-09-27] MEDS: ATORVASTATIN 20 MG TABLET PO (08:58)
[2020-09-27] MEDS: GABAPENTIN 400 MG CAPSULE PO ×3 (08:59→16:59)
[2020-09-27] MEDS: levETIRAcetam 250 MG TABLET 750 MG PO ×2 (08:59→21:09)
[2020-09-27] MEDS: TOLNAFTATE 1% POWDER 45 GM BTL 1 APPLIC TOPICAL ×2 (09:00→21:09)
[2020-09-27] MEDS: SILVERGEL (ELTA) 45 ML 1 APPLIC TOPICAL (09:00)
--- NOTE | 2020-09-27 10:13 | PCSTNOTE ---
Please refer to the Modified Barium Swallow Evaluation in the EMR.
--- NOTE | 2020-09-27 11:19 | PM.PNPUL ---
Progress Note: A&P Assessment and Plan (1) Critical illness polyneuropathy: Code(s): G62.81 - Critical illness polyneuropathy Status: Acute Assessment and Plan: Seems to be slowly improving but she is still very weak and debilitated Will order EMG Consider modified barium swallow tomorrow. (2) Bilateral atelectasis: Code(s): J98.11 - Atelectasis Status: Acute Assessment and Plan: Most likely due to critical illness polyneuropathy and respiratory muscle weakness. - continue BIPAP 14/8, backup rate of 16 and FiO2 of 40% QHS and while napping. - once able to participate, incentive spirometer and Cornet flutter valve Q4h would be very helpful (3) Anxiety: Code(s): F41.9 - Anxiety disorder, unspecified Status: Acute Assessment and Plan: Seems to be doing well off her home Clonazepam. I would continue to hold this and avoid all narcotics if possible (4) Asthma with exacerbation: Qualifiers: Asthma persistence: unspecified Asthma severity: unspecified severity Qualified Code(s): J45.901 - Unspecified asthma with (acute) exacerbation Code(s): J45.901 - Unspecified asthma with (acute) exacerbation Status: Acute Assessment and Plan: Stable on duonebs Q6h and pulmicort 0.5 mg bid. Avoid systemic steroids Subjective Date/time seen: 09/27/20 11:19 Interval history: Seems to be slowly getting stronger. Modified barium swallow today. Nurse says she's doing well with ice chips. Tolerating BIPAP 14/8 at night. Review of Systems Review of Systems: All systems reviewed & are unremarkable except as noted in HPI and below Exam Narrative: Exam Narrative: intubated, sedated Const: General: comfortable, no acute distress, alert and awake Limitations: altered mental status and physical limitations HENMT: Head: normal to inspection, normocephalic and atraumatic Other: ETT in place Eyes: General: appearance normal, both eyes and all related structures Sclera: sclerae normal Pupils: Equal, round and reactive pupils present Neck: Neck: normal visual inspection, trachea midline and supple Resp: Auscultation: breath sounds absent and diminished lung sounds Other: decreased breath sounds not moving much air Cardio: Jugular venous distension: no JVD Rate: regular rate Rhythm: regular rhythm Heart sounds: S1 normal heart sound present and S2 normal heart sound present GI: Inspection: normal to inspection and non-distended GI Palp: Yes Soft to palpation and No Tenderness to palpation present (GI) Auscultation: normal bowel sounds Other: Obese : Other: Fang catheter in place Urinary Catheter: Urinary Catheter: patent and draining and urine clear Skin: General skin exam: normal color and no rashes or lesions noted Neuro: Cognition (Neuro): normal cognition Sensory Exam: other (diffuse bilateral limb weakness. UEs > LE but slowly improving ) Other: patient intubated and sedated, does not open her eyes or follow simple commands Extrem: General: normal to inspection, no edema and no pedal edema Psych: Appearance: grossly normal Other: unable to assess at this time Objective Data Vital Signs Vital Signs: Vital Signs - 24 hr 09/26/20 12:00 09/26/20 12:17 09/26/20 13:17 Temperature 38.0 C H 38.0 C H 37.7 C H Pulse Rate 119 H Respiratory Rate 22 H Blood Pressure 134/79 Pulse Oximetry 94 09/26/20 14:00 09/26/20 14:22 09/26/20 14:33 Temperature Pulse Rate 119 H 119 H 119 H Respiratory Rate 20 20 Blood Pressure Pulse Oximetry 09/26/20 16:00 09/26/20 18:00 09/26/20 20:00 Temperature 37.8 C H 36.2 C L Pulse Rate 126 H 102 H 110 H Respiratory Rate 22 H 18 Blood Pressure 176/93 H 167/87 H Pulse Oximetry 96 95 09/26/20 20:43 09/26/20 20:44 09/26/20 22:00 Temperature Pulse Rate 111 H 111 H 100 Respiratory Rate 20 20 Blood Pressure Pulse Oximetry 94 09/26/20 22:10 09/26/20
--- NOTE | 2020-09-27 13:10 | PC.NURSE ---
Transfer received from IMU per bed. Report received from JOANNA Burgos.
--- NOTE | 2020-09-27 13:15 | PM.IMPN ---
Progress Note: A&P Assessment and Plan (1) Acute respiratory failure with hypoxia and hypercapnia: Code(s): J96.01 - Acute respiratory failure with hypoxia; J96.02 - Acute respiratory failure with hypercapnia Status: Acute Assessment and Plan: 09/27/20 13:15 Patient is a 50-year-old female with history of asthma presented emergency department on 09/08 with cough shortness of breath and fever initially there was a concern patient may be positive for COVID as patient was exposed to her niece who was positive, however patient is negative for COVID-19, patient was found to have exacerbation of asthma as well as pneumonia and was being treated however on 09/09 into respiratory distress and patient was intubated, she is on vent, patient is being treated for pneumonia with ampicillin and vancomycin, today patient symptoms are improving responding to Lasix and pulmonary edema is improved, patient was taken off Nimbex on 09/17 and weaning of sedation and patient was tolerating ventilation in hope patient can be extubated, however is been 12 days on ventilator, seen by pulmonology suspect due to some severe atelectasis resulting poor oxygenation patient was taken to OR and had a bronchoscopy on 09/20 and mucus plugging was removed this will help improve patient's oxygenation and will facilitate extubation, early on 09/21 patient was extubated and was quite somnolent was not able to provide any review of symptom, I called to assess the patient, patient was more somnolent ABG was done and patient was saturating well, does respond by opening eye and and was able to somewhat cough, started the patient on Pulmozyme and neb, discussed with the oil well services dispatcher will keep close eye on the patient and further recommendation to follow, patient is seen by broadcast program director and accuracy expert and appreciate on 09/22 patient's symptoms were not improving and had developed fever patient already completed course of vancomycin and Unasyn, patient was being retested for COVID and under isolation pending, 09/23 patient was still desaturating, patient was diuresed, patient seen by broadcast program director recommending to place the patient on BiPAP if possible avoid reintubation, worsening condition suspect critical care illness polyneuropathy, patient COVID test was negative, patient is off BIPAP on N/C patient was more alert oriented and was able to talk somewhat and requesting water to drink, ST bedside swallow was not conclusive and will require modified swallow study, however started the patient on ice chips, today 09/27 patient had a modified swallow study today and did well will start the patient on minced and moist diet, patient is still need assistance with a ADL, patient is not able to fluently communicate patient, is seen by pulmonology will continue updraft and pulmicort, patient has not had any seizure while in the hospital patient is on Keppra, working with PT OT patient will benefit from acute rehab, (2) Seizure disorder: Code(s): G40.909 - Epilepsy, unspecified, not intractable, without status epilepticus Status: Acute Assessment and Plan: Continue IV Keppra. No evidence of acute seizure activity. (3) Anxiety and depression: Code(s): F41.9 - Anxiety disorder, unspecified; F32.9 - Major depressive disorder, single episode, unspecified Status: Acute Assessment and Plan: The patient is extubated and does not have a feeding tube. The patient is encephalopathic again currently is high aspiration risk. Patient's oral anxiolytics are on hold. (4) Asthma with exacerbation: Qualifiers: Asthma persistence: unspecified Asthma severity: unspecified severity Qualified Code(s): J45.901 - Unspecified asthma with (acute) exacerbation Code(s): J45.901 - Unspecified asthma with (acute) exacerbation Status: Acute Assessment and Plan: Asthma exacerbation with exposure to COVID-19. COVID testing was negative x3
--- NOTE | 2020-09-27 13:34 | PC.NURSE ---
RN called report to JOANNA Ward and transferred patient at 1310 to room 348 from IMU room 200.
[2020-09-28] VITALS (19 sets, daily range): BP systolic 128–155; BP diastolic 71–96; PULSE 101–125; RESP 18–22; TEMP 36.6–37.6; O2SAT 91–95
[2020-09-28] MEDS: IPRATROPIUM BR 0.02% INH SOLN 0.5 MG/2.5 ML VIAL INHALATION ×4 (02:16→21:28)
[2020-09-28] MEDS: ALBUTEROL SULFATE NEB 2.5 MG/0.5 ML INH INHALATION ×4 (02:16→21:27)
[2020-09-28] MEDS: CENTRAL LINE FLUSH 10 ML IV PUSH ×3 (05:03→21:11)
[2020-09-28] MEDS: clonazePAM (*CRX) 0.5 MG TABLET PO ×3 (05:03→21:11)
[2020-09-28] MEDS: ALBUMIN HUMAN 25% 12.5 GM/50ML 50 ML IVPB ×4 (05:04→23:44)
[2020-09-28] MEDS: BUDESONIDE RESPULE NEB 0.5 MG/2 ML AMP INHALATION ×2 (07:41→21:28)
[2020-09-28] MEDS: amLODIPine BESYLATE 5 MG TABLET 10 MG PO (08:28)
[2020-09-28] MEDS: ATORVASTATIN 20 MG TABLET PO (08:28)
[2020-09-28] MEDS: ENOXAPARIN 40 MG/0.4 ML SYRINGE SUB-Q (08:28)
[2020-09-28] MEDS: GABAPENTIN 400 MG CAPSULE PO ×3 (08:29→17:04)
[2020-09-28] MEDS: levETIRAcetam 250 MG TABLET 750 MG PO ×2 (08:29→21:10)
[2020-09-28] MEDS: PARoxetine 20 MG TABLET 40 MG PO (08:29)
[2020-09-28] MEDS: FAMOTIDINE 20 MG/2 ML VIAL IV PUSH ×2 (08:29→21:11)
[2020-09-28] MEDS: SILVERGEL (ELTA) 45 ML 1 APPLIC TOPICAL (08:30)
[2020-09-28] MEDS: TOLNAFTATE 1% POWDER 45 GM BTL 1 APPLIC TOPICAL ×2 (08:30→21:12)
[2020-09-28] MEDS: CENTRAL LINE FLUSH 20 ML IV PUSH ×2 (09:07→18:21)
[2020-09-28 09:16] LABS: Hematocrit 33.4 % (37.0-47.0); Hemoglobin 10.6 g/dL (12.0-15.0); Mean Corpuscular HGB Conc 31.7 g/dl (32-36); Mean Corpuscular Hemoglobin 29.9 pg (26-34); Mean Corpuscular Volume 94.4 fl (80-100); Mean Platelet Volume 8.7 fl (7.4-10.4); Platelet Count Result 209 k/mm3 (150-375); Red Blood Count 3.54 M/mm3 (4.2-5.4); Red Cell Distribution Width 15.1 % (11.5-14.5); White Blood Count 7.8 K/mm3 (4.5-10.0)
[2020-09-28 09:30] LABS: Anion Gap 13 mmol/L (8-16); Blood Urea Nitrogen 17 mg/dL (7-17); Carbon Dioxide 32 mmol/L (22-30); Chloride 100 mmol/L (98-107); Estimated Glomerular Filt Rate > 60; Glucose 141 mg/dL (65-105); Magnesium 1.7 mg/dL (1.6-2.3); Potassium 2.7 mmol/L (3.4-5.0); Sodium 145 mmol/L (137-145)
[2020-09-28] MEDS: POTASSIUM CHLORIDE 20 MEQ PACKET (FOR LIQUID) 40 MEQ PO (11:09)
[2020-09-28] MEDS: MAGNESIUM OXIDE 400 MG TABLET PO (11:09)
--- NOTE | 2020-09-28 11:47 | PCNFU ---
Nutrition Follow-Up Complete: Inadequate oral intake related to oral intubation as evidenced by NPO status. Goal: Patient to meet estimated nutritional needs. Progressing towards goal. We will continue current goal. Pt current nutrition is Soft and Bite Sized, Level 6. Nutrition recommendation: Agree Last recorded weight is 82.1 kg. down from 86.18 on admit. Bowel Motility:+BM reported 09/28 Labs Reviewed: K 2.7,Cr 0.3,Glu 141 Meds Noted:Lovenox,Pepcid,Keppra. Additional Notes: Nutrition follow up today. Patient had a MBS yesterday-Soft and Bite Sized, Level 6 recommended. Patient is a feeder. Tolerating meal-50% for breakfast today. Diet supplements added BID for additional kcal and protein needs. Monitoring: Follow up every 5 days.
--- NOTE | 2020-09-28 14:15 | PM.IMPN ---
Progress Note: A&P Assessment and Plan (1) Acute respiratory failure with hypoxia and hypercapnia: Code(s): J96.01 - Acute respiratory failure with hypoxia; J96.02 - Acute respiratory failure with hypercapnia Status: Acute Assessment and Plan: 09/28/20 14:15 Patient is a 50-year-old female with history of asthma presented emergency department on 09/08 with cough shortness of breath and fever initially there was a concern patient may be positive for COVID as patient was exposed to her niece who was positive, however patient is negative for COVID-19, patient was found to have exacerbation of asthma as well as pneumonia and was being treated however on 09/09 into respiratory distress and patient was intubated, she is on vent, patient is being treated for pneumonia with ampicillin and vancomycin, today patient symptoms are improving responding to Lasix and pulmonary edema is improved, patient was taken off Nimbex on 09/17 and weaning of sedation and patient was tolerating ventilation in hope patient can be extubated, however is been 12 days on ventilator, seen by pulmonology suspect due to some severe atelectasis resulting poor oxygenation patient was taken to OR and had a bronchoscopy on 09/20 and mucus plugging was removed this will help improve patient's oxygenation and will facilitate extubation, early on 09/21 patient was extubated and was quite somnolent was not able to provide any review of symptom, I called to assess the patient, patient was more somnolent ABG was done and patient was saturating well, does respond by opening eye and and was able to somewhat cough, started the patient on Pulmozyme and neb, discussed with the senior test analyst will keep close eye on the patient and further recommendation to follow, patient is seen by stock control clerk and mimeograph operator and appreciate on 09/22 patient's symptoms were not improving and had developed fever patient already completed course of vancomycin and Unasyn, patient was being retested for COVID and under isolation pending, 09/23 patient was still desaturating, patient was diuresed, patient seen by stock control clerk recommending to place the patient on BiPAP if possible avoid reintubation, worsening condition suspect critical care illness polyneuropathy, patient COVID test was negative, patient is off BIPAP on N/C patient was more alert oriented and was able to talk somewhat and requesting water to drink, ST bedside swallow was not conclusive and will require modified swallow study, however started the patient on ice chips, on 09/27 patient had a modified swallow study and did well, started the patient on minced and moist diet, today 09/28 patient is still need assistance with a ADL, patient is not able to fluently communicate patient is seen by pulmonology will continue updraft and pulmicort, patient has not had any seizure while in the hospital patient is on Keppra, working with PT OT patient will benefit from acute rehab. (2) Seizure disorder: Code(s): G40.909 - Epilepsy, unspecified, not intractable, without status epilepticus Status: Acute Assessment and Plan: Continue IV Keppra. No evidence of acute seizure activity. (3) Anxiety and depression: Code(s): F41.9 - Anxiety disorder, unspecified; F32.9 - Major depressive disorder, single episode, unspecified Status: Acute Assessment and Plan: The patient is extubated and does not have a feeding tube. The patient is encephalopathic again currently is high aspiration risk. Patient's oral anxiolytics are on hold. (4) Asthma with exacerbation: Qualifiers: Asthma persistence: unspecified Asthma severity: unspecified severity Qualified Code(s): J45.901 - Unspecified asthma with (acute) exacerbation Code(s): J45.901 - Unspecified asthma with (acute) exacerbation Status: Acute Assessment and Plan: Asthma exacerbation with exposure to COVID-19. COVID testing was negative x3
--- NOTE | 2020-09-28 15:12 | PM.PNPUL ---
Progress Note: A&P Assessment and Plan (1) Critical illness polyneuropathy: Code(s): G62.81 - Critical illness polyneuropathy Status: Acute Assessment and Plan: Seems to be slowly improving but she is still very weak and debilitated Tolerating oral liquids now Will need a few weeks of inpatient rehab (2) Bilateral atelectasis: Code(s): J98.11 - Atelectasis Status: Acute Assessment and Plan: Most likely due to critical illness polyneuropathy and respiratory muscle weakness. - continue BIPAP 14/8, backup rate of 16 and FiO2 of 40% QHS and while napping. - once able to participate, incentive spirometer and Cornet flutter valve Q4h would be very helpful (3) Anxiety: Code(s): F41.9 - Anxiety disorder, unspecified Status: Acute Assessment and Plan: Seems to be doing well off her home Clonazepam. I would continue to hold this and avoid all narcotics if possible (4) Asthma with exacerbation: Qualifiers: Asthma persistence: unspecified Asthma severity: unspecified severity Qualified Code(s): J45.901 - Unspecified asthma with (acute) exacerbation Code(s): J45.901 - Unspecified asthma with (acute) exacerbation Status: Acute Assessment and Plan: Stable on duonebs Q6h and pulmicort 0.5 mg bid. Avoid systemic steroids Subjective Date/time seen: 09/28/20 15:12 Interval history: Continues to get better. She is tolerating oral liquids now. Still has significant limb weakness but slowly improving Review of Systems Review of Systems: All systems reviewed & are unremarkable except as noted in HPI and below Exam Narrative: Exam Narrative: intubated, sedated Const: General: comfortable, no acute distress, alert and awake Limitations: altered mental status and physical limitations HENMT: Head: normal to inspection, normocephalic and atraumatic Other: ETT in place Eyes: General: appearance normal, both eyes and all related structures Sclera: sclerae normal Pupils: Equal, round and reactive pupils present Neck: Neck: normal visual inspection, trachea midline and supple Resp: Auscultation: breath sounds absent and diminished lung sounds Other: decreased breath sounds not moving much air Cardio: Jugular venous distension: no JVD Rate: regular rate Rhythm: regular rhythm Heart sounds: S1 normal heart sound present and S2 normal heart sound present GI: Inspection: normal to inspection and non-distended GI Palp: Yes Soft to palpation and No Tenderness to palpation present (GI) Auscultation: normal bowel sounds Other: Obese : Other: Fang catheter in place Urinary Catheter: Urinary Catheter: patent and draining and urine clear Skin: General skin exam: normal color and no rashes or lesions noted Neuro: Cognition (Neuro): normal cognition Sensory Exam: other (diffuse bilateral limb weakness. UEs > LE but slowly improving ) Other: patient intubated and sedated, does not open her eyes or follow simple commands Extrem: General: normal to inspection, no edema and no pedal edema Psych: Appearance: grossly normal Other: unable to assess at this time Objective Data Vital Signs Vital Signs: Vital Signs - 24 hr 09/27/20 15:20 09/27/20 16:00 09/27/20 20:00 Temperature 36.7 C Pulse Rate 109 H 112 H 108 H Respiratory Rate 18 Blood Pressure 148/85 H Pulse Oximetry 95 09/27/20 21:05 09/27/20 21:10 09/27/20 22:12 Temperature 36.6 C Pulse Rate 106 H 101 H Respiratory Rate 16 20 Blood Pressure 132/76 Pulse Oximetry 94 94 94 09/27/20 22:27 09/27/20 23:15 09/28/20 00:00 Temperature Pulse Rate 105 H 102 H 109 H Respiratory Rate 20 22 H Blood Pressure Pulse Oximetry 100 09/28/20 02:16 09/28/20 02:25 09/28/20 04:00 Temperature Pulse Rate 106 H 104 H 111 H Respiratory Rate 20 20 Blood Pressure Pulse Oximetry 09/28/20 04:17 09/28/20 07:42 09/28/20 07:45 Temperature 36.6 C
[2020-09-28 18:47] LABS: Anion Gap 10 mmol/L (8-16); Blood Urea Nitrogen 18 mg/dL (7-17); Calcium 9.8 mg/dL (8.4-10.2); Carbon Dioxide 33 mmol/L (22-30); Chloride 101 mmol/L (98-107); Estimated Glomerular Filt Rate > 60; Glucose 116 mg/dL (65-105); Potassium 3.6 mmol/L (3.4-5.0); Sodium 144 mmol/L (137-145)
[2020-09-29] VITALS (10 sets, daily range): BP systolic 140–152; BP diastolic 84–90; PULSE 70–112; RESP 18–23; TEMP 35.9–36.7; O2SAT 91–99
[2020-09-29] MEDS: IPRATROPIUM BR 0.02% INH SOLN 0.5 MG/2.5 ML VIAL INHALATION ×2 (02:47→10:27)
[2020-09-29] MEDS: ALBUTEROL SULFATE NEB 2.5 MG/0.5 ML INH INHALATION ×2 (02:47→10:26)
[2020-09-29] MEDS: CENTRAL LINE FLUSH 10 ML IV PUSH (05:26)
[2020-09-29] MEDS: clonazePAM (*CRX) 0.5 MG TABLET PO (05:26)
[2020-09-29] MEDS: ALBUMIN HUMAN 25% 12.5 GM/50ML 50 ML IVPB (05:26)
[2020-09-29] MEDS: amLODIPine BESYLATE 5 MG TABLET 10 MG PO (08:41)
[2020-09-29] MEDS: PARoxetine 20 MG TABLET 40 MG PO (08:41)
[2020-09-29] MEDS: GABAPENTIN 400 MG CAPSULE PO (08:41)
[2020-09-29] MEDS: ENOXAPARIN 40 MG/0.4 ML SYRINGE SUB-Q (08:42)
[2020-09-29] MEDS: FAMOTIDINE 20 MG/2 ML VIAL IV PUSH (08:42)
[2020-09-29] MEDS: levETIRAcetam 250 MG TABLET 750 MG PO (08:42)
[2020-09-29] MEDS: ATORVASTATIN 20 MG TABLET PO (08:42)
[2020-09-29] MEDS: SILVERGEL (ELTA) 45 ML 1 APPLIC TOPICAL (09:08)
[2020-09-29 09:29] LABS: Anion Gap 10 mmol/L (8-16); Blood Urea Nitrogen 16 mg/dL (7-17); Calcium 9.9 mg/dL (8.4-10.2); Carbon Dioxide 32 mmol/L (22-30); Chloride 101 mmol/L (98-107); Estimated Glomerular Filt Rate > 60; Glucose 105 mg/dL (65-105); Potassium 3.3 mmol/L (3.4-5.0); Sodium 143 mmol/L (137-145)
[2020-09-29] MEDS: BUDESONIDE RESPULE NEB 0.5 MG/2 ML AMP INHALATION (10:27)
--- NOTE | 2020-09-29 11:39 | PM.DS ---
DS: Admitting Diagnosis Admitting Diagnosis Admitting Diagnosis: Asthma crisis DS: Discharge Diagnosis Discharge Diagnosis (1) Acute respiratory failure with hypoxia and hypercapnia: Code(s): J96.01 - Acute respiratory failure with hypoxia; J96.02 - Acute respiratory failure with hypercapnia Status: Acute Assessment and Plan: 09/28/20 14:15 Patient is a 50-year-old female with history of asthma presented emergency department on 09/08 with cough shortness of breath and fever initially there was a concern patient may be positive for COVID as patient was exposed to her niece who was positive, however patient is negative for COVID-19, patient was found to have exacerbation of asthma as well as pneumonia and was being treated however on 09/09 into respiratory distress and patient was intubated, she is on vent, patient is being treated for pneumonia with ampicillin and vancomycin, today patient symptoms are improving responding to Lasix and pulmonary edema is improved, patient was taken off Nimbex on 09/17 and weaning of sedation and patient was tolerating ventilation in hope patient can be extubated, however is been 12 days on ventilator, seen by pulmonology suspect due to some severe atelectasis resulting poor oxygenation patient was taken to OR and had a bronchoscopy on 09/20 and mucus plugging was removed this will help improve patient's oxygenation and will facilitate extubation, early on 09/21 patient was extubated and was quite somnolent was not able to provide any review of symptom, I called to assess the patient, patient was more somnolent ABG was done and patient was saturating well, does respond by opening eye and and was able to somewhat cough, started the patient on Pulmozyme and neb, discussed with the mail distribution scheme examiner will keep close eye on the patient and further recommendation to follow, patient is seen by utility person and scheduling manager and appreciate on 09/22 patient's symptoms were not improving and had developed fever patient already completed course of vancomycin and Unasyn, patient was being retested for COVID and under isolation pending, 09/23 patient was still desaturating, patient was diuresed, patient seen by utility person recommending to place the patient on BiPAP if possible avoid reintubation, worsening condition suspect critical care illness polyneuropathy, patient COVID test was negative, patient is off BIPAP on N/C patient was more alert oriented and was able to talk somewhat and requesting water to drink, ST bedside swallow was not conclusive and will require modified swallow study, however started the patient on ice chips, on 09/27 patient had a modified swallow study and did well, started the patient on minced and moist diet, today 09/28 patient is still need assistance with a ADL, patient is not able to fluently communicate patient is seen by pulmonology will continue updraft and pulmicort, patient has not had any seizure while in the hospital patient is on Keppra, working with PT OT patient will benefit from acute rehab. 09/29: Patient doing okay today. Slow clinical improvement. Appreciate Pulmonology recommendations/input. Discussed with Dr. Rodríguez who has been following and okay for discharge from medical standpoint. CC has found placement and can discharge today. Will discharge with pulmicort and neb treatments. IS/Cornet if available at [place]. BiPAP per Pulmonology. Wean O2 as tolerated. Discharge today to [facility] for further rehab/care. Soft/bit sized diet (2) Seizure disorder: Code(s): G40.909 - Epilepsy, unspecified, not intractable, without status epilepticus Status: Acute Assessment and Plan: Continue home medication No evidence of acute seizure activity. (3) Anxiety and depression: Code(s): F41.9 - Anxiety disorder, unspecified; F32.9 - Major depressive disorder, single episode, unspecified S
[2020-09-29] MEDS: TOLNAFTATE 1% POWDER 45 GM BTL 1 APPLIC TOPICAL (13:11)
[2020-09-29] MEDS: POTASSIUM CHLORIDE 20 MEQ PACKET (FOR LIQUID) PO (13:11)
[2020-09-29] MEDS: NEOMYCIN/POLYMYXIN/BACITRACIN OINTMENT PACKET 1 PACKET TOPICAL (13:40)
--- NOTE | 2020-11-06 13:17 | PC.NURSE ---
AFB are negative
--- NOTE | 2020-12-05 11:08 | PC.NURSE ---
Belongings left behind and have been in 3 medical soiled utility room. Belongings appear to include cell phone, apple watch, rings, clothes, inhaler. Called to patients spouse listed in the computer, Mario Corral. Treater Pushpa spoke to spouse and sisters Christelle or Caitlin tirado pickling operator belongings.
--- NOTE | 2020-12-05 11:35 | PC.NURSE ---
Patients sister Christelle is here to potato picker belongings. Per Mario (spouse), Christelle is allowed to potato picker patients belongings.
== END 2020-09-29 14:40 | DRG 130 ==
LOC: ANHED 09-08 04:27 → ANH3MEDSUR 09-08 05:55 → ANHIMU 09-09 12:25 → ANHICU 09-10 16:00 → ANH3MED 09-28 01:45 → ANHICU 10-01 14:17 → ANHIMU 10-01 14:17
PROVIDERS: Family Medicine; General Practice; Internal Medicine; Internal Medicine Critical Care Medicine; Physician Assistant; Student in an Organized Health Care Education/Training Program; Admitting Provider Internal Medicine; Emergency Provider Emergency Medicine; PCP Internal Medicine; Visit Provider Physician Assistant
PROC: 0BJ08ZZ Inspection of Tracheobronchial Tree, Via Natural or Artificial Opening Endoscopic (ICD-10-PCS; CPT 31622; principal; 2020-09-20 12:00)
DX: J96.01 Acute respiratory failure with hypoxia (principal); J45.901 Unspecified asthma with (acute) exacerbation; J96.02 Acute respiratory failure with hypercapnia; Z20.828 Contact with and (suspected) exposure to other viral communicable diseases; G62.81 Critical illness polyneuropathy; J38.3 Other diseases of vocal cords; J98.11 Atelectasis; E87.6 Hypokalemia; F41.9 Anxiety disorder, unspecified; F32.9 Major depressive disorder, single episode, unspecified; G40.909 Epilepsy, unspecified, not intractable, without status epilepticus; I11.0 Hypertensive heart disease with heart failure; I50.9 Heart failure, unspecified; Z79.899 Other long term (current) drug therapy
CPT/HCPCS: 31500; 36415; 36569; 36600; 43752; 70450; 71045; 71260; 71275; 80048; 80053; 80076; 80202; 81001; 82274; 82375; 82805; 83036; 83050; 83605; 83735; 84100; 84132; 84484; 85025; 85027; 87015; 87040; 87070; 87075; 87076; 87086; 87116; 87205; 87206; 87279; 87486; 87581; 87635; 87804; 92526; 92610; 92611; 93005; 94002; 94003; 94640; 96361; 96365; 96366; 96367; 96372; 96375; 96376; 97110; 97162; 97166; 97530; 97535; 99285; A9270; C1751; C8929; C9803; G0378; G0379; J0131; J0171; J0295; J0360; J1650; J1815; J1940; J1953; J2060; J2250; J2270; J2704; J2920; J2930; J3010; J3370; J3475; J3480; J7030; J7040; J7050; J7060; P9047; Q9957; Q9967; U0003

== ENCOUNTER 2020-09-29 18:21 | Emergency (ER) | payer OTHER, SELFPAY ==
--- NOTE | ~2020-09-29 | CT_ITS ---
EXAMINATION: CT brain wo con, CT facial bones wo con DATE: 09/29/2020 20:09 INDICATION: Fall with facial injury TECHNIQUE: 1. Computed tomography (CT) of the head was performed without intravenous contrast. Sagittal and gab nal reconstructions were performed. The mA was adjusted according to patient size. Iterative reconstr uction technique was employed. The dose-length product was 681.00 mGy-cm. 2. CT of the maxillofacial bones was performed without intravenous contrast. Sagittal and coronal rec onstructions were performed. The mA was adjusted according to patient size. Iterative reconstruction technique was employed. The dose-length product was 375.61 mGy-cm. COMPARISON: head CT dated 09/19/2020 FINDINGS: Head: No acute intracranial hemorrhage, acute infarction or abnormal extra axial fluid collection. There is moderate scattered white matter hypoattenuation consistent with chronic small vessel ischemic diseas e. Ventricles are normal and symmetric with normal variant cavum septum lucidum. No mass/mass effect . Changes of bilateral intraocular lens replacement. Trace bilateral mastoid effusions. Maxillofacial bones: No maxillofacial fractures. Specifically the su of the orbits, paranasal sinuses, the pterygoid pl ates, zygomatic arches and mandible are intact. Normal alignment at the temporal mandibular joints wi th mild left and severe right osteoarthritis. The maxilla is edentulous there are multiple dental car ies along the remaining teeth of the mandible. Mild mucosal thickening in the right maxillary, spheno id and bilateral ethmoid sinuses. IMPRESSION: 1. Stable moderate ossific cerebral white matter hypoattenuation consistent with chronic small vessel ischemic disease. No acute intracranial process. 2. No calvarial or maxillofacial fractures. Reviewed, dictated and finalized at location A. CULTURAL EXTENSION EDUCATOR IMPRESSION: 1. Stable moderate ossific cerebral white matter hypoattenuation consistent wit h chronic small vessel ischemic disease. No acute intracranial process. 2. No calvarial or maxillofacial fractures.
[2020-09-29 18:23] VITALS: PULSE 102; RESP 29; TEMP 36.8; O2SAT 95
[2020-09-29 18:48] VITALS: BP 152/89; PULSE 101; RESP 18; O2SAT 97
--- NOTE | 2020-09-29 19:13 | ED.FALL ---
HPI - Fall General Chief Complaint: Fall Stated Complaint: fall Time Seen by Provider: 09/29/20 19:06 History of Present Illness HPI Narrative: 50 yo female w/ h/o CVA brought in by EMS from a [facility] for a fall. She reports that she got dizzy and lost consciousness. She was found lying on the ground by staff. They deny that she was unconscious. She reports pain in swelling in the left side of her face. She also reports anxiety about COVID-19. No fever, chills, cough, congestion, SOB, CP. Related Data Home Medications Medication Instructions Recorded Confirmed atorvastatin 20 mg PO DAILY 09/08/20 09/08/20 clonazepam 0.5 mg PO TID 09/08/20 09/08/20 furosemide 20 mg PO DAILY 09/08/20 09/08/20 gabapentin 800 mg PO TID 09/08/20 09/08/20 levetiracetam 750 mg PO BID 09/08/20 09/08/20 paroxetine HCl 40 mg PO QAM 09/08/20 09/08/20 potassium chloride 10 meq PO BID 09/08/20 09/08/20 trazodone 150 mg PO HS 09/08/20 09/08/20 Allergies Allergy/AdvReac Type Severity Reaction Status Date / Time naproxen Allergy Unknown Unknown Verified 09/29/20 18:28 NSAIDS (Non-Steroidal Allergy Unknown Unknown Verified 09/29/20 18:28 Anti-Inflamma tramadol Allergy Unknown Unknown Verified 09/29/20 18:28 Review of Systems Review of Systems: All systems reviewed & are unremarkable except as noted in HPI and below Constitutional: Constitutional: Denies chills and Denies fever(s) Eyes: Eyes: Denies change in vision Cardiovascular: Cardiovascular: Denies chest pain Respiratory: Respiratory: Denies cough and Denies dyspnea Gastrointestinal: Gastrointestinal: Denies nausea and Denies vomiting Musculoskeletal: Musculoskeletal: Denies back pain Neurologic: Reports syncope, Reports headache(s), Denies numbness and Denies weakness Psychiatric: Psychiatric: Reports anxiety PMFSH Past Medical History Medical History Anxiety Anxiety and depression Asthma History of CHF (congestive heart failure) Hypertension Hypokalemia Seizure disorder Surgical History Surgical History History of appendectomy History of cholecystectomy History of hysterectomy Family History Family History Father Family history of coronary artery disease Mother Family history of coronary artery disease Social History Social History Social History: lifetime nonsmoker, does not drink alcohol, and does not do drugs. She does not work and stays home. Her , Xavi and her son Mario are her surrogate decision makers. Full code Smoking status: Never smoker Second hand tobacco smoke exposure: Yes Alcohol intake: never Substance use: never Substance use type: does not use Gender identity (if verbalized by the patient): Female Spiritual care concerns: No Exam Const: General: no acute distress and alert Nutritional Appearance: well nourished HENMT: Mouth: Yes dry mucous membranes Eyes: Pupils: Equal, round and reactive pupils present EOM: EOMs intact bilaterally Resp: Effort & Inspection: normal respiratory effort Auscultation: clear to auscultation bilaterally Cardio: Rate: regular rate Rhythm: regular rhythm GI: GI Palp: Yes Soft to palpation and No Tenderness to palpation present (GI) Skin: General skin exam: normal color Neuro: General: patient oriented x3 and CN's II-XI intact bilaterally Speech: normal speech Extrem: General: normal to inspection and no edema Course Vital Signs Vital signs: Vital Signs Temperature 36.8 C 09/29/20 18:23 Pulse Rate 102 H 09/29/20 18:23 Respiratory Rate 29 H 09/29/20 18:23 Pulse Oximetry 95 09/29/20 18:23 Temperature 36.8 C 09/29/20 18:23 Pulse Rate 92 09/29/20 22:49 Respiratory Rate 18 09/29/20 22:49 Bloo
[2020-09-29 19:45] VITALS: BP 141/87; PULSE 95; RESP 20; O2SAT 100
--- NOTE | 2020-09-29 19:48 | ECG_ITS ---
Measurements Intervals [place] Rate: 92 P: 8 [place]: 132 QRS: 5 QRSD: 73 T: 15 QT: 323 QTc: 400 Interpretive Statements SINUS RHYTHM EARLY PRECORDIAL R/S TRANSITION VOLTAGE CRITERIA FOR LVH NONSPECIFIC ST & T-WAVE ABNORMALITY- ANTEROLAT/INF LEADS BASELINE ARTIFACT- I, III, V2-V6 BORDERLINE ECG Electronically Signed On 09-30-2020 7:19:[address] by Orlando Zendejas D.O.
[2020-09-29 21:07] LABS: Add Urine Microscopic? YES; Appearance Urine Cloudy (Clear); Bacteria Urine 1+ /hpf; Bilirubin Urine Negative (Negative); Blood Urine 3+ (Negative); Glucose Urine UA Negative (Negative); Ketones Urine 1+ mg/dL (Negative); Leukocyte Esterase Ur 2+ LEU/UL (Negative); Mucus Urine Rare /lpf; Nitrate Urine Positive (Negative); Protein Urine 2+ mg/dL (Negative); RBC Urine >75 /hpf (0-2); Specific Grav Ur 1.018 (1.001-1.035); Squamous Epithelial Cell Urine Few /hpf (Few); Urobilinogen Urine Negative mg/dL (<2.0); WBC Clumps Urine Present /HPF; WBC Urine >75 /hpf
[2020-09-29 21:10] LABS: Color Urine Brown (Yellow)
--- NOTE | 2020-09-29 22:30 | PC.NURSE ---
called [facility] at 2128 to request transport. ETA given [id number] [facility] called at 2228 to update ETA to [phone] Called [facility] at 2229 to request transport. [facility] declined
--- NOTE | 2020-09-29 22:33 | PC.NURSE ---
called [facility] to request transport. Declined - no basic truck.
--- NOTE | 2020-09-29 22:35 | PC.NURSE ---
called [facility] to request transport. declined
[2020-09-29 22:49] VITALS: BP 102/64; PULSE 92; RESP 18; O2SAT 98
--- NOTE | 2020-09-30 00:04 | PC.NURSE ---
[facility] called and update ETA to [phone]
[2020-09-30] MEDS: CEFDINIR 300 MG CAPSULE PO (00:59)
--- NOTE | 2020-09-30 02:03 | PC.NURSE ---
called [facility] for ETA update. ETA [phone]
[2020-09-30 04:52] VITALS: BP 155/92; PULSE 100; RESP 18; O2SAT 98
== END 2020-09-30 04:54 ==
PROVIDERS: Emergency Provider Emergency Medicine; PCP Internal Medicine
DX: S09.90XA Unspecified injury of head, initial encounter (principal); T83.511A Infection and inflammatory reaction due to indwelling urethral catheter, initial encounter; Z86.73 Personal history of transient ischemic attack (TIA), and cerebral infarction without residual deficits; J45.909 Unspecified asthma, uncomplicated; I50.9 Heart failure, unspecified; I11.0 Hypertensive heart disease with heart failure; G40.909 Epilepsy, unspecified, not intractable, without status epilepticus; F41.9 Anxiety disorder, unspecified; F32.9 Major depressive disorder, single episode, unspecified; R94.31 Abnormal electrocardiogram [ECG] [EKG]; W18.39XA Other fall on same level, initial encounter
CPT/HCPCS: 70450; 70486; 81001; 87077; 87086; 87088; 87186; 93005; 99284; A9270

== ENCOUNTER 2021-07-25 15:21 | Observation (INO) | payer OTHER, SELFPAY ==
[2021-07-25] VITALS (8 sets, daily range): BP systolic 109–154; BP diastolic 72–95; PULSE 87–136; RESP 16–27; TEMP 36.8; O2SAT 99–100
--- NOTE | ~2021-07-25 | CT_ITS ---
EXAMINATION: CT brain wo con EXAM DATE: 07/25/2021 16:14 INDICATION: Altered mental status. TECHNIQUE: Spiral CT of the head was performed without contrast. Axial, coronal and sagittal images were reviewed. The dose-length product (DLP) for this examination was 681.00 mGy-cm. The exposure w as tailored according to patient size, and iterative reconstruction (ASIR) was used as additional dos e reduction technique. Comparison is made to prior examination from 09/29/2020. FINDINGS: Left subinsular hypodensity unchanged likely old small infarction. There is no acute intrap arenchymal hemorrhage. No evidence of intraparenchymal brain mass lesion. No evidence of acute infa rction. Please note that initial head CT has limited sensitivity for small or acute infarctions. The re is moderate periventricular and subcortical hypodensity, nonspecific but probably related to small vessel ischemic disease. There is mild prominence of the sulci and ventricles related to cerebral atrophy. There is intracranial carotid arteriosclerosis. There are no extra-axial collections. Th ere is no mass effect or midline shift. Patient has had bilateral ocular lens surgery. Soft tissue is unremarkable. The visualized sinuses and mastoid air cells are well aerated. IMPRESSION: 1. No acute intracranial findings. 2. Chronic age related findings. Reviewed, dictated and finalized at location A.
--- NOTE | ~2021-07-25 | CT_ITS ---
EXAMINATION: CT brain wo con INDICATION: Headache COMPARISON: None TECHNIQUE: Standard unenhanced head CT. The dose-length product (DLP) was 660.13 mGy-cm. The mA was a djusted according to patient size. Iterative reconstruction technique was employed. FINDINGS: There is no acute intraparenchymal hemorrhage. No evidence of mass lesion. No evidence of a cute infarction. Again noted is a chronic left subinsular hypodensity. There is moderate periventricu lar and subcortical hypodensity probably related to small vessel ischemic disease. There is mild prom inence of the sulci and ventricles related to cerebral atrophy. Intracranial calcified cerebral ather osclerosis is noted. There are no extra-axial collections. There is no mass effect or midline shift. Changes in the globes are likely from ocular lens surgery. The visualized sinuses and mastoid air ivon ls are well aerated. IMPRESSION: 1. No acute intracranial abnormality. 2. Age related findings. Reviewed, dictated and finalized at location A.
--- NOTE | ~2021-07-25 | XR_ITS ---
EXAMINATION: XR chest 1V EXAM DATE: 07/25/2021 16:25 INDICATION: Seizure at home. Nonverbal. TECHNIQUE: Portable AP frontal chest x-ray was obtained. Comparison is made to prior examination from 09/26/2020. FINDINGS: There is cardiomegaly and pulmonary vascular congestion. Scattered bilateral linear atelect asis. Can't exclude pneumonia. There was similar appearance on prior study. No pleural effusion or pn eumothorax. There are cholecystectomy clips. IMPRESSION: 1. Cardiomegaly, congestion. 2. Scattered multifocal opacities probably atelectasis. Pneumonia not excludable. Reviewed, dictated and finalized at location A. IMPRESSION: 1. Cardiomegaly, congestion. 2. Scattered multifocal opacities probably atelectasis. Pneumonia not excludab le.
--- NOTE | ~2021-07-25 | CT_ITS ---
EXAMINATION: CTA chest PE protocol DATE: 07/25/2021 20:47 INDICATION: Shortness of breath TECHNIQUE: Computed tomography angiography (CTA) of the chest was performed with 200 mL Omnipaque-350 intravenous contrast timed to evaluate the pulmonary arteries. Coronal maximum intensity projection 3D-reconstructions were created by the technologist. The dose-length product (DLP) was 714.84 mGy-cm. Automated exposure control and iterative reconstruction technique were employed. COMPARISON: 09/19/2020 FINDINGS: The pulmonary arteries are well-opacified. No pulmonary embolism is identified. There are s cattered areas of atelectasis. Cardiomegaly is noted. There is no pleural effusion or pneumothorax. T here are no pathologically enlarged thoracic lymph nodes. Again noted are chronic compression fractur es of multiple thoracic vertebral bodies with vertebroplasty change at T12. IMPRESSION: 1. No pulmonary embolism. 2. Cardiomegaly. 3. Bilateral atelectasis. Reviewed, dictated and finalized at location A.
--- NOTE | 2021-07-25 15:25 | ED.GENADULT ---
HPI - General Adult General Chief complaint: Seizure <Yassine Gutierrez PA-C - Last Filed: 07/25/21 21:46> Stated complaint: SEIZURE <Yassine Gutierrez PA-C - Last Filed: 07/25/21 21:46> Time Seen by Provider: 07/25/21 15:25 <Yassine Gutierrez PA-C - Last Filed: 07/25/21 21:46> History of Present Illness HPI narrative: Patient is a 51-year-old female with history of seizure disorder and hyperlipidemia who comes to the ED today due to altered mental status. Currently, the patient is essentially nonverbal and is not following commands. She is alert but she does not follow any commands. She occasionally yells out in pain. When asked where her pain is she points to her chest. At one point she did say the words can't breathe According to EMS report patient was with her sister who witnessed the patient have seizure-like activity which was her rolling her eyes to the back of her head for about 1 minute. She recently had back surgery and is wearing a back brace. She was seen at [facility] emergency room this morning for low back pain. <Yassine Gutierrez PA-C - Last Filed: 07/25/21 21:46> Related Data Home medications: Home Medications Medication Instructions Recorded Confirmed atorvastatin 20 mg PO DAILY 09/08/20 09/08/20 clonazepam 0.5 mg PO TID 09/08/20 09/08/20 furosemide 20 mg PO DAILY 09/08/20 09/08/20 gabapentin 800 mg PO TID 09/08/20 09/08/20 levetiracetam 750 mg PO BID 09/08/20 09/08/20 paroxetine HCl 40 mg PO QAM 09/08/20 09/08/20 potassium chloride 10 meq PO BID 09/08/20 09/08/20 trazodone 150 mg PO HS 09/08/20 09/08/20 <Yassine Gutierrez PA-C - Last Filed: 07/25/21 21:46> Allergies/adverse reactions: Allergies Allergy/AdvReac Type Severity Reaction Status Date / Time naproxen Allergy Unknown Unknown Verified 07/25/21 20:25 NSAIDS (Non-Steroidal Allergy Unknown Unknown Verified 07/25/21 20:25 Anti-Inflamma tramadol Allergy Unknown Unknown Verified 07/25/21 20:25 <Yassine Gutierrez PA-C - Last Filed: 07/25/21 21:46> Review of Systems Review of Systems: ROS unobtainable: Yes unobtainable due to mental status <Yassine Gutierrez PA-C - Last Filed: 07/25/21 21:46> [facility] Past Medical History Medical History: Medical History Anxiety Anxiety and depression Asthma History of CHF (congestive heart failure) Hypertension Hypokalemia Seizure disorder <JUSTICE Swanson Last Filed: 07/25/21 21:46> Surgical History Surgical History: Surgical History History of appendectomy History of cholecystectomy History of hysterectomy <Yassine Gutierrez PA-C - Last Filed: 07/25/21 21:46> Family History Family History: Family History Father Family history of coronary artery disease Mother Family history of coronary artery disease <Yassine Gutierrez PA-C - Last Filed: 07/25/21 21:46> Social History Social History: Social History Social History: lifetime nonsmoker, does not drink alcohol, and does not do drugs. She does not work and stays home. Her , Xavi and her son Mario are her surrogate decision makers. Full code Smoking status: Never smoker Second hand tobacco smoke exposure: Yes Alcohol intake: never Substance use: never Substance use type: does not use Gender identity (if verbalized by the patient): Female Spiritual care concerns: No <Yassine Gutierrez PA-C - Last Filed: 07/25/21 21:46> Course Course Emergency Course: 4:30 PM I called the patient's sister Caitlin ([phone]) for more history as she was the one who witnessed the events earlier today. Caitlin informs me that the patient was at [facility]
--- NOTE | 2021-07-25 15:52 | ECG_ITS ---
Measurements Intervals [place] Rate: 106 P: 27 [place]: 144 QRS: 0 QRSD: 80 T: 201 QT: 287 QTc: 381 Interpretive Statements SINUS TACHYCARDIA EARLY PRECORDIAL R/S TRANSITION, CONSIDER RVH BORDERLINE ST-T WAVE ABNORMALITY- DIFFUSE LEADS BASELINE ARTIFACT- I, II, III, AVR, AVL,A VF, V1-V6 ABNORMAL ECG Electronically Signed On 07-25-2021 15:57:00 CDT by Orlando Zendejas D.O.
[2021-07-25] MEDS: levETIRAcetam 1000MG/NACL100ML 1,000 MG/100 ML BAG 400 MG IVPB (16:42)
[2021-07-25 17:01] LABS: Glucose Point of Care 96 mg/dl (65-105)
[2021-07-25] MEDS: MORPHINE SULFATE (*CRX) 4 MG/ML INJ IV PUSH ×2 (17:02→19:54)
[2021-07-25 17:21] LABS: Basophils Percent Auto 0.5 % (0.2-1.2); Eosinophils Percent Auto 0.2 % (0-4.4); Hemoglobin 11.4 g/dL (12.0-15.0); Immature Granulocyte Absolute 0.02 K/mm3 (0.00-0.031); Immature Granulocyte Percent A 0.5 % (0-0.5); Lymphocytes Absolute Auto 1.47 K/mm3 (0.9-3.2); Lymphocytes Percent Auto 35.2 % (18.3-44.2); Mean Corpuscular HGB Conc 31.7 g/dl (32-36); Mean Corpuscular Hemoglobin 27.3 pg (26-34); Mean Corpuscular Volume 86.1 fl (80-100); Mean Platelet Volume 8.6 fl (7.4-10.4); Monocytes Absolute Auto 0.7 K/mm3 (0.1-0.6); Monocytes Percent Auto 15.8 % (2.6-8.5); Neutrophils Percent Auto 47.8 % (45.5-73.1); Platelet Count Result 373 k/mm3 (150-375); Red Blood Count 4.18 M/mm3 (4.2-5.4); Red Cell Distribution Width 15.8 % (11.5-14.5); White Blood Count 4.2 K/mm3 (4.5-10.0)
[2021-07-25 17:25] LABS: Lactic Acid Reflex 1.2 mmol/L (0.7-2.1)
[2021-07-25 17:31] LABS: Alanine Aminotransferase 23 U/L (4-35); Albumin Level 4.6 g/dL (3.5-5.1); Alkaline Phosphatase 155 U/L (38-126); Anion Gap 15 mmol/L (8-16); Aspartate Amino Transferase 30 U/L (14-36); Bilirubin,Total 0.5 mg/dL (0.2-1.3); Blood Urea Nitrogen 11 mg/dL (7-17); Calcium 9.1 mg/dL (8.4-10.2); Carbon Dioxide 17 mmol/L (22-30); Chloride 108 mmol/L (98-107); Estimated Glomerular Filt Rate > 60; Glucose 87 mg/dL (65-110); Potassium 2.7 mmol/L (3.4-5.0); Sodium 140 mmol/L (137-145)
[2021-07-25 17:38] LABS: Troponin I < 0.012 ng/mL (0.000-0.034)
[2021-07-25] MEDS: diazePAM INJ (*CRX) 10 MG/2 ML SYRINGE 5 MG IV PUSH ×2 (17:38→21:20)
--- NOTE | 2021-07-25 18:00 | PC.NURSE ---
Sister, Darcie, called for update. Pt gives permission to speak with sister.
[2021-07-25 18:08] LABS: Magnesium 1.6 mg/dL (1.6-2.3)
--- NOTE | 2021-07-25 21:16 | PM.IMHP ---
H&P: HPI History of Present Illness Date/Time: 07/25/21 21:16 Chief Complaint: Seizure Narrative: This is a 51-year-old female with past medical history significant for epilepsy, morbid obesity, recent back surgery, COPD/asthma, hypertension, dyslipidemia, anxiety and depression. Patient was brought to the emergency room after she was witnessed by her sister to have a seizure episode according to sister it describes the episode as her eyes rolling back according to EMS this was for roughly for about 1 minute patient received anti seizure medication and was postictal upon arrival to emergency room at the time of my visit patient was awake and alert however was not able to give much history at that point but was able to states that she has suffered from seizures for long time she denied any fevers ,any c,hills any rigors, any cough, sputum production, shortness of breath, nausea, vomiting, abdominal pain or diarrhea. Patient is status post recent back surgery. Preliminary workup was essentially unrevealing. Patient received a load of Keppra in the emergency room and has been placed in observation for further management evaluation and treatment. Review of Systems Review of Systems: Seizure episode Constitutional: Constitutional: Denies chills, Denies fatigue, Denies fever(s) and Denies weakness Eyes: Eyes: Denies change in vision ENT: Denies dysphagia, Denies nasal discharge, Denies nasal obstruction, Denies neck pain and Denies odynophagia Cardiovascular: Cardiovascular: Denies edema, Denies irregular heart rhythm, Denies lightheadedness, Denies radiating jaw, neck or arm pain, Denies palpitations, Denies dyspnea, Denies dyspnea on exertion and Denies orthopnea Respiratory: Respiratory: Denies cough and Denies dyspnea Gastrointestinal: Gastrointestinal: Denies dyspepsia, Denies diarrhea, Denies nausea and Denies vomiting Genitourinary: Genitourinary: Reports no additional female genitourinary complaints Musculoskeletal: Musculoskeletal: Reports back pain Integumentary/Breasts: Skin/Breast: Reports system reviewed and no additional complaints, except as docu Neurologic: Reports seizure-like activity Psychiatric: Psychiatric: Reports no additional psychiatric complaints Endocrine: Endocrine: Reports no additional endocrine complaints Hematologic/Lymphatic: Hematologic/Lymphatic: Reports no additional hematologic/lymphatic complaints Allergic/Immunologic: Allergic/Immunologic: Reports no additional allergic/immunologic complaints [facility] Past Medical History Medical History (Updated 07/26/21 @ 04:22 by Darion Soler MD) Anxiety Anxiety and depression Asthma History of CHF (congestive heart failure) Hypertension Hypokalemia Seizure disorder Surgical History Surgical History (Updated 07/26/21 @ 04:23 by Darion Soler MD) History of appendectomy History of cholecystectomy History of hysterectomy Family History Family History Father Family history of coronary artery disease Mother Family history of coronary artery disease Social History Social History Social History: lifetime nonsmoker, does not drink alcohol, and does not do drugs. She does not work and stays home. Her , Xavi and her son Mario are her surrogate decision makers. Full code Smoking status: Never smoker Second hand tobacco smoke exposure: Yes Alcohol intake: never Substance use: never Substance use type: does not use Gender identity (if verbalized by the patient): Female Spiritual care concerns: No Meds Home Medications and Allergies Home Medications Medication Instructions Recorded Confirmed Type atorvastatin 20 mg PO QPM 09/08/20 07/26/21 History clonazepam 0.5 mg PO TID 09/08/20 07/26/21 History furosemide 20 mg PO DAILY 09/08/20 07/26/21 History gabapentin 800 mg PO
[2021-07-25] MEDS: ENOXAPARIN 100 MG/ML SYRINGE 85 MG SUB-Q (21:20)
--- NOTE | 2021-07-25 21:42 | PC.NURSE ---
Darcie pt's siter called for update. Update given with pt's permission.
[2021-07-25 22:13] LABS: Add Urine Microscopic? YES; Appearance Urine Clear (Clear); Bilirubin Urine Negative (Negative); Blood Urine Negative (Negative); Color Urine Straw (Yellow); Glucose Urine UA Negative (Negative); Ketones Urine 2+ mg/dL (Negative); Leukocyte Esterase Ur Trace LEU/UL (Negative); Mucus Urine Rare /lpf; Nitrate Urine Negative (Negative); Protein Urine Negative (Negative); Squamous Epithelial Cell Urine Rare /hpf (Few); Urobilinogen Urine Negative mg/dL (<2.0)
[2021-07-25] MEDS: oxyCODONE/ACETAMINOPHEN (*CRX) 5-325 MG TABLET 1 TABLET PO (22:20)
[2021-07-25 22:23] LABS: Specific Grav Ur > 1.060 (1.001-1.035)
--- NOTE | 2021-07-25 22:24 | PC.NURSE ---
Nurse at bedside - informed pt that she has had a lot of narcotics and we do not feel comfortable giving her any other narcotics at this time. Pt responded with Then while would you keep me here. 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
--- NOTE | 2021-07-25 22:35 | ECG_ITS ---
Measurements Intervals [facility] [place] Rate: 133 P: -5 [place]: 105 QRS: 5 QRSD: 83 T: 34 QT: 332 QTc: 494 Interpretive Statements ATRIAL FLUTTER/TACHYCARDIA WITH RAPID VENTRICULAR RESPONSE EARLY PRECORDIAL R/S TRANSITION, CONSIDER RVH NONSPECIFIC ST & T-WAVE ABNORMALITY- DIFFUSE LEADS BASELINE ARTIFACT- I, II, III, AVR, AVL, AVF, V1, V3-V6 ABNORMAL ECG Electronically Signed On 07-25-2021 23:19:13 CDT by Orlando Zendejas D.O.
[2021-07-25] MEDS: SODIUM CHLORIDE 0.9% IV 250 ML 30 ML (22:45)
[2021-07-25 23:41] LABS: Troponin I < 0.012 ng/mL (0.000-0.034)
[2021-07-26] VITALS (13 sets, daily range): BP systolic 115–148; BP diastolic 41–88; PULSE 101–137; RESP 14–22; TEMP 36.1–37.2; O2SAT 93–100; BMI 35.6
--- NOTE | 2021-07-26 00:11 | ADMGEN ---
This patient, Ptaria Corral, was admitted to IMU Room 205-01. Patient/family oriented to hospital policies and general routines including ID bracelet, bed and alarms, visiting hours, pain management, procedures, bathroom and other care routines, personal items, smoking policy, room service/diet, and visiting hours. Information on how to activate the Rapid Response Team has been discussed. Patient/Family are encouraged to report perceived risks to care and to ask questions if they do not understand what they are told or what they should do.
[2021-07-26] MEDS: KETOROLAC 30 MG/ML VIAL (*BKC) IV PUSH (01:23)
[2021-07-26] MEDS: POTASSIUM CHLORIDE 20 MEQ TABLET 40 MEQ PO (01:23)
[2021-07-26 04:22] LABS: Troponin I < 0.012 ng/mL (0.000-0.034)
[2021-07-26 08:55] LABS: Hematocrit 33.1 % (37.0-47.0); Hemoglobin 10.2 g/dL (12.0-15.0); Mean Corpuscular HGB Conc 30.8 g/dl (32-36); Mean Corpuscular Hemoglobin 27.1 pg (26-34); Mean Platelet Volume 8.7 fl (7.4-10.4); Platelet Count Result 339 k/mm3 (150-375); Red Blood Count 3.76 M/mm3 (4.2-5.4); Red Cell Distribution Width 16.4 % (11.5-14.5); White Blood Count 3.5 K/mm3 (4.5-10.0)
[2021-07-26 09:03] LABS: Alanine Aminotransferase 49 U/L (4-35); Albumin Level 3.9 g/dL (3.5-5.1); Alkaline Phosphatase 221 U/L (38-126); Anion Gap 10 mmol/L (8-16); Aspartate Amino Transferase 63 U/L (14-36); Bilirubin,Total 0.5 mg/dL (0.2-1.3); Blood Urea Nitrogen 8 mg/dL (7-17); Calcium 8.9 mg/dL (8.4-10.2); Carbon Dioxide 18 mmol/L (22-30); Chloride 112 mmol/L (98-107); Estimated Glomerular Filt Rate > 60; Glucose 85 mg/dL (65-110); Magnesium 1.7 mg/dL (1.6-2.3); Potassium 3.6 mmol/L (3.4-5.0); Sodium 140 mmol/L (137-145)
--- NOTE | 2021-07-26 09:44 | WPDNEURCNPN ---
Assessment and Plan Additional Plan will obtain the EEG and the anticonvulsant level and further adjustment accordingly Consult date: 07/26/21 Time Seen: 11:00 HPI: Patria Corral is a 51 year old female has been admitted to the hospital for the complaints of seizure in addition to the ongoing diagnosis of 1. Epilepsy 2. Morbid obesity 3. Recent back surgery 4. COPD with bronchial asthma 5. Hypertension 6. Dyslipidemia 7. Anxiety with depression. Patient was brought to the ER with information that her sister saw her having a seizures when her eyes rolled back, lasted for 1 minutes subsequently received anti seizure medication and was noted lip postictal on arrival in the emergency room he was noted the afebrile though she has undergone recent back surgery he was loaded with Keppra, other medications at the time of admission included clonazepam 0.5 mg 3 times a day gabapentin 800 mg 3 times a day Keppra 750 mg twice a day paroxysmal teen 40 mg daily trazodone 150 mg at night and apixaban 5 mg twice a day . Evaluation documented WBCs 3.5 hemoglobin 10.2 platelet count of 339, levetiracetam levels are pending, chest CTA with no pulmonary embolism, cardiomegaly and bilateral atelectasis, never smoker or drinker Review of Systems Review of Systems: All systems reviewed & are unremarkable except as noted in HPI and below PMFSH Past Medical History Medical History Anxiety Anxiety and depression Asthma History of CHF (congestive heart failure) Hypertension Hypokalemia Seizure disorder Surgical History Surgical History History of appendectomy History of cholecystectomy History of hysterectomy Family History Family History Father Family history of coronary artery disease Mother Family history of coronary artery disease Social History Social History Social History: lifetime nonsmoker, does not drink alcohol, and does not do drugs. She does not work and stays home. Her , Xavi and her son Mario are her surrogate decision makers. Full code Smoking status: Never smoker Second hand tobacco smoke exposure: Yes Alcohol intake: never Substance use: never Substance use type: does not use Gender identity (if verbalized by the patient): Female Spiritual care concerns: No Meds Home Medications and Allergies Home Medications Medication Instructions Recorded Confirmed Type atorvastatin 20 mg PO QPM 09/08/20 07/26/21 History clonazepam 0.5 mg PO TID 09/08/20 07/26/21 History furosemide 20 mg PO DAILY 09/08/20 07/26/21 History gabapentin 800 mg PO TID 09/08/20 07/26/21 History levetiracetam 750 mg PO BID 09/08/20 07/26/21 History paroxetine HCl 40 mg PO QAM 09/08/20 07/26/21 History potassium chloride 10 meq PO BID 09/08/20 07/26/21 History trazodone 150 mg PO HS 09/08/20 07/26/21 History amlodipine 10 mg PO DAILY #60 tablet 09/29/20 07/26/21 Rx budesonide [Pulmicort] 0.5 mg INHALATION Q12H #60 ml 09/29/20 07/26/21 Rx ipratropium bromide 0.5 mg INHALATION Q6H #62.5 ml 09/29/20 07/26/21 Rx albuterol sulfate 2.5 mg INHALATION Q6H PRN 07/26/21 07/26/21 History apixaban [Eliquis] 5 mg PO BID 07/26/21 07/26/21 History Allergies Allergy/AdvReac Type Severity Reaction Status Date / Time naproxen Allergy Unknown Unknown Verified 07/25/21 20:25 NSAIDS (Non-Steroidal Allergy Unknown Unknown Verified 07/25/21 20:25 Anti-Inflamma tramadol Allergy Unknown Unknown Verified 07/25/21 20:25 Vital Signs Vital Signs - 24 hr 07/25/21 15:34 07/25/21 17:37 07/25/21 17:47 Temperature 36.8 C Pulse Rate 87 102 H 97 Respiratory Rate 26 H 22 H 26 H Blood Pressure 138/72 124/80 121/95 H Pulse Oximetry 99 100 99 07/25/21 19:52 07/25/21 20:00 07/25/21 21:01 Temperature Pulse Rate 95 96 102 H
[2021-07-26] MEDS: clonazePAM (*CRX) 0.5 MG TABLET PO ×3 (09:46→17:11)
[2021-07-26] MEDS: MORPHINE SULFATE (*CRX) 4 MG/ML INJ IM (09:47)
[2021-07-26] MEDS: PARoxetine 20 MG TABLET 40 MG PO (09:47)
[2021-07-26] MEDS: FUROSEMIDE 20 MG TABLET PO (09:47)
[2021-07-26] MEDS: levETIRAcetam 250 MG TABLET 750 MG PO ×2 (09:47→17:11)
[2021-07-26] MEDS: POTASSIUM CHLORIDE 10 MEQ TABLET.ER PO ×2 (09:47→17:11)
[2021-07-26] MEDS: amLODIPine BESYLATE 5 MG TABLET 10 MG PO (09:48)
[2021-07-26] MEDS: GABAPENTIN 400 MG CAPSULE 800 MG PO ×3 (09:48→17:11)
[2021-07-26] MEDS: OLANZapine 10 MG INJ VIAL IM (11:16)
[2021-07-26] MEDS: methylPREDNISolone SOD SUCC 125 MG VIAL IV PUSH (12:16)
[2021-07-26] MEDS: HEPARIN SODIUM 5,000 UNITS/ML VIAL 5000 UNITS SUB-Q ×2 (14:10→21:10)
[2021-07-26] MEDS: methylPREDNISolone SOD SUCC 125 MG VIAL 60 MG IV PUSH ×2 (14:10→21:10)
[2021-07-26] MEDS: IPRATROPIUM BR 0.02% INH SOLN 0.5 MG/2.5 ML VIAL INHALATION ×2 (14:44→22:03)
--- NOTE | 2021-07-26 16:24 | PM.IMPN ---
Progress Note: A&P Assessment and Plan (1) Recurrent seizures: Code(s): G40.909 - Epilepsy, unspecified, not intractable, without status epilepticus Status: Acute Assessment and Plan: Restart home meds Received a Keppra load in emergency room Seizures precautions Placed in observation 07/26 Interval history: patient with history of seizure was brought to emergency department after patient was having breakthrough seizures not sure, if the patient has been taking her medication however patient is loaded with Keppra and being monitor, the patient also had a back surgery recently, her main concern is uncontrollable back pain, patient is taking gabapentin 800 mg t.i.d. will give methylprednisone 125 mg time x1 and then 60 mg every 6 hours, patient seen by Neurology continue present management will do Keppra level and EEG once clinically stable will have a PT OT evaluate the patient. (2) Anxiety and depression: Code(s): F41.9 - Anxiety disorder, unspecified; F32.9 - Major depressive disorder, single episode, unspecified Status: Acute Assessment and Plan: Continue home meds (3) Seizure disorder: Code(s): G40.909 - Epilepsy, unspecified, not intractable, without status epilepticus Status: Acute Assessment and Plan: Restart home meds (4) Asthma: Code(s): J45.909 - Unspecified asthma, uncomplicated Status: Acute Assessment and Plan: Not actively wheezing Continue home medications (5) Previous back surgery: Code(s): Z98.890 - Other specified postprocedural states Status: Acute Assessment and Plan: Continue brace Follow-up in outpatient setting Subjective Date/time seen: 07/26/21 16:24 Chief Complaint: Seizure Narrative: This is a 51-year-old female with past medical history significant for epilepsy, morbid obesity, recent back surgery, COPD/asthma, hypertension, dyslipidemia, anxiety and depression. Patient was brought to the emergency room after she was witnessed by her sister to have a seizure episode according to sister it describes the episode as her eyes rolling back according to EMS this was for roughly for about 1 minute patient received anti seizure medication and was postictal upon arrival to emergency room at the time of my visit patient was awake and alert however was not able to give much history at that point but was able to states that she has suffered from seizures for long time she denied any fevers ,any c,hills any rigors, any cough, sputum production, shortness of breath, nausea, vomiting, abdominal pain or diarrhea. Patient is status post recent back surgery. Preliminary workup was essentially unrevealing. Patient received a load of Keppra in the emergency room and has been placed in observation for further management evaluation and treatment. 07/26 Interval history: patient with history of seizure was brought to emergency department after patient was having breakthrough seizures not sure, if the patient has been taking her medication however patient is loaded with Keppra and being monitor, the patient also had a back surgery recently, her main concern is uncontrollable back pain, patient is taking gabapentin 800 mg t.i.d. will give methylprednisone 125 mg time x1 and then 60 mg every 6 hours, patient seen by Neurology continue present management will do Keppra level and EEG once clinically stable will have a PT OT evaluate the patient. Review of Systems Review of Systems: All systems reviewed & are unremarkable except as noted in HPI and below Exam Narrative: moderately obese in pain Patient NAD HEENT: eyes are clear and none icteric LUNGS: normal respiratory effort ABD: distended Lower extremities: no edema SKIN: nonjaundiced Neuro: grossly intact normal speech. Objective Data Vital Signs Vital Signs: Vital Signs - 24 hr 07/25/21 17:37 07/25/21 17:47 07/25/21 19:52 Temperature Pulse Rate 102 H 97 95
[2021-07-26] MEDS: ATORVASTATIN 20 MG TABLET PO (17:11)
[2021-07-26] MEDS: HYDROcodone/acetaminophen (*CRX) 5-325 MG TABLET 1 TAB PO ×2 (18:26→23:19)
--- NOTE | 2021-07-26 18:32 | PC.NURSE ---
This patient, Patria Corral, was transferred to [facility] on 07/26/21 at 1830. Personal belongings sent with patient. Report given to Simi. Appropriate documentation sent with patient.
[2021-07-26] MEDS: traZODone HCL 50 MG TABLET 150 MG PO (21:11)
[2021-07-26] MEDS: BUDESONIDE RESPULE NEB 0.5 MG/2 ML AMP INHALATION (22:03)
[2021-07-27] VITALS (13 sets, daily range): BP systolic 107–142; BP diastolic 60–73; PULSE 94–129; RESP 12–20; TEMP 36.2–37.1; O2SAT 92–96
--- NOTE | 2021-07-27 | ECHO_ITS ---
Patient Info Name: Patria Corral Age: 51 years : 1970 Gender: Female Ht: 59 in Wt: 176 lbs BSA: 1.86 m2 HR: 113 bpm BP: 128 / 66 mmHg Heart Rhythm: Sinus Rhythm, Tachycardia Technical Quality: Poor Exam Date: 07/27/2021 12:58 PM Exam Location: [facility] Patient Status: Inpatient Admit Date: 07/25/2021 Staff Ordering Physician: Heaven Rodríguez MD Speech Instructor: Ame Ramirez RD Attending Provider: Darion Soler MD Exam Type: CA echo dop color flow w con Study Info Indications R07.9 - Chest pain, unspecified Complete two-dimensional, color flow and Doppler transthoracic echocardiogram is performed with contrast to opacify the left ventricle and to improve the deliniation of the left ventricle endocardial borders. Contrast/Agitated Saline Contrast/Ag. Saline: Definity Amount: 4.00 ml Reason for Poor Study: patient body habitus Summary 1. Grossly normal left ventricular size thickness and function. The endocardium was poorly visualized but the ejection fraction appears to be 65-70%. Measured ejection fraction 61%. Diastolic dysfunction is normal. No segmental wall motion abnormalities observed however the endocardium was poorly visualized. 2. Trace to mild tricuspid regurgitation. 3. Borderline pulmonary hypertension, RVSP estimated to be 30-35 mmHg. 4. Technically difficult study. Definity echo contrast used. Left Ventricle Left ventricular chamber dimension is normal. Left ventricular systolic function is normal, estimated at 65-70%. There is no increased left ventricular wall thickness. Left ventricular septal wall motion is normal. The left ventricular diastolic function is normal. Right Ventricle Right ventricular chamber dimension is normal. Right ventricular systolic function is normal. Left Atria Left atrial chamber dimension is normal. Right Atria Right atrial chamber dimension is normal. Aortic Valve The aortic valve is trileaflet. There is no aortic valve sclerosis. There is no aortic valve stenosis. There is no aortic valve regurgitation. Pulmonic Valve The pulmonic valve is normal. There is no pulmonic valve stenosis. There is no pulmonic regurgitation. Mitral Valve The mitral valve has normal leaflets. There is no mitral valve stenosis. There is no mitral valve regurgitation. Tricuspid Valve The tricuspid valve leaflets are normal. There is no significant tricuspid valve stenosis. There is trace tricuspid valve regurgitation. Mild pulmonary hypertension, estimated pulmonary arterial systolic pressure is 36 mmHg. Pericardium/Pleural The pericardium appears normal. There is no pericardial effusion. Inferior Vena Cava Normal inferior vena cava with >50% collapse upon inspiration consistent with Empty right atrial pressure, 10 mmHg. Aorta The aortic root size at the sinus of Valsalva is normal. The prox ascending aorta size is normal. Left Ventricular Outflow Tract Name Value Normal LVOT 2D LVOT Diameter 2.06 cm LVOT Doppler LVOT Peak Gradient 6 mmHg
[2021-07-27] MEDS: IPRATROPIUM BR 0.02% INH SOLN 0.5 MG/2.5 ML VIAL INHALATION ×3 (02:00→21:16)
[2021-07-27] MEDS: HYDROcodone/acetaminophen (*CRX) 5-325 MG TABLET 1 TAB PO ×4 (04:55→20:35)
[2021-07-27] MEDS: methylPREDNISolone SOD SUCC 125 MG VIAL 60 MG IV PUSH ×3 (05:00→22:09)
[2021-07-27] MEDS: HEPARIN SODIUM 5,000 UNITS/ML VIAL 5000 UNITS SUB-Q ×3 (05:00→22:09)
[2021-07-27 05:34] LABS: Hematocrit 34.7 % (37.0-47.0); Hemoglobin 10.9 g/dL (12.0-15.0); Immature Granulocyte Absolute 0.01 K/mm3 (0.00-0.031); Immature Granulocyte Percent A 0.3 % (0-0.5); Lymphocytes Absolute Auto 0.86 K/mm3 (0.9-3.2); Lymphocytes Percent Auto 23.8 % (18.3-44.2); Mean Corpuscular HGB Conc 31.4 g/dl (32-36); Mean Corpuscular Hemoglobin 27.3 pg (26-34); Mean Corpuscular Volume 86.8 fl (80-100); Mean Platelet Volume 8.7 fl (7.4-10.4); Monocytes Absolute Auto 0.2 K/mm3 (0.1-0.6); Monocytes Percent Auto 4.4 % (2.6-8.5); Neutrophils Absolute Auto 2.6 K/mm3 (1.3-6.7); Neutrophils Percent Auto 71.5 % (45.5-73.1); Platelet Count Result 395 k/mm3 (150-375); White Blood Count 3.6 K/mm3 (4.5-10.0)
[2021-07-27] MEDS: amLODIPine BESYLATE 5 MG TABLET 10 MG PO (09:03)
[2021-07-27] MEDS: FUROSEMIDE 20 MG TABLET PO (09:03)
[2021-07-27] MEDS: clonazePAM (*CRX) 0.5 MG TABLET PO ×3 (09:03→17:50)
[2021-07-27] MEDS: levETIRAcetam 250 MG TABLET 750 MG PO ×2 (09:04→17:50)
[2021-07-27] MEDS: POTASSIUM CHLORIDE 10 MEQ TABLET.ER PO ×2 (09:04→17:50)
[2021-07-27] MEDS: PARoxetine 20 MG TABLET 40 MG PO (09:04)
[2021-07-27] MEDS: GABAPENTIN 400 MG CAPSULE 800 MG PO ×3 (09:04→17:50)
--- NOTE | 2021-07-27 09:11 | ECG_ITS ---
Measurements Intervals [place] Rate: 103 P: 26 AK: 163 QRS: 9 QRSD: 79 T: 1 QT: 347 QTc: 456 Interpretive Statements SINUS TACHYCARDIA EARLY PRECORDIAL R/S TRANSITION, CONSIDER RVH MINIMAL Q WAVES- HIGH LATERAL LEADS NONSPECIFIC ST & T-WAVE ABNORMALITY- ANT/INF LEADS BORDERLINE ECG Electronically Signed On 07-27-2021 14:33:42 CDT by Orlando Zendejas D.O.
[2021-07-27 10:20] LABS: Troponin I < 0.012 ng/mL (0.000-0.034)
--- NOTE | 2021-07-27 11:18 | PM.IMPN ---
Progress Note: A&P Assessment and Plan (1) Recurrent seizures: Code(s): G40.909 - Epilepsy, unspecified, not intractable, without status epilepticus Status: Acute Assessment and Plan: Restart home meds Received a Keppra load in emergency room Seizures precautions Placed in observation 07/27/21 11:18 07/26 Interval history: patient with history of seizure was brought to emergency department after patient was having breakthrough seizures not sure, if the patient has been taking her medication however patient is loaded with Keppra and being monitor, the patient also had a back surgery recently, her main concern is uncontrollable back pain, patient is taking gabapentin 800 mg t.i.d. will give methylprednisone 125 mg time x1 and then 60 mg every 6 hours, patient seen by Neurology continue present management will do Keppra level and EEG once clinically stable will have a PT OT evaluate the patient. 07/27 Interval history: patient remains clinically stable no seizures while in the hospital, her pain is also controlled with steroid, however patient complained of chest pain, first tropes is negative there is some changing on EKG compared to arrival, will do cardiac echo to further evaluate and further recommendation to follow. a PT OT work with the patient and further recommendation to follow. (2) Anxiety and depression: Code(s): F41.9 - Anxiety disorder, unspecified; F32.9 - Major depressive disorder, single episode, unspecified Status: Acute Assessment and Plan: Continue home meds (3) Seizure disorder: Code(s): G40.909 - Epilepsy, unspecified, not intractable, without status epilepticus Status: Acute Assessment and Plan: Restart home meds (4) Asthma: Code(s): J45.909 - Unspecified asthma, uncomplicated Status: Acute Assessment and Plan: Not actively wheezing Continue home medications (5) Previous back surgery: Code(s): Z98.890 - Other specified postprocedural states Status: Acute Assessment and Plan: Continue brace Follow-up in outpatient setting Subjective Date/time seen: 07/27/21 11:18 07/26 Interval history: patient with history of seizure was brought to emergency department after patient was having breakthrough seizures not sure, if the patient has been taking her medication however patient is loaded with Keppra and being monitor, the patient also had a back surgery recently, her main concern is uncontrollable back pain, patient is taking gabapentin 800 mg t.i.d. will give methylprednisone 125 mg time x1 and then 60 mg every 6 hours, patient seen by Neurology continue present management will do Keppra level and EEG once clinically stable will have a PT OT evaluate the patient. 07/27 Interval history: patient remains clinically stable no seizures while in the hospital, her pain is also controlled with steroid, however patient complained of chest pain, first tropes is negative there is some changing on EKG compared to arrival, will do cardiac echo to further evaluate and further recommendation to follow. a PT OT work with the patient and further recommendation to follow. Review of Systems Review of Systems: All systems reviewed & are unremarkable except as noted in HPI and below Exam Narrative: moderately obese in pain Patient NAD HEENT: eyes are clear and none icteric LUNGS: normal respiratory effort ABD: distended Lower extremities: no edema SKIN: nonjaundiced Neuro: grossly intact normal speech. Objective Data Vital Signs Vital Signs: Vital Signs - 24 hr 07/26/21 12:00 07/26/21 14:46 07/26/21 14:53 Temperature 98.6 F Pulse Rate 106 H 113 H 109 H Respiratory Rate 18 16 16 Blood Pressure 148/88 H Pulse Oximetry 96 93 07/26/21 16:00 07/26/21 20:00 07/26/21 21:15 Temperature 97.6 F 97.8 F Pulse Rate 112 H 111 H 102 H Respiratory Rate 18 14 16 Blood Pressure 121/64 115/56 L Pulse Oximetry 93 93
[2021-07-27 12:29] LABS: Troponin I < 0.012 ng/mL (0.000-0.034)
[2021-07-27 14:24] LABS: Alanine Aminotransferase 51 U/L (4-35); Albumin Level 4.3 g/dL (3.5-5.1); Alkaline Phosphatase 245 U/L (38-126); Anion Gap 17 mmol/L (8-16); Aspartate Amino Transferase 45 U/L (14-36); Bilirubin,Total 0.4 mg/dL (0.2-1.3); Blood Urea Nitrogen 8 mg/dL (7-17); Calcium 9.3 mg/dL (8.4-10.2); Carbon Dioxide 17 mmol/L (22-30); Chloride 108 mmol/L (98-107); Estimated Glomerular Filt Rate > 60; Glucose 131 mg/dL (65-110); Potassium 4.1 mmol/L (3.4-5.0); Sodium 142 mmol/L (137-145)
[2021-07-27] MEDS: ATORVASTATIN 20 MG TABLET PO (17:50)
[2021-07-27] MEDS: BUDESONIDE RESPULE NEB 0.5 MG/2 ML AMP INHALATION (21:16)
[2021-07-27] MEDS: traZODone HCL 50 MG TABLET 150 MG PO (22:07)
[2021-07-28] VITALS (11 sets, daily range): BP systolic 96–130; BP diastolic 55–75; PULSE 88–130; RESP 18; TEMP 36.3–37.1; O2SAT 91–94
[2021-07-28] MEDS: IPRATROPIUM BR 0.02% INH SOLN 0.5 MG/2.5 ML VIAL INHALATION (03:06)
[2021-07-28] MEDS: HYDROcodone/acetaminophen (*CRX) 5-325 MG TABLET 1 TAB PO ×3 (03:30→14:40)
[2021-07-28 05:13] LABS: Hematocrit 33.5 % (37.0-47.0); Hemoglobin 10.4 g/dL (12.0-15.0); Mean Corpuscular Hemoglobin 27.2 pg (26-34); Mean Corpuscular Volume 87.5 fl (80-100); Mean Platelet Volume 8.8 fl (7.4-10.4); Platelet Count Result 347 k/mm3 (150-375); Red Blood Count 3.83 M/mm3 (4.2-5.4); Red Cell Distribution Width 16.2 % (11.5-14.5); White Blood Count 9.1 K/mm3 (4.5-10.0)
[2021-07-28] MEDS: HEPARIN SODIUM 5,000 UNITS/ML VIAL 5000 UNITS SUB-Q ×2 (05:39→14:40)
[2021-07-28] MEDS: methylPREDNISolone SOD SUCC 125 MG VIAL 60 MG IV PUSH (05:39)
[2021-07-28 05:40] LABS: Alanine Aminotransferase 31 U/L (4-35); Albumin Level 4.1 g/dL (3.5-5.1); Alkaline Phosphatase 173 U/L (38-126); Anion Gap 11 mmol/L (8-16); Aspartate Amino Transferase 23 U/L (14-36); Bilirubin,Total 0.1 mg/dL (0.2-1.3); Blood Urea Nitrogen 13 mg/dL (7-17); Calcium 9.1 mg/dL (8.4-10.2); Carbon Dioxide 24 mmol/L (22-30); Chloride 102 mmol/L (98-107); Estimated Glomerular Filt Rate > 60; Glucose 178 mg/dL (65-110); Magnesium 1.9 mg/dL (1.6-2.3); Potassium 3.6 mmol/L (3.4-5.0); Sodium 137 mmol/L (137-145)
[2021-07-28] MEDS: PARoxetine 20 MG TABLET 40 MG PO (09:00)
[2021-07-28] MEDS: POTASSIUM CHLORIDE 10 MEQ TABLET.ER PO (09:00)
[2021-07-28] MEDS: GABAPENTIN 400 MG CAPSULE 800 MG PO ×2 (09:00→14:40)
[2021-07-28] MEDS: levETIRAcetam 250 MG TABLET 750 MG PO (09:00)
[2021-07-28] MEDS: amLODIPine BESYLATE 5 MG TABLET 10 MG PO (09:01)
[2021-07-28] MEDS: FUROSEMIDE 20 MG TABLET PO (09:01)
[2021-07-28] MEDS: clonazePAM (*CRX) 0.5 MG TABLET PO ×2 (10:55→14:40)
--- NOTE | 2021-07-28 13:20 | PM.DS ---
DS: Admitting Diagnosis Discharge Date 07/28/2021 Admitting Diagnosis Seizures DS: Discharge Diagnosis Discharge Diagnosis (1) Recurrent seizures: Code(s): G40.909 - Epilepsy, unspecified, not intractable, without status epilepticus Status: Acute Assessment and Plan: Restart home meds Received a Keppra load in emergency room Seizures precautions Placed in observation 07/27/21 11:18 07/26 Interval history: patient with history of seizure was brought to emergency department after patient was having breakthrough seizures not sure, if the patient has been taking her medication however patient is loaded with Keppra and being monitor, the patient also had a back surgery recently, her main concern is uncontrollable back pain, patient is taking gabapentin 800 mg t.i.d. will give methylprednisone 125 mg time x1 and then 60 mg every 6 hours, patient seen by Neurology continue present management will do Keppra level and EEG once clinically stable will have a PT OT evaluate the patient. 07/27 Interval history: patient remains clinically stable no seizures while in the hospital, her pain is also controlled with steroid, however patient complained of chest pain, first tropes is negative there is some changing on EKG compared to arrival, will do cardiac echo to further evaluate and further recommendation to follow. a PT OT work with the patient and further recommendation to follow. (2) Anxiety and depression: Code(s): F41.9 - Anxiety disorder, unspecified; F32.9 - Major depressive disorder, single episode, unspecified Status: Acute Assessment and Plan: Continue home meds (3) Seizure disorder: Code(s): G40.909 - Epilepsy, unspecified, not intractable, without status epilepticus Status: Acute Assessment and Plan: Restart home meds (4) Asthma: Code(s): J45.909 - Unspecified asthma, uncomplicated Status: Acute Assessment and Plan: Not actively wheezing Continue home medications (5) Previous back surgery: Code(s): Z98.890 - Other specified postprocedural states Status: Acute Assessment and Plan: Continue brace Follow-up in outpatient setting DS: Summary Hospital Course Reason for hospitalization: Chief Complaint: Seizure Narrative: This is a 51-year-old female with past medical history significant for epilepsy, morbid obesity, recent back surgery, COPD/asthma, hypertension, dyslipidemia, anxiety and depression. Patient was brought to the emergency room after she was witnessed by her sister to have a seizure episode according to sister it describes the episode as her eyes rolling back according to EMS this was for roughly for about 1 minute patient received anti seizure medication and was postictal upon arrival to emergency room at the time of my visit patient was awake and alert however was not able to give much history at that point but was able to states that she has suffered from seizures for long time she denied any fevers ,any c,hills any rigors, any cough, sputum production, shortness of breath, nausea, vomiting, abdominal pain or diarrhea. Patient is status post recent back surgery. Preliminary workup was essentially unrevealing. Patient received a load of Keppra in the emergency room and has been placed in observation for further management evaluation and treatment. Hospital Course: 07/26 Interval history: patient with history of seizure was brought to emergency department after patient was having breakthrough seizures not sure, if the patient has been taking her medication however patient is loaded with Keppra and being monitor, the patient also had a back surgery recently, her main concern is uncontrollable back pain, patient is taking gabapentin 800 mg t.i.d. will give methylprednisone 125 mg time x1 and then 60 mg every 6 hours, patient seen by Neurology continue present management will do Keppra level and EEG once clinically stable will have a PT OT
--- NOTE | 2021-07-28 13:29 | WPDNEUROPN ---
Progress Note: A&P Additional Plan known epileptic for which she was loaded with Keppra and has been continued on Keppra as such additionally complained of pain because the recent back surgery for which she is being treated with gabapentin and methylprednisolone, her examination remains stable neurological she can be discharged to follow in the office for the ongoing epilepsy in about 6 months on the same dosage of Keppra Subjective Date/time seen: 07/28/21 13:29 51 years old lady admitted to the hospital for the complaints of seizures in addition to the ongoing history of epilepsy, recent back surgery, COPD, hypertension, and anxiety with depression. He was documented to have witnessed seizure in the emergency room and was loaded with Keppra in the emergency room, she does have ongoing history of anxiety with depression, congestive heart failure, and hypertension, in addition she has undergone appendectomy cholecystectomy hysterectomy, has been documented to have borderline pulmonary hypertension with trace mild tricuspid regurgitation, negative CTA chest, negative CT scan of the head. Review of Systems Review of Systems: All systems reviewed & are unremarkable except as noted in HPI and below Exam Const: General: cooperative, comfortable, no acute distress, alert and awake Nutritional Appearance: overweight Orientation/consciousness: oriented to person and oriented to place Limitations: no limitations HENMT: Head: normal to inspection and normocephalic Ears: hearing grossly normal bilaterally General nose exam: Normal external nose present Face and sinus: normal facial exam Mouth: Yes Normal oral and palatal mucosa present Eyes: General: appearance normal, both eyes and all related structures Visual Arevalo: normal visual arevalo by confrontation Alignment and Position: alignment normal Periorbital: periorbital findings normal Eyelids: eyelids normal Conjunctivae: conjunctivae normal Sclera: sclerae normal Cornea: corneas normal Pupils: Equal, round and reactive pupils present EOM: EOMs intact bilaterally Neck: Neck: full ROM Resp: Effort & Inspection: normal respiratory effort and able to speak in complete sentences Auscultation: clear to auscultation bilaterally Neuro: General: oriented to person, oriented to place and oriented to time Cranial nerves: Yes CN's II-XII intact bilaterally Cognition (Neuro): normal cognition Speech: normal speech Gait exam (Neuro): Normal gait present Motor exam (neuro): 5/5 motor strength present throughout Deep tendon reflexes (DTR's): Right triceps reflex intensity grade: 1+, Left triceps reflex intensity grade: 1+, Rt Biceps (C5, C6): 1+, Left biceps reflex intensity grade: 1+, Right brachioradialis reflex intensity grade: 1+, Left brachioradialis reflex intensity grade: 1+, Right patellar reflex intensity grade: 1+, Left patellar reflex intensity grade: 1+, Right ankle reflex intensity grade: 1+ and Left ankle reflex intensity grade: 1+ Plantar Reflex Responses: downgoing: bilateral Coordination: [id number] test normal Psych: Appearance: grossly normal Objective Data Vital Signs Vital Signs: Vital Signs - 24 hr 07/27/21 14:02 07/27/21 14:07 07/27/21 16:00 Temperature 36.8 C Pulse Rate 115 H 115 H 129 H Respiratory Rate 18 18 14 Blood Pressure 142/73 H Pulse Oximetry 94 07/27/21 19:31 07/27/21 20:00 07/27/21 21:18 Temperature 37.1 C Pulse Rate 107 H 122 H 116 H Respiratory Rate 16 18 Blood Pressure 122/66 Pulse Oximetry 93 92 07/27/21 21:27 07/28/21 00:00 07/28/21 03:02 Temperature 36.8 C Pulse Rate 117 H 111 H 102 H Respiratory Rate 18 18 Blood Pressure 119/62 Pulse Oximetry 92 93 07/28/21 03:05 07/28/21 03:16 07/28/21 04:00 Temperature Pulse Rate 88 98 89 Respiratory Rate 18 18 Blood Pressure Pulse Oximetry 07/28/21 05:35 07/28/21 08:00 07/28/21 09:03 Temperature 37.1 C Pulse Rate 89 110 H 102 H Respiratory Rate
[2021-07-29 07:37] LABS: Levetiracetam Keppra 38.2 mcg/mL (12.0-46.0)
== END 2021-07-28 15:10 | disposition home or self-care (01) ==
LOC: ANHED 21:34 → ANHIMU 07-26 02:00 → ANH2MED 07-28 03:15 → ANHIMU 07-30 13:34
PROVIDERS: Emergency Medicine; Physician Assistant Medical; Admitting Provider Internal Medicine; Emergency Provider Emergency Medicine; PCP Internal Medicine; Visit Provider Family Medicine
DX: G40.909 Epilepsy, unspecified, not intractable, without status epilepticus (principal); R07.9 Chest pain, unspecified; R06.02 Shortness of breath; F41.9 Anxiety disorder, unspecified; M54.9 Dorsalgia, unspecified; E78.5 Hyperlipidemia, unspecified; I10 Essential (primary) hypertension; J44.9 Chronic obstructive pulmonary disease, unspecified; F41.8 Other specified anxiety disorders; Z79.51 Long term (current) use of inhaled steroids; Z79.01 Long term (current) use of anticoagulants; Z98.890 Other specified postprocedural states
CPT/HCPCS: 36415; 70450; 71045; 71275; 80053; 80177; 81001; 82948; 83605; 83735; 84443; 84484; 85025; 85027; 87086; 93005; 94640; 96361; 96365; 96366; 96367; 96372; 96374; 96375; 96376; 97162; 97165; 99285; A9270; C8929; G0378; G0379; J0131; J1644; J1650; J1885; J1953; J2270; J2930; J3360; J3480; J7050; Q9957; Q9967

== ENCOUNTER 2022-02-09 16:20 | Emergency (ER) | payer OTHER, SELFPAY ==
--- NOTE | ~2022-02-09 | XR_ITS ---
EXAM: XR hand LT min 3V HISTORY: fall, lt hand bruising 3rd digit area COMPARISON: None available FINDINGS: Decreased mineralization. No acute fracture or dislocation. No lytic or blastic lesion. Sc attered mild degenerative change. No erosion or periosteal change. Soft tissues within normal limits. Intact distal radial fixation hardware. IMPRESSION: No acute osseous finding in the left hand. Reviewed, dictated and finalized at location K.
[2022-02-09 16:28] VITALS: BP 130/83; PULSE 78; RESP 18; TEMP 37.1; O2SAT 95
--- NOTE | 2022-02-09 16:45 | ED.UPPEXIN ---
HPI - Extremity Injury (Upper) General Chief Complaint: Extremity Injury, Upper Stated Complaint: Left hand Pain Time Seen by Provider: 02/09/22 16:45 Source: patient Mode of arrival: ambulatory Limitations: no limitations History of Present Illness HPI narrative: 51-year-old female presented for complaint of left hand pain after injury yesterday. She states fell, but her middle finger was stuck in the door caused her to hyperextend it. She states it was deformed after the fall and her pushed it back into place yesterday. States the pain was slightly improved at that time. Bruising to left palm, pain with flexion/extension of fingers, ROM limited due to pain/swelling. Endorses history of left thumb numbness from previous CVA, no new numbness,tingling or weakness to the hand. Tylenol for pain. Related Data Home Medications Medication Instructions Recorded Confirmed atorvastatin 20 mg PO QPM 09/08/20 02/09/22 clonazepam 0.5 mg PO TID 09/08/20 02/09/22 furosemide 20 mg PO DAILY 09/08/20 02/09/22 gabapentin 800 mg PO TID 09/08/20 02/09/22 levetiracetam 750 mg PO BID 09/08/20 02/09/22 paroxetine HCl 40 mg PO QAM 09/08/20 02/09/22 potassium chloride 10 meq PO BID 09/08/20 02/09/22 trazodone 150 mg PO HS 09/08/20 02/09/22 Eliquis 5 mg PO BID 07/26/21 02/09/22 albuterol sulfate 2.5 mg INHALATION Q6H PRN 07/26/21 02/09/22 Allergies Allergy/AdvReac Type Severity Reaction Status Date / Time naproxen Allergy Unknown Unknown Verified 02/09/22 16:32 NSAIDS (Non-Steroidal Allergy Unknown Unknown Verified 02/09/22 16:32 Anti-Inflamma tramadol Allergy Unknown Unknown Verified 02/09/22 16:32 Review of Systems Review of Systems: CONSTITUTIONAL: Denies body aches, fever, chills EYES: Denies visual changes ENT: Denies rhinorrhea, congestion CARDIOVASCULAR: Denies chest pain, palpitations, or edema. RESPIRATORY: Denies cough or dyspnea. GASTROINTESTINAL: Denies abdominal pain, nausea, vomiting, or diarrhea. SKIN: Denies rash, itching, or wounds. MUSCULOSKELETAL:left hand pain NEUROLOGIC: Denies headache, numbness, tingling, or weakness. PSYCH: Denies depression or anxiety. All systems reviewed & are unremarkable except as noted in HPI and below PMFSH Past Medical History Medical History Anxiety Anxiety and depression Asthma History of CHF (congestive heart failure) Hypertension Hypokalemia Seizure disorder Surgical History Surgical History History of appendectomy History of cholecystectomy History of hysterectomy Family History Family History Father Family history of coronary artery disease Mother Family history of coronary artery disease Social History Social History Social History: lifetime nonsmoker, does not drink alcohol, and does not do drugs. She does not work and stays home. Her , Xavi and her son Mario are her surrogate decision makers. Full code Smoking status: Never smoker Second hand tobacco smoke exposure: Yes Alcohol intake: never Substance use: never Substance use type: does not use Gender identity (if verbalized by the patient): Female Spiritual care concerns: No Comments At time of signature, I have reviewed and agree with nursing past medical, surgical, social and family history unless otherwise noted. Please see nursing chart for further information. There is no relevant family history pertinent to the presenting complaint Exam Narrative: GENERAL: Well-appearing, well-nourished, and in no acute distress. HEAD: Normocephalic, atraumatic. EYES: PERRLA, conjunctivae clear NECK: Supple. CHEST: Speaks in full sentences. No respiratory distress. HEART: Regular rate and rhythm. Normal and equal peripheral pulses. EXTRE
== END 2022-02-09 16:56 | disposition home or self-care (01) ==
PROVIDERS: Emergency Provider Nurse Practitioner Family; PCP Internal Medicine
DX: S60.222A Contusion of left hand, initial encounter (principal); W19.XXXA Unspecified fall, initial encounter; F41.9 Anxiety disorder, unspecified; F32.A Depression, unspecified; J45.909 Unspecified asthma, uncomplicated; I11.0 Hypertensive heart disease with heart failure; I50.9 Heart failure, unspecified; G40.909 Epilepsy, unspecified, not intractable, without status epilepticus
CPT/HCPCS: 29130; 73130; 99213; 99214; G0463